=== PATIENT | female | born 2000 | race Caucasian/White ===

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

== ENCOUNTER 2019-01-09 14:45 | Emergency (ER) | payer SELFPAY ==
[~2019-01-09] VITALS: Ht 160 cm; Wt 59.0 kg
[2019-01-09] MEDS ORDERED: LACTATED RINGERS 1,000 ML IV SCH (16:45)
[2019-01-09] MEDS ORDERED: LIDOCAINE 2% VISCOUS 15 ML UDC PO ONE (16:45)
[2019-01-09] MEDS ORDERED: ANTACID SUSP 30 ML UDC (MYLANTA) PO ONE (16:45)
[2019-01-09] MEDS ORDERED: ONDANSETRON 4 MG/2 ML (SDV) Z0FRAN IVP ONE (16:45)
[2019-01-09 16:54] LABS: BASOPHILS % (AUTO) 0 % (0-10); EOSINOPHILS % (AUTO) 0 % (0-10); HEMATOCRIT 44 % (35-52); HEMOGLOBIN 15.4 G/DL (11.5-16.0); LYMPHOCYTES # (AUTO) 1.7 X 10^3 (1.0-4.0); LYMPHOCYTES % (AUTO) 15 % (12-44); MEAN CORPUSCULAR HEMOGLOBIN 30 PG (25-34); MEAN CORPUSCULAR HGB CONC 35 G/DL (32-36); MEAN CORPUSCULAR VOLUME 86 FL (80-99); MEAN PLATELET VOLUME 11.6 FL (7.4-10.4); MONOCYTES # (AUTO) 1.7 X 10^3 (0.0-1.0); MONOCYTES % (AUTO) 15 % (0-12); NEUTROPHILS # (AUTO) 8.1 X 10^3 (1.8-7.8); NEUTROPHILS % (AUTO) 71 % (42-75); PLATELET COUNT 459 10^3/uL (130-400); RED CELL DISTRIBUTION WIDTH 13.7 % (10.0-14.5); WHITE BLOOD COUNT 11.4 10^3/uL (4.3-11.0)
[2019-01-09] MEDS ORDERED: PROC5TAB52 PO (17:05)
--- NOTE | 2019-01-09 17:06 | ED Abdominal Pain ---
General Chief Complaint: Abdominal/GI Problems Stated Complaint: VOMITING Nursing Triage Note: PATIENT STATES THAT SHE HAS HAD VOMITING AND NAUSEA AND WEAKNESS X3 DAYS. SHE BELIEVES SHE HAS HAD FEVERS. Source of Information: Patient Exam Limitations: No Limitations History of Present Illness Date Seen by Provider: Jan 09, 2019 Time Seen by Provider: 17:03 Initial Comments To ER per private vehicle with reports of nausea and vomiting as well as epigastric abdominal pain for the past 3 days. No diarrhea. No alcohol use. No fevers or chills. Timing/Duration: 2-3 Days Severity/Quality: Moderate Location: Epigastric Radiation: No Radiation Activities at Onset: None Associated Symptoms: Nausea/Vomiting Allergies and Home Medications Allergies Coded Allergies: No Known Drug Allergies (Unverified , 05/07/10) Home Medications Norgestimate-Ethinyl Estradiol 1 Each Tablet, 1 TAB PO DAILY, (Reported) Prochlorperazine Maleate 5 Mg Tablet, 5 MG PO TID PRN for NAUSEA/VOMITING Prescribed by: KARIME LINK on 01/09/19 2700 Patient Home Medication List Home Medication List Reviewed: Yes Review of Systems Review of Systems Constitutional: see HPI EENTM: No Symptoms Reported Respiratory: No Symptoms Reported Gastrointestinal: See HPI, Abdominal Pain; Denies Constipated, Denies Diarrhea ; Nausea, Vomiting Genitourinary: No Symptoms Reported Musculoskeletal: no symptoms reported Skin: no symptoms reported Psychiatric/Neurological: No Symptoms Reported Endocrine: No Symptoms Reported Past Dmgmccm-Ivfnna-Cfixox Hx Patient Social History 2nd Hand Smoke Exposure: No Recent Foreign Travel: No Contact w/Someone Who Travel: No Recent Infectious Disease Expo: No Recent Hopitalizations: No Ebola Symptoms: Denies Symptoms Listed Seasonal Allergies Seasonal Allergies: No Past Medical History Surgeries: No Respiratory: No Cardiac: No Neurological: No Reproductive Disorders: No Female Reproductive Disorders: Denies Sexually Transmitted Disease: No HIV/AIDS: No Genitourinary: No Gastrointestinal: No Musculoskeletal: No Endocrine: No HEENT: No Loss of Vision: Denies Hearing Impairment: Denies Cancer: No Psychosocial: No Integumentary: Yes Eczema Blood Disorders: No Family Medical History Alcoholism 19 FATHER 19 MOTHER No Family History of: AIDS Abdominal aortic aneurysm Homar's disease Alzheimer's disease Aphasia Arthritis Asthma Cancer of mouth Cardiovascular disease Cataracts Colon cancer Completed stroke Congenital disease Congenital heart disease Coronary thrombosis Cystic fibrosis Deafness or hearing loss Dementia Diabetes mellitus Drug abuse Dysphasia Fibrocystic disease of breast Gastroenteritis Glaucoma Headache disorder Hypercholesterolemia Hypertension Infertility Kidney disease Myocardial infarction Neoplasm Not obtainable due to adoption Osteoporosis Parkinson's disease Prostate cancer Psychosocial problem Respiratory disorder Seizure disorder Severe allergy Thyroid disease Tuberculosis Visual disorder No Pertinent Family Hx, Psychiatric Problems Physical Exam Vital Signs Vital Signs - First Documented 01/09/19 15:12 Temp 98.4 Pulse 78 Resp 18 B/P (MAP) 122/77 Capillary Refill : Height/Weight/BMI Height: 5'3.00" Weight: 130lbs. 0oz. 58.733670hd; 21.09 BMI Method:Stated General Appearance: WD/WN, no apparent distress HEENT: PERRL/EOMI, normal ENT inspection Respiratory: no respiratory distress, no accessory muscle use Gastrointestinal: normal bowel sounds, soft, tenderness (epigastric) Extremities: normal range of motion, non-tender Neurologic/Psychiatric: alert, normal mood/affect, oriented x 3 Skin: normal color, warm/dry Progress/Results/Core Measures Results/Orders Lab Results Laboratory Tests Test 01/09/19 15:20 Range/Units White Blood Count 11.4 H 4.3-11.0 10^3/uL Red Blood Count 5.08 4.35-5.85 10^6/uL Hemoglobin 15.4 11.5-16.0 G/DL Hematocrit 44 35-52 % Mean Corpuscular Volume 86 80-99 FL Mean Corpuscular Hemoglobin 30 25-34 PG Mean Corpuscular Hemoglobin Concent 35 32-36 G/DL Red Cell Distribution Width 13.7 10.0-14.5 % Platelet Count 459 H 130-400 10^3/uL Mean Platelet Volume 11.6 H 7.4-10.4 FL Neutrophils (%) (Auto) 71 42-75 % Lymphocytes (%) (Auto) 15 12-44 % Monocytes (%) (Auto) 15 H 0-12 % Eosinophils (%) (Auto) 0 0-10 % Basophils (%) (Auto) 0 0-10 % Neutrophils # (Auto) 8.1 H 1.8-7.8 X 10^3 Lymphocytes # (Auto) 1.7 1.0-4.0 X 10^3 Monocytes # (Auto) 1.7 H 0.0-1.0 X 10^3 Eosinophils # (Auto) 0.0 0.0-0.3 10^3/uL Basophils # (Auto) 0.0 0.0-0.1 10^3/uL Sodium Level 137 135-145 MMOL/L Potassium Level 2.8 L 3.6-5.0 MMOL/L Chloride Level 84 L 98-107 MMOL/L Carbon Dioxide Level 33 H 21-32 MMOL/L Anion Gap 20 H 5-14 MMOL/L Blood Urea Nitrogen 49 H 7-18 MG/DL Creatinine 1.46 H 0.60-1.30 MG/DL Estimat Glomerular Filtration Rate 46 BUN/Creatinine Ratio 34 Glucose Level 118 H 70-105 MG/DL Calcium Level 11.0 H 8.5-10.1 MG/DL Corrected Calcium 8.5-10.1 MG/DL Total Bilirubin 1.2 H 0.1-1.0 MG/DL Aspartate Amino Transf (AST/SGOT) 29 5-34 U/L Alanine Aminotransferase (ALT/SGPT) 20 0-55 U/L Alkaline Phosphatase 76 40-136 U/L Total Protein 9.4 H 6.4-8.2 GM/DL Albumin 5.6 H 3.2-4.5 GM/DL Lipase 23 8-78 U/L Serum Test, Qualitative NEGATIVE NEGATIVE Serum Alcohol < 10 <10 MG/DL My Orders Orders - KARIME LINK APRN Antacid Suspension (Mylanta Suspension (01/09/19 16:45) Lidocaine 2% Viscous 15 Ml (Xylocaine Vi (01/09/19 16:45) Ondansetron Injection (Zofran Injectio (01/09/19 16:45) Lactated Ringers (Lr 1000 Ml Iv Solution (01/09/19 16:45) Cbc With Automated Diff (01/09/19 16:45) Comprehensive Metabolic Panel (01/09/19 16:45) Lipase (01/09/19 16:45) Hcg,Qualitative Serum (01/09/19 16:45) Ua Culture If Indicated (01/09/19 16:45) Drug Screen Stat (Urine) (01/09/19 16:45) Alcohol (01/09/19 16:45) Iv Heplock-Insert (Order) (01/09/19 16:45) Ns Iv 1000 Ml (Sodium Chloride 0.9%) (01/09/19 17:45) Potassium Cl 10meq/50ml Ivpb (Kcl 10 Meq (01/09/19 17:45) Normal Saline Bolus 1,000ml (01/09/19 19:15) Medications Given in ED Current Medications Medications Dose Ordered Sig/Jeannette Route Start Time Stop Time Status Last Admin Dose Admin Al Hydrox/Mg Hydrox/Simethicone 30 ml ONCE ONCE PO 01/09/19 16:45 01/09/19 16:46 DC 01/09/19 17:14 30 ML Lidocaine HCl 10 ml ONCE ONCE PO 01/09/19 16:45 01/09/19 16:46 DC 01/09/19 17:14 10 ML Ondansetron HCl 4 mg ONCE ONCE IVP 01/09/19 16:45 01/09/19 16:46 DC 01/09/19 17:14 4 MG Vital Signs/I&O 01/09/19 15:12 Temp 98.4 Pulse 78 Resp 18 B/P (MAP) 122/77 Departure Communication (Admissions) [id number]-she has not had any vomiting here in the emergency room. She states her nausea was minimal at arrival and she was given nausea medication on arrival. She states that at this time she is feeling much better replace her potassium 20 mEq IV here in the emergency room over 2 hours, 40 mEq by mouth, 3 L of IV fluids then discharge to home. Impression Primary Impression: Nausea and vomiting Qualified Codes: R11.2 - Nausea with vomiting, unspecified Additional Impressions: Hypokalemia Acute renal insufficiency Disposition: HOME, SELF-CARE Condition: Stable Departure-Patient Inst. Decision time for Depature: 17:05 Referrals: VICK WALDRON MD (PCP) Primary Care Physician Patient Instructions: Nausea and Vomiting, Adult Add. Discharge Instructions: All discharge instructions reviewed with patient and/or family. Voiced understanding. Scripts Potassium Chloride (Potassium Chloride) 20 Meq Tablet.er 40 MEQ PO DAILY, #8 TAB Prov: KARIME LINK AIR POLLUTION AUDITOR 01/09/19 Pantoprazole Sodium (Protonix) 40 Mg Tablet.dr 40 MG PO DAILY, #30 TAB Prov: KARIME LINK APRN 01/09/19 Prochlorperazine Maleate (Compazine) 5 Mg Tablet 5 MG PO TID PRN for NAUSEA/VOMITING, #10 TAB Prov: KARIME LINK APRN 01/09/19 Work/School Note: Work Release Form Date Seen in the Emergency Department: Jan 09, 2019 Return to Work: Jan 11, 2019 KARIME LINK APRN Jan 09, 2019 17:05
[2019-01-09 17:08] LABS: ALANINE AMINOTRANSFERASE 20 U/L (0-55); ALBUMIN 5.6 GM/DL (3.2-4.5); ALKALINE PHOSPHATASE 76 U/L (40-136); BILIRUBIN,TOTAL 1.2 MG/DL (0.1-1.0); BUN/CREATININE RATIO 34; CARBON DIOXIDE 33 MMOL/L (21-32); CHLORIDE 84 MMOL/L (98-107); CREATININE SERUM 1.46 MG/DL (0.60-1.30); GFR ESTIMATED 46; GLUCOSE 118 MG/DL (70-105); LIPASE 23 U/L (8-78); POTASSIUM 2.8 MMOL/L (3.6-5.0); SODIUM 137 MMOL/L (135-145); TOTAL PROTEIN 9.4 GM/DL (6.4-8.2)
[2019-01-09] MEDS ORDERED: NS IV 1000 ML 1,000 ML IV SCH ×2 (17:45→19:15)
[2019-01-09] MEDS: POTASSIUM CL 10MEQ/50ML IVPB 50 ML IV SCH ×2 (18:00→19:11)
--- NOTE | 2019-01-09 18:02 | NUR ---
PT IS A SCARRED CUTS NOTED BILATERALLY ON ARMS
[2019-01-09] MEDS ORDERED: POTA-51 PO (19:04)
[2019-01-09] MEDS ORDERED: PANT40TA2 PO (19:04)
[2019-01-09 19:15] VITALS: BP 126/79
[2019-01-09] MEDS ORDERED: KCL 10 MEQ TAB (MICRO K) PO ONE (19:15)
[2019-01-09 19:23] LABS: BILIRUBIN,URINE NEGATIVE (NEGATIVE); GLUCOSE, URINE (UA) NEGATIVE (NEGATIVE); KETONES,URINE 1+ (NEGATIVE); LEUKOCYTE ESTERASE ,URINE 1+ (NEGATIVE); NITRITE,URINE NEGATIVE (NEGATIVE); PH,URINE 8 (5-9); PROTEIN,URINE 3+ (NEGATIVE); UROBILINOGEN,URINE NORMAL (NORMAL)
[2019-01-09 19:40] LABS: AMPHETAMINE SCREEN, URINE NEGATIVE (NEGATIVE); BARBITURATE SCREEN URINE NEGATIVE (NEGATIVE); BENZODIAZEPINES SCREEN URINE POSITIVE (NEGATIVE); CANNABINOID SCREEN, URINE POSITIVE (NEGATIVE); COCAINE SCREEN URINE NEGATIVE (NEGATIVE); METHADONE STAT NEGATIVE (NEGATIVE); METHAMPHETAMINE SCREEN URINE S NEGATIVE (NEGATIVE); OPIATE SCREEN URINE NEGATIVE (NEGATIVE); OXYCODONE STAT NEGATIVE (NEGATIVE); PROPOXYPHENE STAT NEGATIVE (NEGATIVE); TRICYCLIC ANTIDEPRESSANTS SCRE NEGATIVE (NEGATIVE)
[2019-01-09 19:43] LABS: CLARITY,URINE SL CLOUDY; COLOR,URINE YELLOW
[2019-01-09 19:46] LABS: BACTERIA,URINE TRACE /HPF
== END 2019-01-09 20:23 | disposition home or self-care (01) ==
LOC: EDUNIT# 14:45 → ER 14:47
DX: N17.9 Acute kidney failure, unspecified (principal); R11.2 Nausea with vomiting, unspecified; E87.6 Hypokalemia
CPT/HCPCS: 36415; 80053; 80306; 80320; 81000; 83690; 84703; 85025

== ENCOUNTER 2019-02-28 12:00 | Emergency (ER) | payer SELFPAY ==
[~2019-02-28] VITALS: Ht 160 cm; Wt 59.0 kg
[~2019-02-28 12:00] MED LIST changes: +PANT40TA2 PO; +POTA-51 PO; +PROC5TAB52 PO
[2019-02-28] MEDS ORDERED: NS IV 1000 ML 1,000 ML IV SCH (12:15)
[2019-02-28] MEDS ORDERED: diphenhydrAMINE 50 MG/ML INJ (BENADRYL) IVP ONE (12:15)
[2019-02-28 12:26] LABS: BILIRUBIN,URINE NEGATIVE (NEGATIVE); CLARITY,URINE CLEAR; COLOR,URINE YELLOW; GLUCOSE, URINE (UA) NEGATIVE (NEGATIVE); KETONES,URINE 3+ (NEGATIVE); LEUKOCYTE ESTERASE ,URINE 1+ (NEGATIVE); NITRITE,URINE NEGATIVE (NEGATIVE); PH,URINE 6 (5-9); PROTEIN,URINE 3+ (NEGATIVE); UROBILINOGEN,URINE 1 MG/DL (NORMAL)
[2019-02-28 12:26] LABS: BASOPHILS % (AUTO) 0 % (0-10); EOSINOPHILS % (AUTO) 0 % (0-10); HEMATOCRIT 45 % (35-52); LYMPHOCYTES # (AUTO) 1.6 X 10^3 (1.0-4.0); LYMPHOCYTES % (AUTO) 16 % (12-44); MEAN CORPUSCULAR HEMOGLOBIN 31 PG (25-34); MEAN CORPUSCULAR HGB CONC 35 G/DL (32-36); MEAN CORPUSCULAR VOLUME 87 FL (80-99); MEAN PLATELET VOLUME 10.9 FL (7.4-10.4); MONOCYTES # (AUTO) 1.4 X 10^3 (0.0-1.0); MONOCYTES % (AUTO) 14 % (0-12); NEUTROPHILS # (AUTO) 7.3 X 10^3 (1.8-7.8); NEUTROPHILS % (AUTO) 71 % (42-75); PLATELET COUNT 396 10^3/uL (130-400); RED CELL DISTRIBUTION WIDTH 13.4 % (10.0-14.5); WHITE BLOOD COUNT 10.3 10^3/uL (4.3-11.0)
[2019-02-28] MEDS ORDERED: HALOPERIDOL 5 MG/ML (HALDOL) AMP IV ONE (12:30)
--- NOTE | 2019-02-28 12:35 | ED Pediatric Illness ---
HPI-Pediatric Illness General Chief Complaint: Abdominal/GI Problems Stated Complaint: NAUSEA, VOMITING Nursing Triage Note: PATIENT AMBULATORY TO ER ROOM 5 WITH COMPLAINT OF NAUSEA, VOMITING AND MID BACK PAIN X 3 DAYS. PATIENT STATES SHE HAS BEEN UNABLE TO KEEP ANY FOODS OR FLUIDS DOWN. SHE IS ALSO COMPLAINING OF FEELING LIGHTHEADED WITH STANDING UP AND WALKING. PATIENT IS AWAKE AND ALERT X 4. Source: patient Exam Limitations: no limitations History of Present Illness Date Seen by Provider: Feb 28, 2019 Time Seen by Provider: 12:33 Initial Comments To ER with a three-day history of epigastric abdominal pain nausea and vomiting. History of recurrent nausea and vomiting and frequent marijuana use. Timing/Duration: other (3 days) Severity: moderate Presenting Symptoms: vomiting Allergies and Home Medications Allergies Coded Allergies: No Known Drug Allergies (Unverified , 05/07/10) Home Medications Norgestimate-Ethinyl Estradiol 1 Each Tablet, 1 TAB PO DAILY, (Reported) Pantoprazole Sodium 40 Mg Tablet.dr, 40 MG PO DAILY Prescribed by: KARIME LINK on 01/09/191903 Potassium Chloride 20 Meq Tablet.er, 40 MEQ PO DAILY Prescribed by: KARIME LINK on 01/09/191903 Prochlorperazine Maleate 5 Mg Tablet, 5 MG PO TID PRN for NAUSEA/VOMITING Prescribed by: KARIME LINK on 01/09/19 170 Patient Home Medication List Home Medication List Reviewed: Yes Review of Systems Review of Systems Constitutional: see HPI EENTM: see HPI Respiratory: no symptoms reported Cardiovascular: no symptoms reported Gastrointestinal: abdominal pain, nausea, vomiting Genitourinary: no symptoms reported : No LMP: Feb 28, 2019 Musculoskeletal: no symptoms reported Skin: no symptoms reported Psychiatric/Neurological: No Symptoms Reported Endocrine: No Symptoms Reported Hematologic/Lymphatic: No Symptoms Reported PMH-Pediatrics Recent Foreign Travel: No Contact w/other who traveled: No Recent Infectious Disease Expo: No Hospitalization with Isolation: Denies Seasonal Allergies: No HX Surgeries: No Hx Respiratory Disorders: No Hx Cardiovascular Disorders: No Hx Neurological Disorders: No Hx Reproductive Disorders: No Sexually Transmitted Disease: No HIV/AIDS: No Female Reproductive Disorders: Denies Hx Genitourinary Disorders: No Hx Gastrointestinal Disorders: No Hx Musculoskeletal Disorders: No Hx Endocrine Disorders: No HX ENT Disorders: No Loss of Vision: Denies Hearing Impairment: Denies Hx Cancer: No Hx Psychiatric Problems: No HX Skin/Integumentary Disorder: Yes Skin/Integumentary Disorders: Eczema Hx Blood Disorders: No Significant Family History: No Pertinent Family Hx, Psychiatric Problems Patient History: Alcoholism 19 FATHER 19 MOTHER No Family History of: AIDS Abdominal aortic aneurysm Mohler's disease Alzheimer's disease Aphasia Arthritis Asthma Cancer of mouth Cardiovascular disease Cataracts Colon cancer Completed stroke Congenital disease Congenital heart disease Coronary thrombosis Cystic fibrosis Deafness or hearing loss Dementia Diabetes mellitus Drug abuse Dysphasia Fibrocystic disease of breast Gastroenteritis Glaucoma Headache disorder Hypercholesterolemia Hypertension Infertility Kidney disease Myocardial infarction Neoplasm Not obtainable due to adoption Osteoporosis Parkinson's disease Prostate cancer Psychosocial problem Respiratory disorder Seizure disorder Severe allergy Thyroid disease Tuberculosis Visual disorder Physical Exam-Pediatric Physical Exam Vital Signs - First Documented 02/28/19 12:02 Temp 98.2 Pulse 80 Resp 18 B/P (MAP) 126/99 Pulse Ox 98 O2 Delivery Room Air Capillary Refill : Height, Weight, BMI Height: 5'3.00" Weight: 130lbs. 0oz. 58.895964yq; 21.09 BMI Method:Actual General Appearance: no acute distress, see HPI, active HENT: head inspection normal, fontanelle closed/normal, PERRL Neck: non-tender, full range of motion Respiratory: normal breath sounds, no respiratory distress, no accessory muscle use Gastrointestinal: normal bowel sounds, soft Neurologic/Psychiatric: alert, normal mood/affect, oriented x 3 Skin: normal color, warm/dry Progress/Results/Core Measures Results/Orders Lab Results Laboratory Tests Test 02/28/19 12:08 02/28/19 12:17 Range/Units Urine Color YELLOW Urine Clarity CLEAR Urine pH 6 5-9 Urine Specific [place] 1.025 H 1.016-1.022 Urine Protein 3+ H NEGATIVE Urine Glucose (UA) NEGATIVE NEGATIVE Urine Ketones 3+ H NEGATIVE Urine Nitrite NEGATIVE NEGATIVE Urine Bilirubin NEGATIVE NEGATIVE Urine Urobilinogen 1 NORMAL MG/DL Urine Leukocyte Esterase 1+ H NEGATIVE Urine RBC (Auto) 5+ H NEGATIVE Urine RBC NONE /HPF Urine WBC NONE /HPF Urine Squamous Epithelial Cells 5-10 /HPF Urine Crystals NONE /LPF Urine Bacteria FEW H /HPF Urine Casts NONE /LPF Urine Mucus NEGATIVE /LPF Urine Culture Indicated NO Urine Opiates Screen NEGATIVE NEGATIVE Urine Oxycodone Screen NEGATIVE NEGATIVE Urine Methadone Screen NEGATIVE NEGATIVE Urine Propoxyphene Screen NEGATIVE NEGATIVE Urine Barbiturates Screen NEGATIVE NEGATIVE Ur Tricyclic Antidepressants Screen NEGATIVE NEGATIVE Urine Phencyclidine Screen NEGATIVE NEGATIVE Urine Amphetamines Screen NEGATIVE NEGATIVE Urine Methamphetamines Screen NEGATIVE NEGATIVE Urine Benzodiazepines Screen NEGATIVE NEGATIVE Urine Cocaine Screen NEGATIVE NEGATIVE Urine Cannabinoids Screen POSITIVE H NEGATIVE White Blood Count 10.3 4.3-11.0 10^3/uL Red Blood Count 5.22 4.35-5.85 10^6/uL Hemoglobin 16.0 11.5-16.0 G/DL Hematocrit 45 35-52 % Mean Corpuscular Volume 87 80-99 FL Mean Corpuscular Hemoglobin 31 25-34 PG Mean Corpuscular Hemoglobin Concent 35 32-36 G/DL Red Cell Distribution Width 13.4 10.0-14.5 % Platelet Count 396 130-400 10^3/uL Mean Platelet Volume 10.9 H 7.4-10.4 FL Neutrophils (%) (Auto) 71 42-75 % Lymphocytes (%) (Auto) 16 12-44 % Monocytes (%) (Auto) 14 H 0-12 % Eosinophils (%) (Auto) 0 0-10 % Basophils (%) (Auto) 0 0-10 % Neutrophils # (Auto) 7.3 1.8-7.8 X 10^3 Lymphocytes # (Auto) 1.6 1.0-4.0 X 10^3 Monocytes # (Auto) 1.4 H 0.0-1.0 X 10^3 Eosinophils # (Auto) 0.0 0.0-0.3 10^3/uL Basophils # (Auto) 0.0 0.0-0.1 10^3/uL Sodium Level 137 135-145 MMOL/L Potassium Level 3.0 L 3.6-5.0 MMOL/L Chloride Level 90 L 98-107 MMOL/L Carbon Dioxide Level 28 21-32 MMOL/L Anion Gap 19 H 5-14 MMOL/L Blood Urea Nitrogen 24 H 7-18 MG/DL Creatinine 1.12 0.60-1.30 MG/DL Estimat Glomerular Filtration Rate > 60 BUN/Creatinine Ratio 21 Glucose Level 112 H 70-105 MG/DL Calcium Level 11.0 H 8.5-10.1 MG/DL Corrected Calcium 8.5-10.1 MG/DL Total Bilirubin 2.2 H 0.1-1.0 MG/DL Aspartate Amino Transf (AST/SGOT) 22 5-34 U/L Alanine Aminotransferase (ALT/SGPT) 22 0-55 U/L Alkaline Phosphatase 77 40-136 U/L Total Protein 9.2 H 6.4-8.2 GM/DL Albumin 5.6 H 3.2-4.5 GM/DL Lipase 37 8-78 U/L My Orders Orders - KARIME LINK [employer]ERGL[employer] FINISHER Cbc With Automated Diff (02/28/19 12:08) Lipase (02/28/19 12:08) Ua Culture If Indicated (02/28/19 12:08) Drug Screen Stat (Urine) (02/28/19 12:08) Comprehensive Metabolic Panel (02/28/19 12:08) Iv Heplock-Insert (Order) (02/28/19 12:08) Hcg,Qualitative Serum (02/28/19 12:08) Ns Iv 1000 Ml (Sodium Chloride 0.9%) (02/28/19 12:15) Diphenhydramine Injection (Benadryl Inje (02/28/19 12:15) Haloperidol Injection (Haldol Injectio (02/28/19 12:30) Potassium Chloride (Tablet) (Klor Con Ta (02/28/19 13:15) Medications Given in ED Current Medications Medications Dose Ordered Sig/Jeannette Route Start Time Stop Time Status Last Admin Dose Admin Diphenhydramine HCl 25 mg ONCE ONCE IVP 02/28/19 12:15 02/28/19 12:16 DC 02/28/19 12:25 25 MG Haloperidol Lactate 3 mg ONCE ONCE IV 02/28/19 12:30 02/28/19 12:31 DC 02/28/19 12:26 3 MG Vital Signs/I&O 02/28/19 12:02 Temp 98.2 Pulse 80 Resp 18 B/P (MAP) 126/99 Pulse Ox 98 O2 Delivery Room Air Departure Communication (Admissions) 1407-feeling better after 3 mg of IV Haldol, Benadryl, normal saline. Impression Primary Impression: Cannabinoid hyperemesis syndrome Disposition: 01 HOME, SELF-CARE Condition: Stable Departure-Patient Inst. Decision time for Depature: 13:08 Referrals: VICK WALDRON MD (PCP) Primary Care Physician NO,LOCAL PHYSICIAN (Family) Primary Care Physician Patient Instructions: Marijuana Use and Addiction (DC) Add. Discharge Instructions: 1. Clear liquids only for the next 12 hours. Try to stay hydrated. Please try to reduce your marijuana intake significantly. In the meantime if this recurs something that other people find helpful is rub come Capsaicin cream (can purchase at [employer]--just looked for the active ingredient on the back of the box) across her abdomen and then wait 30 minutes to an hour. KARIME LINK APRN Feb 28, 2019 12:35
[2019-02-28 12:37] LABS: BACTERIA,URINE FEW /HPF
[2019-02-28 12:39] LABS: AMPHETAMINE SCREEN, URINE NEGATIVE (NEGATIVE); BARBITURATE SCREEN URINE NEGATIVE (NEGATIVE); BENZODIAZEPINES SCREEN URINE NEGATIVE (NEGATIVE); CANNABINOID SCREEN, URINE POSITIVE (NEGATIVE); COCAINE SCREEN URINE NEGATIVE (NEGATIVE); METHADONE STAT NEGATIVE (NEGATIVE); METHAMPHETAMINE SCREEN URINE S NEGATIVE (NEGATIVE); OPIATE SCREEN URINE NEGATIVE (NEGATIVE); OXYCODONE STAT NEGATIVE (NEGATIVE); PROPOXYPHENE STAT NEGATIVE (NEGATIVE); TRICYCLIC ANTIDEPRESSANTS SCRE NEGATIVE (NEGATIVE)
[2019-02-28 12:45] LABS: ALANINE AMINOTRANSFERASE 22 U/L (0-55); ALBUMIN 5.6 GM/DL (3.2-4.5); ALKALINE PHOSPHATASE 77 U/L (40-136); BILIRUBIN,TOTAL 2.2 MG/DL (0.1-1.0); BUN/CREATININE RATIO 21; CARBON DIOXIDE 28 MMOL/L (21-32); CHLORIDE 90 MMOL/L (98-107); CREATININE SERUM 1.12 MG/DL (0.60-1.30); GFR ESTIMATED > 60; GLUCOSE 112 MG/DL (70-105); LIPASE 37 U/L (8-78); SODIUM 137 MMOL/L (135-145); TOTAL PROTEIN 9.2 GM/DL (6.4-8.2)
--- NOTE | 2019-02-28 13:06 | NUR ---
PATIENT IS AWAKE AND ALERT. SHE STATES SHE FEELS MUCH BETTER AFTER FLUIDS AND MEDICATION GIVEN AND NAUSEA IS IMPROVED.
[2019-02-28] MEDS ORDERED: KCL 10 MEQ TAB (MICRO K) PO ONE (13:15)
== END 2019-02-28 13:19 | disposition home or self-care (01) ==
LOC: EDUNIT# 12:00 → ER 12:02
DX: F12.188 Cannabis abuse with other cannabis-induced disorder (principal); R11.2 Nausea with vomiting, unspecified
CPT/HCPCS: 36415; 80053; 80306; 81000; 83690; 84703; 85025; 96361; 96374; 96375

== ENCOUNTER 2019-04-18 10:07 | Emergency (ER) | payer SELFPAY ==
[~2019-04-18] VITALS: Ht 160 cm; Wt 59.0 kg
[2019-04-18 11:49] LABS: BILIRUBIN,URINE NEGATIVE (NEGATIVE); CLARITY,URINE CLEAR; COLOR,URINE YELLOW; GLUCOSE, URINE (UA) NEGATIVE (NEGATIVE); KETONES,URINE NEGATIVE (NEGATIVE); LEUKOCYTE ESTERASE ,URINE 2+ (NEGATIVE); NITRITE,URINE NEGATIVE (NEGATIVE); PH,URINE 7 (5-9); PROTEIN,URINE NEGATIVE (NEGATIVE); UROBILINOGEN,URINE NORMAL (NORMAL)
[2019-04-18 12:04] LABS: BACTERIA,URINE TRACE /HPF; WBC,URINE 25-50 /HPF
[2019-04-18] MEDS ORDERED: LIDOCAINE 1% INJ 20 ML 20 ML VIAL INJ ONE (12:15)
[2019-04-18] MEDS ORDERED: cefTRIAXone 1,000 MG/2.86 ml vial (IM ONLY) IM SCH (12:15)
[2019-04-18] MEDS ORDERED: ONDA4TAB11 PO (12:17)
[2019-04-18] MEDS ORDERED: CEPH500T PO (12:17)
--- NOTE | 2019-04-18 12:17 | ED GU-Female ---
General Chief Complaint: - Urinary Stated Complaint: BACK PAIN Nursing Triage Note: PT STATES LOWER BACK PAIN FOR 4 DAYS. PT HAS BURNING AND PAIN WITH URINATION. PT STATES NAUSEA AND VOMITING. PT HISTORY OF CYLIC VOMITING. PT STATES SHE DOES NOT DRINK ENOUGH WATER. Source: patient Exam Limitations: no limitations History of Present Illness Date Seen by Provider: Apr 18, 2019 Time Seen by Provider: 11:10 Initial Comments 18-year-old female who presents to emergency room with complaints of lower back pain for the past 4 days, burning and pain with urination, nausea and vomiting. She reports marijuana use and cyclic vomiting from time to time but reports that this is different kind of nausea. She denies fevers. Associated Symptoms: dysuria, lower back pain, urinary frequency Allergies and Home Medications Allergies Coded Allergies: No Known Drug Allergies (Unverified , 05/07/10) Home Medications Cephalexin 500 Mg Tablet, 500 MG PO TID Prescribed by: MERRY CARPENTER on 04/18/19 1217 Norgestimate-Ethinyl Estradiol 1 Each Tablet, 1 TAB PO DAILY, (Reported) Ondansetron 4 Mg Tab.rapdis, 4 MG PO Q4H PRN for NAUSEA/VOMITING-1ST LINE Prescribed by: MERRY CARPENTER on 04/18/19 1217 Pantoprazole Sodium 40 Mg Tablet.dr, 40 MG PO DAILY Prescribed by: KARIME LINK on 01/09/19 190 Potassium Chloride 20 Meq Tablet.er, 40 MEQ PO DAILY Prescribed by: KARIME LINK on 01/09/19 190 Prochlorperazine Maleate 5 Mg Tablet, 5 MG PO TID PRN for NAUSEA/VOMITING Prescribed by: KARIME LINK on 01/09/19 1705 Patient Home Medication List Home Medication List Reviewed: Yes Review of Systems Review of Systems Constitutional: see HPI; No chills, No fever Genitourinary: see HPI, burning, frequency, pain Musculoskeletal: see HPI, back pain All Other Systemes Reviewed Negative Unless Noted: Yes Past Lhcmiuw-Wecmen-Hfucty Hx Past Med/Social Hx: Reviewed Nursing Past Med/Soc Hx Patient Social History Alcohol Use: Denies Use Recreational Drug Use: Yes Drug of Choice: WEED 2nd Hand Smoke Exposure: No Recent Foreign Travel: No Contact w/Someone Who Travel: No Recent Hopitalizations: No Physical Abuse: No Sexual Abuse: No Mistreated: No Fear: No Seasonal Allergies Seasonal Allergies: No Past Medical History Surgeries: No Respiratory: No Cardiac: No Neurological: No Reproductive Disorders: No Female Reproductive Disorders: Denies Sexually Transmitted Disease: No HIV/AIDS: No Genitourinary: No Gastrointestinal: No Musculoskeletal: No Endocrine: No HEENT: No Loss of Vision: Denies Hearing Impairment: Denies Cancer: No Psychosocial: No Integumentary: Yes Eczema Blood Disorders: No Family Medical History Reviewed Nursing Family Hx Alcoholism 19 FATHER 19 MOTHER No Family History of: AIDS Abdominal aortic aneurysm Homar's disease Alzheimer's disease Aphasia Arthritis Asthma Cancer of mouth Cardiovascular disease Cataracts Colon cancer Completed stroke Congenital disease Congenital heart disease Coronary thrombosis Cystic fibrosis Deafness or hearing loss Dementia Diabetes mellitus Drug abuse Dysphasia Fibrocystic disease of breast Gastroenteritis Glaucoma Headache disorder Hypercholesterolemia Hypertension Infertility Kidney disease Myocardial infarction Neoplasm Not obtainable due to adoption Osteoporosis Parkinson's disease Prostate cancer Psychosocial problem Respiratory disorder Seizure disorder Severe allergy Thyroid disease Tuberculosis Visual disorder No Pertinent Family Hx, Psychiatric Problems Physical Exam Vital Signs Vital Signs - First Documented 04/18/19 11:07 Temp 96.5 Pulse 83 Resp 18 B/P (MAP) 113/76 Pulse Ox 99 O2 Delivery Room Air Capillary Refill : Height, Weight, BMI Height: 5'3.00" Weight: 130lbs. 0oz. [id number]; 21.09 BMI Method:Stated General Appearance: WD/WN, no apparent distress Respiratory: chest non-tender, lungs clear, normal breath sounds, no respiratory distress, no accessory muscle use, respiratory distress Gastrointestinal: normal bowel sounds, non tender, soft, no organomegaly, no pulsatile mass, abnormal bowel sounds Back: normal inspection, no CVA tenderness, no vertebral tenderness Extremities: normal capillary refill Neurologic/Psychiatric: alert, normal mood/affect, oriented x 3 Skin: normal color, warm/dry Progress/Results/Core Measures Suspected Sepsis SIRS Temperature:96.5 Pulse: Respiratory Rate: Blood Pressure / Mean: Results/Orders Lab Results Laboratory Tests Test 04/18/19 11:11 Range/Units Urine Color YELLOW Urine Clarity CLEAR Urine pH 7 5-9 Urine Specific [place] 1.010 L 1.016-1.022 Urine Protein NEGATIVE NEGATIVE Urine Glucose (UA) NEGATIVE NEGATIVE Urine Ketones NEGATIVE NEGATIVE Urine Nitrite NEGATIVE NEGATIVE Urine Bilirubin NEGATIVE NEGATIVE Urine Urobilinogen NORMAL NORMAL MG/DL Urine Leukocyte Esterase 2+ H NEGATIVE Urine RBC (Auto) 1+ H NEGATIVE Urine RBC 2-5 H /HPF Urine WBC 25-50 H /HPF Urine Squamous Epithelial Cells 2-5 /HPF Urine Crystals NONE /LPF Urine Bacteria TRACE /HPF Urine Casts NONE /LPF Urine Mucus NEGATIVE /LPF Urine Culture Indicated YES Urine Test NEGATIVE NEGATIVE Micro Results Microbiology 04/18/19 Urine Culture - Final, Complete Staphylococcus saphrophyticus My Orders Orders - MERRY CARPENTER Ua Culture If Indicated (04/18/19 11:14) Hcg,Qualitative Urine (04/18/19 11:14) Urine Culture (04/18/19 11:11) Ceftriaxone For Im Use (Rocephin For Im (04/18/19 12:15) Lidocaine 1% Inj 20 Ml (Xylocaine 1% Inj (04/18/19 12:15) Vital Signs/I&O Capillary Refill : Departure Impression Primary Impression: Urinary tract infection Disposition: 01 HOME, SELF-CARE Condition: Stable/Unchanged Departure-Patient Inst. Decision time for Depature: 12:15 Referrals: VICK WALDRON MD (PCP/Family) Primary Care Physician Patient Instructions: Urinary Tract Infection, Adult (DC) Add. Discharge Instructions: Take medication as directed. Drink plenty of fluids like water to help flush out your kidneys and urinary tract. Follow-up with your primary care provider within 1 week for recheck. Return back to the emergency room for worsening symptoms or concerns as needed. All discharge instructions reviewed with patient and/or family. Voiced understanding. Scripts Ondansetron (Ondansetron Odt) 4 Mg Tab.rapdis 4 MG PO Q4H PRN for NAUSEA/VOMITING-1ST LINE, #14 TAB Prov: MERRY CARPENTER 04/18/19 Cephalexin (Cephalexin) 500 Mg Tablet 500 MG PO TID for 7 Days, #21 TAB 0 Refills Prov: MERRY CARPENTER 04/18/19 MERRY CARPENTER Apr 18, 2019 12:17
== END 2019-04-18 12:38 | disposition home or self-care (01) ==
LOC: EDUNIT# 10:07 → ER 10:08
DX: N39.0 Urinary tract infection, site not specified (principal); F12.10 Cannabis abuse, uncomplicated
CPT/HCPCS: 81000; 84703; 87077; 87088; 96372; 99284

== ENCOUNTER 2019-08-08 00:54 | Emergency (ER) | payer SELFPAY ==
[~2019-08-08] VITALS: Ht 160 cm; Wt 54.5 kg
[~2019-08-08 00:54] MED LIST changes: +CEPH500T PO; +ONDA4TAB11 PO
[2019-08-08] MEDS ORDERED: LIDOCAINE 1% INJ 20 ML 20 ML VIAL INJ ONE (01:30)
--- NOTE | 2019-08-08 01:32 | ED Fall/Injury ---
General Chief Complaint: Laceration Stated Complaint: LAC OVER RT EYE Nursing Triage Note: Pt amb to room #9 with c/o lac to superior rt eyebrow. Pt reports @ approx 0030 on this day she "tripped over a broken flower pot" and accuired laceration by a piece of broken glass. Pt reports headache to rt temperal area. Denies loc, neck, or back pain. Reports to be current on tetanus vaccine. Pt noted to be tearful and anxious during triage. Source: patient, family (sister) Exam Limitations: no limitations History of Present Illness Date Seen by Provider: Aug 08, 2019 Time Seen by Provider: 01:18 Initial Comments Patient presents to ER by private conveyance with chief complaint that she was at her house with some friends and somehow lost her balance and fell onto the ground. There was some already broken glass. She says Her right forehead above the right eye. She has no other pain or injuries anywhere else. She denies loss of consciousness nausea headache. She has not taken anything for the pain she said the pain is all discharge around the laceration. She does not have any significant medical problems. She answers yes when asked if she feels safe at home. This occurred approximately 1-1/2 hours prior to arrival. Allergies and Home Medications Allergies Coded Allergies: No Known Drug Allergies (Unverified , 05/07/10) Home Medications Cephalexin 500 Mg Tablet, 500 MG PO TID Prescribed by: MERRY CARPENTER on 04/18/19 1217 Norgestimate-Ethinyl Estradiol 1 Each Tablet, 1 TAB PO DAILY, (Reported) Ondansetron 4 Mg Tab.rapdis, 4 MG PO Q4H PRN for NAUSEA/VOMITING-1ST LINE Prescribed by: MERRY CARPENTER on 04/18/19 121 Pantoprazole Sodium 40 Mg Tablet.dr, 40 MG PO DAILY Prescribed by: KARIME LINK on 01/09/191903 Potassium Chloride 20 Meq Tablet.er, 40 MEQ PO DAILY Prescribed by: KARIME LINK on 01/09/191903 Prochlorperazine Maleate 5 Mg Tablet, 5 MG PO TID PRN for NAUSEA/VOMITING Prescribed by: KARIME LINK on 01/09/19 1705 Patient Home Medication List Home Medication List Reviewed: Yes Review of Systems Review of Systems Constitutional: No chills, No fever Eyes: Denies Blindness, Denies Blurred Vision Ears, Nose, Mouth, Throat: denies ear pain, denies ear discharge Respiratory: No cough, No short of breath Cardiovascular: No chest pain, No edema Past Myjvhwv-Ppgeko-Gptxzq Hx Patient Social History Alcohol Use: Denies Use Recreational Drug Use: Yes Drug of Choice: THC Smoking Status: Never a Smoker 2nd Hand Smoke Exposure: No Recent Foreign Travel: No Contact w/Someone Who Travel: No Recent Infectious Disease Expo: No Recent Hopitalizations: No Seasonal Allergies Seasonal Allergies: No Past Medical History Surgeries: No Respiratory: No Cardiac: No Neurological: No Reproductive Disorders: No Female Reproductive Disorders: Denies Sexually Transmitted Disease: No HIV/AIDS: No Genitourinary: No Gastrointestinal: No Musculoskeletal: No Endocrine: No HEENT: No Loss of Vision: Denies Hearing Impairment: Denies Cancer: No Psychosocial: No Integumentary: Yes Eczema Blood Disorders: No Family Medical History Alcoholism 19 FATHER 19 MOTHER No Family History of: AIDS Abdominal aortic aneurysm Atkinson's disease Alzheimer's disease Aphasia Arthritis Asthma Cancer of mouth Cardiovascular disease Cataracts Colon cancer Completed stroke Congenital disease Congenital heart disease Coronary thrombosis Cystic fibrosis Deafness or hearing loss Dementia Diabetes mellitus Drug abuse Dysphasia Fibrocystic disease of breast Gastroenteritis Glaucoma Headache disorder Hypercholesterolemia Hypertension Infertility Kidney disease Myocardial infarction Neoplasm Not obtainable due to adoption Osteoporosis Parkinson's disease Prostate cancer Psychosocial problem Respiratory disorder Seizure disorder Severe allergy Thyroid disease Tuberculosis Visual disorder No Pertinent Family Hx, Psychiatric Problems Physical Exam Vital Signs Vital Signs - First Documented 08/08/19 01:10 Temp 36.4 Pulse 89 Resp 15 Pulse Ox 98 O2 Delivery Room Air Capillary Refill : Less Than 3 Seconds Height, Weight, BMI Height: 5'3.00" Weight: 130lbs. 0oz. [id number]; 21.00 BMI Method:Stated General Appearance: WD/WN, no apparent distress HEENT: PERRL/EOMI, normal ENT inspection, pharynx normal Neck: non-tender, full range of motion Cardiovascular: normal peripheral pulses, regular rate, rhythm Respiratory: no respiratory distress, no accessory muscle use Neurologic/Psychiatric: pain medicine physician II-XII nml as tested, no motor/sensory deficits, alert, normal mood/affect, oriented x 3 Skin: normal color, warm/dry, other (dried blood over her skin but no abrasions. There is a 2 cm linear subcutaneous laceration above the right eyebrow.) Sidra Coma Score Best Eye Response: (4) Open Spontaneously Best Verbal Response: (5) Oriented Best Motor Response: (6) Obeys Commands [place] Total: 15 Procedures/Interventions Wound Location: Face Other Wound Location Above the right eyebrow Wound Length (cm): 2.2 Wound's Depth, Shape: linear, sub Q Wound Explored: no foreign body removed Irrigated w/ Saline (ccs): 100 Betadine Prep?: Yes (chlorhexidine) Anesthesia: 1% Lidocaine Volume Anesthetic (ccs): 2 Wound Debrided: minimal Suture: Prolene Suture Size: 4-0 Number of Sutures: 4 Sterile Dressing Applied?: Yes Progress/Results/Core Measures Results/Orders My Orders Orders - VIVIAN SMITH Lidocaine 1% Inj 20 Ml (Xylocaine 1% Inj (08/08/19 01:30) Medications Given in ED Current Medications Medications Dose Ordered Sig/Jeannette Route Start Time Stop Time Status Last Admin Dose Admin Lidocaine HCl 20 ml ONCE ONCE INJ 08/08/19 01:30 08/08/19 01:31 DC 08/08/19 01:35 20 ML Vital Signs/I&O 08/08/19 01:10 Temp 36.4 Pulse 89 Resp 15 B/P (MAP) Pulse Ox 98 O2 Delivery Room Air Progress Progress Note : Time: 01:30 Progress Note Patient states she is up-to-date on vaccinations. Plan to clean the wound up and stitched up. Departure Impression Primary Impression: Laceration of face without complication Qualified Codes: S01.81XA - Laceration without foreign body of other part of head, initial encounter Disposition: 01 HOME, SELF-CARE Condition: Improved Departure-Patient Inst. Decision time for Depature: 01:46 Referrals: VICK WALDRON MD (PCP/Family) Primary Care Physician Patient Instructions: Laceration Repair With Stitches (DC) Add. Discharge Instructions: Please return to the ER or your physician in 10-14 days to have the sutures removed. Keep the wound clean with regular soap and water. You can put a thin dollop of Vaseline over the stitches of a Band-Aid does not stick to it. It's okay to leave the wound open to air. Tylenol 1000 mg every 8 hours in addition to ibuprofen 800 mg every 8 hours as needed for pain. All discharge instructions reviewed with patient and/or family. Voiced understanding. VIVIAN SMITH Aug 08, 2019 01:32
[2019-08-08 01:50] VITALS: BP 124/65
== END 2019-08-08 01:50 | disposition home or self-care (01) ==
LOC: EDUNIT# 00:54 → ER 00:55
DX: S01.81XA Laceration without foreign body of other part of head, initial encounter (principal); R40.2142 Coma scale, eyes open, spontaneous, at arrival to emergency department; R40.2252 Coma scale, best verbal response, oriented, at arrival to emergency department; R40.2362 Coma scale, best motor response, obeys commands, at arrival to emergency department; W25.XXXA Contact with sharp glass, initial encounter; W18.39XA Other fall on same level, initial encounter; Y92.019 Unspecified place in single-family (private) house as the place of occurrence of the external cause
CPT/HCPCS: 12011

== ENCOUNTER 2020-04-06 07:33 | Emergency (ER) | payer SELFPAY ==
[~2020-04-06] VITALS: Ht 160 cm; Wt 54.5 kg
[2020-04-06] MEDS ORDERED: LACTATED RINGERS 1,000 ML IV ONE (07:56)
[2020-04-06] MEDS ORDERED: PROMETHAZINE INJ 25 MG/ML (PHENERGAN) AMP IVP ONE (08:00)
[2020-04-06] MEDS ORDERED: HYOSCYAMINE 0.125 MG (LEVSIN) TAB SL ONE (08:00)
[2020-04-06 08:23] LABS: BASOPHILS % (AUTO) 0 % (0-10); EOSINOPHILS % (AUTO) 0 % (0-10); HEMATOCRIT 41 % (35-52); HEMOGLOBIN 14.2 G/DL (11.5-16.0); LYMPHOCYTES # (AUTO) 1.7 X 10^3 (1.0-4.0); LYMPHOCYTES % (AUTO) 12 % (12-44); MEAN CORPUSCULAR HEMOGLOBIN 31 PG (25-34); MEAN CORPUSCULAR HGB CONC 35 G/DL (32-36); MEAN CORPUSCULAR VOLUME 88 FL (80-99); MEAN PLATELET VOLUME 11.4 FL (7.4-10.4); MONOCYTES # (AUTO) 1.3 X 10^3 (0.0-1.0); MONOCYTES % (AUTO) 9 % (0-12); NEUTROPHILS # (AUTO) 11.4 X 10^3 (1.8-7.8); NEUTROPHILS % (AUTO) 79 % (42-75); PLATELET COUNT 351 10^3/uL (130-400); RED CELL DISTRIBUTION WIDTH 14.8 % (10.0-14.5); WHITE BLOOD COUNT 14.4 10^3/uL (4.3-11.0)
[2020-04-06 08:35] LABS: ALBUMIN 5.2 GM/DL (3.2-4.5); CHLORIDE 102 MMOL/L (98-107); POTASSIUM 3.8 MMOL/L (3.6-5.0); SODIUM 140 MMOL/L (135-145)
[2020-04-06 08:36] LABS: CALCIUM 10.4 MG/DL (8.5-10.1)
--- NOTE | 2020-04-06 08:37 | ED GI ---
General Chief Complaint: Abdominal/GI Problems Stated Complaint: VOMITING;FEVER Nursing Triage Note: AMB TO ROOM C/O OF LOW ABD PAIN AND VOMITING FOR 2 DAYS. REPORTS DOES SMOKE POT EVERYDAY. 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 Sepsis Screen: No Definite Risk Source of Information: Patient Exam Limitations: No Limitations History of Present Illness Date Seen by Provider: April 06, 2020 Time Seen by Provider: 07:44 Initial Comments This 19-year-old young lady presents to the emergency room with vomiting, diarrhea, abdominal pain, and cramping that started last night. She admittedly has a marijuana addiction and has suffered from bouts of cannabis hyperemesis syndrome in the past. She denies any fever. She does not believe she is as her LMP was one week ago. She took some Zofran at home which was not sufficient for controlling her vomiting. She has not had any diarrhea this morning but vomiting continues. Pain and cramping is in the lower abdomen. Patient admits that her marijuana use is an addiction and is disruptive to her life. She is open to seeking help with treatment for this. Allergies and Home Medications Allergies Coded Allergies: No Known Drug Allergies (Unverified , 05/07/10) Home Medications Cephalexin 500 Mg Tablet, 500 MG PO TID Prescribed by: MERRY CARPENTER on 04/18/19 1217 Norgestimate-Ethinyl Estradiol 1 Each Tablet, 1 TAB PO DAILY, (Reported) Ondansetron 4 Mg Tab.rapdis, 4 MG PO Q4H PRN for NAUSEA/VOMITING-1ST LINE Prescribed by: MERRY CARPENTER on 04/18/19 1217 Pantoprazole Sodium 40 Mg Tablet.dr, 40 MG PO DAILY Prescribed by: KARIME LINK on 01/09/191903 Potassium Chloride 20 Meq Tablet.er, 40 MEQ PO DAILY Prescribed by: KARIME LINK on 01/09/19 190 Prochlorperazine Maleate 5 Mg Tablet, 5 MG PO TID PRN for NAUSEA/VOMITING Prescribed by: KARIME LINK on 01/09/19 1705 Patient Home Medication List Home Medication List Reviewed: Yes Review of Systems Review of Systems Constitutional: no symptoms reported EENTM: No Symptoms Reported Respiratory: No Symptoms Reported Cardiovascular: No Symptoms Reported Gastrointestinal: See HPI Genitourinary: No Symptoms Reported Musculoskeletal: no symptoms reported Skin: no symptoms reported Psychiatric/Neurological: See HPI Endocrine: No Symptoms Reported Hematologic/Lymphatic: No Symptoms Reported Past Qwlnvsk-Sjdcrf-Urzlkl Hx Past Med/Social Hx: Reviewed Nursing Past Med/Soc Hx Patient Social History Alcohol Use: Denies Use Recreational Drug Use: Yes Drug of Choice: THC 2nd Hand Smoke Exposure: No Recent Foreign Travel: No Contact w/Someone Who Travel: No Recent Infectious Disease Expo: No Recent Hopitalizations: No Seasonal Allergies Seasonal Allergies: No Past Medical History Surgeries: No Respiratory: No Cardiac: No Neurological: No : No Last Menstrual Period: March 30, 2020 Reproductive Disorders: No Female Reproductive Disorders: Denies Sexually Transmitted Disease: No HIV/AIDS: No Genitourinary: No Gastrointestinal: No Musculoskeletal: No Endocrine: No HEENT: No Loss of Vision: Denies Hearing Impairment: Denies Cancer: No Psychosocial: No Integumentary: Yes Eczema Blood Disorders: No Family Medical History Alcoholism 19 FATHER 19 MOTHER No Family History of: AIDS Abdominal aortic aneurysm [place]'s disease Alzheimer's disease Aphasia Arthritis Asthma Cancer of mouth Cardiovascular disease Cataracts Colon cancer Completed stroke Congenital disease Congenital heart disease Coronary thrombosis Cystic fibrosis Deafness or hearing loss Dementia Diabetes mellitus Drug abuse Dysphasia Fibrocystic disease of breast Gastroenteritis Glaucoma Headache disorder Hypercholesterolemia Hypertension Infertility Kidney disease Myocardial infarction Neoplasm Not obtainable due to adoption Osteoporosis Parkinson's disease Prostate cancer Psychosocial problem Respiratory disorder Seizure disorder Severe allergy Thyroid disease Tuberculosis Visual disorder No Pertinent Family Hx, Psychiatric Problems Physical Exam Vital Signs Vital Signs - First Documented 04/06/20 07:38 Temp 37.0 Pulse 69 Resp 18 B/P (MAP) 130/60 (83) Pulse Ox 98 O2 Delivery Room Air Capillary Refill : Less Than 3 Seconds Height/Weight/BMI Height: 5'3.00" Weight: 130lbs. 0oz. 58.914132td; 21.00 BMI Method:Stated General Appearance: WD/WN, no apparent distress HEENT: PERRL/EOMI, normal ENT inspection, pharynx normal Neck: normal inspection Respiratory: lungs clear, normal breath sounds, no respiratory distress, no accessory muscle use Cardiovascular: regular rate, rhythm, no edema, no murmur Gastrointestinal: soft, abnormal bowel sounds (decreased); No distended; tenderness (generalized throughout with no focal tenderness) Extremities: normal inspection, no pedal edema Neurologic/Psychiatric: skiver machine II-XII nml as tested, no motor/sensory deficits, alert, normal mood/affect, oriented x 3 Skin: normal color, warm/dry Procedures/Interventions Suture Size: 4-0 Progress/Results/Core Measures Results/Orders Lab Results Laboratory Tests Test 04/06/20 08:05 04/06/20 08:50 Range/Units White Blood Count 14.4 H 4.3-11.0 10^3/uL Red Blood Count 4.66 4.35-5.85 10^6/uL Hemoglobin 14.2 11.5-16.0 G/DL Hematocrit 41 35-52 % Mean Corpuscular Volume 88 80-99 FL Mean Corpuscular Hemoglobin 31 25-34 PG Mean Corpuscular Hemoglobin Concent 35 32-36 G/DL Red Cell Distribution Width 14.8 H 10.0-14.5 % Platelet Count 351 130-400 10^3/uL Mean Platelet Volume 11.4 H 7.4-10.4 FL Neutrophils (%) (Auto) 79 H 42-75 % Lymphocytes (%) (Auto) 12 12-44 % Monocytes (%) (Auto) 9 0-12 % Eosinophils (%) (Auto) 0 0-10 % Basophils (%) (Auto) 0 0-10 % Neutrophils # (Auto) 11.4 H 1.8-7.8 X 10^3 Lymphocytes # (Auto) 1.7 1.0-4.0 X 10^3 Monocytes # (Auto) 1.3 H 0.0-1.0 X 10^3 Eosinophils # (Auto) 0.0 0.0-0.3 10^3/uL Basophils # (Auto) 0.0 0.0-0.1 10^3/uL Neutrophils % (Manual) 78 % Lymphocytes % (Manual) 16 % Monocytes % (Manual) 4 % Eosinophils % (Manual) 0 % Basophils % (Manual) 0 % Band Neutrophils 2 % Blood Morphology Comment NORMAL Sodium Level 140 135-145 MMOL/L Potassium Level 3.8 3.6-5.0 MMOL/L Chloride Level 102 98-107 MMOL/L Carbon Dioxide Level 22 21-32 MMOL/L Anion Gap 16 H 5-14 MMOL/L Blood Urea Nitrogen 23 H 7-18 MG/DL Creatinine 1.46 H 0.60-1.30 MG/DL Estimat Glomerular Filtration Rate 46 BUN/Creatinine Ratio 16 Glucose Level 134 H 70-105 MG/DL Calcium Level 10.4 H 8.5-10.1 MG/DL Corrected Calcium 8.5-10.1 MG/DL Magnesium Level 1.8 1.6-2.4 MG/DL Total Bilirubin 1.0 0.1-1.0 MG/DL Aspartate Amino Transf (AST/SGOT) 29 5-34 U/L Alanine Aminotransferase (ALT/SGPT) 20 0-55 U/L Alkaline Phosphatase 73 40-136 U/L C-Reactive Protein High Sensitivity 0.10 0.00-0.50 MG/DL Total Protein 8.6 H 6.4-8.2 GM/DL Albumin 5.2 H 3.2-4.5 GM/DL Serum Test, Qualitative NEGATIVE NEGATIVE Urine Color YELLOW Urine Clarity CLEAR Urine pH 6.0 5-9 Urine Specific [place] >=1.030 1.016-1.022 Urine Protein 2+ H NEGATIVE Urine Glucose (UA) NEGATIVE NEGATIVE Urine Ketones TRACE H NEGATIVE Urine Nitrite NEGATIVE NEGATIVE Urine Bilirubin 1+ H NEGATIVE Urine Urobilinogen 1.0 < = 1.0 MG/DL Urine Leukocyte Esterase TRACE H NEGATIVE Urine RBC (Auto) 1+ H NEGATIVE Urine RBC 0-2 /HPF Urine WBC 5-10 H /HPF Urine Squamous Epithelial Cells 5-10 /HPF Urine Crystals NONE /LPF Urine Bacteria MODERATE H /HPF Urine Casts PRESENT /LPF Urine Hyaline Casts 10-25 H /LPF Urine Mucus MODERATE H /LPF Urine Culture Indicated YES My Orders Orders - ASHLEY THAO MD Ed Iv/Invasive Line Start (04/06/20 07:56) Lactated Ringers (Lr 1000 Ml Iv Solution (04/06/20 07:56) Promethazine Injection (Phenergan Injec (04/06/20 08:00) Hyoscyamine Sl Tablet (Levsin Sl Tablet) (04/06/20 08:00) Cbc With Automated Diff (04/06/20 07:56) Comprehensive Metabolic Panel (04/06/20 07:56) Hcg,Qualitative Serum (04/06/20 07:56) Magnesium (04/06/20 07:56) Ua Culture If Indicated (04/06/20 07:56) Manual Differential (04/06/20 08:05) Hs C Reactive Protein (04/06/20 08:29) Urine Culture (04/06/20 08:50) Ceftriaxone For Iv Use (Rocephin For I (04/06/20 09:15) Medications Given in ED Current Medications Medications Dose Ordered Sig/Jeannette Route Start Time Stop Time Status Last Admin Dose Admin Hyoscyamine Sulfate 0.25 mg ONCE ONCE SL 04/06/20 08:00 04/06/20 08:01 DC 04/06/20 08:09 0.25 MG Lactated Ringer's 1,000 ml @ 0 mls/hr Q0M ONCE IV 04/06/20 07:56 04/06/20 07:58 DC 04/06/20 08:11 1,000 MLS/HR Promethazine HCl 25 mg ONCE ONCE IVP 04/06/20 08:00 04/06/20 08:01 DC 04/06/20 08:10 25 MG Vital Signs/I&O 04/06/20 07:38 Temp 37.0 Pulse 69 Resp 18 B/P (MAP) 130/60 (83) Pulse Ox 98 O2 Delivery Room Air Blood Pressure Mean: 83 Progress Progress Note : Progress Note Patient was treated with a liter of LR and Phenergan. She is feeling much better. UTI was identified and Rocephin was given. Patient was encouraged to seek treatment for her marijuana addiction. See discharge instructions. Departure Impression Primary Impression: Cannabis hyperemesis syndrome concurrent with and due to cannabis dependence Additional Impression: Urinary tract infection Qualified Codes: N39.0 - Urinary tract infection, site not specified Disposition: 01 HOME, SELF-CARE Condition: Improved Departure-Patient Inst. Decision time for Depature: 08:35 Referrals: VICK WALDRON MD (PCP/Family) Primary Care Physician Patient Instructions: Marijuana Use and Addiction Add. Discharge Instructions: Follow-up at the [facility] as soon as possible. At your follow-up inquire about addiction treatment services. Also consider connecting with substance abuse support groups in the area which might include [facility] or [facility] at [facility] in [place]. Use Zofran for initial treatment of nausea and vomiting. Add Phenergan as prescribed for nausea not controlled by Zofran. Start with a clear liquid diet. Gradually advance your diet with small quantities of bland food as tolerated. Drink plenty of clear liquids. Complete your antibiotics as prescribed. Return to care if you have worsening symptoms despite following these measures. All discharge instructions reviewed with patient and/or family. Voiced understanding. Scripts Cephalexin (Keflex) 500 Mg Capsule 500 MG PO TID, #20 CAP Prov: ASHLEY THAO MD 04/06/20 Promethazine HCl (Promethazine Tablet) 25 Mg Tablet 25 MG PO Q8H PRN for NAUSEA/VOMITING, #10 TAB 0 Refills Prov: ASHLEY THAO MD 04/06/20 ASHLEY THAO MD April 06, 2020 08:37
[2020-04-06 08:38] LABS: GLUCOSE 134 MG/DL (70-105); TOTAL PROTEIN 8.6 GM/DL (6.4-8.2)
[2020-04-06 08:39] LABS: CARBON DIOXIDE 22 MMOL/L (21-32)
[2020-04-06 08:41] LABS: ALKALINE PHOSPHATASE 73 U/L (40-136); CREATININE SERUM 1.46 MG/DL (0.60-1.30); GFR ESTIMATED 46
[2020-04-06 08:42] LABS: BUN/CREATININE RATIO 16
[2020-04-06 08:44] LABS: ALANINE AMINOTRANSFERASE 20 U/L (0-55); MAGNESIUM 1.8 MG/DL (1.6-2.4)
--- NOTE | 2020-04-06 08:49 | NUR ---
TO ROOM REPORTS FEELING BETTER AMB TO BATHROOM TO [facility]A
[2020-04-06 08:59] LABS: CLARITY,URINE CLEAR; COLOR,URINE YELLOW; GLUCOSE, URINE (UA) NEGATIVE (NEGATIVE); KETONES,URINE TRACE (NEGATIVE); LEUKOCYTE ESTERASE ,URINE TRACE (NEGATIVE); NITRITE,URINE NEGATIVE (NEGATIVE); PROTEIN,URINE 2+ (NEGATIVE)
[2020-04-06 09:01] LABS: BAND NEUTROPHILS 2 %; BASOPHILS % (MANUAL) 0 %; EOSINOPHILS % (MANUAL) 0 %; LYMPHOCYTES % (MANUAL) 16 %; MONOCYTES % (MANUAL) 4 %; NEUTROPHILS % (MANUAL) 78 %; RBC MORPH NORMAL
[2020-04-06 09:07] LABS: BACTERIA,URINE MODERATE /HPF; BILIRUBIN,URINE 1+ (NEGATIVE); RBC,URINE 0-2 /HPF
[2020-04-06] MEDS ORDERED: CEPH-507 PO (09:13)
[2020-04-06] MEDS ORDERED: PROM25TA14 PO (09:13)
[2020-04-06] MEDS ORDERED: cefTRIAXone FOR IV USE 1,000 MG in WATER (STERILE) FOR INJECTION 10 ML IV ONE (09:15)
[2020-04-06 09:28] VITALS: BP 115/92
[2020-04-07] MEDS ORDERED: ONDA4TAB11 SL (08:34)
== END 2020-04-06 09:28 | disposition home or self-care (01) ==
LOC: EDUNIT# 07:33 → ER 07:35
DX: F12.288 Cannabis dependence with other cannabis-induced disorder (principal); N39.0 Urinary tract infection, site not specified
CPT/HCPCS: 36415; 80053; 81000; 83735; 84703; 85007; 85027; 86141; 87088; 96361; 96374; 96375

== ENCOUNTER 2020-04-07 06:59 | Emergency (ER) | payer SELFPAY ==
[~2020-04-07] VITALS: Ht 165.2 cm; Wt 54.5 kg
[~2020-04-07 06:59] MED LIST changes: +CEPH-507 PO; +PROM25TA14 PO
[2020-04-07] MEDS ORDERED: LACTATED RINGERS 1,000 ML IV ONE (07:15)
[2020-04-07] MEDS ORDERED: cefTRIAXone FOR IV USE 1,000 MG in WATER (STERILE) FOR INJECTION 10 ML IV ONE (07:15)
[2020-04-07] MEDS ORDERED: FAMOTIDINE 20MG/2ML IV (PEPCID) IVP ONE (07:15)
[2020-04-07] MEDS ORDERED: HYOSCYAMINE 0.125 MG (LEVSIN) TAB SL ONE (07:15)
[2020-04-07] MEDS ORDERED: LIDOCAINE 2% VISCOUS 15 ML UDC PO ONE (07:15)
[2020-04-07] MEDS ORDERED: ANTACID SUSP 30 ML UDC (MYLANTA) PO ONE (07:15)
--- NOTE | 2020-04-07 07:22 | ED Abdominal Pain ---
General Chief Complaint: Abdominal/GI Problems Stated Complaint: UTI Nursing Triage Note: AMB TO ROOM WAS SEEN IN ED YESTERDAY DX WITH UTI DID NOT GET MEDS FILLED. HAVING LOW ABD PAIN. REPORTS THAT PAIN LIKE SHE HAD YESTERDAY. REPORTS HAS NOT SMOKED POT IN 24 HRS. Sepsis Screen: No Definite Risk Source of Information: Patient Exam Limitations: No Limitations History of Present Illness Date Seen by Provider: April 07, 2020 Time Seen by Provider: 07:05 Initial Comments This 19-year-old young lady returns to the emergency room after being treated yesterday for cannabis hyperemesis syndrome and urinary tract infection. After returning home she felt well, drank a couple bottles of water, and slept. However, when she woke she started vomiting again. She now complains of more focal pain in the epigastric region. She has intermittent cramping pain in the lower abdomen. She has not been able to drink any fluids this morning. She did not fill her medications prescribed yesterday because of finances. She is out of Zofran at home. She denies any use of marijuana in the last 24 hours. She is afebrile at present. Serum test was negative yesterday. Allergies and Home Medications Allergies Coded Allergies: No Known Drug Allergies (Unverified , 05/07/10) Home Medications Cephalexin 500 Mg Tablet, 500 MG PO TID Prescribed by: MERRY CARPENTER on 04/18/191216 Cephalexin 500 Mg Capsule, 500 MG PO TID Prescribed by: ASHLEY GLEASON on 04/06/20 0913 Norgestimate-Ethinyl Estradiol 1 Each Tablet, 1 TAB PO DAILY, (Reported) Ondansetron 4 Mg Tab.rapdis, 4 MG PO Q4H PRN for NAUSEA/VOMITING-1ST LINE Prescribed by: MERRY CARPENTER on 04/18/191216 Ondansetron 4 Mg Tab.rapdis, 4 MG SL Q4H PRN for NAUSEA/VOMITING Prescribed by: ASHLEY GLEASON on 04/07/20 0834 Pantoprazole Sodium 40 Mg Tablet.dr, 40 MG PO DAILY Prescribed by: KARIME LINK on 01/09/191903 Potassium Chloride 20 Meq Tablet.er, 40 MEQ PO DAILY Prescribed by: KARIME LINK on 01/09/191903 Prochlorperazine Maleate 5 Mg Tablet, 5 MG PO TID PRN for NAUSEA/VOMITING Prescribed by: KARIME LINK on 01/09/19 1705 Promethazine HCl 25 Mg Tablet, 25 MG PO Q8H PRN for NAUSEA/VOMITING Prescribed by: ASHLEY GLEASON on 04/06/20 0913 Patient Home Medication List Home Medication List Reviewed: Yes Review of Systems Review of Systems Constitutional: no symptoms reported EENTM: No Symptoms Reported Respiratory: No Symptoms Reported Cardiovascular: No Symptoms Reported Gastrointestinal: See HPI Genitourinary: No Symptoms Reported Musculoskeletal: no symptoms reported Skin: no symptoms reported Psychiatric/Neurological: No Symptoms Reported Endocrine: No Symptoms Reported Hematologic/Lymphatic: No Symptoms Reported Past Xcajunz-Snxrvf-Hhagly Hx Past Med/Social Hx: Reviewed Nursing Past Med/Soc Hx Patient Social History Alcohol Use: Denies Use Recreational Drug Use: Yes (POT) Drug of Choice: THC 2nd Hand Smoke Exposure: No Recent Foreign Travel: No Contact w/Someone Who Travel: No Recent Infectious Disease Expo: No Recent Hopitalizations: No Seasonal Allergies Seasonal Allergies: No Past Medical History Surgeries: No Respiratory: No Cardiac: No Neurological: No : No Reproductive Disorders: No Female Reproductive Disorders: Denies Sexually Transmitted Disease: No HIV/AIDS: No Genitourinary: No Gastrointestinal: Yes (cannabis hyperemesis syndrome) Musculoskeletal: No Endocrine: No HEENT: No Loss of Vision: Denies Hearing Impairment: Denies Cancer: No Psychosocial: No Integumentary: Yes Eczema Blood Disorders: No Family Medical History Reviewed Nursing Family Hx Alcoholism 19 FATHER 19 MOTHER No Family History of: AIDS Abdominal aortic aneurysm [place]'s disease Alzheimer's disease Aphasia Arthritis Asthma Cancer of mouth Cardiovascular disease Cataracts Colon cancer Completed stroke Congenital disease Congenital heart disease Coronary thrombosis Cystic fibrosis Deafness or hearing loss Dementia Diabetes mellitus Drug abuse Dysphasia Fibrocystic disease of breast Gastroenteritis Glaucoma Headache disorder Hypercholesterolemia Hypertension Infertility Kidney disease Myocardial infarction Neoplasm Not obtainable due to adoption Osteoporosis Parkinson's disease Prostate cancer Psychosocial problem Respiratory disorder Seizure disorder Severe allergy Thyroid disease Tuberculosis Visual disorder No Pertinent Family Hx, Psychiatric Problems Physical Exam Vital Signs Vital Signs - First Documented 04/07/20 07:05 Temp 36.9 Pulse 84 Resp 18 B/P (MAP) 110/81 (91) Pulse Ox 99 O2 Delivery Room Air Capillary Refill : Less Than 3 Seconds Height/Weight/BMI Height: 5'3.00" Weight: 130lbs. 0oz. 58.412134kl; 19.00 BMI Method:Stated General Appearance: WD/WN, no apparent distress, thin HEENT: PERRL/EOMI, normal ENT inspection, other (mucous membranes dry) Neck: normal inspection Respiratory: lungs clear, normal breath sounds, no respiratory distress, no accessory muscle use Cardiovascular: regular rate, rhythm, no edema Gastrointestinal: normal bowel sounds, soft, tenderness (epigastrium and across the pelvis, mild) Extremities: normal inspection, no pedal edema Neurologic/Psychiatric: swatch folder II-XII nml as tested, no motor/sensory deficits, alert, normal mood/affect, oriented x 3 Skin: normal color, warm/dry Procedures/Interventions Suture Size: 4-0 Progress/Results/Core Measures Results/Orders Lab Results Laboratory Tests Test 04/07/20 07:20 Range/Units White Blood Count 6.1 4.3-11.0 10^3/uL Red Blood Count 4.62 4.35-5.85 10^6/uL Hemoglobin 14.2 11.5-16.0 G/DL Hematocrit 41 35-52 % Mean Corpuscular Volume 89 80-99 FL Mean Corpuscular Hemoglobin 31 25-34 PG Mean Corpuscular Hemoglobin Concent 35 32-36 G/DL Red Cell Distribution Width 14.8 H 10.0-14.5 % Platelet Count 284 130-400 10^3/uL Mean Platelet Volume 11.0 H 7.4-10.4 FL Neutrophils (%) (Auto) 53 42-75 % Lymphocytes (%) (Auto) 30 12-44 % Monocytes (%) (Auto) 13 H 0-12 % Eosinophils (%) (Auto) 3 0-10 % Basophils (%) (Auto) 1 0-10 % Neutrophils # (Auto) 3.2 1.8-7.8 X 10^3 Lymphocytes # (Auto) 1.8 1.0-4.0 X 10^3 Monocytes # (Auto) 0.8 0.0-1.0 X 10^3 Eosinophils # (Auto) 0.2 0.0-0.3 10^3/uL Basophils # (Auto) 0.1 0.0-0.1 10^3/uL Sodium Level 141 135-145 MMOL/L Potassium Level 3.3 L 3.6-5.0 MMOL/L Chloride Level 104 98-107 MMOL/L Carbon Dioxide Level 24 21-32 MMOL/L Anion Gap 13 5-14 MMOL/L Blood Urea Nitrogen 18 7-18 MG/DL Creatinine 0.91 0.60-1.30 MG/DL Estimat Glomerular Filtration Rate > 60 BUN/Creatinine Ratio 20 Glucose Level 117 H 70-105 MG/DL Calcium Level 9.3 8.5-10.1 MG/DL Corrected Calcium 8.5-10.1 MG/DL Total Bilirubin 0.8 0.1-1.0 MG/DL Aspartate Amino Transf (AST/SGOT) 32 5-34 U/L Alanine Aminotransferase (ALT/SGPT) 26 0-55 U/L Alkaline Phosphatase 68 40-136 U/L C-Reactive Protein High Sensitivity 0.05 0.00-0.50 MG/DL Total Protein 7.8 6.4-8.2 GM/DL Albumin 4.8 H 3.2-4.5 GM/DL Lipase 15 8-78 U/L My Orders Orders - ASHLEY THAO MD Ed Iv/Invasive Line Start (04/07/20 07:15) Lactated Ringers (Lr 1000 Ml Iv Solution (04/07/20 07:15) Famotidine Injection (Pepcid Injection) (04/07/20 07:15) Lidocaine 2% Viscous 15 Ml (Xylocaine Vi (04/07/20 07:15) Antacid Suspension (Mylanta Suspension (04/07/20 07:15) Cbc With Automated Diff (04/07/20 07:15) Comprehensive Metabolic Panel (04/07/20 07:15) Lipase (04/07/20 07:15) Ceftriaxone For Iv Use (Rocephin For I (04/07/20 07:15) Hyoscyamine Sl Tablet (Levsin Sl Tablet) (04/07/20 07:15) Hs C Reactive Protein (04/07/20 07:15) Ondansetron Injection (Zofran Injectio (04/07/20 07:30) Medications Given in ED Current Medications Medications Dose Ordered Sig/Jeannette Route Start Time Stop Time Status Last Admin Dose Admin Al Hydrox/Mg Hydrox/Simethicone 30 ml ONCE ONCE PO 04/07/20 07:15 04/07/20 07:19 DC 04/07/20 07:58 30 ML Ceftriaxone Sodium 1000 mg/ Sterile Water 10 ml @ 200 mls/hr ONCE ONCE IV 04/07/20 07:15 04/07/20 07:19 DC 04/07/20 07:34 200 MLS/HR Famotidine 20 mg ONCE ONCE IVP 04/07/20 07:15 04/07/20 07:19 DC 04/07/20 07:34 20 MG Hyoscyamine Sulfate 0.25 mg ONCE ONCE SL 04/07/20 07:15 04/07/20 07:19 DC 04/07/20 07:33 0.25 MG Lactated Ringer's 1,000 ml @ 0 mls/hr Q0M ONCE IV 04/07/20 07:15 04/07/20 07:19 DC 04/07/20 07:33 1,000 MLS/HR Lidocaine HCl 15 ml ONCE ONCE PO 04/07/20 07:15 04/07/20 07:19 DC 04/07/20 07:58 15 ML Ondansetron HCl 8 mg ONCE ONCE IVP 04/07/20 07:30 04/07/20 07:31 DC 04/07/20 07:33 8 MG Vital Signs/I&O 04/07/20 04/07/20 07:05 08:48 Temp 36.9 Pulse 84 52 Resp 18 18 B/P (MAP) 110/81 (91) 102/69 Pulse Ox 99 99 O2 Delivery Room Air Room Air Blood Pressure Mean: 91 Progress Progress Note #1: Time: 07:27 Progress Note Patient seen and examined. Because she is still having significant symptoms we will recheck her labs and hydrate her again. Epigastric pain will be treated with Pepcid and GI cocktail. Nausea will be treated with Zofran. Rocephin will be given again since she has not filled her antibiotic prescription. Levsin will be given for the cramping. Progress Note #2: Progress Note Patient did well with the above therapies and was feeling much better. Departure Impression Primary Impression: Cannabis hyperemesis syndrome concurrent with and due to cannabis dependence Additional Impressions: Urinary tract infection Qualified Codes: N39.0 - Urinary tract infection, site not specified Epigastric pain Disposition: 01 HOME, SELF-CARE Condition: Stable Departure-Patient Inst. Decision time for Depature: 08:15 Referrals: VICK WALDRON MD (PCP/Family) Primary Care Physician Patient Instructions: Acute Abdomen (Belly Pain), Marijuana Use and Addiction (DC) Add. Discharge Instructions: Start with a noncarbonated clear liquid diet and gradually advance your diet with small quantities of bland food as tolerated. Uses Zofran (ondansetron) for primary nausea control. Add Phenergan (promethazine) as previously prescribed for additional treatment of nausea if needed. Use an nevn-dbh-utbksjj antacid products such as omeprazole 20 mg or Pepcid (famotidine) 20 mg twice daily for the next week or two. You may use the Levsin (hyoscyamine) to help with abdominal cramping. Discontinue marijuana use as it likely contributes to her abdominal pain and nausea. Seek assistance from a qualified treatment center such as [facility]. Return to the emergency room if you have worsening symptoms despite these treatments. All discharge instructions reviewed with patient and/or family. Voiced understanding. Scripts Ondansetron (Ondansetron Odt) 4 Mg Tab.rapdis 4 MG SL Q4H PRN for NAUSEA/VOMITING, #10 TAB Prov: ASHLEY THAO MD 04/07/20 Copy Copies To 1: VICK WALDRON MD, JOSHUA T MD April 07, 2020 07:22
[2020-04-07 07:30] LABS: BASOPHILS # (AUTO) 0.1 10^3/uL (0.0-0.1); BASOPHILS % (AUTO) 1 % (0-10); EOSINOPHILS # (AUTO) 0.2 10^3/uL (0.0-0.3); EOSINOPHILS % (AUTO) 3 % (0-10); HEMATOCRIT 41 % (35-52); HEMOGLOBIN 14.2 G/DL (11.5-16.0); LYMPHOCYTES # (AUTO) 1.8 X 10^3 (1.0-4.0); LYMPHOCYTES % (AUTO) 30 % (12-44); MEAN CORPUSCULAR HEMOGLOBIN 31 PG (25-34); MEAN CORPUSCULAR HGB CONC 35 G/DL (32-36); MEAN CORPUSCULAR VOLUME 89 FL (80-99); MONOCYTES # (AUTO) 0.8 X 10^3 (0.0-1.0); MONOCYTES % (AUTO) 13 % (0-12); NEUTROPHILS # (AUTO) 3.2 X 10^3 (1.8-7.8); NEUTROPHILS % (AUTO) 53 % (42-75); PLATELET COUNT 284 10^3/uL (130-400); RED CELL DISTRIBUTION WIDTH 14.8 % (10.0-14.5); WHITE BLOOD COUNT 6.1 10^3/uL (4.3-11.0)
[2020-04-07] MEDS ORDERED: ONDANSETRON 4 MG/2 ML (SDV) Z0FRAN IVP ONE (07:30)
[2020-04-07 07:44] LABS: ALBUMIN 4.8 GM/DL (3.2-4.5); CHLORIDE 104 MMOL/L (98-107); POTASSIUM 3.3 MMOL/L (3.6-5.0); SODIUM 141 MMOL/L (135-145)
[2020-04-07 07:46] LABS: CALCIUM 9.3 MG/DL (8.5-10.1)
[2020-04-07 07:47] LABS: GLUCOSE 117 MG/DL (70-105); TOTAL PROTEIN 7.8 GM/DL (6.4-8.2)
[2020-04-07 07:48] LABS: BILIRUBIN,TOTAL 0.8 MG/DL (0.1-1.0); CARBON DIOXIDE 24 MMOL/L (21-32)
[2020-04-07 07:50] LABS: ALKALINE PHOSPHATASE 68 U/L (40-136); CREATININE SERUM 0.91 MG/DL (0.60-1.30); GFR ESTIMATED > 60
[2020-04-07 07:51] LABS: BUN/CREATININE RATIO 20
[2020-04-07 07:53] LABS: ALANINE AMINOTRANSFERASE 26 U/L (0-55)
[2020-04-07 07:54] LABS: LIPASE 15 U/L (8-78)
--- NOTE | 2020-04-07 08:00 | NUR ---
TO ROOM FLUIDS INFUSING REPORTS IS FEELING BETTER.
[2020-04-07] MEDS ORDERED: ONDA4TAB11 SL (08:34)
[2020-04-07 08:48] VITALS: BP 102/69
== END 2020-04-07 08:47 | disposition home or self-care (01) ==
LOC: EDUNIT# 06:59 → ER 07:00
DX: F12.288 Cannabis dependence with other cannabis-induced disorder (principal); N39.0 Urinary tract infection, site not specified; R10.13 Epigastric pain
CPT/HCPCS: 36415; 80053; 83690; 85025; 86141

== ENCOUNTER 2020-04-08 05:35 | Emergency (ER) | payer SELFPAY ==
[~2020-04-08] VITALS: Ht 155 cm; Wt 54.4 kg
[~2020-04-08 05:35] MED LIST changes: +ONDA4TAB11 SL
[2020-04-08] MEDS ORDERED: LORazepam INJ 2 MG/ML (ATIVAN) VIAL ONE (06:02)
[2020-04-08] MEDS ORDERED: ONDANSETRON 4 MG/2 ML (SDV) Z0FRAN ONE (06:03)
[2020-04-08] MEDS ORDERED: LACTATED RINGERS 1,000 ML IV ONE (06:09)
[2020-04-08] MEDS ORDERED: LORazepam INJ 2 MG/ML (ATIVAN) VIAL IVP ONE ×2 (06:15→07:00)
[2020-04-08] MEDS ORDERED: ONDANSETRON 4 MG/2 ML (SDV) Z0FRAN IVP ONE (06:15)
--- NOTE | 2020-04-08 06:27 | ED Psychosocial ---
General Chief Complaint: Psych/Social Disorder Stated Complaint: SOB,CP Nursing Triage Note: Pt ambulates to [facility] 7 with c/o "chest tightness and vomiting from anxiety". Pt reports being seen in this ER the past three mornings with same issues. Denies having any primary care established. Source: patient Exam Limitations: no limitations History of Present Illness Date Seen by Provider: April 08, 2020 Time Seen by Provider: 06:05 Initial Comments This 19 year old woman presents to the ER for the third consecutive morning. She has been seen in the past 2 mornings for urinary tract infection and cannabis hyperemesis syndrome. Today she is hyperventilating. She has contractures of her extremities. She reports feeling palpitations and tightness in her chest. She has been this way through much of the night. She denies any use of illicit substances including marijuana over the past 2 days. She has not yet filled her medications despite stressing yesterday the importance of this and having a repeat visit yesterday because of not filling her medications. She reports she went to fill her medications yesterday but got pulled over and received a ticket because she did not have her vehicle tagged. She also reports she has not been taking her Lexapro the past couple of days and she does have a history of anxiety. She is tremoring, experiencing contractures of all 4 extremities, and dry heaving in the exam room. Patient has had unremarkable lab work the past 2 mornings. Allergies and Home Medications Allergies Coded Allergies: No Known Drug Allergies (Unverified , 05/07/10) Home Medications Cephalexin 500 Mg Tablet, 500 MG PO TID Prescribed by: MERRY CARPENTER on 04/18/191216 Cephalexin 500 Mg Capsule, 500 MG PO TID Prescribed by: ASHLEY GLEASON on 04/06/20 0913 Norgestimate-Ethinyl Estradiol 1 Each Tablet, 1 TAB PO DAILY, (Reported) Ondansetron 4 Mg Tab.rapdis, 4 MG PO Q4H PRN for NAUSEA/VOMITING-1ST LINE Prescribed by: MERRY CARPENTER on 04/18/191216 Ondansetron 4 Mg Tab.rapdis, 4 MG SL Q4H PRN for NAUSEA/VOMITING Prescribed by: ASHLEY GLEASON on 04/07/20 0834 Pantoprazole Sodium 40 Mg Tablet.dr, 40 MG PO DAILY Prescribed by: KARIME LINK on 01/09/191903 Potassium Chloride 20 Meq Tablet.er, 40 MEQ PO DAILY Prescribed by: KARIME LINK on 01/09/191903 Prochlorperazine Maleate 5 Mg Tablet, 5 MG PO TID PRN for NAUSEA/VOMITING Prescribed by: KARIME LINK on 01/09/191704 Promethazine HCl 25 Mg Tablet, 25 MG PO Q8H PRN for NAUSEA/VOMITING Prescribed by: ASHLEY GLEASON on 04/06/20 0913 Patient Home Medication List Home Medication List Reviewed: Yes Review of Systems Constitutional: no symptoms reported EENTM: no symptoms reported Respiratory: see HPI Cardiovascular: no symptoms reported Gastrointestinal: see HPI Genitourinary: no symptoms reported : No Musculoskeletal: no symptoms reported Skin: no symptoms reported Psychiatric/Neurological: See HPI Past Lnpgilj-Jpddbq-Vvscyp Hx Past Med/Social Hx: Reviewed Nursing Past Med/Soc Hx Patient Social History Alcohol Use: Denies Use Recreational Drug Use: Yes Drug of Choice: Marijuana Smoking Status: Never a Smoker 2nd Hand Smoke Exposure: No Recent Foreign Travel: No Contact w/Someone Who Travel: No Recent Infectious Disease Expo: No Recent Hopitalizations: No Seasonal Allergies Seasonal Allergies: No Past Medical History Surgeries: No Respiratory: No Cardiac: No Neurological: No : No Reproductive Disorders: No Female Reproductive Disorders: Denies Sexually Transmitted Disease: No HIV/AIDS: No Genitourinary: No Gastrointestinal: Yes (cannabis hyperemesis syndrome) Musculoskeletal: No Endocrine: No HEENT: No Loss of Vision: Denies Hearing Impairment: Denies Cancer: No Psychosocial: Yes Anxiety Integumentary: Yes Eczema Blood Disorders: No Family Medical History Alcoholism 19 FATHER 19 MOTHER No Family History of: AIDS Abdominal aortic aneurysm Homar's disease Alzheimer's disease Aphasia Arthritis Asthma Cancer of mouth Cardiovascular disease Cataracts Colon cancer Completed stroke Congenital disease Congenital heart disease Coronary thrombosis Cystic fibrosis Deafness or hearing loss Dementia Diabetes mellitus Drug abuse Dysphasia Fibrocystic disease of breast Gastroenteritis Glaucoma Headache disorder Hypercholesterolemia Hypertension Infertility Kidney disease Myocardial infarction Neoplasm Not obtainable due to adoption Osteoporosis Parkinson's disease Prostate cancer Psychosocial problem Respiratory disorder Seizure disorder Severe allergy Thyroid disease Tuberculosis Visual disorder No Pertinent Family Hx, Psychiatric Problems Physical Exam Vital Signs - First Documented 04/08/20 06:05 Temp 35.9 Pulse 85 Resp 19 B/P (MAP) 132/92 (105) Pulse Ox 99 O2 Delivery Room Air Capillary Refill : Less Than 3 Seconds Height, Weight, BMI Height: 5'3.00" Weight: 130lbs. 0oz. 58.831185oe; 22.00 BMI Method:Stated General Appearance: WD/WN, moderate distress HEENT: PERRL/EOMI, normal ENT inspection Neck: normal inspection Respiratory: lungs clear, normal breath sounds, no respiratory distress, no accessory muscle use Cardiovascular: regular rate, rhythm, no edema, no murmur Gastrointestinal: normal bowel sounds, soft; No distended Extremities: no pedal edema, other (contractures of all 4 extremities) Neurologic/Psychiatric: supervisor grower II-XII nml as tested, no motor/sensory deficits, alert, oriented x 3, abnormal supervisor grower II-XII, other (anxious and hyperventilating) Skin: warm/dry, pallor Procedures/Interventions Suture Size: 4-0 Progress/Results/Core Measures Results/Orders My Orders Orders - ASHLEY THAO MD Ed Iv/Invasive Line Start (04/08/20 06:09) Lactated Ringers (Lr 1000 Ml Iv Solution (04/08/20 06:09) Lorazepam Injection (Ativan Injection) (04/08/20 06:15) Ondansetron Injection (Zofran Injectio (04/08/20 06:15) Ondansetron Injection (Zofran Injectio (04/08/20 06:03) Lorazepam Injection (Ativan Injection) (04/08/20 07:00) Promethazine Injection (Phenergan Injec (04/08/20 07:00) Ns Iv 1000 Ml (Sodium Chloride 0.9%) (04/08/20 06:54) Promethazine Injection (Phenergan Injec (04/08/20 06:46) Ns Iv 1000 Ml (Sodium Chloride 0.9%) (04/08/20 06:47) Medications Given in ED Current Medications Medications Dose Ordered Sig/Jeannette Route Start Time Stop Time Status Last Admin Dose Admin Lactated Ringer's 1,000 ml @ 0 mls/hr Q0M ONCE IV 04/08/20 06:09 04/08/20 06:11 DC 04/08/20 06:15 0 MLS/HR Lorazepam 1 mg ONCE ONCE IVP 04/08/20 06:15 04/08/20 06:16 DC 04/08/20 06:15 1 MG Lorazepam 1 mg ONCE ONCE IVP 04/08/20 07:00 04/08/20 07:01 DC 04/08/20 06:59 1 MG Ondansetron HCl 8 mg ONCE ONCE IVP 04/08/20 06:15 04/08/20 06:16 DC 04/08/20 06:15 8 MG Promethazine HCl 25 mg ONCE ONCE IVP 04/08/20 07:00 04/08/20 07:01 DC 04/08/20 06:59 25 MG Sodium Chloride 1,000 ml @ 0 mls/hr Q0M ONCE IV 04/08/20 06:54 04/08/20 06:55 DC 04/08/20 07:00 0 MLS/HR Vital Signs/I&O 04/08/20 04/08/20 06:05 08:37 Temp 35.9 36.4 Pulse 85 99 Resp 19 18 B/P (MAP) 132/92 (105) 124/81 (105) Pulse Ox 99 98 O2 Delivery Room Air Room Air Blood Pressure Mean: 105 Progress Progress Note #1: Time: 06:30 Progress Note Patient was seen and examined. IV was established and a milligram of Ativan administered. 1 L of LR is infusing. Zofran was given for nausea. I have checked for urine culture results and they are not resulted yet. Progress Note #2: Progress Note Patient received 2 mg of Ativan before she stopped hyperventilating. She had refractory heaving after Zofran. Phenergan was given. She received 2 L of IV fluid. After treatments she was feeling much better and was dismissed. See janki holt instructions. Departure Impression Primary Impression: Hyperventilation Additional Impressions: Anxiety Cannabis hyperemesis syndrome concurrent with and due to cannabis dependence Urinary tract infection Qualified Codes: N39.0 - Urinary tract infection, site not specified Disposition: 01 HOME, SELF-CARE Condition: Improved Departure-Patient Inst. Decision time for Depature: 08:32 Referrals: VICK WALDRON MD (PCP/Family) Primary Care Physician Patient Instructions: Hyperventilation Add. Discharge Instructions: Fill your prescriptions TODAY. Also get an mtsc-evf-[id number] antacid as previously directed. Read through and follow your discharge instructions from your past 2 visits. Seek professional behavioral health support for your marijuana addiction and anxiety. Resume Lexapro today to reduce severity and recurrence of anxiety attacks. Return to care if you have any worsening symptoms. All discharge instructions reviewed with patient and/or family. Voiced understanding. Copy Copies To 1: VICK WALDRON MD, JOSHUA T MD April 08, 2020 06:26
[2020-04-08] MEDS ORDERED: PROMETHAZINE INJ 25 MG/ML (PHENERGAN) AMP ONE (06:46)
[2020-04-08] MEDS ORDERED: NS IV 1000 ML 1,000 ML ONE (06:47)
[2020-04-08] MEDS ORDERED: NS IV 1000 ML 1,000 ML IV ONE (06:54)
[2020-04-08] MEDS ORDERED: PROMETHAZINE INJ 25 MG/ML (PHENERGAN) AMP IVP ONE (07:00)
--- NOTE | 2020-04-08 07:03 | NUR ---
Report to [facility] Huggins
[2020-04-08 08:37] VITALS: BP 124/81
== END 2020-04-08 08:39 | disposition home or self-care (01) ==
LOC: EDUNIT# 05:35 → ER 05:39
DX: R06.4 Hyperventilation (principal); F41.9 Anxiety disorder, unspecified; F12.288 Cannabis dependence with other cannabis-induced disorder; N39.0 Urinary tract infection, site not specified
CPT/HCPCS: 96361; 96374; 96375; 96376

== ENCOUNTER 2020-05-10 16:28 | Emergency (ER) | payer SELFPAY ==
[~2020-05-10] VITALS: Ht 160 cm; Wt 54.4 kg
[2020-05-10] MEDS ORDERED: LIDOCAINE 2% VISCOUS 15 ML UDC PO ONE (17:00)
[2020-05-10] MEDS ORDERED: NS IV 1000 ML 1,000 ML IV SCH (17:00)
[2020-05-10] MEDS ORDERED: ANTACID SUSP 30 ML UDC (MYLANTA) PO ONE (17:00)
[2020-05-10] MEDS ORDERED: ONDANSETRON 4 MG/2 ML (SDV) Z0FRAN IVP ONE (17:00)
[2020-05-10 17:03] LABS: BASOPHILS % (AUTO) 0 % (0-10); EOSINOPHILS % (AUTO) 0 % (0-10); HEMATOCRIT 39 % (35-52); HEMOGLOBIN 13.2 G/DL (11.5-16.0); LYMPHOCYTES % (AUTO) 15 % (12-44); MEAN CORPUSCULAR HEMOGLOBIN 31 PG (25-34); MEAN CORPUSCULAR HGB CONC 34 G/DL (32-36); MEAN CORPUSCULAR VOLUME 90 FL (80-99); MEAN PLATELET VOLUME 10.9 FL (7.4-10.4); MONOCYTES # (AUTO) 0.4 X 10^3 (0.0-1.0); MONOCYTES % (AUTO) 6 % (0-12); NEUTROPHILS # (AUTO) 5.4 X 10^3 (1.8-7.8); NEUTROPHILS % (AUTO) 79 % (42-75); PLATELET COUNT 299 10^3/uL (130-400); WHITE BLOOD COUNT 6.9 10^3/uL (4.3-11.0)
--- NOTE | 2020-05-10 17:04 | ED GI ---
General Chief Complaint: Abdominal/GI Problems Stated Complaint: ABD PAIN,VOMITING Source of Information: Patient Exam Limitations: No Limitations History of Present Illness Date Seen by Provider: May 10, 2020 Time Seen by Provider: 17:02 Initial Comments To ER with reports of epigastric abdominal pain and vomiting that began today af ter smoking marijuana. She states she has a history of cannabinoid hyperemesis syndrome. Timing/Duration: 1-2 Days Severity/Quality: Moderate Location: Epigastric Radiation: No Radiation Associated Symptoms: Nausea/Vomiting Allergies and Home Medications Allergies Coded Allergies: No Known Drug Allergies (Unverified , 05/07/10) Home Medications Cephalexin 500 Mg Tablet, 500 MG PO TID Prescribed by: MERRY CARPENTER on 04/18/191216 Cephalexin 500 Mg Capsule, 500 MG PO TID Prescribed by: ASHLEY GLEASON on 04/06/20 0913 Norgestimate-Ethinyl Estradiol 1 Each Tablet, 1 TAB PO DAILY, (Reported) Ondansetron 4 Mg Tab.rapdis, 4 MG PO Q4H PRN for NAUSEA/VOMITING-1ST LINE Prescribed by: MERRY CARPENTER on 04/18/191216 Ondansetron 4 Mg Tab.rapdis, 4 MG SL Q4H PRN for NAUSEA/VOMITING Prescribed by: ASHLEY GLEASON on 04/07/20 0834 Pantoprazole Sodium 40 Mg Tablet.dr, 40 MG PO DAILY Prescribed by: KARIME LINK on 01/09/191903 Potassium Chloride 20 Meq Tablet.er, 40 MEQ PO DAILY Prescribed by: KARIME LINK on 01/09/19 190 Prochlorperazine Maleate 5 Mg Tablet, 5 MG PO TID PRN for NAUSEA/VOMITING Prescribed by: KARIME LINK on 01/09/19 1705 Promethazine HCl 25 Mg Tablet, 25 MG PO Q8H PRN for NAUSEA/VOMITING Prescribed by: ASHLEY GLEASON on 04/06/20 0913 Patient Home Medication List Home Medication List Reviewed: Yes Review of Systems Review of Systems Constitutional: see HPI EENTM: No Symptoms Reported Respiratory: No Symptoms Reported Cardiovascular: No Symptoms Reported Gastrointestinal: See HPI, Abdominal Pain, Nausea Genitourinary: No Symptoms Reported Musculoskeletal: no symptoms reported Skin: no symptoms reported Psychiatric/Neurological: No Symptoms Reported Endocrine: No Symptoms Reported Hematologic/Lymphatic: No Symptoms Reported Past Lwzulbj-Irsrbc-Qlqnas Hx Patient Social History Drug of Choice: Marijuana 2nd Hand Smoke Exposure: No Recent Foreign Travel: No Contact w/Someone Who Travel: No Recent Hopitalizations: No Seasonal Allergies Seasonal Allergies: No Past Medical History Surgeries: No Respiratory: No Cardiac: No Neurological: No Reproductive Disorders: No Female Reproductive Disorders: Denies Sexually Transmitted Disease: No HIV/AIDS: No Genitourinary: No Gastrointestinal: Yes (cannabis hyperemesis syndrome) Musculoskeletal: No Endocrine: No HEENT: No Loss of Vision: Denies Hearing Impairment: Denies Cancer: No Psychosocial: Yes Anxiety Integumentary: Yes Eczema Blood Disorders: No Family Medical History Alcoholism 19 FATHER 19 MOTHER No Family History of: AIDS Abdominal aortic aneurysm Keeler's disease Alzheimer's disease Aphasia Arthritis Asthma Cancer of mouth Cardiovascular disease Cataracts Colon cancer Completed stroke Congenital disease Congenital heart disease Coronary thrombosis Cystic fibrosis Deafness or hearing loss Dementia Diabetes mellitus Drug abuse Dysphasia Fibrocystic disease of breast Gastroenteritis Glaucoma Headache disorder Hypercholesterolemia Hypertension Infertility Kidney disease Myocardial infarction Neoplasm Not obtainable due to adoption Osteoporosis Parkinson's disease Prostate cancer Psychosocial problem Respiratory disorder Seizure disorder Severe allergy Thyroid disease Tuberculosis Visual disorder No Pertinent Family Hx, Psychiatric Problems Physical Exam Vital Signs Vital Signs - First Documented 05/10/20 16:46 Temp 37.4 Pulse 109 Resp 20 B/P (MAP) 139/80 (99) Pulse Ox 97 Capillary Refill : Height/Weight/BMI Height: 5'3.00" Weight: 130lbs. 0oz. 58.864561im; 22.00 BMI Method:Stated General Appearance: WD/WN, no apparent distress HEENT: PERRL/EOMI, normal ENT inspection Respiratory: normal breath sounds, no respiratory distress, no accessory muscle use Cardiovascular: regular rate, rhythm, no murmur Gastrointestinal: normal bowel sounds, soft, tenderness Extremities: normal range of motion, non-tender Neurologic/Psychiatric: alert, normal mood/affect, oriented x 3 Skin: normal color, warm/dry Procedures/Interventions Suture Size: 4-0 Progress/Results/Core Measures Results/Orders Lab Results Laboratory Tests Test 05/10/20 15:56 05/10/20 17:20 Range/Units White Blood Count 6.9 4.3-11.0 10^3/uL Red Blood Count 4.31 L 4.35-5.85 10^6/uL Hemoglobin 13.2 11.5-16.0 G/DL Hematocrit 39 35-52 % Mean Corpuscular Volume 90 80-99 FL Mean Corpuscular Hemoglobin 31 25-34 PG Mean Corpuscular Hemoglobin Concent 34 32-36 G/DL Red Cell Distribution Width 14.0 10.0-14.5 % Platelet Count 299 130-400 10^3/uL Mean Platelet Volume 10.9 H 7.4-10.4 FL Neutrophils (%) (Auto) 79 H 42-75 % Lymphocytes (%) (Auto) 15 12-44 % Monocytes (%) (Auto) 6 0-12 % Eosinophils (%) (Auto) 0 0-10 % Basophils (%) (Auto) 0 0-10 % Neutrophils # (Auto) 5.4 1.8-7.8 X 10^3 Lymphocytes # (Auto) 1.0 1.0-4.0 X 10^3 Monocytes # (Auto) 0.4 0.0-1.0 X 10^3 Eosinophils # (Auto) 0.0 0.0-0.3 10^3/uL Basophils # (Auto) 0.0 0.0-0.1 10^3/uL Sodium Level 138 135-145 MMOL/L Potassium Level 3.6 3.6-5.0 MMOL/L Chloride Level 105 98-107 MMOL/L Carbon Dioxide Level 22 21-32 MMOL/L Anion Gap 11 5-14 MMOL/L Blood Urea Nitrogen 8 7-18 MG/DL Creatinine 0.83 0.60-1.30 MG/DL Estimat Glomerular Filtration Rate > 60 BUN/Creatinine Ratio 10 Glucose Level 110 H 70-105 MG/DL Calcium Level 9.7 8.5-10.1 MG/DL Corrected Calcium 8.5-10.1 MG/DL Total Bilirubin 1.0 0.1-1.0 MG/DL Aspartate Amino Transf (AST/SGOT) 17 5-34 U/L Alanine Aminotransferase (ALT/SGPT) 13 0-55 U/L Alkaline Phosphatase 73 40-136 U/L Total Protein 7.6 6.4-8.2 GM/DL Albumin 4.7 H 3.2-4.5 GM/DL Lipase 11 8-78 U/L Serum Test, Qualitative NEGATIVE NEGATIVE Urine Color ORANGE Urine Clarity CLEAR Urine pH 6.0 5-9 Urine Specific [place] >=1.030 1.016-1.022 Urine Protein 2+ H NEGATIVE Urine Glucose (UA) NEGATIVE NEGATIVE Urine Ketones TRACE H NEGATIVE Urine Nitrite NEGATIVE NEGATIVE Urine Bilirubin 2+ H NEGATIVE Urine Urobilinogen 1.0 < = 1.0 MG/DL Urine Leukocyte Esterase TRACE H NEGATIVE Urine RBC (Auto) NEGATIVE NEGATIVE Urine RBC 0-2 /HPF Urine WBC 0-2 /HPF Urine Squamous Epithelial Cells 2-5 /HPF Urine Renal Epithelial Cells RARE /HPF Urine Crystals NONE /LPF Urine Bacteria TRACE /HPF Urine Casts NONE /LPF Urine Mucus SMALL H /LPF Urine Culture Indicated NO Urine Opiates Screen NEGATIVE NEGATIVE Urine Oxycodone Screen NEGATIVE NEGATIVE Urine Methadone Screen NEGATIVE NEGATIVE Urine Propoxyphene Screen NEGATIVE NEGATIVE Urine Barbiturates Screen NEGATIVE NEGATIVE Ur Tricyclic Antidepressants Screen NEGATIVE NEGATIVE Urine Phencyclidine Screen NEGATIVE NEGATIVE Urine Amphetamines Screen NEGATIVE NEGATIVE Urine Methamphetamines Screen NEGATIVE NEGATIVE Urine Benzodiazepines Screen NEGATIVE NEGATIVE Urine Cocaine Screen NEGATIVE NEGATIVE Urine Cannabinoids Screen POSITIVE H NEGATIVE My Orders Orders - KARIME LINK APRN Cbc With Automated Diff (05/10/20 16:31) Hcg,Qualitative Serum (05/10/20 16:31) Comprehensive Metabolic Panel (05/10/20 16:31) Ua Culture If Indicated (05/10/20 16:31) Drug Screen Stat (Urine) (05/10/20 16:31) Lipase (05/10/20 16:31) Ekg Tracing (05/10/20 16:32) Ns Iv 1000 Ml (Sodium Chloride 0.9%) (05/10/20 17:00) Ondansetron Injection (Zofran Injectio (05/10/20 17:00) Lidocaine 2% Viscous 15 Ml (Xylocaine Vi (05/10/20 17:00) Antacid Suspension (Mylanta Suspension (05/10/20 17:00) Medications Given in ED Current Medications Medications Dose Ordered Sig/Jeannette Route Start Time Stop Time Status Last Admin Dose Admin Al Hydrox/Mg Hydrox/Simethicone 30 ml ONCE ONCE PO 05/10/20 17:00 05/10/20 17:01 DC 05/10/20 17:16 30 ML Lidocaine HCl 10 ml ONCE ONCE PO 05/10/20 17:00 05/10/20 17:01 DC 05/10/20 17:16 10 ML Ondansetron HCl 8 mg ONCE ONCE IVP 05/10/20 17:00 05/10/20 17:01 DC 05/10/20 17:16 8 MG Vital Signs/I&O 05/10/20 16:46 Temp 37.4 Pulse 109 Resp 20 B/P (MAP) 139/80 (99) Pulse Ox 97 Departure Impression Primary Impression: Epigastric pain Additional Impression: Marijuana abuse Disposition: HOME, SELF-CARE Condition: Stable Departure-Patient Inst. Decision time for Depature: 17:04 Referrals: [facility] (PCP/Family) Primary Care Physician Patient Instructions: No Instuctions Given, Marijuana Use and Addiction (DC) KARIME LINK PET CARE ASSISTANT May 10, 2020 17:04
[2020-05-10 17:11] LABS: ALBUMIN 4.7 GM/DL (3.2-4.5); CHLORIDE 105 MMOL/L (98-107); POTASSIUM 3.6 MMOL/L (3.6-5.0); SODIUM 138 MMOL/L (135-145)
[2020-05-10 17:13] LABS: CALCIUM 9.7 MG/DL (8.5-10.1)
[2020-05-10 17:14] LABS: GLUCOSE 110 MG/DL (70-105); TOTAL PROTEIN 7.6 GM/DL (6.4-8.2)
[2020-05-10 17:15] LABS: CARBON DIOXIDE 22 MMOL/L (21-32)
[2020-05-10 17:17] LABS: ALKALINE PHOSPHATASE 73 U/L (40-136); CREATININE SERUM 0.83 MG/DL (0.60-1.30); GFR ESTIMATED > 60
[2020-05-10 17:18] LABS: BUN/CREATININE RATIO 10
[2020-05-10 17:20] LABS: ALANINE AMINOTRANSFERASE 13 U/L (0-55)
[2020-05-10 17:21] LABS: LIPASE 11 U/L (8-78)
[2020-05-10 17:30] LABS: CLARITY,URINE CLEAR; COLOR,URINE ORANGE; GLUCOSE, URINE (UA) NEGATIVE (NEGATIVE); KETONES,URINE TRACE (NEGATIVE); LEUKOCYTE ESTERASE ,URINE TRACE (NEGATIVE); NITRITE,URINE NEGATIVE (NEGATIVE); PROTEIN,URINE 2+ (NEGATIVE)
[2020-05-10 17:35] LABS: BILIRUBIN,URINE 2+ (NEGATIVE)
[2020-05-10 17:37] LABS: RBC,URINE 0-2 /HPF; WBC,URINE 0-2 /HPF
[2020-05-10 17:38] LABS: BACTERIA,URINE TRACE /HPF; RENAL EPITHELIAL CELLS,URINE RARE /HPF
[2020-05-10 17:40] LABS: AMPHETAMINE SCREEN, URINE NEGATIVE (NEGATIVE); BARBITURATE SCREEN URINE NEGATIVE (NEGATIVE); BENZODIAZEPINES SCREEN URINE NEGATIVE (NEGATIVE); CANNABINOID SCREEN, URINE POSITIVE (NEGATIVE); COCAINE SCREEN URINE NEGATIVE (NEGATIVE); METHADONE STAT NEGATIVE (NEGATIVE); METHAMPHETAMINE SCREEN URINE S NEGATIVE (NEGATIVE); OPIATE SCREEN URINE NEGATIVE (NEGATIVE); OXYCODONE STAT NEGATIVE (NEGATIVE); PROPOXYPHENE STAT NEGATIVE (NEGATIVE); TRICYCLIC ANTIDEPRESSANTS SCRE NEGATIVE (NEGATIVE)
[2020-05-10 17:55] VITALS: BP 116/67
== END 2020-05-10 17:56 | disposition home or self-care (01) ==
LOC: EDUNIT# 16:28 → ER 16:29
DX: R10.13 Epigastric pain (principal); F12.10 Cannabis abuse, uncomplicated
CPT/HCPCS: 36415; 80053; 80306; 81000; 83690; 84703; 85025; 93005; 96374

== ENCOUNTER 2020-05-23 13:26 | Emergency (ER) | payer SELFPAY ==
[~2020-05-23] VITALS: Ht 160 cm; Wt 56.3 kg
[2020-05-23] MEDS ORDERED: LIDOCAINE 2% VISCOUS 15 ML UDC PO ONE (13:30)
[2020-05-23] MEDS ORDERED: ANTACID SUSP 30 ML UDC (MYLANTA) PO ONE (13:30)
--- NOTE | 2020-05-23 13:32 | ED GI ---
General Chief Complaint: Abdominal/GI Problems Stated Complaint: ACID REFLUX Source of Information: Patient Exam Limitations: No Limitations History of Present Illness Date Seen by Provider: May 23, 2020 Time Seen by Provider: 13:30 Initial Comments To ER with reports of vomiting for 4 days as well as upper abdominal pain. History of hyperemesis cannabinoids syndrome, smokes marijuana daily and has been here a multitude of times for the same thing. Timing/Duration: 3-4 Days Severity/Quality: Moderate Location: Epigastric Radiation: No Radiation Activities at Onset: None Associated Symptoms: Nausea/Vomiting Allergies and Home Medications Allergies Coded Allergies: No Known Drug Allergies (Unverified , 05/07/10) Home Medications Cephalexin 500 Mg Tablet, 500 MG PO TID Prescribed by: MERRY CARPENTER on 04/18/191216 Cephalexin 500 Mg Capsule, 500 MG PO TID Prescribed by: ASHLEY GLEASON on 04/06/20 0913 Norgestimate-Ethinyl Estradiol 1 Each Tablet, 1 TAB PO DAILY, (Reported) Ondansetron 4 Mg Tab.rapdis, 4 MG PO Q4H PRN for NAUSEA/VOMITING-1ST LINE Prescribed by: MERRY CARPENTER on 04/18/191216 Ondansetron 4 Mg Tab.rapdis, 4 MG SL Q4H PRN for NAUSEA/VOMITING Prescribed by: ASHLEY GLEASON on 04/07/20 0834 Pantoprazole Sodium 40 Mg Tablet.dr, 40 MG PO DAILY Prescribed by: KARIME LINK on 01/09/191903 Potassium Chloride 20 Meq Tablet.er, 40 MEQ PO DAILY Prescribed by: KARIME LINK on 01/09/19 190 Prochlorperazine Maleate 5 Mg Tablet, 5 MG PO TID PRN for NAUSEA/VOMITING Prescribed by: KARIME LINK on 01/09/19 1705 Promethazine HCl 25 Mg Tablet, 25 MG PO Q8H PRN for NAUSEA/VOMITING Prescribed by: ASHLEY GLEASON on 04/06/20 0913 Patient Home Medication List Home Medication List Reviewed: Yes Review of Systems Review of Systems Constitutional: see HPI EENTM: No Symptoms Reported Respiratory: No Symptoms Reported Cardiovascular: No Symptoms Reported Gastrointestinal: See HPI, Abdominal Pain, Nausea, Vomiting Genitourinary: No Symptoms Reported Musculoskeletal: no symptoms reported Skin: no symptoms reported Psychiatric/Neurological: No Symptoms Reported Endocrine: No Symptoms Reported Hematologic/Lymphatic: No Symptoms Reported Past Voltcmc-Allqau-Fefaqb Hx Patient Social History Drug of Choice: Marijuana 2nd Hand Smoke Exposure: No Recent Foreign Travel: No Contact w/Someone Who Travel: No Recent Hopitalizations: No Immunizations Up To Date Tetanus Booster (TDap): Less than 5yrs PED Vaccines UTD: Yes Seasonal Allergies Seasonal Allergies: No Past Medical History Surgeries: No Respiratory: No Cardiac: No Neurological: No Reproductive Disorders: No Female Reproductive Disorders: Denies Sexually Transmitted Disease: No HIV/AIDS: No Genitourinary: No Gastrointestinal: Yes (cannabis hyperemesis syndrome) Gastroesophageal Reflux Musculoskeletal: No Endocrine: No HEENT: No Loss of Vision: Denies Hearing Impairment: Denies Cancer: No Psychosocial: Yes Anxiety Integumentary: Yes Eczema Blood Disorders: No Family Medical History Alcoholism 19 FATHER 19 MOTHER No Family History of: AIDS Abdominal aortic aneurysm Holt's disease Alzheimer's disease Aphasia Arthritis Asthma Cancer of mouth Cardiovascular disease Cataracts Colon cancer Completed stroke Congenital disease Congenital heart disease Coronary thrombosis Cystic fibrosis Deafness or hearing loss Dementia Diabetes mellitus Drug abuse Dysphasia Fibrocystic disease of breast Gastroenteritis Glaucoma Headache disorder Hypercholesterolemia Hypertension Infertility Kidney disease Myocardial infarction Neoplasm Not obtainable due to adoption Osteoporosis Parkinson's disease Prostate cancer Psychosocial problem Respiratory disorder Seizure disorder Severe allergy Thyroid disease Tuberculosis Visual disorder No Pertinent Family Hx, Psychiatric Problems Physical Exam Vital Signs Vital Signs - First Documented 05/23/20 13:33 Temp 36.3 Pulse 95 Resp 18 B/P (MAP) 122/95 (104) Pulse Ox 97 Capillary Refill : Height/Weight/BMI Height: 5'3.00" Weight: 130lbs. 0oz. 58.959527ym; 21.00 BMI Method:Stated General Appearance: WD/WN, no apparent distress, other (carpal spasms noted, vomiting yellow emesis) HEENT: PERRL/EOMI, normal ENT inspection Neck: non-tender, full range of motion Respiratory: no respiratory distress, no accessory muscle use Cardiovascular: regular rate, rhythm, no murmur Gastrointestinal: normal bowel sounds, soft Extremities: normal range of motion, non-tender Neurologic/Psychiatric: alert, normal mood/affect, oriented x 3 Skin: normal color, warm/dry Procedures/Interventions Suture Size: 4-0 Progress/Results/Core Measures Results/Orders Lab Results Laboratory Tests Test 05/23/20 13:58 05/23/20 14:02 Range/Units White Blood Count 15.3 H 4.3-11.0 10^3/uL Red Blood Count 4.88 4.35-5.85 10^6/uL Hemoglobin 15.0 11.5-16.0 G/DL Hematocrit 43 35-52 % Mean Corpuscular Volume 88 80-99 FL Mean Corpuscular Hemoglobin 31 25-34 PG Mean Corpuscular Hemoglobin Concent 35 32-36 G/DL Red Cell Distribution Width 14.1 10.0-14.5 % Platelet Count 409 H 130-400 10^3/uL Mean Platelet Volume 11.0 H 7.4-10.4 FL Neutrophils (%) (Auto) 87 H 42-75 % Lymphocytes (%) (Auto) 8 L 12-44 % Monocytes (%) (Auto) 5 0-12 % Eosinophils (%) (Auto) 0 0-10 % Basophils (%) (Auto) 0 0-10 % Neutrophils # (Auto) 13.3 H 1.8-7.8 X 10^3 Lymphocytes # (Auto) 1.2 1.0-4.0 X 10^3 Monocytes # (Auto) 0.8 0.0-1.0 X 10^3 Eosinophils # (Auto) 0.0 0.0-0.3 10^3/uL Basophils # (Auto) 0.0 0.0-0.1 10^3/uL Sodium Level 138 135-145 MMOL/L Potassium Level 4.4 3.6-5.0 MMOL/L Chloride Level 97 L 98-107 MMOL/L Carbon Dioxide Level 21 21-32 MMOL/L Anion Gap 20 H 5-14 MMOL/L Blood Urea Nitrogen 14 7-18 MG/DL Creatinine 1.02 0.60-1.30 MG/DL Estimat Glomerular Filtration Rate > 60 BUN/Creatinine Ratio 14 Glucose Level 127 H 70-105 MG/DL Calcium Level 10.9 H 8.5-10.1 MG/DL Corrected Calcium 8.5-10.1 MG/DL Total Bilirubin 2.2 H 0.1-1.0 MG/DL Aspartate Amino Transf (AST/SGOT) 19 5-34 U/L Alanine Aminotransferase (ALT/SGPT) 15 0-55 U/L Alkaline Phosphatase 84 40-136 U/L Total Protein 8.8 H 6.4-8.2 GM/DL Albumin 5.3 H 3.2-4.5 GM/DL Urine Test NEGATIVE NEGATIVE Urine Opiates Screen NEGATIVE NEGATIVE Urine Oxycodone Screen NEGATIVE NEGATIVE Urine Methadone Screen NEGATIVE NEGATIVE Urine Propoxyphene Screen NEGATIVE NEGATIVE Urine Barbiturates Screen POSITIVE H NEGATIVE Ur Tricyclic Antidepressants Screen NEGATIVE NEGATIVE Urine Phencyclidine Screen NEGATIVE NEGATIVE Urine Amphetamines Screen NEGATIVE NEGATIVE Urine Methamphetamines Screen NEGATIVE NEGATIVE Urine Benzodiazepines Screen POSITIVE H NEGATIVE Urine Cocaine Screen NEGATIVE NEGATIVE Urine Cannabinoids Screen POSITIVE H NEGATIVE My Orders Orders - KARIME LINK APRN Antacid Suspension (Mylanta Suspension (05/23/20 13:30) Lidocaine 2% Viscous 15 Ml (Xylocaine Vi (05/23/20 13:30) Cbc With Automated Diff (05/23/20 13:42) Comprehensive Metabolic Panel (05/23/20 13:42) Hcg,Qualitative Urine (05/23/20 13:42) Ed Iv/Invasive Line Start (05/23/20 13:42) Ed Iv/Invasive Line Start (05/23/20 13:42) Diphenhydramine Injection (Benadryl Inje (05/23/20 13:45) Prochlorperazine Injection (Compazine In (05/23/20 13:45) Manual Differential (05/23/20 13:58) Drug Screen Stat (Urine) (05/23/20 14:12) Medications Given in ED Current Medications Medications Dose Ordered Sig/Jeannetet Route Start Time Stop Time Status Last Admin Dose Admin Al Hydrox/Mg Hydrox/Simethicone 30 ml ONCE ONCE PO 05/23/20 13:30 05/23/20 13:31 DC 05/23/20 13:53 30 ML Diphenhydramine HCl 25 mg ONCE ONCE IVP 05/23/20 13:45 05/23/20 13:46 DC 05/23/20 13:54 25 MG Lidocaine HCl 10 ml ONCE ONCE PO 05/23/20 13:30 05/23/20 13:31 DC 05/23/20 13:53 10 ML Prochlorperazine Edisylate 10 mg ONCE ONCE IV 05/23/20 13:45 05/23/20 13:46 DC 05/23/20 13:54 10 MG Vital Signs/I&O 05/23/20 13:33 Temp 36.3 Pulse 95 Resp 18 B/P (MAP) 122/95 (104) Pulse Ox 97 Departure Impression Primary Impression: Substance abuse Additional Impression: Cannabinoid hyperemesis syndrome Disposition: 01 HOME, SELF-CARE Condition: Stable Departure-Patient Inst. Decision time for Depature: 13:51 Referrals: [facility] (PCP/Family) Primary Care Physician Patient Instructions: OUTPT SUBSTANCE ABUSE RESOURCE Add. Discharge Instructions: If you would just stop smoking marijuana you could stop having these episodes of recurrent nausea and vomiting. Christine given you information on substance addiction. KARIME LINK TRANSITION COACH May 23, 2020 13:32
[2020-05-23] MEDS ORDERED: PROCHLORPERAZINE 10 MG/2ML INJ (COMPAZINE) IV ONE (13:45)
[2020-05-23] MEDS ORDERED: diphenhydrAMINE 50 MG/ML INJ (BENADRYL) IVP ONE (13:45)
[2020-05-23 14:06] LABS: BASOPHILS % (AUTO) 0 % (0-10); EOSINOPHILS % (AUTO) 0 % (0-10); HEMATOCRIT 43 % (35-52); LYMPHOCYTES # (AUTO) 1.2 X 10^3 (1.0-4.0); LYMPHOCYTES % (AUTO) 8 % (12-44); MEAN CORPUSCULAR HEMOGLOBIN 31 PG (25-34); MEAN CORPUSCULAR HGB CONC 35 G/DL (32-36); MEAN CORPUSCULAR VOLUME 88 FL (80-99); MONOCYTES # (AUTO) 0.8 X 10^3 (0.0-1.0); MONOCYTES % (AUTO) 5 % (0-12); NEUTROPHILS # (AUTO) 13.3 X 10^3 (1.8-7.8); NEUTROPHILS % (AUTO) 87 % (42-75); PLATELET COUNT 409 10^3/uL (130-400); RED CELL DISTRIBUTION WIDTH 14.1 % (10.0-14.5); WHITE BLOOD COUNT 15.3 10^3/uL (4.3-11.0)
[2020-05-23 14:25] LABS: ALBUMIN 5.3 GM/DL (3.2-4.5); CHLORIDE 97 MMOL/L (98-107); POTASSIUM 4.4 MMOL/L (3.6-5.0); SODIUM 138 MMOL/L (135-145)
[2020-05-23 14:26] LABS: CALCIUM 10.9 MG/DL (8.5-10.1)
[2020-05-23 14:27] LABS: GLUCOSE 127 MG/DL (70-105)
[2020-05-23 14:28] LABS: TOTAL PROTEIN 8.8 GM/DL (6.4-8.2)
[2020-05-23 14:29] LABS: BILIRUBIN,TOTAL 2.2 MG/DL (0.1-1.0); CARBON DIOXIDE 21 MMOL/L (21-32)
[2020-05-23 14:31] LABS: ALKALINE PHOSPHATASE 84 U/L (40-136); CREATININE SERUM 1.02 MG/DL (0.60-1.30); GFR ESTIMATED > 60
[2020-05-23 14:32] LABS: BUN/CREATININE RATIO 14
[2020-05-23 14:34] LABS: ALANINE AMINOTRANSFERASE 15 U/L (0-55)
[2020-05-23 14:37] LABS: AMPHETAMINE SCREEN, URINE NEGATIVE (NEGATIVE); BARBITURATE SCREEN URINE POSITIVE (NEGATIVE); BENZODIAZEPINES SCREEN URINE POSITIVE (NEGATIVE); CANNABINOID SCREEN, URINE POSITIVE (NEGATIVE); COCAINE SCREEN URINE NEGATIVE (NEGATIVE); METHADONE STAT NEGATIVE (NEGATIVE); METHAMPHETAMINE SCREEN URINE S NEGATIVE (NEGATIVE); OPIATE SCREEN URINE NEGATIVE (NEGATIVE); OXYCODONE STAT NEGATIVE (NEGATIVE); PROPOXYPHENE STAT NEGATIVE (NEGATIVE); TRICYCLIC ANTIDEPRESSANTS SCRE NEGATIVE (NEGATIVE)
[2020-05-23 14:38] LABS: BAND NEUTROPHILS 1 %; BASOPHILS % (MANUAL) 0 %; EOSINOPHILS % (MANUAL) 0 %; LYMPHOCYTES % (MANUAL) 9 %; MONOCYTES % (MANUAL) 2 %; NEUTROPHILS % (MANUAL) 88 %
[2020-05-23 14:39] LABS: RBC MORPH NORMAL
[2020-05-23 14:41] VITALS: BP 123/92
== END 2020-05-23 14:45 | disposition home or self-care (01) ==
LOC: EDUNIT# 13:26 → ER 13:27
DX: F12.129 Cannabis abuse with intoxication, unspecified (principal); K21.9 Gastro-esophageal reflux disease without esophagitis
CPT/HCPCS: 36415; 80053; 80306; 84703; 85007; 85027

== ENCOUNTER 2020-07-26 06:57 | Emergency (ER) | payer SELFPAY ==
[~2020-07-26] VITALS: Ht 157.4 cm; Wt 54.5 kg
[2020-07-26] MEDS ORDERED: LACTATED RINGERS 1,000 ML IV ONE ×2 (07:19→09:06)
--- NOTE | 2020-07-26 07:29 | ED GI ---
General Chief Complaint: Abdominal/GI Problems Stated Complaint: VOMITING FOR 4 DAYS Source of Information: Patient Exam Limitations: No Limitations History of Present Illness Date Seen by Provider: Jul 26, 2020 Time Seen by Provider: 06:58 Initial Comments The patient presents to ER by private conveyance from home with chief complaint of nausea and vomiting for going on four days now. She's not able to keep anything down and feels dehydrated. She says she's been vomiting bile. She has a history of cannabis hyperemesis syndrome. She did smoke some weed today. She says she feels like whenever she goes away from cannabis she gets more nausea. In the past ondansetron and fluids have helped her. She's not having any dysuria fever cough shortness of breath. Allergies and Home Medications Allergies Coded Allergies: No Known Drug Allergies (Unverified , 05/07/10) Home Medications Cephalexin 500 Mg Tablet, 500 MG PO TID Prescribed by: MERRY CARPENTER on 04/18/191216 Cephalexin 500 Mg Capsule, 500 MG PO TID Prescribed by: ASHLEY GLEASON on 04/06/20 0913 Norgestimate-Ethinyl Estradiol 1 Each Tablet, 1 TAB PO DAILY, (Reported) Ondansetron 4 Mg Tab.rapdis, 4 MG PO Q4H PRN for NAUSEA/VOMITING-1ST LINE Prescribed by: MERRY CARPENTER on 04/18/191216 Ondansetron 4 Mg Tab.rapdis, 4 MG SL Q4H PRN for NAUSEA/VOMITING Prescribed by: ASHLEY GLEASON on 04/07/20 0834 Pantoprazole Sodium 40 Mg Tablet.dr, 40 MG PO DAILY Prescribed by: KARIME LINK on 01/09/19 190 Potassium Chloride 20 Meq Tablet.er, 40 MEQ PO DAILY Prescribed by: KARIME LINK on 01/09/19 190 Prochlorperazine Maleate 5 Mg Tablet, 5 MG PO TID PRN for NAUSEA/VOMITING Prescribed by: KARIME LINK on 01/09/19 170 Promethazine HCl 25 Mg Tablet, 25 MG PO Q8H PRN for NAUSEA/VOMITING Prescribed by: ASHLEY GLEASON on 04/06/20 0913 Patient Home Medication List Home Medication List Reviewed: Yes Review of Systems Review of Systems Constitutional: No chills, No fever, No malaise EENTM: No Blurred Vision, No Double Vision Respiratory: Denies Cough, Denies Shortness of Air Cardiovascular: Denies Chest Pain, Denies Edema Gastrointestinal: See HPI; Denies Abdominal Pain, Denies Constipated, Denies Diarrhea; Nausea, Vomiting Genitourinary: Denies Burning, Denies Discharge Musculoskeletal: No back pain, No joint pain All Other Systems Reviewed Negative Unless Noted: Yes Past Jkjfxsy-Qigmhn-Xhutfd Hx Patient Social History Alcohol Use: Denies Use Recreational Drug Use: Yes Drug of Choice: cannabis Smoking Status: Never a Smoker 2nd Hand Smoke Exposure: No Recent Foreign Travel: No Contact w/Someone Who Travel: No Recent Hopitalizations: No Immunizations Up To Date Tetanus Booster (TDap): Less than 5yrs PED Vaccines UTD: Yes Seasonal Allergies Seasonal Allergies: No Past Medical History Surgeries: No Respiratory: No Cardiac: No Neurological: No Reproductive Disorders: No Female Reproductive Disorders: Denies Sexually Transmitted Disease: No HIV/AIDS: No Genitourinary: No Gastrointestinal: Yes (cannabis hyperemesis syndrome) Gastroesophageal Reflux Musculoskeletal: No Endocrine: No HEENT: No Loss of Vision: Denies Hearing Impairment: Denies Cancer: No Psychosocial: Yes Anxiety Integumentary: Yes Eczema Blood Disorders: No Family Medical History Alcoholism 19 FATHER 19 MOTHER No Family History of: AIDS Abdominal aortic aneurysm Homar's disease Alzheimer's disease Aphasia Arthritis Asthma Cancer of mouth Cardiovascular disease Cataracts Colon cancer Completed stroke Congenital disease Congenital heart disease Coronary thrombosis Cystic fibrosis Deafness or hearing loss Dementia Diabetes mellitus Drug abuse Dysphasia Fibrocystic disease of breast Gastroenteritis Glaucoma Headache disorder Hypercholesterolemia Hypertension Infertility Kidney disease Myocardial infarction Neoplasm Not obtainable due to adoption Osteoporosis Parkinson's disease Prostate cancer Psychosocial problem Respiratory disorder Seizure disorder Severe allergy Thyroid disease Tuberculosis Visual disorder No Pertinent Family Hx, Psychiatric Problems Physical Exam Vital Signs Vital Signs - First Documented 07/26/20 07:04 Temp 35.9 Pulse 87 Resp 18 B/P (MAP) 138/108 (118) Pulse Ox 96 O2 Delivery Room Air Capillary Refill : Height/Weight/BMI Height: 5'3.00" Weight: 130lbs. 0oz. [id number]; 21.00 BMI Method:Stated General Appearance: WD/WN, moderate distress HEENT: PERRL/EOMI, pharynx normal Neck: full range of motion, supple, normal inspection Respiratory: lungs clear, normal breath sounds, no respiratory distress, no accessory muscle use Cardiovascular: normal peripheral pulses, regular rate, rhythm Peripheral Pulses: 2+ Radial Pulses (R), 2+ Radial Pulses (L) Gastrointestinal: normal bowel sounds, non tender, soft Extremities: non-tender, normal inspection Neurologic/Psychiatric: alert, normal mood/affect, oriented x 3 Procedures/Interventions Suture Size: 4-0 Progress/Results/Core Measures Results/Orders Lab Results Laboratory Tests Test 07/26/20 07:19 07/26/20 08:35 Range/Units White Blood Count 12.0 H 4.3-11.0 10^3/uL Red Blood Count 4.04 L 4.35-5.85 10^6/uL Hemoglobin 12.7 11.5-16.0 G/DL Hematocrit 37 35-52 % Mean Corpuscular Volume 91 80-99 FL Mean Corpuscular Hemoglobin 31 25-34 PG Mean Corpuscular Hemoglobin Concent 35 32-36 G/DL Red Cell Distribution Width 13.4 10.0-14.5 % Platelet Count 319 130-400 10^3/uL Mean Platelet Volume 11.1 H 7.4-10.4 FL Neutrophils (%) (Auto) 80 H 42-75 % Lymphocytes (%) (Auto) 14 12-44 % Monocytes (%) (Auto) 5 0-12 % Eosinophils (%) (Auto) 1 0-10 % Basophils (%) (Auto) 0 0-10 % Neutrophils # (Auto) 9.7 H 1.8-7.8 X 10^3 Lymphocytes # (Auto) 1.6 1.0-4.0 X 10^3 Monocytes # (Auto) 0.6 0.0-1.0 X 10^3 Eosinophils # (Auto) 0.1 0.0-0.3 10^3/uL Basophils # (Auto) 0.0 0.0-0.1 10^3/uL Sodium Level 136 135-145 MMOL/L Potassium Level 4.0 3.6-5.0 MMOL/L Chloride Level 105 98-107 MMOL/L Carbon Dioxide Level 20 L 21-32 MMOL/L Anion Gap 11 5-14 MMOL/L Blood Urea Nitrogen 9 7-18 MG/DL Creatinine 0.76 0.60-1.30 MG/DL Estimat Glomerular Filtration Rate > 60 BUN/Creatinine Ratio 12 Glucose Level 172 H 70-105 MG/DL Calcium Level 9.1 8.5-10.1 MG/DL Corrected Calcium 8.7 8.5-10.1 MG/DL Magnesium Level 1.7 1.6-2.4 MG/DL Total Bilirubin 1.3 H 0.1-1.0 MG/DL Aspartate Amino Transf (AST/SGOT) 18 5-34 U/L Alanine Aminotransferase (ALT/SGPT) 13 0-55 U/L Alkaline Phosphatase 63 40-136 U/L Total Protein 7.1 6.4-8.2 GM/DL Albumin 4.5 3.2-4.5 GM/DL Lipase 10 8-78 U/L Urine Color YELLOW Urine Clarity CLEAR Urine pH 8.5 5-9 Urine Specific [place] 1.020 1.016-1.022 Urine Protein NEGATIVE NEGATIVE Urine Glucose (UA) 1+ H NEGATIVE Urine Ketones TRACE H NEGATIVE Urine Nitrite NEGATIVE NEGATIVE Urine Bilirubin NEGATIVE NEGATIVE Urine Urobilinogen 0.2 < = 1.0 MG/DL Urine Leukocyte Esterase NEGATIVE NEGATIVE Urine RBC (Auto) NEGATIVE NEGATIVE Urine RBC NONE /HPF Urine WBC 5-10 H /HPF Urine Squamous Epithelial Cells 25-50 H /HPF Urine Crystals NONE /LPF Urine Bacteria FEW H /HPF Urine Casts NONE /LPF Urine Mucus SMALL H /LPF Urine Culture Indicated YES My Orders Orders - VIVIAN SMITH Ua Culture If Indicated (07/26/20 07:06) Urine Bedside (07/26/20 07:06) Cbc With Automated Diff (07/26/20 07:19) Comprehensive Metabolic Panel (07/26/20 07:19) Lipase (07/26/20 07:19) Magnesium (07/26/20 07:19) Ondansetron Injection (Zofran Injectio (07/26/20 07:30) Pantoprazole Injection (Protonix Injecti (07/26/20 07:30) Ed Iv/Invasive Line Start (07/26/20 07:19) Lactated Ringers (Lr 1000 Ml Iv Solution (07/26/20 07:19) Lorazepam Injection (Ativan Injection) (07/26/20 08:00) Urine Culture (07/26/20 08:35) Lorazepam Injection (Ativan Injection) (07/26/20 09:15) Ed Iv/Invasive Line Start (07/26/20 09:06) Lactated Ringers (Lr 1000 Ml Iv Solution (07/26/20 09:06) Promethazine Injection (Phenergan Injec (07/26/20 09:15) Diphenhydramine Injection (Benadryl Inje (07/26/20 09:15) Medications Given in ED Current Medications Medications Dose Ordered Sig/Jeannette Route Start Time Stop Time Status Last Admin Dose Admin Diphenhydramine HCl 25 mg ONCE ONCE IVP 07/26/20 09:15 07/26/20 09:16 DC 07/26/20 09:25 25 MG Lactated Ringer's 1,000 ml @ 0 mls/hr Q0M ONCE IV 07/26/20 07:19 07/26/20 07:23 DC 07/26/20 07:30 1,000 MLS/HR Lactated Ringer's 1,000 ml @ 0 mls/hr Q0M ONCE IV 07/26/20 09:06 07/26/20 09:07 DC 07/26/20 09:24 1,000 MLS/HR Lorazepam 1 mg ONCE ONCE IVP 07/26/20 08:00 07/26/20 08:01 DC 07/26/20 07:57 1 MG Lorazepam 2 mg ONCE ONCE IVP 07/26/20 09:15 07/26/20 09:16 DC 07/26/20 09:04 2 MG Ondansetron HCl 8 mg ONCE ONCE IVP 07/26/20 07:30 07/26/20 07:31 DC 07/26/20 07:29 8 MG Pantoprazole 40 mg ONCE ONCE IV 07/26/20 07:30 07/26/20 07:31 DC 07/26/20 07:30 40 MG Promethazine HCl 25 mg ONCE ONCE IVP 07/26/20 09:15 07/26/20 09:16 DC 07/26/20 09:24 25 MG Vital Signs/I&O 07/26/20 07/26/20 07/26/20 07:04 08:03 09:57 Temp 35.9 Pulse 87 58 100 Resp 18 18 18 B/P (MAP) 138/108 (118) 122/83 (96) 138/87 (104) Pulse Ox 96 96 99 O2 Delivery Room Air Room Air Room Air Progress Progress Note #1: Time: 07:26 Progress Note Patient presents with aseptic vital signs vomiting yellow green bilious thin, clear secretions. Plan to give her 8 of Zofran, a liter of lactated Ringer's. Check a magnesium, urinalysis, bedside and labs. Did do some basic counseling on smoking cessation for about 5 minutes. Patient hyperventilating mildly with carpopedal spasms probably having anxiety attack. Could be compounded by loss of gastric acids. Give her a milligram of Ativan. Progress Note #2: Time: 09:16 Progress Note The patient still feels that her anxiety is not any better and her nausea does not completely improved sober any give her 25 mg of Phenergan and another liter of fluids and 2 mg of Ativan. Counseling-Symptomatic: 3-10 Minutes Discussed Options Including: Group/Indiv Counseling Follow-up with PCP to: Discuss Further Options Departure Impression Primary Impression: Cannabis hyperemesis syndrome concurrent with and due to cannabis dependence Disposition: 01 HOME, SELF-CARE Condition: Improved Departure-Patient Inst. Decision time for Depature: 10:36 [address]: [facility] [place] Primary Care Physician Patient Instructions: Marijuana Use and Addiction (DC) Add. Discharge Instructions: Unfortunately some people experience a syndrome known as Cannabis hyperemesis and should probably stay away from cannabis entirely. Over the next couple days if you're having nausea you can take one tablet of Phenergan in addition to one tablet of Benadryl every 6 hours as necessary. All discharge instructions reviewed with patient and/or family. Voiced understanding. Scripts Promethazine HCl (Promethazine Tablet) 25 Mg Tablet 25 MG PO Q6H PRN for NAUSEA/VOMITING, #20 TAB 0 Refills Prov: VIVIAN SMITH 07/26/20 Work/School Note: Work Release Form Date Seen in the Emergency Department: Jul 26, 2020 Return to Work: Jul 27, 2020 Restrictions: No Restrictions VIVIAN SMITH Jul 26, 2020 07:29
[2020-07-26] MEDS ORDERED: PANTOPRAZOLE 40 MG (PROTONIX) VIAL IV ONE (07:30)
[2020-07-26] MEDS ORDERED: ONDANSETRON 4 MG/2 ML (SDV) Z0FRAN IVP ONE (07:30)
[2020-07-26 07:32] LABS: BASOPHILS % (AUTO) 0 % (0-10); EOSINOPHILS # (AUTO) 0.1 10^3/uL (0.0-0.3); EOSINOPHILS % (AUTO) 1 % (0-10); HEMATOCRIT 37 % (35-52); HEMOGLOBIN 12.7 G/DL (11.5-16.0); LYMPHOCYTES # (AUTO) 1.6 X 10^3 (1.0-4.0); LYMPHOCYTES % (AUTO) 14 % (12-44); MEAN CORPUSCULAR HEMOGLOBIN 31 PG (25-34); MEAN CORPUSCULAR HGB CONC 35 G/DL (32-36); MEAN CORPUSCULAR VOLUME 91 FL (80-99); MEAN PLATELET VOLUME 11.1 FL (7.4-10.4); MONOCYTES # (AUTO) 0.6 X 10^3 (0.0-1.0); MONOCYTES % (AUTO) 5 % (0-12); NEUTROPHILS # (AUTO) 9.7 X 10^3 (1.8-7.8); NEUTROPHILS % (AUTO) 80 % (42-75); PLATELET COUNT 319 10^3/uL (130-400)
[2020-07-26 07:39] LABS: ALBUMIN 4.5 GM/DL (3.2-4.5); CHLORIDE 105 MMOL/L (98-107); SODIUM 136 MMOL/L (135-145)
[2020-07-26 07:40] LABS: CALCIUM 9.1 MG/DL (8.5-10.1)
[2020-07-26 07:41] LABS: GLUCOSE 172 MG/DL (70-105); TOTAL PROTEIN 7.1 GM/DL (6.4-8.2)
[2020-07-26 07:43] LABS: BILIRUBIN,TOTAL 1.3 MG/DL (0.1-1.0); CARBON DIOXIDE 20 MMOL/L (21-32)
[2020-07-26 07:45] LABS: ALKALINE PHOSPHATASE 63 U/L (40-136); CREATININE SERUM 0.76 MG/DL (0.60-1.30); GFR ESTIMATED > 60
[2020-07-26 07:46] LABS: BUN/CREATININE RATIO 12
[2020-07-26 07:48] LABS: ALANINE AMINOTRANSFERASE 13 U/L (0-55); MAGNESIUM 1.7 MG/DL (1.6-2.4)
[2020-07-26 07:49] LABS: LIPASE 10 U/L (8-78)
--- NOTE | 2020-07-26 07:52 | NUR ---
CALLED TO ROOM SHAKEY APPEARS TO BE HYPERVENTLATING HAVING CARPOPEDAL SPASM IN HANDS. DR MONACO.
[2020-07-26] MEDS ORDERED: LORazepam INJ 2 MG/ML (ATIVAN) VIAL IVP ONE ×2 (08:00→09:15)
[2020-07-26 08:03] VITALS: BP 122/83
--- NOTE | 2020-07-26 08:35 | NUR ---
AMB TO BATHROOM WITHOUT PROBLEM
[2020-07-26 08:47] LABS: BILIRUBIN,URINE NEGATIVE (NEGATIVE); CLARITY,URINE CLEAR; COLOR,URINE YELLOW; GLUCOSE, URINE (UA) 1+ (NEGATIVE); KETONES,URINE TRACE (NEGATIVE); LEUKOCYTE ESTERASE ,URINE NEGATIVE (NEGATIVE); NITRITE,URINE NEGATIVE (NEGATIVE); PH,URINE 8.5 (5-9); PROTEIN,URINE NEGATIVE (NEGATIVE)
[2020-07-26 08:56] LABS: BACTERIA,URINE FEW /HPF; SQUAMOUS EPITHELIAL CELL,UR 25-50 /HPF
--- NOTE | 2020-07-26 09:00 | NUR ---
PATIENT REPORTS THAT WAS FEELING BETTER NOW SHE IS SHAKEY AGAIN.
--- NOTE | 2020-07-26 09:01 | NUR ---
PT STATES SHE IS HYPERVENTALATING AND WOULD LIKE SOMETHING FOR IT. DR NOTIFIED.
[2020-07-26] MEDS ORDERED: PROMETHAZINE INJ 25 MG/ML (PHENERGAN) AMP IVP ONE (09:15)
[2020-07-26] MEDS ORDERED: diphenhydrAMINE 50 MG/ML INJ (BENADRYL) IVP ONE (09:15)
[2020-07-26 09:57] VITALS: BP 138/87
--- NOTE | 2020-07-26 10:12 | NUR ---
TO ROOM PATIENT RESTING HR 66 98% ON ROOM AIR. 129/86
[2020-07-26 10:38] VITALS: BP 129/88
[2020-07-26] MEDS ORDERED: PROM25TA14 PO (10:38)
== END 2020-07-26 10:44 | disposition home or self-care (01) ==
LOC: EDUNIT# 06:57 → ER 07:00
DX: R11.2 Nausea with vomiting, unspecified (principal); F12.288 Cannabis dependence with other cannabis-induced disorder; K21.9 Gastro-esophageal reflux disease without esophagitis; F41.9 Anxiety disorder, unspecified
CPT/HCPCS: 36415; 80053; 81000; 83690; 83735; 84703; 85025; 87088

== ENCOUNTER 2020-09-24 09:41 | Emergency (ER) | payer SELFPAY ==
[~2020-09-24] VITALS: Ht 157.5 cm; Wt 52.2 kg
[2020-09-24] MEDS ORDERED: LACTATED RINGERS 1,000 ML IV ONE ×2 (10:04→11:05)
[2020-09-24 10:13] LABS: BILIRUBIN,URINE 1+ (NEGATIVE); CLARITY,URINE CLEAR; COLOR,URINE YELLOW; GLUCOSE, URINE (UA) NEGATIVE (NEGATIVE); KETONES,URINE TRACE (NEGATIVE); LEUKOCYTE ESTERASE ,URINE NEGATIVE (NEGATIVE); NITRITE,URINE NEGATIVE (NEGATIVE); PH,URINE 6.5 (5-9); PROTEIN,URINE 1+ (NEGATIVE)
[2020-09-24] MEDS ORDERED: ONDANSETRON 4 MG/2 ML (SDV) Z0FRAN IVP ONE (10:15)
[2020-09-24] MEDS ORDERED: FAMOTIDINE 20MG/2ML IV (PEPCID) IVP ONE (10:15)
[2020-09-24 10:16] LABS: ALBUMIN 5.1 GM/DL (3.2-4.5); CHLORIDE 90 MMOL/L (98-107); POTASSIUM 3.2 MMOL/L (3.6-5.0); SODIUM 137 MMOL/L (135-145)
[2020-09-24 10:17] LABS: CALCIUM 10.4 MG/DL (8.5-10.1)
[2020-09-24 10:18] LABS: GLUCOSE 114 MG/DL (70-105); TOTAL PROTEIN 8.7 GM/DL (6.4-8.2)
[2020-09-24 10:20] LABS: BILIRUBIN,TOTAL 0.9 MG/DL (0.1-1.0); CARBON DIOXIDE 24 MMOL/L (21-32)
[2020-09-24 10:21] LABS: BASOPHILS % (AUTO) 0 % (0-10); EOSINOPHILS % (AUTO) 0 % (0-10); HEMATOCRIT 40 % (35-52); HEMOGLOBIN 13.7 g/dL (11.5-16.0); LYMPHOCYTES # (AUTO) 1.3 10^3/uL (1.0-4.0); LYMPHOCYTES % (AUTO) 10 % (12-44); MEAN CORPUSCULAR HEMOGLOBIN 31 pg (25-34); MEAN CORPUSCULAR HGB CONC 34 g/dL (32-36); MEAN CORPUSCULAR VOLUME 89 fL (80-99); MEAN PLATELET VOLUME 10.8 fL (9.0-12.2); MONOCYTES # (AUTO) 1.1 10^3/uL (0.0-1.0); MONOCYTES % (AUTO) 9 % (0-12); NEUTROPHILS # (AUTO) 10.4 10^3/uL (1.8-7.8); NEUTROPHILS % (AUTO) 81 % (42-75); PLATELET COUNT 459 10^3/uL (130-400); WHITE BLOOD COUNT 12.9 10^3/uL (4.3-11.0)
[2020-09-24 10:22] LABS: ALKALINE PHOSPHATASE 92 U/L (40-136); CREATININE SERUM 0.98 MG/DL (0.60-1.30); GFR ESTIMATED > 60
[2020-09-24 10:23] LABS: BUN/CREATININE RATIO 20
[2020-09-24 10:25] LABS: ALANINE AMINOTRANSFERASE 23 U/L (0-55)
[2020-09-24 10:26] LABS: LIPASE 6 U/L (8-78)
[2020-09-24 10:32] LABS: AMPHETAMINE SCREEN, URINE NEGATIVE (NEGATIVE); BARBITURATE SCREEN URINE NEGATIVE (NEGATIVE); BENZODIAZEPINES SCREEN URINE POSITIVE (NEGATIVE); CANNABINOID SCREEN, URINE POSITIVE (NEGATIVE); COCAINE SCREEN URINE NEGATIVE (NEGATIVE); METHADONE STAT NEGATIVE (NEGATIVE); METHAMPHETAMINE SCREEN URINE S NEGATIVE (NEGATIVE); OPIATE SCREEN URINE NEGATIVE (NEGATIVE); OXYCODONE STAT NEGATIVE (NEGATIVE); PROPOXYPHENE STAT NEGATIVE (NEGATIVE); TRICYCLIC ANTIDEPRESSANTS SCRE NEGATIVE (NEGATIVE)
[2020-09-24 10:46] LABS: BACTERIA,URINE TRACE /HPF; WBC,URINE RARE /HPF
--- NOTE | 2020-09-24 11:09 | ED Abdominal Pain ---
General Chief Complaint: Abdominal/GI Problems Stated Complaint: VOMITING Nursing Triage Note: PT AMB TO RM 7 WITH COMPLAINT OF N/V THAT STARTED 3 DAYS AGO. PT STATES SHE HAS HISTORY OF CYCLIC VOMITING INDUCED BY MARIJUANA. Sepsis Screen: No Definite Risk Source of Information: Patient Exam Limitations: No Limitations History of Present Illness Date Seen by Provider: Sep 24, 2020 Time Seen by Provider: 11:00 Initial Comments This is a 20-year-old female with a history of cannaboid hyperemesis syndrome who presents to the ER with complaints of intractable nausea and vomiting. Reports that she smokes a gram of marijuana daily and has this intractable nausea & vomiting for 4-7 days once a month. She does not have any nausea medication at home and has not taken anything prior to arrival. Has not been able to hold down fluids over the past couple days. Denies fevers, chills, cough, shortness of breath, ill contacts, or COVID exposure. Timing/Duration: 2-3 Days Allergies and Home Medications Allergies Coded Allergies: No Known Drug Allergies (Unverified , 05/07/10) Home Medications Cephalexin 500 Mg Tablet, 500 MG PO TID Prescribed by: MERRY CARPENTER on 04/18/19 1217 Cephalexin 500 Mg Capsule, 500 MG PO TID Prescribed by: ASHLEY GLEASON on 04/06/20 0913 Norgestimate-Ethinyl Estradiol 1 Each Tablet, 1 TAB PO DAILY, (Reported) Ondansetron 4 Mg Tab.rapdis, 4 MG PO Q4H PRN for NAUSEA/VOMITING-1ST LINE Prescribed by: MERRY CARPENTER on 04/18/19 1217 Ondansetron 4 Mg Tab.rapdis, 4 MG SL Q4H PRN for NAUSEA/VOMITING Prescribed by: ASHLEY GLEASON on 04/07/20 0834 Ondansetron 4 Mg Tab.rapdis, 4 MG PO Q4H PRN for NAUSEA/VOMITING Prescribed by: REINA METZGER on 09/24/20 1210 Pantoprazole Sodium 40 Mg Tablet.dr, 40 MG PO DAILY Prescribed by: KARIME LINK on 01/09/191903 Potassium Chloride 20 Meq Tablet.er, 40 MEQ PO DAILY Prescribed by: KARIME LINK on 01/09/191903 Prochlorperazine Maleate 5 Mg Tablet, 5 MG PO TID PRN for NAUSEA/VOMITING Prescribed by: KARIME LINK on 01/09/19 1705 Promethazine HCl 25 Mg Tablet, 25 MG PO Q8H PRN for NAUSEA/VOMITING Prescribed by: ASHLEY GLEASON on 04/06/20 0913 Promethazine HCl 25 Mg Tablet, 25 MG PO Q6H PRN for NAUSEA/VOMITING Prescribed by: VIVIAN SMITH on 07/26/20 1038 Promethazine HCl 25 Mg Supp.rect, 25 MG RC Q6H PRN for NAUSEA/VOMITING Prescribed by: REINA METZGER on 09/24/20 1210 Patient Home Medication List Home Medication List Reviewed: Yes Review of Systems Review of Systems Constitutional: no symptoms reported EENTM: No Symptoms Reported Respiratory: No Symptoms Reported Cardiovascular: No Symptoms Reported Gastrointestinal: Nausea, Vomiting Genitourinary: No Symptoms Reported Musculoskeletal: no symptoms reported, other Skin: no symptoms reported Psychiatric/Neurological: No Symptoms Reported Endocrine: No Symptoms Reported Hematologic/Lymphatic: No Symptoms Reported Past Jbmnugs-Qtjvuq-Cucizt Hx Patient Social History Alcohol Use: Denies Use Recreational Drug Use: Yes Drug of Choice: cannabis Smoking Status: Never a Smoker 2nd Hand Smoke Exposure: No Recent Foreign Travel: No Contact w/Someone Who Travel: No Recent Infectious Disease Expo: No Recent Hopitalizations: No Immunizations Up To Date Tetanus Booster (TDap): Less than 5yrs PED Vaccines UTD: Yes Seasonal Allergies Seasonal Allergies: No Past Medical History Surgeries: No Respiratory: No Cardiac: No Neurological: No Reproductive Disorders: No Female Reproductive Disorders: Denies Sexually Transmitted Disease: No HIV/AIDS: No Genitourinary: No Gastrointestinal: Yes (cannabis hyperemesis syndrome) Gastroesophageal Reflux Musculoskeletal: No Endocrine: No HEENT: No Loss of Vision: Denies Hearing Impairment: Denies Cancer: No Psychosocial: Yes Anxiety Integumentary: Yes Eczema Blood Disorders: No Family Medical History Alcoholism 19 FATHER 19 MOTHER No Family History of: AIDS Abdominal aortic aneurysm Sargent's disease Alzheimer's disease Aphasia Arthritis Asthma Cancer of mouth Cardiovascular disease Cataracts Colon cancer Completed stroke Congenital disease Congenital heart disease Coronary thrombosis Cystic fibrosis Deafness or hearing loss Dementia Diabetes mellitus Drug abuse Dysphasia Fibrocystic disease of breast Gastroenteritis Glaucoma Headache disorder Hypercholesterolemia Hypertension Infertility Kidney disease Myocardial infarction Neoplasm Not obtainable due to adoption Osteoporosis Parkinson's disease Prostate cancer Psychosocial problem Respiratory disorder Seizure disorder Severe allergy Thyroid disease Tuberculosis Visual disorder No Pertinent Family Hx, Psychiatric Problems Physical Exam Vital Signs Vital Signs - First Documented 09/24/20 09:50 Temp 36.5 Pulse 103 Resp 16 B/P (MAP) 121/102 (108) Pulse Ox 97 O2 Delivery Room Air Capillary Refill : Less Than 3 Seconds Height/Weight/BMI Height: 5'3.00" Weight: 130lbs. 0oz. [id number]; 21.00 BMI Method:Stated General Appearance: WD/WN, no apparent distress HEENT: PERRL/EOMI, TMs normal, pharynx normal Neck: non-tender, full range of motion, supple, normal inspection Respiratory: chest non-tender, lungs clear, normal breath sounds, no respiratory distress, no accessory muscle use Cardiovascular: regular rate, rhythm, no edema, tachycardia Peripheral Pulses: 2+ Radial Pulses (R), 2+ Radial Pulses (L) Gastrointestinal: normal bowel sounds, non tender, soft Extremities: other (bilateral carpopedal posturing ) Back: normal inspection Neurologic/Psychiatric: alert, normal mood/affect, oriented x 3 Skin: normal color, warm/dry Procedures/Interventions Suture Size: 4-0 Progress/Results/Core Measures Results/Orders Lab Results Laboratory Tests Test 09/24/20 09:56 Range/Units White Blood Count 12.9 H 4.3-11.0 10^3/uL Red Blood Count 4.48 3.80-5.11 10^6/uL Hemoglobin 13.7 11.5-16.0 g/dL Hematocrit 40 35-52 % Mean Corpuscular Volume 89 80-99 fL Mean Corpuscular Hemoglobin 31 25-34 pg Mean Corpuscular Hemoglobin Concent 34 32-36 g/dL Red Cell Distribution Width 12.5 10.0-14.5 % Platelet Count 459 H 130-400 10^3/uL Mean Platelet Volume 10.8 9.0-12.2 fL Immature Granulocyte % (Auto) 1 % Neutrophils (%) (Auto) 81 H 42-75 % Lymphocytes (%) (Auto) 10 L 12-44 % Monocytes (%) (Auto) 9 0-12 % Eosinophils (%) (Auto) 0 0-10 % Basophils (%) (Auto) 0 0-10 % Neutrophils # (Auto) 10.4 H 1.8-7.8 10^3/uL Lymphocytes # (Auto) 1.3 1.0-4.0 10^3/uL Monocytes # (Auto) 1.1 H 0.0-1.0 10^3/uL Eosinophils # (Auto) 0.0 0.0-0.3 10^3/uL Basophils # (Auto) 0.0 0.0-0.1 10^3/uL Immature Granulocyte # (Auto) 0.1 0.0-0.1 10^3/uL Urine Color YELLOW Urine Clarity CLEAR Urine pH 6.5 5-9 Urine Specific [place] 1.020 1.016-1.022 Urine Protein 1+ H NEGATIVE Urine Glucose (UA) NEGATIVE NEGATIVE Urine Ketones TRACE H NEGATIVE Urine Nitrite NEGATIVE NEGATIVE Urine Bilirubin 1+ H NEGATIVE Urine Urobilinogen 0.2 < = 1.0 MG/DL Urine Leukocyte Esterase NEGATIVE NEGATIVE Urine RBC (Auto) NEGATIVE NEGATIVE Urine RBC NONE /HPF Urine WBC RARE /HPF Urine Squamous Epithelial Cells 2-5 /HPF Urine Crystals NONE /LPF Urine Bacteria TRACE /HPF Urine Casts NONE /LPF Urine Mucus NEGATIVE /LPF Urine Culture Indicated NO Sodium Level 137 135-145 MMOL/L Potassium Level 3.2 L 3.6-5.0 MMOL/L Chloride Level 90 L 98-107 MMOL/L Carbon Dioxide Level 24 21-32 MMOL/L Anion Gap 23 H 5-14 MMOL/L Blood Urea Nitrogen 20 H 7-18 MG/DL Creatinine 0.98 0.60-1.30 MG/DL Estimat Glomerular Filtration Rate > 60 BUN/Creatinine Ratio 20 Glucose Level 114 H 70-105 MG/DL Calcium Level 10.4 H 8.5-10.1 MG/DL Corrected Calcium 8.5-10.1 MG/DL Magnesium Level 2.0 1.6-2.4 MG/DL Total Bilirubin 0.9 0.1-1.0 MG/DL Aspartate Amino Transf (AST/SGOT) 18 5-34 U/L Alanine Aminotransferase (ALT/SGPT) 23 0-55 U/L Alkaline Phosphatase 92 40-136 U/L Total Protein 8.7 H 6.4-8.2 GM/DL Albumin 5.1 H 3.2-4.5 GM/DL Lipase 6 L 8-78 U/L Serum Test, Qualitative NEGATIVE NEGATIVE Urine Opiates Screen NEGATIVE NEGATIVE Urine Oxycodone Screen NEGATIVE NEGATIVE Urine Methadone Screen NEGATIVE NEGATIVE Urine Propoxyphene Screen NEGATIVE NEGATIVE Urine Barbiturates Screen NEGATIVE NEGATIVE Ur Tricyclic Antidepressants Screen NEGATIVE NEGATIVE Urine Phencyclidine Screen NEGATIVE NEGATIVE Urine Amphetamines Screen NEGATIVE NEGATIVE Urine Methamphetamines Screen NEGATIVE NEGATIVE Urine Benzodiazepines Screen POSITIVE H NEGATIVE Urine Cocaine Screen NEGATIVE NEGATIVE Urine Cannabinoids Screen POSITIVE H NEGATIVE My Orders Orders - REINA METZGER APRN Lactated Ringers (Lr 1000 Ml Iv Solution (09/24/20 11:05) Lorazepam Injection (Ativan Injection) (09/24/20 11:15) Medications Given in ED Current Medications Medications Dose Ordered Sig/Jeannette Route Start Time Stop Time Status Last Admin Dose Admin Famotidine 20 mg ONCE ONCE IVP 09/24/20 10:15 09/24/20 10:16 DC 09/24/20 10:17 20 MG Lactated Ringer's 1,000 ml @ 0 mls/hr Q0M ONCE IV 09/24/20 10:04 09/24/20 10:07 DC 09/24/20 10:16 0 MLS/HR Lactated Ringer's 1,000 ml @ 0 mls/hr Q0M ONCE IV 09/24/20 11:05 09/24/20 11:07 DC 09/24/20 11:24 0 MLS/HR Lorazepam 0.5 mg ONCE ONCE IVP 09/24/20 11:15 09/24/20 11:16 DC 09/24/20 11:24 0.5 MG Ondansetron HCl 8 mg ONCE ONCE IVP 09/24/20 10:15 09/24/20 10:16 DC 09/24/20 10:16 8 MG Vital Signs/I&O 09/24/20 09/24/20 09:50 12:19 Temp 36.5 Pulse 103 96 Resp 16 17 B/P (MAP) 121/102 (108) 113/78 Pulse Ox 97 96 O2 Delivery Room Air Room Air Blood Pressure Mean: 108 Progress Progress Note : Progress Note Received a total of 2 L LR, Pepcid, and Zofran , which eliminated her vomiting throughout the remainder of her ED stay. She received Ativan 0.5 mg for her carpopedal posturing, and after 20 minutes posturing . Reviewed the discharge plan of care with her and she is agreeable with plan. Departure Impression Primary Impression: Cannabinoid hyperemesis syndrome Disposition: 01 HOME, SELF-CARE Condition: Improved Departure-Patient Inst. Decision time for Depature: 12:06 Referrals: [facility] (PCP/Family) Primary Care Physician Patient Instructions: Nausea and Vomiting, Adult Add. Discharge Instructions: Plan: 1. Discharge home. 2. Drink clear liquids today and advance diet slowly. Drink Gatorade or Powerade drinks that contain electrolytes. 3. Use Phenergan suppositories and Zofran ODT tablets as directed for nausea/vomiting. 4. Return if you are persistently vomiting and unable to keep fluids down with Zofran and Phenergan. 5. STOP smoking marijuana. 6. Return for any new or concerning symptoms. All discharge instructions reviewed with patient and/or family. Voiced understanding. Scripts Ondansetron (Ondansetron Odt) 4 Mg Tab.rapdis 4 MG PO Q4H PRN for NAUSEA/VOMITING for 7 Days, #30 TAB 0 Refills Prov: REINA METZGER BIRD TRAPPER 09/24/20 Promethazine HCl (Promethazine Suppository) 25 Mg Supp.rect 25 MG RC Q6H PRN for NAUSEA/VOMITING for 7 Days, SUPP.RECT 0 Refills Prov: REINA METZGER BIRD TRAPPER 09/24/20 REINA METZGER BIRD TRAPPER Sep 24, 2020 11:09
[2020-09-24] MEDS ORDERED: LORazepam INJ 2 MG/ML (ATIVAN) VIAL IVP ONE (11:15)
[2020-09-24] MEDS ORDERED: ONDA4TAB11 PO (12:10)
[2020-09-24] MEDS ORDERED: PROM25SU44 RC (12:10)
[2020-09-24 12:19] VITALS: BP 113/78
== END 2020-09-24 12:19 | disposition home or self-care (01) ==
LOC: EDUNIT# 09:41 → ER 09:43
DX: R11.2 Nausea with vomiting, unspecified (principal); K21.9 Gastro-esophageal reflux disease without esophagitis; F41.9 Anxiety disorder, unspecified
CPT/HCPCS: 36415; 80053; 80306; 81000; 83690; 83735; 84703; 85025

== ENCOUNTER 2020-09-25 07:15 | Emergency (ER) | payer SELFPAY ==
[~2020-09-25] VITALS: Ht 157.5 cm; Wt 54.4 kg
[~2020-09-25 07:15] MED LIST changes: +PROM25SU44 RC
[2020-09-25] MEDS ORDERED: ONDANSETRON 4 MG/2 ML (SDV) Z0FRAN IVP ONE (07:30)
[2020-09-25] MEDS ORDERED: LORazepam INJ 2 MG/ML (ATIVAN) VIAL IVP ONE ×2 (07:30→08:30)
[2020-09-25] MEDS ORDERED: LACTATED RINGERS 1,000 ML IV SCH (07:30)
--- NOTE | 2020-09-25 07:34 | ED GI ---
General Chief Complaint: Abdominal/GI Problems Stated Complaint: VOMITING / ABD PAIN Source of Information: Patient Exam Limitations: No Limitations History of Present Illness Date Seen by Provider: Sep 25, 2020 Time Seen by Provider: 07:13 Initial Comments Patient reports to the ER by private conveyance from home with chief complaint of intractable nausea and vomiting throughout the night. She feels very dehydrated. She has a history of cannabis hyperemesis syndrome and was seen here yesterday for the same problem. At that time she was treated with fluids and nausea medicines. She was sent home with prescription for ondansetron and Phenergan but she says she will not get paid until tomorrow so she cannot afford the medications. She does not have a third-constitution party pair and does not have access yet to a prescription serrato reduction program. She's not having any fevers chills cough shortness of air or sick contacts. She says she is feeling some cramping general abdominal discomfort especially in her epigastric region after vomiting. She says she is unable to keep down any fluids. She denies any dysuria. She is a daily cannabis user. Allergies and Home Medications Allergies Coded Allergies: No Known Drug Allergies (Unverified , 05/07/10) Home Medications Cephalexin 500 Mg Tablet, 500 MG PO TID Prescribed by: MERRY CARPENTER on 04/18/19 1217 Cephalexin 500 Mg Capsule, 500 MG PO TID Prescribed by: ASHLEY GLEASON on 04/06/20 0913 Norgestimate-Ethinyl Estradiol 1 Each Tablet, 1 TAB PO DAILY, (Reported) Ondansetron 4 Mg Tab.rapdis, 4 MG PO Q4H PRN for NAUSEA/VOMITING-1ST LINE Prescribed by: MERRY CARPENTER on 04/18/19 1217 Ondansetron 4 Mg Tab.rapdis, 4 MG SL Q4H PRN for NAUSEA/VOMITING Prescribed by: ASHLEY GLEASON on 04/07/20 0834 Ondansetron 4 Mg Tab.rapdis, 4 MG PO Q4H PRN for NAUSEA/VOMITING Prescribed by: REINA METZGER on 09/24/20 1210 Pantoprazole Sodium 40 Mg Tablet.dr, 40 MG PO DAILY Prescribed by: KARIME LINK on 01/09/19 1904 Potassium Chloride 20 Meq Tablet.er, 40 MEQ PO DAILY Prescribed by: KARIME LINK on 01/09/19 1904 Prochlorperazine Maleate 5 Mg Tablet, 5 MG PO TID PRN for NAUSEA/VOMITING Prescribed by: KARIME LINK on 01/09/19 1705 Promethazine HCl 25 Mg Tablet, 25 MG PO Q8H PRN for NAUSEA/VOMITING Prescribed by: ASHLEY GLEASON on 04/06/20 0913 Promethazine HCl 25 Mg Tablet, 25 MG PO Q6H PRN for NAUSEA/VOMITING Prescribed by: VIVIAN SMITH on 07/26/20 1038 Promethazine HCl 25 Mg Supp.rect, 25 MG RC Q6H PRN for NAUSEA/VOMITING Prescribed by: REINA METZGER on 09/24/20 1210 Patient Home Medication List Home Medication List Reviewed: Yes Review of Systems Review of Systems Constitutional: No chills, No diaphoresis EENTM: No Blurred Vision, No Double Vision Respiratory: Denies Shortness of Air Cardiovascular: Denies Chest Pain, Denies Edema Gastrointestinal: See HPI, Abdominal Pain; Denies Constipated, Denies Diarrhea; Nausea, Poor Fluid Intake, Vomiting Genitourinary: Denies Burning Musculoskeletal: No back pain, No joint pain All Other Systems Reviewed Negative Unless Noted: Yes Past Blhsxwr-Fshocv-Uwhusi Hx Patient Social History Alcohol Use: Denies Use Recreational Drug Use: Yes Drug of Choice: cannabis Smoking Status: Never a Smoker 2nd Hand Smoke Exposure: No Recent Foreign Travel: No Contact w/Someone Who Travel: No Recent Hopitalizations: No Immunizations Up To Date Tetanus Booster (TDap): Less than 5yrs PED Vaccines UTD: Yes Seasonal Allergies Seasonal Allergies: No Past Medical History Surgeries: No Respiratory: No Cardiac: No Neurological: No Reproductive Disorders: No Female Reproductive Disorders: Denies Sexually Transmitted Disease: No HIV/AIDS: No Genitourinary: No Gastrointestinal: Yes (cannabis hyperemesis syndrome) Gastroesophageal Reflux Musculoskeletal: No Endocrine: No HEENT: No Loss of Vision: Denies Hearing Impairment: Denies Cancer: No Psychosocial: Yes Anxiety Integumentary: Yes Eczema Blood Disorders: No Family Medical History Alcoholism 19 FATHER 19 MOTHER No Family History of: AIDS Abdominal aortic aneurysm Homar's disease Alzheimer's disease Aphasia Arthritis Asthma Cancer of mouth Cardiovascular disease Cataracts Colon cancer Completed stroke Congenital disease Congenital heart disease Coronary thrombosis Cystic fibrosis Deafness or hearing loss Dementia Diabetes mellitus Drug abuse Dysphasia Fibrocystic disease of breast Gastroenteritis Glaucoma Headache disorder Hypercholesterolemia Hypertension Infertility Kidney disease Myocardial infarction Neoplasm Not obtainable due to adoption Osteoporosis Parkinson's disease Prostate cancer Psychosocial problem Respiratory disorder Seizure disorder Severe allergy Thyroid disease Tuberculosis Visual disorder No Pertinent Family Hx, Psychiatric Problems Physical Exam Vital Signs Vital Signs - First Documented 09/25/20 07:20 Temp 36.4 Pulse 136 Resp 22 B/P (MAP) 129/79 (96) Pulse Ox 97 O2 Delivery Room Air Capillary Refill : Height/Weight/BMI Height: 5'3.00" Weight: 130lbs. 0oz. 58.661364ys; 21.00 BMI Method:Stated General Appearance: WD/WN, no apparent distress HEENT: PERRL/EOMI, pharynx normal Neck: non-tender, full range of motion, normal inspection Respiratory: lungs clear, normal breath sounds, no respiratory distress Cardiovascular: normal peripheral pulses, regular rate, rhythm, tachycardia (130) Gastrointestinal: normal bowel sounds, guarding, tenderness Extremities: other (blanched hands with carpopedal spasms bilaterally.) Neurologic/Psychiatric: alert, oriented x 3, other (anxious affect with carpopedal spasms) Skin: warm/dry Procedures/Interventions Suture Size: 4-0 Progress/Results/Core Measures Results/Orders Lab Results Laboratory Tests Test 09/25/20 07:22 09/25/20 07:35 Range/Units Urine Color YELLOW Urine Clarity CLEAR Urine pH 8.0 5-9 Urine Specific [place] <=1.005 1.016-1.022 Urine Protein 1+ H NEGATIVE Urine Glucose (UA) NEGATIVE NEGATIVE Urine Ketones TRACE H NEGATIVE Urine Nitrite NEGATIVE NEGATIVE Urine Bilirubin 1+ H NEGATIVE Urine Urobilinogen 1.0 < = 1.0 MG/DL Urine Leukocyte Esterase TRACE H NEGATIVE Urine RBC (Auto) NEGATIVE NEGATIVE Urine RBC 2-5 H /HPF Urine WBC 0-2 /HPF Urine Crystals NONE /LPF Urine Bacteria FEW H /HPF Urine Casts NONE /LPF Urine Mucus NEGATIVE /LPF Urine Culture Indicated NO White Blood Count 15.2 H 4.3-11.0 10^3/uL Red Blood Count 4.32 3.80-5.11 10^6/uL Hemoglobin 13.2 11.5-16.0 g/dL Hematocrit 39 35-52 % Mean Corpuscular Volume 91 80-99 fL Mean Corpuscular Hemoglobin 31 25-34 pg Mean Corpuscular Hemoglobin Concent 34 32-36 g/dL Red Cell Distribution Width 12.6 10.0-14.5 % Platelet Count 433 H 130-400 10^3/uL Mean Platelet Volume 10.4 9.0-12.2 fL Immature Granulocyte % (Auto) 0 % Neutrophils (%) (Auto) 80 H 42-75 % Lymphocytes (%) (Auto) 11 L 12-44 % Monocytes (%) (Auto) 8 0-12 % Eosinophils (%) (Auto) 0 0-10 % Basophils (%) (Auto) 0 0-10 % Neutrophils # (Auto) 12.2 H 1.8-7.8 10^3/uL Lymphocytes # (Auto) 1.7 1.0-4.0 10^3/uL Monocytes # (Auto) 1.2 H 0.0-1.0 10^3/uL Eosinophils # (Auto) 0.1 0.0-0.3 10^3/uL Basophils # (Auto) 0.1 0.0-0.1 10^3/uL Immature Granulocyte # (Auto) 0.1 0.0-0.1 10^3/uL Neutrophils % (Manual) 82 % Lymphocytes % (Manual) 9 % Monocytes % (Manual) 7 % Eosinophils % (Manual) 1 % Band Neutrophils 1 % Hypersegmented Neutrophils SLIGHT Blood Morphology Comment NORMAL Sodium Level 137 135-145 MMOL/L Potassium Level 3.2 L 3.6-5.0 MMOL/L Chloride Level 97 L 98-107 MMOL/L Carbon Dioxide Level 22 21-32 MMOL/L Anion Gap 18 H 5-14 MMOL/L Blood Urea Nitrogen 9 7-18 MG/DL Creatinine 0.88 0.60-1.30 MG/DL Estimat Glomerular Filtration Rate > 60 BUN/Creatinine Ratio 10 Glucose Level 119 H 70-105 MG/DL Calcium Level 9.8 8.5-10.1 MG/DL My Orders Orders - VIVIAN SMITH Ua Culture If Indicated (09/25/20 07:17) Urine Bedside (09/25/20 07:17) Lorazepam Injection (Ativan Injection) (09/25/20 07:30) Lactated Ringers (Lr 1000 Ml Iv Solution (09/25/20 07:30) Ondansetron Injection (Zofran Injectio (09/25/20 07:30) Cbc With Automated Diff (09/25/20 07:34) Basic Metabolic Panel (09/25/20 07:34) Manual Differential (09/25/20 07:35) Lorazepam Injection (Ativan Injection) (09/25/20 08:30) Medications Given in ED Current Medications Medications Dose Ordered Sig/Jeannette Route Start Time Stop Time Status Last Admin Dose Admin Lorazepam 0.5 mg ONCE ONCE IVP 09/25/20 07:30 09/25/20 07:31 DC 09/25/20 07:42 0.5 MG Lorazepam 0.5 mg ONCE ONCE IVP 09/25/20 08:30 09/25/20 08:31 DC 09/25/20 08:33 0.5 MG Ondansetron HCl 8 mg ONCE ONCE IVP 09/25/20 07:30 09/25/20 07:31 DC 09/25/20 07:42 8 MG Vital Signs/I&O 09/25/20 07:20 Temp 36.4 Pulse 136 Resp 22 B/P (MAP) 129/79 (96) Pulse Ox 97 O2 Delivery Room Air Progress Progress Note #1: Time: 07:33 Progress Note Plan to check some basic labs including a urine and give her a liter of lactated Ringer's, 8 of Zofran and half a milligram of Ativan. A good Rx card has been provided for her. Progress Note #2: Time: 08:39 Progress Note the second dose of Ativan 0.5 mg was called for but the patient is doing significantly better. She has received her IV fluids and her nausea is gone. She is ready to go home soon. Departure Impression Primary Impression: Cannabis hyperemesis syndrome concurrent with and due to cannabis dependence Additional Impressions: Dehydration, mild Anxiety Disposition: 01 HOME, SELF-CARE Condition: Stable Departure-Patient Inst. Decision time for Depature: 08:40 Referrals: [facility] (PCP/Family) Primary Care Physician Patient Instructions: Marijuana Use and Addiction (DC), Nausea and Vomiting, Adult (DC) Add. 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 Drink plenty of fluids. If you want help stopping your dependence on cannabis you can talk to the outpatient addiction treatment doctors at [facility] by calling for an appointment. All discharge instructions reviewed with patient and/or family. Voiced underst anding. VIVIAN SMITH Sep 25, 2020 07:34
[2020-09-25 07:35] LABS: BILIRUBIN,URINE 1+ (NEGATIVE); CLARITY,URINE CLEAR; COLOR,URINE YELLOW; GLUCOSE, URINE (UA) NEGATIVE (NEGATIVE); KETONES,URINE TRACE (NEGATIVE); LEUKOCYTE ESTERASE ,URINE TRACE (NEGATIVE); NITRITE,URINE NEGATIVE (NEGATIVE); PROTEIN,URINE 1+ (NEGATIVE)
[2020-09-25 07:42] LABS: BASOPHILS # (AUTO) 0.1 10^3/uL (0.0-0.1); BASOPHILS % (AUTO) 0 % (0-10); EOSINOPHILS # (AUTO) 0.1 10^3/uL (0.0-0.3); EOSINOPHILS % (AUTO) 0 % (0-10); HEMATOCRIT 39 % (35-52); HEMOGLOBIN 13.2 g/dL (11.5-16.0); LYMPHOCYTES # (AUTO) 1.7 10^3/uL (1.0-4.0); LYMPHOCYTES % (AUTO) 11 % (12-44); MEAN CORPUSCULAR HEMOGLOBIN 31 pg (25-34); MEAN CORPUSCULAR HGB CONC 34 g/dL (32-36); MEAN CORPUSCULAR VOLUME 91 fL (80-99); MEAN PLATELET VOLUME 10.4 fL (9.0-12.2); MONOCYTES # (AUTO) 1.2 10^3/uL (0.0-1.0); MONOCYTES % (AUTO) 8 % (0-12); NEUTROPHILS # (AUTO) 12.2 10^3/uL (1.8-7.8); NEUTROPHILS % (AUTO) 80 % (42-75); PLATELET COUNT 433 10^3/uL (130-400); WHITE BLOOD COUNT 15.2 10^3/uL (4.3-11.0)
[2020-09-25 07:50] LABS: BACTERIA,URINE FEW /HPF; WBC,URINE 0-2 /HPF
[2020-09-25 07:56] LABS: CHLORIDE 97 MMOL/L (98-107); POTASSIUM 3.2 MMOL/L (3.6-5.0); SODIUM 137 MMOL/L (135-145)
[2020-09-25 07:57] LABS: CALCIUM 9.8 MG/DL (8.5-10.1)
[2020-09-25 07:58] LABS: GLUCOSE 119 MG/DL (70-105)
[2020-09-25 07:59] LABS: CARBON DIOXIDE 22 MMOL/L (21-32)
[2020-09-25 08:02] LABS: CREATININE SERUM 0.88 MG/DL (0.60-1.30); GFR ESTIMATED > 60
[2020-09-25 08:03] LABS: BAND NEUTROPHILS 1 %; BUN/CREATININE RATIO 10; EOSINOPHILS % (MANUAL) 1 %; HYPERSEGMENTED NEUT SLIGHT; LYMPHOCYTES % (MANUAL) 9 %; MONOCYTES % (MANUAL) 7 %; NEUTROPHILS % (MANUAL) 82 %
[2020-09-25 08:04] LABS: RBC MORPH NORMAL
[2020-09-25 08:50] VITALS: BP 118/76
== END 2020-09-25 08:50 | disposition home or self-care (01) ==
LOC: EDUNIT# 07:15 → ER 07:16
DX: R11.2 Nausea with vomiting, unspecified (principal); F41.9 Anxiety disorder, unspecified; E86.0 Dehydration; K21.9 Gastro-esophageal reflux disease without esophagitis
CPT/HCPCS: 36415; 80048; 81000; 84703; 85007; 85027

== ENCOUNTER 2020-10-28 16:46 | Emergency (ER) | payer SELFPAY ==
[~2020-10-28] VITALS: Ht 160 cm; Wt 54.0 kg
--- NOTE | 2020-10-28 16:56 | ED GI ---
General Stated Complaint: VOMITING Source of Information: Patient Exam Limitations: No Limitations History of Present Illness Date Seen by Provider: Oct 28, 2020 Time Seen by Provider: 16:54 Initial Comments to ER by private vehicle with nausea vomiting and abdominal pain for 3 days. She has a history of hyperemesis cannabinoids syndrome and continues to smoke marijuana routinely. No urinary symptoms such as fevers flank pain, urinary frequency or burnign. Timing/Duration: 2-3 Days Severity/Quality: Moderate Location: Generalized Abdomen Radiation: No Radiation Activities at Onset: None Associated Symptoms: Nausea/Vomiting Allergies and Home Medications Allergies Coded Allergies: No Known Drug Allergies (Unverified , 05/07/10) Home Medications Cephalexin 500 Mg Tablet, 500 MG PO TID Prescribed by: MERRY CARPENTER on 04/18/19 121 Cephalexin 500 Mg Capsule, 500 MG PO TID Prescribed by: ASHLEY GLEASON on 04/06/20 0913 Norgestimate-Ethinyl Estradiol 1 Each Tablet, 1 TAB PO DAILY, (Reported) Ondansetron 4 Mg Tab.rapdis, 4 MG PO Q4H PRN for NAUSEA/VOMITING-1ST LINE Prescribed by: MERRY CARPENTER on 04/18/19 1217 Ondansetron 4 Mg Tab.rapdis, 4 MG SL Q4H PRN for NAUSEA/VOMITING Prescribed by: ASHLEY GLEASON on 04/07/20 0834 Ondansetron 4 Mg Tab.rapdis, 4 MG PO Q4H PRN for NAUSEA/VOMITING Prescribed by: REINA METZGER on 09/24/20 1210 Pantoprazole Sodium 40 Mg Tablet.dr, 40 MG PO DAILY Prescribed by: KARIME LINK on 01/09/19 190 Potassium Chloride 20 Meq Tablet.er, 40 MEQ PO DAILY Prescribed by: KARIME LINK on 01/09/19 190 Prochlorperazine Maleate 5 Mg Tablet, 5 MG PO TID PRN for NAUSEA/VOMITING Prescribed by: KARIME LINK on 01/09/19 1705 Promethazine HCl 25 Mg Tablet, 25 MG PO Q8H PRN for NAUSEA/VOMITING Prescribed by: ASHLEY GLEASON on 04/06/20 0913 Promethazine HCl 25 Mg Tablet, 25 MG PO Q6H PRN for NAUSEA/VOMITING Prescribed by: VIVIAN SMITH on 07/26/20 1038 Promethazine HCl 25 Mg Supp.rect, 25 MG RC Q6H PRN for NAUSEA/VOMITING Prescribed by: REINA METZGER on 09/24/20 1210 Patient Home Medication List Home Medication List Reviewed: Yes Review of Systems Review of Systems Constitutional: see HPI EENTM: No Symptoms Reported Respiratory: No Symptoms Reported Cardiovascular: See HPI Gastrointestinal: See HPI, Abdominal Pain, Nausea, Vomiting Genitourinary: No Symptoms Reported Musculoskeletal: no symptoms reported Skin: no symptoms reported Psychiatric/Neurological: No Symptoms Reported Endocrine: No Symptoms Reported Past Iuwnwgi-Ytyviu-Sxofme Hx Patient Social History Drug of Choice: cannabis 2nd Hand Smoke Exposure: No Recent Foreign Travel: No Contact w/Someone Who Travel: No Recent Hopitalizations: No Immunizations Up To Date Tetanus Booster (TDap): Less than 5yrs PED Vaccines UTD: Yes Seasonal Allergies Seasonal Allergies: No Past Medical History Surgeries: No Respiratory: No Cardiac: No Neurological: No Reproductive Disorders: No Female Reproductive Disorders: Denies Sexually Transmitted Disease: No HIV/AIDS: No Genitourinary: No Gastrointestinal: Yes (cannabis hyperemesis syndrome) Gastroesophageal Reflux Musculoskeletal: No Endocrine: No HEENT: No Loss of Vision: Denies Hearing Impairment: Denies Cancer: No Psychosocial: Yes Anxiety Integumentary: Yes Eczema Blood Disorders: No Family Medical History Alcoholism 19 FATHER 19 MOTHER No Family History of: AIDS Abdominal aortic aneurysm Homar's disease Alzheimer's disease Aphasia Arthritis Asthma Cancer of mouth Cardiovascular disease Cataracts Colon cancer Completed stroke Congenital disease Congenital heart disease Coronary thrombosis Cystic fibrosis Deafness or hearing loss Dementia Diabetes mellitus Drug abuse Dysphasia Fibrocystic disease of breast Gastroenteritis Glaucoma Headache disorder Hypercholesterolemia Hypertension Infertility Kidney disease Myocardial infarction Neoplasm Not obtainable due to adoption Osteoporosis Parkinson's disease Prostate cancer Psychosocial problem Respiratory disorder Seizure disorder Severe allergy Thyroid disease Tuberculosis Visual disorder No Pertinent Family Hx, Psychiatric Problems Physical Exam Vital Signs Capillary Refill : Height/Weight/BMI Height: 5'3.00" Weight: 130lbs. 0oz. 58.586109ho; 21.00 BMI Method:Stated General Appearance: WD/WN, no apparent distress, thin, other (anxious carpal spasms noted) Neck: non-tender, full range of motion Respiratory: no respiratory distress, no accessory muscle use Cardiovascular: no murmur, tachycardia Gastrointestinal: normal bowel sounds, non tender, soft Extremities: normal range of motion, non-tender Neurologic/Psychiatric: alert, normal mood/affect, oriented x 3 Skin: normal color, warm/dry Procedures/Interventions Suture Size: 4-0 Progress/Results/Core Measures Results/Orders Lab Results Laboratory Tests Test 10/28/20 17:00 Range/Units White Blood Count 10.8 4.3-11.0 10^3/uL Red Blood Count 4.56 3.80-5.11 10^6/uL Hemoglobin 13.8 11.5-16.0 g/dL Hematocrit 41 35-52 % Mean Corpuscular Volume 90 80-99 fL Mean Corpuscular Hemoglobin 30 25-34 pg Mean Corpuscular Hemoglobin Concent 34 32-36 g/dL Red Cell Distribution Width 13.0 10.0-14.5 % Platelet Count 430 H 130-400 10^3/uL Mean Platelet Volume 10.6 9.0-12.2 fL Immature Granulocyte % (Auto) 0 % Neutrophils (%) (Auto) 91 H 42-75 % Lymphocytes (%) (Auto) 7 L 12-44 % Monocytes (%) (Auto) 2 0-12 % Eosinophils (%) (Auto) 0 0-10 % Basophils (%) (Auto) 0 0-10 % Neutrophils # (Auto) 9.8 H 1.8-7.8 10^3/uL Lymphocytes # (Auto) 0.8 L 1.0-4.0 10^3/uL Monocytes # (Auto) 0.2 0.0-1.0 10^3/uL Eosinophils # (Auto) 0.0 0.0-0.3 10^3/uL Basophils # (Auto) 0.0 0.0-0.1 10^3/uL Immature Granulocyte # (Auto) 0.0 0.0-0.1 10^3/uL Neutrophils % (Manual) 94 % Lymphocytes % (Manual) 2 % Monocytes % (Manual) 4 % Eosinophils % (Manual) 0 % Basophils % (Manual) 0 % Band Neutrophils 0 % Hypersegmented Neutrophils SLIGHT Toxic Granulation 1+ Sodium Level 137 135-145 MMOL/L Potassium Level 3.9 3.6-5.0 MMOL/L Chloride Level 100 98-107 MMOL/L Carbon Dioxide Level 21 21-32 MMOL/L Anion Gap 16 H 5-14 MMOL/L Blood Urea Nitrogen 13 7-18 MG/DL Creatinine 0.85 0.60-1.30 MG/DL Estimat Glomerular Filtration Rate > 60 BUN/Creatinine Ratio 15 Glucose Level 135 H 70-105 MG/DL Calcium Level 10.1 8.5-10.1 MG/DL Corrected Calcium 8.5-10.1 MG/DL Total Bilirubin 1.5 H 0.1-1.0 MG/DL Aspartate Amino Transf (AST/SGOT) 17 5-34 U/L Alanine Aminotransferase (ALT/SGPT) 17 0-55 U/L Alkaline Phosphatase 88 40-136 U/L Total Protein 8.6 H 6.4-8.2 GM/DL Albumin 5.1 H 3.2-4.5 GM/DL Lipase 21 8-78 U/L Serum Test, Qualitative NEGATIVE NEGATIVE Smear Scan YES My Orders Orders - KARIME LINK APRN Cbc With Automated Diff (10/28/20 16:49) Comprehensive Metabolic Panel (10/28/20 16:49) Hcg,Qualitative Serum (10/28/20 16:49) Ua Culture If Indicated (10/28/20 16:49) Ed Iv/Invasive Line Start (10/28/20 16:49) Lipase (10/28/20 16:49) Ns Iv 1000 Ml (Sodium Chloride 0.9%) (10/28/20 17:00) Diphenhydramine Injection (Benadryl Inje (10/28/20 17:00) Haloperidol Injection (Haldol Injectio (10/28/20 17:00) Manual Differential (10/28/20 17:00) Ns Iv 1000 Ml (Sodium Chloride 0.9%) (10/28/20 17:45) Medications Given in ED Current Medications Medications Dose Ordered Sig/Jeannette Route Start Time Stop Time Status Last Admin Dose Admin Diphenhydramine HCl 25 mg ONCE ONCE IVP 10/28/20 17:00 10/28/20 17:01 DC 10/28/20 17:10 25 MG Haloperidol Lactate 3 mg ONCE ONCE IV 10/28/20 17:00 10/28/20 17:01 DC 10/28/20 17:10 3 MG Departure Communication (Admissions) 1812-after 1 L IV fluids, 3 mg IV Haldol and 25 mg IV Benadryl she reports that she is"a lot better" Impression Primary Impression: Cannabis hyperemesis syndrome concurrent with and due to cannabis dependence Disposition: 01 HOME, SELF-CARE Condition: Stable Departure-Patient Inst. Decision time for Depature: 18:13 Referrals: [facility] (PCP/Family) Primary Care Physician Patient Instructions: Marijuana Use and Addiction Add. Discharge Instructions: 1. Follow-up with your doctor next week for recheck. Return to KARIME TELLEZ APRN Oct 28, 2020 16:56
[2020-10-28] MEDS ORDERED: HALOPERIDOL 5 MG/ML (HALDOL) VIAL IV ONE (17:00)
[2020-10-28] MEDS ORDERED: NS IV 1000 ML 1,000 ML IV SCH ×2 (17:00→17:45)
[2020-10-28] MEDS ORDERED: diphenhydrAMINE 50 MG/ML INJ (BENADRYL) IVP ONE (17:00)
[2020-10-28 17:08] LABS: BASOPHILS % (AUTO) 0 % (0-10); EOSINOPHILS % (AUTO) 0 % (0-10); HEMATOCRIT 41 % (35-52); HEMOGLOBIN 13.8 g/dL (11.5-16.0); LYMPHOCYTES # (AUTO) 0.8 10^3/uL (1.0-4.0); LYMPHOCYTES % (AUTO) 7 % (12-44); MEAN CORPUSCULAR HEMOGLOBIN 30 pg (25-34); MEAN CORPUSCULAR HGB CONC 34 g/dL (32-36); MEAN CORPUSCULAR VOLUME 90 fL (80-99); MEAN PLATELET VOLUME 10.6 fL (9.0-12.2); MONOCYTES # (AUTO) 0.2 10^3/uL (0.0-1.0); MONOCYTES % (AUTO) 2 % (0-12); NEUTROPHILS # (AUTO) 9.8 10^3/uL (1.8-7.8); NEUTROPHILS % (AUTO) 91 % (42-75); PLATELET COUNT 430 10^3/uL (130-400); WHITE BLOOD COUNT 10.8 10^3/uL (4.3-11.0)
[2020-10-28 17:24] LABS: ALBUMIN 5.1 GM/DL (3.2-4.5); CHLORIDE 100 MMOL/L (98-107)
[2020-10-28 17:25] LABS: POTASSIUM 3.9 MMOL/L (3.6-5.0); SODIUM 137 MMOL/L (135-145)
[2020-10-28 17:26] LABS: CALCIUM 10.1 MG/DL (8.5-10.1)
[2020-10-28 17:27] LABS: GLUCOSE 135 MG/DL (70-105); TOTAL PROTEIN 8.6 GM/DL (6.4-8.2)
[2020-10-28 17:28] LABS: CARBON DIOXIDE 21 MMOL/L (21-32)
[2020-10-28 17:29] LABS: BILIRUBIN,TOTAL 1.5 MG/DL (0.1-1.0)
[2020-10-28 17:30] LABS: ALKALINE PHOSPHATASE 88 U/L (40-136)
[2020-10-28 17:31] LABS: CREATININE SERUM 0.85 MG/DL (0.60-1.30); GFR ESTIMATED > 60
[2020-10-28 17:32] LABS: BUN/CREATININE RATIO 15
[2020-10-28 17:33] LABS: ALANINE AMINOTRANSFERASE 17 U/L (0-55)
[2020-10-28 17:34] LABS: LIPASE 21 U/L (8-78)
[2020-10-28 17:40] LABS: BAND NEUTROPHILS 0 %; BASOPHILS % (MANUAL) 0 %; EOSINOPHILS % (MANUAL) 0 %; HYPERSEGMENTED NEUT SLIGHT; LYMPHOCYTES % (MANUAL) 2 %; MONOCYTES % (MANUAL) 4 %; NEUTROPHILS % (MANUAL) 94 %
[2020-10-28 17:41] LABS: TOXIC GRANULATION/VACUOLAZATIO 1+
[2020-10-28 17:42] LABS: SMEAR SCAN COMMENT YES
[2020-10-28 18:20] VITALS: BP 137/88
== END 2020-10-28 18:22 | disposition home or self-care (01) ==
LOC: EDUNIT# 16:46 → ER 16:48
DX: R11.2 Nausea with vomiting, unspecified (principal); F41.9 Anxiety disorder, unspecified; K21.9 Gastro-esophageal reflux disease without esophagitis
CPT/HCPCS: 36415; 80053; 83690; 84703; 85007; 85027; 96361; 96374

== ENCOUNTER 2020-10-30 09:20 | Emergency (ER) | payer SELFPAY ==
[~2020-10-30] VITALS: Ht 160 cm; Wt 54.5 kg
[2020-10-30 09:32] VITALS: BP 138/101
[2020-10-30 09:43] LABS: BILIRUBIN,URINE NEGATIVE (NEGATIVE); CLARITY,URINE CLEAR; COLOR,URINE YELLOW; GLUCOSE, URINE (UA) NEGATIVE (NEGATIVE); KETONES,URINE NEGATIVE (NEGATIVE); LEUKOCYTE ESTERASE ,URINE NEGATIVE (NEGATIVE); NITRITE,URINE NEGATIVE (NEGATIVE); PROTEIN,URINE TRACE (NEGATIVE)
--- NOTE | 2020-10-30 09:44 | ED GI ---
General Stated Complaint: N/V Source of Information: Patient Exam Limitations: No Limitations History of Present Illness Date Seen by Provider: Oct 30, 2020 Time Seen by Provider: 09:31 Initial Comments Patient presents ER by private conveyance with chief complaint of 4 days nausea vomiting and inability to have a bowel movement. She says her Zofran has not helped. She is used Pepto. She says this is the same as her previous episodes of cannabis hyperemesis syndrome. She still uses cannabis but does not smoke or drink. She denies any other recreational drugs. She was here 2 days ago and received IV fluids and nausea medicines. Allergies and Home Medications Allergies Coded Allergies: No Known Drug Allergies (Unverified , 05/07/10) Home Medications Cephalexin 500 Mg Tablet, 500 MG PO TID Prescribed by: MERRY CARPENTER on 04/18/191216 Cephalexin 500 Mg Capsule, 500 MG PO TID Prescribed by: ASHLEY GLEASON on 04/06/20 0913 Norgestimate-Ethinyl Estradiol 1 Each Tablet, 1 TAB PO DAILY, (Reported) Ondansetron 4 Mg Tab.rapdis, 4 MG PO Q4H PRN for NAUSEA/VOMITING-1ST LINE Prescribed by: MERRY CARPENTER on 04/18/19 121 Ondansetron 4 Mg Tab.rapdis, 4 MG SL Q4H PRN for NAUSEA/VOMITING Prescribed by: ASHLEY GLEASON on 04/07/20 0834 Ondansetron 4 Mg Tab.rapdis, 4 MG PO Q4H PRN for NAUSEA/VOMITING Prescribed by: REINA METZGER on 09/24/20 1210 Pantoprazole Sodium 40 Mg Tablet.dr, 40 MG PO DAILY Prescribed by: KARIME LINK on 01/09/191903 Potassium Chloride 20 Meq Tablet.er, 40 MEQ PO DAILY Prescribed by: KARIME LINK on 01/09/19 190 Prochlorperazine Maleate 5 Mg Tablet, 5 MG PO TID PRN for NAUSEA/VOMITING Prescribed by: KARIME LINK on 01/09/19 170 Promethazine HCl 25 Mg Tablet, 25 MG PO Q8H PRN for NAUSEA/VOMITING Prescribed by: ASHLEY GLEASON on 04/06/20 0913 Promethazine HCl 25 Mg Tablet, 25 MG PO Q6H PRN for NAUSEA/VOMITING Prescribed by: VIVIAN SMITH on 07/26/20 1038 Promethazine HCl 25 Mg Supp.rect, 25 MG RC Q6H PRN for NAUSEA/VOMITING Prescribed by: REINA METZGER on 09/24/20 1210 Patient Home Medication List Home Medication List Reviewed: Yes Review of Systems Review of Systems Constitutional: No chills, No diaphoresis EENTM: No Blurred Vision, No Double Vision Respiratory: Denies Cough, Denies Orthopnea Cardiovascular: Denies Chest Pain, Denies Edema Gastrointestinal: Denies Abdominal Pain, Denies Constipated, Denies Diarrhea; Nausea, Vomiting Genitourinary: Denies Burning, Denies Discharge Musculoskeletal: No back pain, No joint pain Skin: No pruritus, No rash Psychiatric/Neurological: Denies Headache, Denies Numbness Past Nbauuuv-Xgyhpy-Ruobof Hx Patient Social History Alcohol Use: Denies Use Recreational Drug Use: Yes Drug of Choice: cannabis Smoking Status: Never a Smoker 2nd Hand Smoke Exposure: No Recent Hopitalizations: No Immunizations Up To Date Tetanus Booster (TDap): Less than 5yrs PED Vaccines UTD: Yes Seasonal Allergies Seasonal Allergies: No Past Medical History Surgeries: No Respiratory: No Cardiac: No Neurological: No Reproductive Disorders: No Female Reproductive Disorders: Denies Sexually Transmitted Disease: No HIV/AIDS: No Genitourinary: No Gastrointestinal: Yes (cannabis hyperemesis syndrome) Gastroesophageal Reflux Musculoskeletal: No Endocrine: No HEENT: No Loss of Vision: Denies Hearing Impairment: Denies Cancer: No Psychosocial: Yes Anxiety Integumentary: Yes Eczema Blood Disorders: No Family Medical History Alcoholism 19 FATHER 19 MOTHER No Family History of: AIDS Abdominal aortic aneurysm [place]'s disease Alzheimer's disease Aphasia Arthritis Asthma Cancer of mouth Cardiovascular disease Cataracts Colon cancer Completed stroke Congenital disease Congenital heart disease Coronary thrombosis Cystic fibrosis Deafness or hearing loss Dementia Diabetes mellitus Drug abuse Dysphasia Fibrocystic disease of breast Gastroenteritis Glaucoma Headache disorder Hypercholesterolemia Hypertension Infertility Kidney disease Myocardial infarction Neoplasm Not obtainable due to adoption Osteoporosis Parkinson's disease Prostate cancer Psychosocial problem Respiratory disorder Seizure disorder Severe allergy Thyroid disease Tuberculosis Visual disorder No Pertinent Family Hx, Psychiatric Problems Physical Exam Vital Signs Vital Signs - First Documented 10/30/20 09:32 Temp 36.9 Pulse 89 Resp 20 B/P (MAP) 138/101 (113) Pulse Ox 99 O2 Delivery Room Air Capillary Refill : Height/Weight/BMI Height: 5'3.00" Weight: 130lbs. 0oz. 58.341991yg; 21.00 BMI Method:Stated General Appearance: WD/WN, no apparent distress HEENT: PERRL/EOMI, pharynx normal Neck: full range of motion, normal inspection Respiratory: chest non-tender, lungs clear, normal breath sounds, no respiratory distress, no accessory muscle use Cardiovascular: normal peripheral pulses, regular rate, rhythm Gastrointestinal: normal bowel sounds, non tender, soft Extremities: normal range of motion, non-tender, normal capillary refill Neurologic/Psychiatric: alert, oriented x 3, other (anxious) Skin: normal color, warm/dry Procedures/Interventions Suture Size: 4-0 Progress/Results/Core Measures Results/Orders Lab Results Laboratory Tests Test 10/30/20 09:35 10/30/20 09:37 10/30/20 09:44 Range/Units Urine Color YELLOW Urine Clarity CLEAR Urine pH 7.0 5-9 Urine Specific [place] 1.020 1.016-1.022 Urine Protein TRACE H NEGATIVE Urine Glucose (UA) NEGATIVE NEGATIVE Urine Ketones NEGATIVE NEGATIVE Urine Nitrite NEGATIVE NEGATIVE Urine Bilirubin NEGATIVE NEGATIVE Urine Urobilinogen 0.2 < = 1.0 MG/DL Urine Leukocyte Esterase NEGATIVE NEGATIVE Urine RBC (Auto) NEGATIVE NEGATIVE Urine RBC NONE /HPF Urine WBC RARE /HPF Urine Squamous Epithelial Cells 5-10 /HPF Urine Crystals NONE /LPF Urine Bacteria NEGATIVE /HPF Urine Casts NONE /LPF Urine Mucus NEGATIVE /LPF Urine Culture Indicated NO Coronavirus 2019 (JASON) Negative Negative White Blood Count 9.5 4.3-11.0 10^3/uL Red Blood Count 4.03 3.80-5.11 10^6/uL Hemoglobin 12.3 11.5-16.0 g/dL Hematocrit 36 35-52 % Mean Corpuscular Volume 90 80-99 fL Mean Corpuscular Hemoglobin 31 25-34 pg Mean Corpuscular Hemoglobin Concent 34 32-36 g/dL Red Cell Distribution Width 12.7 10.0-14.5 % Platelet Count 413 H 130-400 10^3/uL Mean Platelet Volume 10.5 9.0-12.2 fL Immature Granulocyte % (Auto) 0 % Neutrophils (%) (Auto) 84 H 42-75 % Lymphocytes (%) (Auto) 11 L 12-44 % Monocytes (%) (Auto) 4 0-12 % Eosinophils (%) (Auto) 0 0-10 % Basophils (%) (Auto) 1 0-10 % Neutrophils # (Auto) 8.0 H 1.8-7.8 10^3/uL Lymphocytes # (Auto) 1.1 1.0-4.0 10^3/uL Monocytes # (Auto) 0.4 0.0-1.0 10^3/uL Eosinophils # (Auto) 0.0 0.0-0.3 10^3/uL Basophils # (Auto) 0.1 0.0-0.1 10^3/uL Immature Granulocyte # (Auto) 0.0 0.0-0.1 10^3/uL Sodium Level 135 135-145 MMOL/L Potassium Level 3.4 L 3.6-5.0 MMOL/L Chloride Level 99 98-107 MMOL/L Carbon Dioxide Level 22 21-32 MMOL/L Anion Gap 14 5-14 MMOL/L Blood Urea Nitrogen 9 7-18 MG/DL Creatinine 0.74 0.60-1.30 MG/DL Estimat Glomerular Filtration Rate > 60 BUN/Creatinine Ratio 12 Glucose Level 122 H 70-105 MG/DL Calcium Level 9.1 8.5-10.1 MG/DL Corrected Calcium 8.5-10.1 MG/DL Total Bilirubin 1.2 H 0.1-1.0 MG/DL Aspartate Amino Transf (AST/SGOT) 16 5-34 U/L Alanine Aminotransferase (ALT/SGPT) 14 0-55 U/L Alkaline Phosphatase 72 40-136 U/L Total Protein 7.4 6.4-8.2 GM/DL Albumin 4.6 H 3.2-4.5 GM/DL My Orders Orders - VIVIAN SMITH 19 Inhouse Test (10/30/20 09:29) Ua Culture If Indicated (10/30/20 09:29) Urine Bedside (10/30/20 09:29) Ed Iv/Invasive Line Start (10/30/20 09:42) Ns Iv 500 Ml (Sodium Chloride 0.9%) (10/30/20 09:45) Lactated Ringers (Lr 1000 Ml Iv Solution (10/30/20 09:45) Promethazine Injection (Phenergan Injec (10/30/20 09:45) Ondansetron Injection (Zofran Injectio (10/30/20 09:45) Diphenhydramine Injection (Benadryl Inje (10/30/20 09:45) Cbc With Automated Diff (10/30/20 09:42) Comprehensive Metabolic Panel (10/30/20 09:42) Medications Given in ED Current Medications Medications Dose Ordered Sig/Jeannette Route Start Time Stop Time Status Last Admin Dose Admin Diphenhydramine HCl 25 mg ONCE ONCE IVP 10/30/20 09:45 10/30/20 09:46 DC 10/30/20 09:52 25 MG Lactated Ringer's 1,000 ml @ 0 mls/hr Q0M ONCE IV 10/30/20 09:45 10/30/20 09:46 DC 10/30/20 09:51 1,000 MLS/HR Ondansetron HCl 4 mg ONCE ONCE IVP 10/30/20 09:45 10/30/20 09:46 DC 10/30/20 09:51 4 MG Promethazine HCl 25 mg ONCE ONCE IVP 10/30/20 09:45 10/30/20 09:46 DC 10/30/20 09:51 25 MG Sodium Chloride 500 ml @ 0 mls/hr Q0M ONCE IV 10/30/20 09:45 10/30/20 09:46 DC 10/30/20 09:52 500 MLS/HR Vital Signs/I&O 10/30/20 09:32 Temp 36.9 Pulse 89 Resp 20 B/P (MAP) 138/101 (113) Pulse Ox 99 O2 Delivery Room Air Progress Progress Note : Time: 11:37 Progress Note After 1500 cc of fluid and Phenergan and Benadryl the patient is feeling much better. We discussed her use of cannabis. Her labs and urine are unremarkable. Follow-up with primary care. Departure Impression Primary Impression: Cannabis hyperemesis syndrome concurrent with and due to cannabis dependence Disposition: 01 HOME, SELF-CARE Condition: Stable Departure-Patient Inst. Decision time for Depature: 11:35 Referrals: [facility] (PCP/Family) Primary Care Physician Patient Instructions: Marijuana Use and Addiction (DC) Add. Discharge Instructions: I suggest you visit with a primary care provider to help manage your symptoms. Further work-up may be indicated at follow-up visits. Continue to use your ondansetron under the tongue and allow to dissolve and absorb through your mouth. If this does not help he can use 1 tablet of Phenergan every 6 hours as necessary. Drink plenty of fluids and get some rest today. I highly recommend you abstain from the use of any kind of cannabis related substance. If you need help quitting cannabis [facility] has doctors and counselors who have special training managing addiction symptoms. Scripts Ondansetron (Ondansetron Odt) 4 Mg Tab.rapdis 4 MG PO Q6H PRN for NAUSEA/VOMITING, #15 TAB 0 Refills Prov: VIVIAN SMITH 10/30/20 Promethazine HCl (Promethazine Tablet) 25 Mg Tablet 25 MG PO Q6H PRN for NAUSEA/VOMITING, #15 TAB 0 Refills Prov: VIVIAN SMITH 10/30/20 VIVIAN SMITH Oct 30, 2020 09:44
[2020-10-30] MEDS ORDERED: LACTATED RINGERS 1,000 ML IV ONE (09:45)
[2020-10-30] MEDS ORDERED: NS IV 500 ML 500 ML IV ONE (09:45)
[2020-10-30] MEDS ORDERED: diphenhydrAMINE 50 MG/ML INJ (BENADRYL) IVP ONE (09:45)
[2020-10-30] MEDS ORDERED: PROMETHAZINE INJ 25 MG/ML (PHENERGAN) AMP IVP ONE (09:45)
[2020-10-30] MEDS ORDERED: ONDANSETRON 4 MG/2 ML (SDV) Z0FRAN IVP ONE (09:45)
[2020-10-30 09:50] LABS: BASOPHILS # (AUTO) 0.1 10^3/uL (0.0-0.1); BASOPHILS % (AUTO) 1 % (0-10); EOSINOPHILS % (AUTO) 0 % (0-10); HEMATOCRIT 36 % (35-52); HEMOGLOBIN 12.3 g/dL (11.5-16.0); LYMPHOCYTES # (AUTO) 1.1 10^3/uL (1.0-4.0); LYMPHOCYTES % (AUTO) 11 % (12-44); MEAN CORPUSCULAR HEMOGLOBIN 31 pg (25-34); MEAN CORPUSCULAR HGB CONC 34 g/dL (32-36); MEAN CORPUSCULAR VOLUME 90 fL (80-99); MEAN PLATELET VOLUME 10.5 fL (9.0-12.2); MONOCYTES # (AUTO) 0.4 10^3/uL (0.0-1.0); MONOCYTES % (AUTO) 4 % (0-12); NEUTROPHILS % (AUTO) 84 % (42-75); PLATELET COUNT 413 10^3/uL (130-400); WHITE BLOOD COUNT 9.5 10^3/uL (4.3-11.0)
[2020-10-30 09:54] LABS: BACTERIA,URINE NEGATIVE /HPF; WBC,URINE RARE /HPF
[2020-10-30 10:02] LABS: ALBUMIN 4.6 GM/DL (3.2-4.5); CHLORIDE 99 MMOL/L (98-107); POTASSIUM 3.4 MMOL/L (3.6-5.0); SODIUM 135 MMOL/L (135-145)
[2020-10-30 10:04] LABS: CALCIUM 9.1 MG/DL (8.5-10.1)
[2020-10-30 10:05] LABS: GLUCOSE 122 MG/DL (70-105); TOTAL PROTEIN 7.4 GM/DL (6.4-8.2)
[2020-10-30 10:06] LABS: CARBON DIOXIDE 22 MMOL/L (21-32)
[2020-10-30 10:07] LABS: BILIRUBIN,TOTAL 1.2 MG/DL (0.1-1.0)
[2020-10-30 10:08] LABS: ALKALINE PHOSPHATASE 72 U/L (40-136)
[2020-10-30 10:09] LABS: CREATININE SERUM 0.74 MG/DL (0.60-1.30); GFR ESTIMATED > 60
[2020-10-30 10:10] LABS: BUN/CREATININE RATIO 12
[2020-10-30 10:11] LABS: ALANINE AMINOTRANSFERASE 14 U/L (0-55)
--- NOTE | 2020-10-30 11:35 | NUR ---
PT IS FEELING BETTER AND IS READY TO GO. DOCTOR WAS NOTIFED.
[2020-10-30] MEDS ORDERED: ONDA4TAB11 PO (11:42)
[2020-10-30] MEDS ORDERED: PROM25TA14 PO (11:42)
== END 2020-10-30 12:00 | disposition home or self-care (01) ==
LOC: EDUNIT# 09:20 → ER 09:22
DX: R11.2 Nausea with vomiting, unspecified (principal); F41.9 Anxiety disorder, unspecified; K21.9 Gastro-esophageal reflux disease without esophagitis; Z20.828 Contact with and (suspected) exposure to other viral communicable diseases
CPT/HCPCS: 80053; 81000; 84703; 85025; 99284; U0002; 36415; 87635

== ENCOUNTER 2020-11-17 08:42 | Emergency (ER) | payer SELFPAY ==
[~2020-11-17] VITALS: Ht 160 cm; Wt 54.4 kg
[2020-11-17] MEDS ORDERED: LACTATED RINGERS 1,000 ML IV ONE (08:57)
[2020-11-17] MEDS ORDERED: ONDANSETRON 4 MG/2 ML (SDV) Z0FRAN ONE (08:57)
[2020-11-17] MEDS ORDERED: LORazepam INJ 2 MG/ML (ATIVAN) VIAL ONE (08:59)
[2020-11-17] MEDS ORDERED: ONDANSETRON 4 MG/2 ML (SDV) Z0FRAN IVP ONE (09:15)
[2020-11-17] MEDS ORDERED: LORazepam INJ 2 MG/ML (ATIVAN) VIAL IVP ONE ×2 (09:15→09:30)
[2020-11-17 09:17] LABS: BASOPHILS # (AUTO) 0.1 10^3/uL (0.0-0.1); BASOPHILS % (AUTO) 1 % (0-10); EOSINOPHILS % (AUTO) 1 % (0-10); HEMATOCRIT 37 % (35-52); HEMOGLOBIN 12.8 g/dL (11.5-16.0); LYMPHOCYTES # (AUTO) 1.4 10^3/uL (1.0-4.0); LYMPHOCYTES % (AUTO) 17 % (12-44); MEAN CORPUSCULAR HEMOGLOBIN 31 pg (25-34); MEAN CORPUSCULAR HGB CONC 35 g/dL (32-36); MEAN CORPUSCULAR VOLUME 90 fL (80-99); MEAN PLATELET VOLUME 10.9 fL (9.0-12.2); MONOCYTES # (AUTO) 0.3 10^3/uL (0.0-1.0); MONOCYTES % (AUTO) 3 % (0-12); NEUTROPHILS # (AUTO) 6.2 10^3/uL (1.8-7.8); NEUTROPHILS % (AUTO) 78 % (42-75); PLATELET COUNT 338 10^3/uL (130-400); WHITE BLOOD COUNT 7.9 10^3/uL (4.3-11.0)
--- NOTE | 2020-11-17 09:21 | ED GI ---
General Chief Complaint: Abdominal/GI Problems Stated Complaint: VOMITING PANIC ATTACK Nursing Triage Note: PT AMB TO [facility] WITH COMPLAINT OF N/V/ ABD PAIN THAT STARTED TWO DAYS AGO. PT HAS CYCLIC VOMITING FROM MARIJUANA USE. STATES TRIED HOT SHOWERS AND CALMING METHODS THAT DID NOT IMPROVE SYMPTOMS. Sepsis Screen: No Definite Risk Source of Information: Patient (LEONIDJESUS MED STUDENT) History of Present Illness Date Seen by Provider: Nov 17, 2020 Time Seen by Provider: 09:10 Initial Comments 20 y/o F presents to the emergency department for a chief complaint of abdominal pain that started 2d ago. Pt states she vomits 1x/mo from marijuana use and can't keep food down. She has severe anxiety and smokes weed to cope. Presently, she can't stop shaking or control her breathing. Pt has been seen in the Emergency Department 11 times before for marijuana induced hyperemesis. (JESUS JAQUEZ MED STUDENT) Initial Comments This 20-year-old young lady presents to the emergency room with anxiety attack and cannabis hyperemesis syndrome. Patient states she uses marijuana to control her anxiety. However, it often causes hyperemesis syndrome. Patient has not been actively seeking alternative treatments for her anxiety. (SAHLEY THAO MD) Allergies and Home Medications Allergies Coded Allergies: No Known Drug Allergies (Unverified , 05/07/10) Home Medications Cephalexin 500 Mg Tablet, 500 MG PO TID Prescribed by: MERRY CARPENTER on 04/18/19 1217 Cephalexin 500 Mg Capsule, 500 MG PO TID Prescribed by: ASHLEY GLEASON on 04/06/20 0913 Norgestimate-Ethinyl Estradiol 1 Each Tablet, 1 TAB PO DAILY, (Reported) Ondansetron 4 Mg Tab.rapdis, 4 MG PO Q4H PRN for NAUSEA/VOMITING-1ST LINE Prescribed by: MERRY CARPENTER on 04/18/19 1217 Ondansetron 4 Mg Tab.rapdis, 4 MG SL Q4H PRN for NAUSEA/VOMITING Prescribed by: ASHLEY GLEASON on 04/07/20 0834 Ondansetron 4 Mg Tab.rapdis, 4 MG PO Q4H PRN for NAUSEA/VOMITING Prescribed by: REINA METZGER on 09/24/20 1210 Ondansetron 4 Mg Tab.rapdis, 4 MG PO Q6H PRN for NAUSEA/VOMITING Prescribed by: VIVIAN SMITH on 10/30/20 1142 Ondansetron 4 Mg Tab.rapdis, 4 MG SL Q4H PRN for NAUSEA/VOMITING Prescribed by: ASHLEY GLEASON on 11/17/20 1003 Pantoprazole Sodium 40 Mg Tablet.dr, 40 MG PO DAILY Prescribed by: KARIME LINK on 01/09/191903 Potassium Chloride 20 Meq Tablet.er, 40 MEQ PO DAILY Prescribed by: KARIME LINK on 01/09/19 190 Prochlorperazine Maleate 5 Mg Tablet, 5 MG PO TID PRN for NAUSEA/VOMITING Prescribed by: KARIME LINK on 01/09/19 1705 Promethazine HCl 25 Mg Tablet, 25 MG PO Q8H PRN for NAUSEA/VOMITING Prescribed by: ASHLEY GLEASON on 04/06/20 0913 Promethazine HCl 25 Mg Tablet, 25 MG PO Q6H PRN for NAUSEA/VOMITING Prescribed by: VIVIAN SMITH on 07/26/20 1038 Promethazine HCl 25 Mg Supp.rect, 25 MG RC Q6H PRN for NAUSEA/VOMITING Prescribed by: REINA METZGER on 09/24/20 1210 Promethazine HCl 25 Mg Tablet, 25 MG PO Q6H PRN for NAUSEA/VOMITING Prescribed by: VIVIAN SMITH on 10/30/20 1142 Promethazine HCl 25 Mg Tablet, 25 MG PO Q8H PRN for NAUSEA/VOMITING-2ND LINE Prescribed by: ASHLEY GLEASON on 11/17/20 1003 Patient Home Medication List Home Medication List Reviewed: Yes (ASHLEY THAO MD) Review of Systems Review of Systems Constitutional: other (shaking) Respiratory: Shortness of Air Gastrointestinal: Abdominal Pain, Nausea, Vomiting (JESUS JAQUEZ MED STUDENT) Constitutional: other (shaking) Genitourinary: No Symptoms Reported Musculoskeletal: no symptoms reported Skin: no symptoms reported Psychiatric/Neurological: See HPI Endocrine: No Symptoms Reported Hematologic/Lymphatic: No Symptoms Reported (ASHLEY THAO MD) Past Xbeyuky-Ubjxkn-Xxjoim Hx Past Med/Social Hx: Reviewed Nursing Past Med/Soc Hx (ASHLEY THAO MD) Patient Social History Alcohol Use: Denies Use Recreational Drug Use: Yes Drug of Choice: cannabis Smoking Status: Never a Smoker 2nd Hand Smoke Exposure: No Recent Foreign Travel: No Contact w/Someone Who Travel: No Recent Infectious Disease Expo: No Recent Hopitalizations: No (JESUS JAQUEZ) Immunizations Up To Date Tetanus Booster (TDap): Less than 5yrs PED Vaccines UTD: Yes (JESUS JAQUEZ) Seasonal Allergies Seasonal Allergies: No (JESUS JAQUEZ) Past Medical History Surgeries: No Respiratory: No Cardiac: No Neurological: No Reproductive Disorders: No Female Reproductive Disorders: Denies Sexually Transmitted Disease: No HIV/AIDS: No Genitourinary: No Gastrointestinal: Yes (cannabis hyperemesis syndrome) Gastroesophageal Reflux Musculoskeletal: No Endocrine: No HEENT: No Loss of Vision: Denies Hearing Impairment: Denies Cancer: No Psychosocial: Yes Anxiety Integumentary: Yes Eczema Blood Disorders: No (JESUS JAQUEZ) Family Medical History Alcoholism 19 FATHER 19 MOTHER No Family History of: AIDS Abdominal aortic aneurysm [place]'s disease Alzheimer's disease Aphasia Arthritis Asthma Cancer of mouth Cardiovascular disease Cataracts Colon cancer Completed stroke Congenital disease Congenital heart disease Coronary thrombosis Cystic fibrosis Deafness or hearing loss Dementia Diabetes mellitus Drug abuse Dysphasia Fibrocystic disease of breast Gastroenteritis Glaucoma Headache disorder Hypercholesterolemia Hypertension Infertility Kidney disease Myocardial infarction Neoplasm Not obtainable due to adoption Osteoporosis Parkinson's disease Prostate cancer Psychosocial problem Respiratory disorder Seizure disorder Severe allergy Thyroid disease Tuberculosis Visual disorder No Pertinent Family Hx, Psychiatric Problems (JESUS JAQUEZ) Physical Exam Vital Signs Vital Signs - First Documented 11/17/20 09:00 Temp 36.5 Pulse 107 Resp 18 B/P (MAP) 142/84 (103) Pulse Ox 99 O2 Delivery Room Air (ASHLEY THAO MD) Vital Signs Capillary Refill : Less Than 3 Seconds (JESUS JAQUEZ) Height/Weight/BMI Height: 5'3.00" Weight: 130lbs. 0oz. 58.069611vj; 21.00 BMI Method:Stated General Appearance: moderate distress Neurologic/Psychiatric: alert (JESUS JAQUEZ) General Appearance: WD/WN HEENT: PERRL/EOMI, normal ENT inspection (ASHLEY THAO MD) Procedures/Interventions Suture Size: 4-0 (JESUS JAQUEZ STUDENT) Progress/Results/Core Measures Results/Orders Lab Results Laboratory Tests Test 11/17/20 09:00 11/17/20 09:21 Range/Units White Blood Count 7.9 4.3-11.0 10^3/uL Red Blood Count 4.11 3.80-5.11 10^6/uL Hemoglobin 12.8 11.5-16.0 g/dL Hematocrit 37 35-52 % Mean Corpuscular Volume 90 80-99 fL Mean Corpuscular Hemoglobin 31 25-34 pg Mean Corpuscular Hemoglobin Concent 35 32-36 g/dL Red Cell Distribution Width 13.5 10.0-14.5 % Platelet Count 338 130-400 10^3/uL Mean Platelet Volume 10.9 9.0-12.2 fL Immature Granulocyte % (Auto) 0 % Neutrophils (%) (Auto) 78 H 42-75 % Lymphocytes (%) (Auto) 17 12-44 % Monocytes (%) (Auto) 3 0-12 % Eosinophils (%) (Auto) 1 0-10 % Basophils (%) (Auto) 1 0-10 % Neutrophils # (Auto) 6.2 1.8-7.8 10^3/uL Lymphocytes # (Auto) 1.4 1.0-4.0 10^3/uL Monocytes # (Auto) 0.3 0.0-1.0 10^3/uL Eosinophils # (Auto) 0.0 0.0-0.3 10^3/uL Basophils # (Auto) 0.1 0.0-0.1 10^3/uL Immature Granulocyte # (Auto) 0.0 0.0-0.1 10^3/uL Sodium Level 138 135-145 MMOL/L Potassium Level 3.6 3.6-5.0 MMOL/L Chloride Level 104 98-107 MMOL/L Carbon Dioxide Level 17 L 21-32 MMOL/L Anion Gap 17 H 5-14 MMOL/L Blood Urea Nitrogen 7 7-18 MG/DL Creatinine 0.76 0.60-1.30 MG/DL Estimat Glomerular Filtration Rate > 60 BUN/Creatinine Ratio 9 Glucose Level 150 H 70-105 MG/DL Calcium Level 9.7 8.5-10.1 MG/DL Corrected Calcium 9.3 8.5-10.1 MG/DL Magnesium Level 1.8 1.6-2.4 MG/DL Total Bilirubin 0.9 0.1-1.0 MG/DL Aspartate Amino Transf (AST/SGOT) 17 5-34 U/L Alanine Aminotransferase (ALT/SGPT) 14 0-55 U/L Alkaline Phosphatase 64 40-136 U/L Total Protein 7.5 6.4-8.2 GM/DL Albumin 4.5 3.2-4.5 GM/DL Lipase 16 8-78 U/L Serum Test, Qualitative NEGATIVE NEGATIVE Urine Color YELLOW Urine Clarity CLEAR Urine pH 8.5 5-9 Urine Specific [place] 1.010 L 1.016-1.022 Urine Protein 2+ H NEGATIVE Urine Glucose (UA) NEGATIVE NEGATIVE Urine Ketones NEGATIVE NEGATIVE Urine Nitrite NEGATIVE NEGATIVE Urine Bilirubin NEGATIVE NEGATIVE Urine Urobilinogen 1.0 < = 1.0 MG/DL Urine Leukocyte Esterase TRACE H NEGATIVE Urine RBC (Auto) TRACE-I NEGATIVE Urine RBC 2-5 H /HPF Urine WBC 2-5 /HPF Urine Squamous Epithelial Cells 10-25 H /HPF Urine Crystals NONE /LPF Urine Bacteria MODERATE H /HPF Urine Casts NONE /LPF Urine Mucus SMALL H /LPF Urine Culture Indicated YES Urine Opiates Screen NEGATIVE NEGATIVE Urine Oxycodone Screen NEGATIVE NEGATIVE Urine Methadone Screen NEGATIVE NEGATIVE Urine Propoxyphene Screen NEGATIVE NEGATIVE Urine Barbiturates Screen NEGATIVE NEGATIVE Ur Tricyclic Antidepressants Screen NEGATIVE NEGATIVE Urine Phencyclidine Screen NEGATIVE NEGATIVE Urine Amphetamines Screen NEGATIVE NEGATIVE Urine Methamphetamines Screen NEGATIVE NEGATIVE Urine Benzodiazepines Screen NEGATIVE NEGATIVE Urine Cocaine Screen NEGATIVE NEGATIVE Urine Cannabinoids Screen POSITIVE H NEGATIVE (ASHLEY THAO MD) My Orders Orders - ASHLEY THAO MD Lactated Ringers (Lr 1000 Ml Iv Solution (11/17/20 08:57) Ondansetron Injection (Zofran Injectio (11/17/20 08:57) Lorazepam Injection (Ativan Injection) (11/17/20 09:15) Ondansetron Injection (Zofran Injectio (11/17/20 09:15) Cbc With Automated Diff (11/17/20 09:03) Comprehensive Metabolic Panel (11/17/20 09:03) Lipase (11/17/20 09:03) Ua Culture If Indicated (11/17/20 09:03) Hcg,Qualitative Serum (11/17/20 09:03) Drug Screen Stat (Urine) (11/17/20 09:03) Lorazepam Injection (Ativan Injection) (11/17/20 08:59) Promethazine Injection (Phenergan Injec (11/17/20 09:30) Famotidine Injection (Pepcid Injection) (11/17/20 09:30) Lorazepam Injection (Ativan Injection) (11/17/20 09:30) Magnesium (11/17/20 09:17) Urine Culture (11/17/20 09:21) Ketorolac Injection (Toradol Injection) (11/17/20 10:00) (ASHLEY THAO MD) Medications Given in ED Current Medications Medications Dose Ordered Sig/Jeannette Route Start Time Stop Time Status Last Admin Dose Admin Famotidine 20 mg ONCE ONCE IVP 11/17/20 09:30 11/17/20 09:31 DC 11/17/20 09:41 20 MG Ketorolac Tromethamine 30 mg ONCE ONCE IVP 11/17/20 10:00 11/17/20 10:01 DC 11/17/20 10:20 30 MG Lactated Ringer's 1,000 ml @ ud STK-MED ONCE IV 11/17/20 08:57 11/17/20 09:01 DC 11/17/20 09:05 1,000 MLS/HR Lorazepam 1 mg ONCE ONCE IVP 11/17/20 09:15 11/17/20 09:16 DC 11/17/20 09:05 1 MG Lorazepam 1 mg ONCE ONCE IVP 11/17/20 09:30 11/17/20 09:31 DC 11/17/20 09:41 1 MG Ondansetron HCl 8 mg ONCE ONCE IVP 11/17/20 09:15 11/17/20 09:16 DC 11/17/20 09:05 8 MG Promethazine HCl 25 mg ONCE ONCE IVP 11/17/20 09:30 11/17/20 09:31 DC 11/17/20 09:41 25 MG (ASHLEY THAO MD) Vital Signs/I&O 1/7/21 1/7/21 09:00 10:40 Temp 36.5 Pulse 107 68 Resp 18 20 B/P (MAP) 142/84 (103) 135/82 Pulse Ox 99 99 O2 Delivery Room Air Room Air (ASHLEY THAO MD) Blood Pressure Mean: 103 Progress Progress Note : Time: 09:15 Progress Note Marijuana induced hyperemesis - lipase lab was ordered, results pending. Discussed substance abuse resources and quitting. - Pt's nausea has calmed down since she last vomited 10 minutes ago. Pt requested adivan. severe anxiety - discussed mental health resources and establishing care (JESUS JAQUEZ MED STUDENT) Progress Note : Progress Note Patient received 2 doses of Ativan for anxiety. Nausea and vomiting was treated with Zofran, Phenergan, and Pepcid. A liter of IVF was infused. Toradal was given for muscle aches caused by vomiting. I had a fairly lengthy conversation with her about the need to find alternative means of treating her nausea as marijuana use seems to be worsening the problems. She expressed understanding. See discharge instructions. (ASHLEY THAO MD) Departure Impression Primary Impression: Cannabis hyperemesis syndrome concurrent with and due to cannabis dependence Additional Impressions: Anxiety Myalgia Disposition: 01 HOME, SELF-CARE Condition: Improved Departure-Patient Inst. Decision time for Depature: 10:01 (ASHLEY THAO MD) Referrals: [facility] (PCP/Family) Primary Care Physician Patient Instructions: Drug Abuse Treatment Add. Discharge Instructions: It is critical that you discontinue marijuana use to stop the cycles of cannabis hyperemesis. Encourage you to follow-up with a treatment center such as the [facility] of [facility]. They have both behavioral health services that can help with your anxiety and addiction treatment services to help with the marijuana addiction. They can be reached at [phone]. Drink plenty of clear liquids. You may use Zofran dissolved under the tongue and/or Phenergan tablets as prescribed for nausea and vomiting. Use Tylenol (acetaminophen) up to 1000 mg every 6 hours as needed for pain. Call or return to care with any questions or concerns. Return to the emergency room with worsening symptoms or development of new symptoms such as fever. All discharge instructions reviewed with patient and/or family. Voiced understanding. Scripts Promethazine HCl (Promethazine Tablet) 25 Mg Tablet 25 MG PO Q8H PRN for NAUSEA/VOMITING-2ND LINE, #10 TAB 0 Refills Prov: ASHLEY THAO MD 11/17/20 Ondansetron (Ondansetron Odt) 4 Mg Tab.rapdis 4 MG SL Q4H PRN for NAUSEA/VOMITING, #10 TAB Prov: ASHLEY THAO MD 11/17/20 JESUS JAQUEZ MED STUDENT Nov 17, 2020 09:21 ASHLEY THAO MD Nov 17, 2020 10:04
[2020-11-17 09:27] LABS: BILIRUBIN,URINE NEGATIVE (NEGATIVE); CLARITY,URINE CLEAR; COLOR,URINE YELLOW; GLUCOSE, URINE (UA) NEGATIVE (NEGATIVE); KETONES,URINE NEGATIVE (NEGATIVE); LEUKOCYTE ESTERASE ,URINE TRACE (NEGATIVE); NITRITE,URINE NEGATIVE (NEGATIVE); PH,URINE 8.5 (5-9); PROTEIN,URINE 2+ (NEGATIVE)
[2020-11-17 09:30] LABS: ALBUMIN 4.5 GM/DL (3.2-4.5); CHLORIDE 104 MMOL/L (98-107); POTASSIUM 3.6 MMOL/L (3.6-5.0); SODIUM 138 MMOL/L (135-145)
[2020-11-17] MEDS ORDERED: PROMETHAZINE INJ 25 MG/ML (PHENERGAN) AMP IVP ONE (09:30)
[2020-11-17] MEDS ORDERED: FAMOTIDINE 20MG/2ML IV (PEPCID) IVP ONE (09:30)
[2020-11-17 09:31] LABS: CALCIUM 9.7 MG/DL (8.5-10.1)
[2020-11-17 09:32] LABS: GLUCOSE 150 MG/DL (70-105); TOTAL PROTEIN 7.5 GM/DL (6.4-8.2)
[2020-11-17 09:33] LABS: CARBON DIOXIDE 17 MMOL/L (21-32)
[2020-11-17 09:34] LABS: BILIRUBIN,TOTAL 0.9 MG/DL (0.1-1.0)
[2020-11-17 09:36] LABS: ALKALINE PHOSPHATASE 64 U/L (40-136); CREATININE SERUM 0.76 MG/DL (0.60-1.30); GFR ESTIMATED > 60
[2020-11-17 09:37] LABS: BUN/CREATININE RATIO 9
[2020-11-17 09:37] LABS: BACTERIA,URINE MODERATE /HPF
[2020-11-17 09:39] LABS: ALANINE AMINOTRANSFERASE 14 U/L (0-55); LIPASE 16 U/L (8-78)
[2020-11-17 09:44] LABS: AMPHETAMINE SCREEN, URINE NEGATIVE (NEGATIVE); BARBITURATE SCREEN URINE NEGATIVE (NEGATIVE); BENZODIAZEPINES SCREEN URINE NEGATIVE (NEGATIVE); CANNABINOID SCREEN, URINE POSITIVE (NEGATIVE); COCAINE SCREEN URINE NEGATIVE (NEGATIVE); METHADONE STAT NEGATIVE (NEGATIVE); METHAMPHETAMINE SCREEN URINE S NEGATIVE (NEGATIVE); OPIATE SCREEN URINE NEGATIVE (NEGATIVE); OXYCODONE STAT NEGATIVE (NEGATIVE); PROPOXYPHENE STAT NEGATIVE (NEGATIVE); TRICYCLIC ANTIDEPRESSANTS SCRE NEGATIVE (NEGATIVE)
[2020-11-17] MEDS ORDERED: KETOROLAC 30 MG/ML VIAL IVP ONE (10:00)
[2020-11-17] MEDS ORDERED: PROM25TA14 PO (10:03)
[2020-11-17] MEDS ORDERED: ONDA4TAB11 SL (10:03)
[2020-11-17 10:40] VITALS: BP 135/82
== END 2020-11-17 10:40 | disposition home or self-care (01) ==
LOC: EDUNIT# 08:42 → ER 08:45
DX: R11.2 Nausea with vomiting, unspecified (principal); F12.20 Cannabis dependence, uncomplicated; F41.9 Anxiety disorder, unspecified; M79.10 Myalgia, unspecified site; K21.9 Gastro-esophageal reflux disease without esophagitis
CPT/HCPCS: 36415; 80053; 80306; 81000; 83690; 83735; 84703; 85025; 87088

== ENCOUNTER 2020-12-20 07:23 | Emergency (ER) | payer SELFPAY ==
[~2020-12-20] VITALS: Ht 160 cm; Wt 54.5 kg
[2020-12-20] MEDS ORDERED: METOCLOPRAMIDE 10MG/10ML ORAL SOL(REGLAN) UDC PO STA (07:33)
[2020-12-20] MEDS ORDERED: LACTATED RINGERS 1,000 ML IV STA ×2 (07:33→08:35)
[2020-12-20] MEDS ORDERED: diphenhydrAMINE 50 MG/ML INJ (BENADRYL) IV STA (07:33)
--- NOTE | 2020-12-20 07:33 | ED General ---
General Stated Complaint: ANXIETY,N/V History of Present Illness Date Seen by Provider: Dec 20, 2020 Time Seen by Provider: 07:29 Initial Comments 20-year-old female presents with nausea vomiting and anxiousness. Patient admits to chronic daily marijuana use. She admits to having occasional vomiting associated with marijuana use. Patient reports that her symptoms started 3 days ago. She has some mild carpal spasms. She denies fevers chills. She reports she is currently on her menstrual cycle. She has no chest pain cough or other systemic complaints. Allergies and Home Medications Allergies Coded Allergies: No Known Drug Allergies (Unverified , 05/07/10) Home Medications Cephalexin 500 Mg Tablet, 500 MG PO TID Prescribed by: MERRY CARPENTER on 04/18/19 121 Cephalexin 500 Mg Capsule, 500 MG PO TID Prescribed by: ASHLEY GLEASON on 04/06/20 0913 Norgestimate-Ethinyl Estradiol 1 Each Tablet, 1 TAB PO DAILY, (Reported) Ondansetron 4 Mg Tab.rapdis, 4 MG PO Q4H PRN for NAUSEA/VOMITING-1ST LINE Prescribed by: MERRY CARPENTER on 04/18/19 1217 Ondansetron 4 Mg Tab.rapdis, 4 MG SL Q4H PRN for NAUSEA/VOMITING Prescribed by: ASHLEY GLEASON on 04/07/20 0834 Ondansetron 4 Mg Tab.rapdis, 4 MG PO Q4H PRN for NAUSEA/VOMITING Prescribed by: REINA METZGER on 09/24/20 1210 Ondansetron 4 Mg Tab.rapdis, 4 MG PO Q6H PRN for NAUSEA/VOMITING Prescribed by: VIVIAN SMITH on 10/30/20 1142 Ondansetron 4 Mg Tab.rapdis, 4 MG SL Q4H PRN for NAUSEA/VOMITING Prescribed by: ASHLEY GLEASON on 11/17/20 1003 Pantoprazole Sodium 40 Mg Tablet.dr, 40 MG PO DAILY Prescribed by: KARIME LINK on 01/09/191903 Potassium Chloride 20 Meq Tablet.er, 40 MEQ PO DAILY Prescribed by: KARIME LINK on 01/09/191903 Prochlorperazine Maleate 5 Mg Tablet, 5 MG PO TID PRN for NAUSEA/VOMITING Prescribed by: KARIME LINK on 01/09/19 1705 Promethazine HCl 25 Mg Tablet, 25 MG PO Q8H PRN for NAUSEA/VOMITING Prescribed by: ASHLEY GLEASON on 04/06/20 0913 Promethazine HCl 25 Mg Tablet, 25 MG PO Q6H PRN for NAUSEA/VOMITING Prescribed by: VIVIAN SMITH on 07/26/20 1038 Promethazine HCl 25 Mg Supp.rect, 25 MG RC Q6H PRN for NAUSEA/VOMITING Prescribed by: REINA METZGER on 09/24/20 1210 Promethazine HCl 25 Mg Tablet, 25 MG PO Q6H PRN for NAUSEA/VOMITING Prescribed by: VIVIAN SMITH on 10/30/20 1142 Promethazine HCl 25 Mg Tablet, 25 MG PO Q8H PRN for NAUSEA/VOMITING-2ND LINE Prescribed by: ASHLEY GLEASON on 11/17/20 1003 Patient Home Medication List Home Medication List Reviewed: Yes Review of Systems Review of Systems Constitutional: No see HPI, No chills, No fever Respiratory: No cough, No short of breath Cardiovascular: No chest pain, No palpitations Gastrointestinal: No abdominal pain; nausea, vomiting Musculoskeletal: see HPI Skin: no symptoms reported Psychiatric/Neurological: Anxiety Hematologic/Lymphatic: No Symptoms Reported Past Pfmofdc-Jaujcm-Vkgcbi Hx Past Med/Social Hx: Reviewed Nursing Past Med/Soc Hx Patient Social History Drug of Choice: cannabis 2nd Hand Smoke Exposure: No Recent Hopitalizations: No Immunizations Up To Date Tetanus Booster (TDap): Less than 5yrs PED Vaccines UTD: Yes Seasonal Allergies Seasonal Allergies: No Past Medical History Surgeries: No Respiratory: No Cardiac: No Neurological: No Reproductive Disorders: No Female Reproductive Disorders: Denies Sexually Transmitted Disease: No HIV/AIDS: No Genitourinary: No Gastrointestinal: Yes (cannabis hyperemesis syndrome) Gastroesophageal Reflux Musculoskeletal: No Endocrine: No HEENT: No Loss of Vision: Denies Hearing Impairment: Denies Cancer: No Psychosocial: Yes Anxiety Integumentary: Yes Eczema Blood Disorders: No Family Medical History Alcoholism 19 FATHER 19 MOTHER No Family History of: AIDS Abdominal aortic aneurysm Hayes's disease Alzheimer's disease Aphasia Arthritis Asthma Cancer of mouth Cardiovascular disease Cataracts Colon cancer Completed stroke Congenital disease Congenital heart disease Coronary thrombosis Cystic fibrosis Deafness or hearing loss Dementia Diabetes mellitus Drug abuse Dysphasia Fibrocystic disease of breast Gastroenteritis Glaucoma Headache disorder Hypercholesterolemia Hypertension Infertility Kidney disease Myocardial infarction Neoplasm Not obtainable due to adoption Osteoporosis Parkinson's disease Prostate cancer Psychosocial problem Respiratory disorder Seizure disorder Severe allergy Thyroid disease Tuberculosis Visual disorder No Pertinent Family Hx, Psychiatric Problems Physical Exam Vital Signs Vital Signs - First Documented 12/20/20 07:26 Temp 35.4 Pulse 126 Resp 22 B/P (MAP) 136/106 (116) Pulse Ox 96 O2 Delivery Room Air Capillary Refill : Height, Weight, BMI Height: 5'3.00" Weight: 130lbs. 0oz. 58.558508pm; 21.00 BMI Method:Stated General Appearance: No Apparent Distress, WD/WN, Other (vomiting ) Neck: Non Tender, Supple Respiratory: Lungs Clear, Normal Breath Sounds Cardiovascular: Regular Rate, Rhythm, No Edema Gastrointestinal: Non Tender, Soft Procedures/Interventions Suture Size: 4-0 Progress/Results/Core Measures Suspected Sepsis SIRS Temperature: Pulse: Respiratory Rate: Laboratory Tests 12/20/20 07:33: White Blood Count 10.1 Blood Pressure / Mean: Laboratory Tests 12/20/20 07:33: Creatinine 0.79, Platelet Count 369, Total Bilirubin 0.8 Results/Orders Lab Results Laboratory Tests Test 12/20/20 07:30 12/20/20 07:33 12/20/20 09:30 Range/Units D-Dimer < 0.27 0.00-0.49 UG/ML White Blood Count 10.1 4.3-11.0 10^3/uL Red Blood Count 4.18 3.80-5.11 10^6/uL Hemoglobin 12.8 11.5-16.0 g/dL Hematocrit 38 35-52 % Mean Corpuscular Volume 91 80-99 fL Mean Corpuscular Hemoglobin 31 25-34 pg Mean Corpuscular Hemoglobin Concent 34 32-36 g/dL Red Cell Distribution Width 13.7 10.0-14.5 % Platelet Count 369 130-400 10^3/uL Mean Platelet Volume 10.8 9.0-12.2 fL Immature Granulocyte % (Auto) 0 % Neutrophils (%) (Auto) 59 42-75 % Lymphocytes (%) (Auto) 27 12-44 % Monocytes (%) (Auto) 7 0-12 % Eosinophils (%) (Auto) 7 0-10 % Basophils (%) (Auto) 1 0-10 % Neutrophils # (Auto) 6.0 1.8-7.8 10^3/uL Lymphocytes # (Auto) 2.7 1.0-4.0 10^3/uL Monocytes # (Auto) 0.7 0.0-1.0 10^3/uL Eosinophils # (Auto) 0.7 H 0.0-0.3 10^3/uL Basophils # (Auto) 0.1 0.0-0.1 10^3/uL Immature Granulocyte # (Auto) 0.0 0.0-0.1 10^3/uL Sodium Level 139 135-145 MMOL/L Potassium Level 4.0 3.6-5.0 MMOL/L Chloride Level 103 98-107 MMOL/L Carbon Dioxide Level 23 21-32 MMOL/L Anion Gap 13 5-14 MMOL/L Blood Urea Nitrogen 8 7-18 MG/DL Creatinine 0.79 0.60-1.30 MG/DL Estimat Glomerular Filtration Rate > 60 BUN/Creatinine Ratio 10 Glucose Level 131 H 70-105 MG/DL Calcium Level 9.3 8.5-10.1 MG/DL Corrected Calcium 8.9 8.5-10.1 MG/DL Magnesium Level 1.8 1.6-2.4 MG/DL Total Bilirubin 0.8 0.1-1.0 MG/DL Aspartate Amino Transf (AST/SGOT) 15 5-34 U/L Alanine Aminotransferase (ALT/SGPT) 10 0-55 U/L Alkaline Phosphatase 76 40-136 U/L Total Protein 7.1 6.4-8.2 GM/DL Albumin 4.5 3.2-4.5 GM/DL Troponin I < 0.028 <0.028 NG/ML My Orders Orders - MIRZA,MARY L DO Metoclopramide Oral Liquid (Reglan Oral (12/20/20 07:33) Lactated Ringers (Lr 1000 Ml Iv Solution (12/20/20 07:33) Diphenhydramine Injection (Benadryl Inje (12/20/20 07:33) Cbc With Automated Diff (12/20/20 07:33) Comprehensive Metabolic Panel (12/20/20 07:33) Magnesium (12/20/20 07:33) Metoclopramide Injection (Reglan Injecti (12/20/20 08:00) Lactated Ringers (Lr 1000 Ml Iv Solution (12/20/20 08:35) Lorazepam Injection (Ativan Injection) (12/20/20 08:45) Haloperidol Injection (Haldol Injectio (12/20/20 09:00) Ekg Tracing (12/20/20 09:31) Chest 1 View, Ap/Pa Only (12/20/20 09:31) Fibrin Degradation Products (12/20/20 09:31) Troponin I (12/20/20 09:31) Lorazepam Injection (Ativan Injection) (12/20/20 09:45) Medications Given in ED Current Medications Medications Dose Ordered Sig/Jeannette Route Start Time Stop Time Status Last Admin Dose Admin Haloperidol Lactate 2.5 mg ONCE ONCE IV 12/20/20 09:00 12/20/20 09:03 DC 12/20/20 09:14 2.5 MG Lorazepam 0.5 mg ONCE ONCE IVP 12/20/20 08:45 12/20/20 08:46 DC 12/20/20 08:44 0.5 MG Lorazepam 2 mg ONCE ONCE IVP 12/20/20 09:45 12/20/20 09:46 DC 12/20/20 09:41 2 MG Metoclopramide HCl 10 mg ONCE ONCE IVP 12/20/20 08:00 12/20/20 08:01 DC 12/20/20 07:53 10 MG Vital Signs/I&O 12/20/20 07:26 Temp 35.4 Pulse 126 Resp 22 B/P (MAP) 136/106 (116) Pulse Ox 96 O2 Delivery Room Air Capillary Refill : ECG Initial ECG Impression Date: Dec 20, 2020 Initial ECG Impression Time: 09:38 Initial ECG Rate: 80 Initial ECG Rhythm: Normal Sinus Initial ECG Intervals: Normal Initial ECG Impression: Normal Comment nsr Diagnostic Imaging Diagonstic Imaging: Xray Plain Films/CT/US/NM/MRI: chest Comments [facility], [place] NAME: CARINA AGUSTIN [facility] REC#: [id number] PT STATUS: REG ER : 2000 PHYSICIAN: MARY MIRZA DO ADMIT DATE: 12/20/20/ER Draft Date of Exam:12/20/20 CHEST 1 VIEW, AP/PA ONLY INDICATION: Chest pain. COMPARISON: None available. TECHNIQUE: Single frontal radiograph of the chest dated December 20, 2020. FINDINGS: The cardiac silhouette is within normal limits in size. No significant pulmonary vascular congestion. The lungs are clear. No pleural effusion. No pneumothorax. No acute osseous abnormality. IMPRESSION: No acute cardiopulmonary abnormality. Dictated on workstation # [id number] Dict: 12/20/20 0954 Trans: 12/20/20 0956 [id number] [id number] Interpreted by: SIMA CRUM MD Electronically signed by: Departure Impression Primary Impression: Cannabinoid hyperemesis syndrome Additional Impression: Anxiety Disposition: 01 HOME, SELF-CARE Condition: Stable Departure-Patient Inst. Referrals: [facility] (PCP/Family) Primary Care Physician Patient Instructions: Anxiety, Adult (DC), Marijuana Use and Addiction Add. Discharge Instructions: I would recommend you stop marijuana use, this will help with your marijuana induced vomiting MARY MIRZA DO Dec 20, 2020 07:33
[2020-12-20 07:42] LABS: BASOPHILS # (AUTO) 0.1 10^3/uL (0.0-0.1); BASOPHILS % (AUTO) 1 % (0-10); EOSINOPHILS # (AUTO) 0.7 10^3/uL (0.0-0.3); EOSINOPHILS % (AUTO) 7 % (0-10); HEMATOCRIT 38 % (35-52); HEMOGLOBIN 12.8 g/dL (11.5-16.0); LYMPHOCYTES # (AUTO) 2.7 10^3/uL (1.0-4.0); LYMPHOCYTES % (AUTO) 27 % (12-44); MEAN CORPUSCULAR HEMOGLOBIN 31 pg (25-34); MEAN CORPUSCULAR HGB CONC 34 g/dL (32-36); MEAN CORPUSCULAR VOLUME 91 fL (80-99); MEAN PLATELET VOLUME 10.8 fL (9.0-12.2); MONOCYTES # (AUTO) 0.7 10^3/uL (0.0-1.0); MONOCYTES % (AUTO) 7 % (0-12); NEUTROPHILS % (AUTO) 59 % (42-75); PLATELET COUNT 369 10^3/uL (130-400); WHITE BLOOD COUNT 10.1 10^3/uL (4.3-11.0)
[2020-12-20 07:52] LABS: ALBUMIN 4.5 GM/DL (3.2-4.5)
[2020-12-20 07:53] LABS: CHLORIDE 103 MMOL/L (98-107); SODIUM 139 MMOL/L (135-145)
[2020-12-20 07:54] LABS: CALCIUM 9.3 MG/DL (8.5-10.1)
[2020-12-20 07:55] LABS: GLUCOSE 131 MG/DL (70-105); TOTAL PROTEIN 7.1 GM/DL (6.4-8.2)
[2020-12-20 07:56] LABS: CARBON DIOXIDE 23 MMOL/L (21-32)
[2020-12-20 07:57] LABS: BILIRUBIN,TOTAL 0.8 MG/DL (0.1-1.0)
[2020-12-20 07:58] LABS: ALKALINE PHOSPHATASE 76 U/L (40-136)
[2020-12-20 07:59] LABS: CREATININE SERUM 0.79 MG/DL (0.60-1.30); GFR ESTIMATED > 60
[2020-12-20 08:00] LABS: BUN/CREATININE RATIO 10
[2020-12-20] MEDS ORDERED: METOCLOPRAMIDE INJ 10 MG/2 ML (REGLAN) IVP ONE (08:00)
[2020-12-20 08:02] LABS: ALANINE AMINOTRANSFERASE 10 U/L (0-55); MAGNESIUM 1.8 MG/DL (1.6-2.4)
[2020-12-20] MEDS ORDERED: LORazepam INJ 2 MG/ML (ATIVAN) VIAL IVP ONE ×2 (08:45→09:45)
[2020-12-20] MEDS ORDERED: HALOPERIDOL 5 MG/ML (HALDOL) VIAL IV ONE (09:00)
--- NOTE | 2020-12-20 09:17 | NUR ---
CON'T TO VOMIT MEDS GIVEN Addendum: 12/20/20 at 0919 by PMCCLURE TALKING WITH PATIENT THE IMPORTANCE OF STOP SMOKING MARIJUANA
--- NOTE | 2020-12-20 09:31 | NUR ---
PATIENT CON'T TO C/O HEAVYNESS IN CHEST
--- NOTE | 2020-12-20 09:35 | NUR ---
TECH TO ROOM TO DO EKG
--- NOTE | 2020-12-20 09:57 | Diagnostic Imaging Report ---
INDICATION: Chest pain. COMPARISON: None available. TECHNIQUE: Single frontal radiograph of the chest dated December 20, 2020. FINDINGS: The cardiac silhouette is within normal limits in size. No significant pulmonary vascular congestion. The lungs are clear. No pleural effusion. No pneumothorax. No acute osseous abnormality. IMPRESSION: No acute cardiopulmonary abnormality. Dictated by: Dictated on workstation # [id number]
--- NOTE | 2020-12-20 10:08 | NUR ---
TO ROOM FEELING BETTER EYES CLOSED.
--- NOTE | 2020-12-20 10:25 | NUR ---
CALLED LAB ABOUT WHY TROPONIN NOT BEING PROCESSED.
--- NOTE | 2020-12-20 10:52 | NUR ---
AMB TO BATHROOM
[2020-12-20 10:58] VITALS: BP 117/87
== END 2020-12-20 10:57 | disposition home or self-care (01) ==
LOC: EDUNIT# 07:23 → ER 07:25
DX: R11.2 Nausea with vomiting, unspecified (principal); F12.90 Cannabis use, unspecified, uncomplicated; F41.9 Anxiety disorder, unspecified; K21.9 Gastro-esophageal reflux disease without esophagitis
CPT/HCPCS: 36415; 71045; 80053; 83735; 84484; 85025; 85379; 93005

== ENCOUNTER 2021-01-09 05:34 | Observation (INO) | payer SELFPAY ==
[~2021-01-09] VITALS: Ht 160 cm; Wt 54.5 kg
[2021-01-09] MEDS ORDERED: LACTATED RINGERS 1,000 ML IV ONE ×2 (06:00→06:30)
[2021-01-09] MEDS ORDERED: ONDANSETRON 4 MG/2 ML (SDV) Z0FRAN IVP ONE (06:00)
[2021-01-09 06:01] LABS: BASOPHILS % (AUTO) 1 % (0-10); EOSINOPHILS # (AUTO) 0.1 10^3/uL (0.0-0.3); EOSINOPHILS % (AUTO) 1 % (0-10); HEMATOCRIT 40 % (35-52); HEMOGLOBIN 13.6 g/dL (11.5-16.0); LYMPHOCYTES # (AUTO) 2.1 10^3/uL (1.0-4.0); LYMPHOCYTES % (AUTO) 27 % (12-44); MEAN CORPUSCULAR HEMOGLOBIN 31 pg (25-34); MEAN CORPUSCULAR HGB CONC 34 g/dL (32-36); MEAN CORPUSCULAR VOLUME 91 fL (80-99); MONOCYTES # (AUTO) 0.5 10^3/uL (0.0-1.0); MONOCYTES % (AUTO) 7 % (0-12); NEUTROPHILS # (AUTO) 5.1 10^3/uL (1.8-7.8); NEUTROPHILS % (AUTO) 65 % (42-75); PLATELET COUNT 347 10^3/uL (130-400); WHITE BLOOD COUNT 7.9 10^3/uL (4.3-11.0)
[2021-01-09 06:27] LABS: ALBUMIN 4.8 GM/DL (3.2-4.5); CHLORIDE 101 MMOL/L (98-107); POTASSIUM 3.6 MMOL/L (3.6-5.0); SODIUM 138 MMOL/L (135-145)
[2021-01-09 06:28] LABS: CALCIUM 9.8 MG/DL (8.5-10.1)
[2021-01-09 06:29] LABS: AMYLASE 38 U/L (25-125); GLUCOSE 124 MG/DL (70-105)
[2021-01-09 06:30] LABS: CARBON DIOXIDE 22 MMOL/L (21-32); TOTAL PROTEIN 7.9 GM/DL (6.4-8.2)
[2021-01-09] MEDS ORDERED: LORazepam INJ 2 MG/ML (ATIVAN) VIAL IVP ONE (06:30)
[2021-01-09] MEDS ORDERED: PROMETHAZINE INJ 25 MG/ML (PHENERGAN) AMP IVP ONE (06:30)
[2021-01-09] MEDS ORDERED: FAMOTIDINE 20MG/2ML IV (PEPCID) IVP ONE (06:30)
[2021-01-09] MEDS ORDERED: KETOROLAC 30 MG/ML VIAL IVP ONE (06:30)
[2021-01-09 06:31] LABS: BILIRUBIN,TOTAL 1.6 MG/DL (0.1-1.0)
[2021-01-09 06:33] LABS: ALKALINE PHOSPHATASE 75 U/L (40-136); CREATININE SERUM 0.81 MG/DL (0.60-1.30); GFR ESTIMATED > 60
[2021-01-09 06:34] LABS: BUN/CREATININE RATIO 12
--- NOTE | 2021-01-09 06:35 | ED GI ---
General Chief Complaint: Abdominal/GI Problems Stated Complaint: VOMITING;ABD CRAMPING Nursing Triage Note: PT AMBULATES TO ROOM #5 WITH C/O PERSISTANT NAUSEA ET VOMITING BEGINNING ON 01/06/21. PT STATES, "I CAN'T EVEN KEEP A DRINK OF WATER DOWN." REPORTS CHEST WALL DISCOMFORT SHE BELIEVES TO BE ASSOCIATED WITH RETHCING. REPORTS SHE HAS NOT SMOKED WEED IN X10 DAYS ET HAS HX OF CANNABINOID HYPEREMESIS. PT EXPERIENCING RETCHING DURING TRIAGE. A&OX4. Sepsis Screen: No Definite Risk Source of Information: Patient Exam Limitations: No Limitations History of Present Illness Date Seen by Provider: Jan 09, 2021 Time Seen by Provider: 05:48 Initial Comments This 20-year-old young lady presents to the emergency room with several days of nausea, vomiting, and abdominal discomfort. She is a habitual marijuana user and has had frequent visits for cannabis hyperemesis syndrome. She has tried abstaining from marijuana for about 10 days which is the longest she has been able to abstain in a long time. She has not yet sought assistance with addiction rehabilitation. She has recurrent problems with anxiety which also triggers her marijuana use. She is retching in the exam room despite receiving Zofran. Allergies and Home Medications Allergies Coded Allergies: No Known Drug Allergies (Unverified , 05/07/10) Home Medications No Active Prescriptions or Reported Meds Patient Home Medication List Home Medication List Reviewed: Yes Review of Systems Review of Systems Constitutional: no symptoms reported EENTM: No Symptoms Reported Respiratory: No Symptoms Reported Cardiovascular: No Symptoms Reported Gastrointestinal: See HPI Genitourinary: No Symptoms Reported Musculoskeletal: no symptoms reported Skin: no symptoms reported Psychiatric/Neurological: See HPI Endocrine: No Symptoms Reported Hematologic/Lymphatic: No Symptoms Reported Past Taaekie-Jknwpd-Axtumu Hx Past Med/Social Hx: Reviewed Nursing Past Med/Soc Hx Patient Social History Drug of Choice: cannabis 2nd Hand Smoke Exposure: No Recent Infectious Disease Expo: No Recent Hopitalizations: No Immunizations Up To Date Tetanus Booster (TDap): Less than 5yrs PED Vaccines UTD: Yes Seasonal Allergies Seasonal Allergies: No Past Medical History Surgeries: No Respiratory: No Cardiac: No Neurological: No : No Reproductive Disorders: No Female Reproductive Disorders: Denies Sexually Transmitted Disease: No HIV/AIDS: No Genitourinary: No Gastrointestinal: Yes (cannabis hyperemesis syndrome) Gastroesophageal Reflux Musculoskeletal: No Endocrine: No HEENT: No Loss of Vision: Denies Hearing Impairment: Denies Cancer: No Psychosocial: Yes Anxiety Integumentary: Yes Eczema Blood Disorders: No Family Medical History Alcoholism 19 FATHER 19 MOTHER No Family History of: AIDS Abdominal aortic aneurysm Linden's disease Alzheimer's disease Aphasia Arthritis Asthma Cancer of mouth Cardiovascular disease Cataracts Colon cancer Completed stroke Congenital disease Congenital heart disease Coronary thrombosis Cystic fibrosis Deafness or hearing loss Dementia Diabetes mellitus Drug abuse Dysphasia Fibrocystic disease of breast Gastroenteritis Glaucoma Headache disorder Hypercholesterolemia Hypertension Infertility Kidney disease Myocardial infarction Neoplasm Not obtainable due to adoption Osteoporosis Parkinson's disease Prostate cancer Psychosocial problem Respiratory disorder Seizure disorder Severe allergy Thyroid disease Tuberculosis Visual disorder No Pertinent Family Hx, Psychiatric Problems Physical Exam Vital Signs Vital Signs - First Documented 01/09/21 05:46 Temp 36.5 Pulse 69 Resp 26 B/P (MAP) 145/53 (83) Pulse Ox 99 O2 Delivery Room Air Capillary Refill : Less Than 3 Seconds Height/Weight/BMI Height: 5'3.00" Weight: 130lbs. 0oz. 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 tested, no motor/sensory deficits, alert, oriented x 3, other (Anxious) Skin: normal color, warm/dry Procedures/Interventions Suture Size: 4-0 Progress/Results/Core Measures Results/Orders Lab Results Laboratory Tests Test 01/09/21 05:50 01/09/21 08:26 Range/Units White Blood Count 7.9 4.3-11.0 10^3/uL Red Blood Count 4.42 3.80-5.11 10^6/uL Hemoglobin 13.6 11.5-16.0 g/dL Hematocrit 40 35-52 % Mean Corpuscular Volume 91 80-99 fL Mean Corpuscular Hemoglobin 31 25-34 pg Mean Corpuscular Hemoglobin Concent 34 32-36 g/dL Red Cell Distribution Width 13.6 10.0-14.5 % Platelet Count 347 130-400 10^3/uL Mean Platelet Volume 11.0 9.0-12.2 fL Immature Granulocyte % (Auto) 0 % Neutrophils (%) (Auto) 65 42-75 % Lymphocytes (%) (Auto) 27 12-44 % Monocytes (%) (Auto) 7 0-12 % Eosinophils (%) (Auto) 1 0-10 % Basophils (%) (Auto) 1 0-10 % Neutrophils # (Auto) 5.1 1.8-7.8 10^3/uL Lymphocytes # (Auto) 2.1 1.0-4.0 10^3/uL Monocytes # (Auto) 0.5 0.0-1.0 10^3/uL Eosinophils # (Auto) 0.1 0.0-0.3 10^3/uL Basophils # (Auto) 0.0 0.0-0.1 10^3/uL Immature Granulocyte # (Auto) 0.0 0.0-0.1 10^3/uL Sodium Level 138 135-145 MMOL/L Potassium Level 3.6 3.6-5.0 MMOL/L Chloride Level 101 98-107 MMOL/L Carbon Dioxide Level 22 21-32 MMOL/L Anion Gap 15 H 5-14 MMOL/L Blood Urea Nitrogen 10 7-18 MG/DL Creatinine 0.81 0.60-1.30 MG/DL Estimat Glomerular Filtration Rate > 60 BUN/Creatinine Ratio 12 Glucose Level 124 H 70-105 MG/DL Calcium Level 9.8 8.5-10.1 MG/DL Corrected Calcium 8.5-10.1 MG/DL Magnesium Level 1.7 1.6-2.4 MG/DL Total Bilirubin 1.6 H 0.1-1.0 MG/DL Direct Bilirubin 0.6 H 0.0-0.3 MG/DL Indirect Bilirubin 1.0 MG/DL Aspartate Amino Transf (AST/SGOT) 16 5-34 U/L Alanine Aminotransferase (ALT/SGPT) 13 0-55 U/L Alkaline Phosphatase 75 40-136 U/L Total Protein 7.9 6.4-8.2 GM/DL Albumin 4.8 H 3.2-4.5 GM/DL Amylase Level 38 25-125 U/L Lipase 11 8-78 U/L Serum Test, Qualitative NEGATIVE NEGATIVE Serum Alcohol < 10 <10 MG/DL Urine Color YELLOW Urine Clarity CLEAR Urine pH 8.5 5-9 Urine Specific [place] 1.015 L 1.016-1.022 Urine Protein 1+ H NEGATIVE Urine Glucose (UA) NEGATIVE NEGATIVE Urine Ketones 2+ H NEGATIVE Urine Nitrite NEGATIVE NEGATIVE Urine Bilirubin NEGATIVE NEGATIVE Urine Urobilinogen 0.2 < = 1.0 MG/DL Urine Leukocyte Esterase TRACE H NEGATIVE Urine RBC (Auto) NEGATIVE NEGATIVE Urine RBC 0-2 /HPF Urine WBC 2-5 /HPF Urine Squamous Epithelial Cells 25-50 H /HPF Urine Crystals PRESENT H /LPF Urine Amorphous Sediment FEW ALEX PHOSPHATE H /LPF Urine Bacteria FEW H /HPF Urine Casts NONE /LPF Urine Mucus NEGATIVE /LPF Urine Culture Indicated NO Urine Opiates Screen NEGATIVE NEGATIVE Urine Oxycodone Screen NEGATIVE NEGATIVE Urine Methadone Screen NEGATIVE NEGATIVE Urine Propoxyphene Screen NEGATIVE NEGATIVE Urine Barbiturates Screen NEGATIVE NEGATIVE Ur Tricyclic Antidepressants Screen NEGATIVE NEGATIVE Urine Phencyclidine Screen NEGATIVE NEGATIVE Urine Amphetamines Screen NEGATIVE NEGATIVE Urine Methamphetamines Screen NEGATIVE NEGATIVE Urine Benzodiazepines Screen NEGATIVE NEGATIVE Urine Cocaine Screen POSITIVE H NEGATIVE Urine Cannabinoids Screen POSITIVE H NEGATIVE My Orders Orders - ASHLEY THAO MD Famotidine Injection (Pepcid Injection) (01/09/21 06:30) Ketorolac Injection (Toradol Injection) (01/09/21 06:30) Promethazine Injection (Phenergan Injec (01/09/21 06:30) Lactated Ringers (Lr 1000 Ml Iv Solution (01/09/21 06:30) Lorazepam Injection (Ativan Injection) (01/09/21 06:30) Haloperidol Injection (Haldol Injectio (01/09/21 07:30) Haloperidol Injection (Haldol Injectio (01/09/21 08:30) Medications Given in ED Current Medications Medications Dose Ordered Sig/Jeannette Route Start Time Stop Time Status Last Admin Dose Admin Haloperidol Lactate 2.5 mg ONCE ONCE IV 01/09/21 08:30 01/09/21 08:31 DC 01/09/21 08:50 2.5 MG Vital Signs/I&O 01/09/21 05:46 Temp 36.5 Pulse 69 Resp 26 B/P (MAP) 145/53 (83) Pulse Ox 99 O2 Delivery Room Air Blood Pressure Mean: 83 Progress Progress Note #1: Time: 06:30 Progress Note Patient has received Zofran and a liter of IV fluids. She is still itching. We will add Phenergan, Pepcid, Ativan, and Toradol. Labs are still pending. Progress Note #2: Time: 07:30 Progress Note Patient still retching despite Phenergan. Haldol 2.5 mg IM has been ordered. Progress Note #3: Time: 08:36 Progress Note Patient is still retching after the IM Haldol dose. We will administer an additional dose of Haldol 2.5 mg IV. If this does not resolve her retching, we will consider admission. Progress Note #4: Time: 09:44 Progress Note Patient is still quite nauseous after second dose of Haldol. She is scared to go home since her symptoms are not well controlled. I have spoke with Dr. Trivedi who agrees to an observation admission. Departure Communication (Admissions) Time/Spoke to Admitting Phy: 09:45 Dr. rTivedi Impression Primary Impression: Cannabis hyperemesis syndrome concurrent with and due to cannabis dependence Additional Impressions: Anxiety Hypokalemia Disposition: ADMITTED INPATIENT Condition: Improved Admissions Decision to Admit Reason: Admit from ER (General) Decision to Admit/Date: Jan 09, 2021 Time/Decision to Admit Time: 09:40 Departure-Patient Inst. Referrals: [facility] (PCP/Family) Primary Care Physician Scripts No Active Prescriptions or Reported Meds ASHLEY THAO MD Jan 09, 2021 06:35
[2021-01-09 06:36] LABS: ALANINE AMINOTRANSFERASE 13 U/L (0-55); MAGNESIUM 1.7 MG/DL (1.6-2.4)
[2021-01-09 06:37] LABS: LIPASE 11 U/L (8-78)
[2021-01-09] MEDS ORDERED: HALOPERIDOL 5 MG/ML (HALDOL) VIAL IM ONE (07:30)
[2021-01-09] MEDS ORDERED: HALOPERIDOL 5 MG/ML (HALDOL) VIAL IV ONE (08:30)
[2021-01-09 08:32] LABS: BILIRUBIN,URINE NEGATIVE (NEGATIVE); CLARITY,URINE CLEAR; COLOR,URINE YELLOW; GLUCOSE, URINE (UA) NEGATIVE (NEGATIVE); KETONES,URINE 2+ (NEGATIVE); LEUKOCYTE ESTERASE ,URINE TRACE (NEGATIVE); NITRITE,URINE NEGATIVE (NEGATIVE); PH,URINE 8.5 (5-9); PROTEIN,URINE 1+ (NEGATIVE)
[2021-01-09 08:40] LABS: BACTERIA,URINE FEW /HPF; RBC,URINE 0-2 /HPF; SQUAMOUS EPITHELIAL CELL,UR 25-50 /HPF
[2021-01-09 08:41] LABS: AMORPHOUS SEDIMENT,UR FEW AMOR PHOSPHATE /LPF
[2021-01-09 08:46] LABS: AMPHETAMINE SCREEN, URINE NEGATIVE (NEGATIVE); BARBITURATE SCREEN URINE NEGATIVE (NEGATIVE); BENZODIAZEPINES SCREEN URINE NEGATIVE (NEGATIVE); CANNABINOID SCREEN, URINE POSITIVE (NEGATIVE); COCAINE SCREEN URINE POSITIVE (NEGATIVE); METHADONE STAT NEGATIVE (NEGATIVE); METHAMPHETAMINE SCREEN URINE S NEGATIVE (NEGATIVE); OPIATE SCREEN URINE NEGATIVE (NEGATIVE); OXYCODONE STAT NEGATIVE (NEGATIVE); PROPOXYPHENE STAT NEGATIVE (NEGATIVE); TRICYCLIC ANTIDEPRESSANTS SCRE NEGATIVE (NEGATIVE)
[2021-01-09] MEDS: LACTATED RINGERS 1,000 ML IV SCH ×2 (11:37→17:41)
[2021-01-09] MEDS: LORazepam INJ 2 MG/ML (ATIVAN) VIAL IVP PRN ×2 (11:38→17:41)
[2021-01-09] MEDS: ONDANSETRON 4 MG/2 ML (SDV) Z0FRAN IVP PRN (11:38)
[2021-01-09 12:00] VITALS: BP 140/85
[2021-01-09] MEDS ORDERED: KETOROLAC 15 MG/ML VIAL IVP PRN (12:30)
--- NOTE | 2021-01-09 14:15 | History & Physical ---
HPI History of Present Illness: Came to ER due to nausea/vomiting and abdominal pain x 4 days, getting worse, can't even keep down a sip of water. Denies bloody vomit. Denies fever. Had loose stools but hasn't had a bowel movement in last 4 days. Has had issues with this recurrently in past, thought to be due to cannabis hyperemesis. Source: patient Date seen by provider: Jan 09, 2021 Time Seen by Provider: 14:13 Attending Physician Vick Trivedi MD [facility] Consult Date of Admission Jan 09, 2021 at 09:49 Home Medications Home Medications Reviewed patient Home Medication Reconciliation performed by pharmacy medication reconciliations electrical controls technician and/or nursing. Patients Allergies have been reviewed. Allergies Coded Allergies: No Known Drug Allergies (Unverified , 05/07/10) VEW-Qlthbz-Ktgsgh Hx Patient Social History Drug of Choice: cannabis Smoking Status: Never a Smoker 2nd Hand Smoke Exposure: No Recent Hopitalizations: No Alcohol Use?: No Substance type: Marijuana (last use a week ago) Immunizations Up To Date Tetanus Booster (TDap): Less than 5yrs Date of Influenza Vaccine: Aug 11, 2020 Past Medical History PMHx: Denies SurgHx: Denies Family Medical History Significant Family History: No Pertinent Family Hx, Psychiatric Problems Review of Systems ([facility]) Constitutional: No fever EENTM: No nose congestion, No throat pain Respiratory: No cough, No short of breath Cardiovascular: chest pain (all over front of chest, feels tight last 4 days) Gastrointestinal: see HPI Genitourinary: decreased output; No dysuria Musculoskeletal: No joint pain, No muscle cramps Skin: No rash Psychiatric/Neurological: Anxiety Reviewed Test Results Reviewed Test Results Lab Laboratory Tests Test 01/09/21 05:50 01/09/21 08:26 Range/Units White Blood Count 7.9 4.3-11.0 10^3/uL Red Blood Count 4.42 3.80-5.11 10^6/uL Hemoglobin 13.6 11.5-16.0 g/dL Hematocrit 40 35-52 % Mean Corpuscular Volume 91 80-99 fL Mean Corpuscular Hemoglobin 31 25-34 pg Mean Corpuscular Hemoglobin Concent 34 32-36 g/dL Red Cell Distribution Width 13.6 10.0-14.5 % Platelet Count 347 130-400 10^3/uL Mean Platelet Volume 11.0 9.0-12.2 fL Immature Granulocyte % (Auto) 0 % Neutrophils (%) (Auto) 65 42-75 % Lymphocytes (%) (Auto) 27 12-44 % Monocytes (%) (Auto) 7 0-12 % Eosinophils (%) (Auto) 1 0-10 % Basophils (%) (Auto) 1 0-10 % Neutrophils # (Auto) 5.1 1.8-7.8 10^3/uL Lymphocytes # (Auto) 2.1 1.0-4.0 10^3/uL Monocytes # (Auto) 0.5 0.0-1.0 10^3/uL Eosinophils # (Auto) 0.1 0.0-0.3 10^3/uL Basophils # (Auto) 0.0 0.0-0.1 10^3/uL Immature Granulocyte # (Auto) 0.0 0.0-0.1 10^3/uL Sodium Level 138 135-145 MMOL/L Potassium Level 3.6 3.6-5.0 MMOL/L Chloride Level 101 98-107 MMOL/L Carbon Dioxide Level 22 21-32 MMOL/L Anion Gap 15 H 5-14 MMOL/L Blood Urea Nitrogen 10 7-18 MG/DL Creatinine 0.81 0.60-1.30 MG/DL Estimat Glomerular Filtration Rate > 60 BUN/Creatinine Ratio 12 Glucose Level 124 H 70-105 MG/DL Calcium Level 9.8 8.5-10.1 MG/DL Corrected Calcium 8.5-10.1 MG/DL Magnesium Level 1.7 1.6-2.4 MG/DL Total Bilirubin 1.6 H 0.1-1.0 MG/DL Aspartate Amino Transf (AST/SGOT) 16 5-34 U/L Alanine Aminotransferase (ALT/SGPT) 13 0-55 U/L Alkaline Phosphatase 75 40-136 U/L Total Protein 7.9 6.4-8.2 GM/DL Albumin 4.8 H 3.2-4.5 GM/DL Amylase Level 38 25-125 U/L Lipase 11 8-78 U/L Serum Test, Qualitative NEGATIVE NEGATIVE Serum Alcohol < 10 <10 MG/DL Urine Color YELLOW Urine Clarity CLEAR Urine pH 8.5 5-9 Urine Specific [place] 1.015 L 1.016-1.022 Urine Protein 1+ H NEGATIVE Urine Glucose (UA) NEGATIVE NEGATIVE Urine Ketones 2+ H NEGATIVE Urine Nitrite NEGATIVE NEGATIVE Urine Bilirubin NEGATIVE NEGATIVE Urine Urobilinogen 0.2 < = 1.0 MG/DL Urine Leukocyte Esterase TRACE H NEGATIVE Urine RBC (Auto) NEGATIVE NEGATIVE Urine RBC 0-2 /HPF Urine WBC 2-5 /HPF Urine Squamous Epithelial Cells 25-50 H /HPF Urine Crystals PRESENT H /LPF Urine Amorphous Sediment FEW ALEX PHOSPHATE H /LPF Urine Bacteria FEW H /HPF Urine Casts NONE /LPF Urine Mucus NEGATIVE /LPF Urine Culture Indicated NO Urine Opiates Screen NEGATIVE NEGATIVE Urine Oxycodone Screen NEGATIVE NEGATIVE Urine Methadone Screen NEGATIVE NEGATIVE Urine Propoxyphene Screen NEGATIVE NEGATIVE Urine Barbiturates Screen NEGATIVE NEGATIVE Ur Tricyclic Antidepressants Screen NEGATIVE NEGATIVE Urine Phencyclidine Screen NEGATIVE NEGATIVE Urine Amphetamines Screen NEGATIVE NEGATIVE Urine Methamphetamines Screen NEGATIVE NEGATIVE Urine Benzodiazepines Screen NEGATIVE NEGATIVE Urine Cocaine Screen POSITIVE H NEGATIVE Urine Cannabinoids Screen POSITIVE H NEGATIVE Physical Exam-([facility]) Physical Exam Vital Signs VS - Last 72 Hours, by Label 01/09/21 01/09/21 01/09/21 01/09/21 05:46 10:12 11:00 12:00 Temp 36.5 36.7 Pulse 69 70 73 Resp 26 18 18 B/P (MAP) 145/53 (83) 106/74 140/85 (103) Pulse Ox 99 97 100 O2 Delivery Room Air Room Air Room Air Room Air Capillary Refill : Less Than 3 Seconds General Appearance: mild distress Respiratory: lungs clear, normal breath sounds Cardiovascular: no murmur, tachycardia Gastrointestinal: normal bowel sounds, guarding, tenderness Extremities: no pedal edema Neurologic/Psychiatric: other (drowsy, but able to answer questions appropriately) Skin: pallor Assessment/Plan Assessment/Plan Admission Status: Observation (1) Cannabis hyperemesis syndrome concurrent with and due to cannabis dependence Status: Acute Assessment & Plan: Will treat symptoms of nausea, discussed following up with addiction treatment after d/c. (2) Cannabinoid hyperemesis syndrome Status: Acute (3) Dehydration, mild Status: Acute Assessment & Plan: LR @ 150 mls/hr (4) Anxiety Status: Chronic Assessment & Plan: Encouraged to follow up for therapy/treatment outpatient, she reports long-standing issue. (5) Hyperbilirubinemia Status: Chronic Assessment & Plan: Suspect Gilbert syndrome, check direct and indirect bili and reticulocyte count. Peripheral smear outpatient in the past showed only reactive monocytosis. (6) DVT prophylaxis Status: Acute Assessment & Plan: SCDs Clinical Quality Measures Smoking Cessation Counseling: Counseling-Symptomatic: 3-10 Minutes Discussed Options Including: Group/Indiv Counseling VICK TRIVEDI MD Jan 09, 2021 14:15
[2021-01-09] MEDS ORDERED: diphenhydrAMINE 50 MG/ML INJ (BENADRYL) IVP PRN (14:30)
[2021-01-09] MEDS ORDERED: PROMETHAZINE INJ 25 MG/ML (PHENERGAN) AMP IVP PRN (14:30)
[2021-01-09 14:42] LABS: BILIRUBIN,TOTAL 1.6 MG/DL (0.1-1.0)
[2021-01-09 14:46] LABS: BILIRUBIN,DIRECT 0.6 MG/DL (0.0-0.3)
[2021-01-09 15:50] VITALS: BP 98/54
[2021-01-09] MEDS: FAMOTIDINE 20MG/2ML IV (PEPCID) IVP SCH (18:38)
[2021-01-09 19:13] VITALS: BP 132/62
[2021-01-10 00:07] VITALS: BP 118/60
[2021-01-10] MEDS: LACTATED RINGERS 1,000 ML IV SCH ×3 (01:26→08:01)
[2021-01-10 03:42] VITALS: BP 109/61
[2021-01-10] MEDS: FAMOTIDINE 20MG/2ML IV (PEPCID) IVP SCH (05:40)
[2021-01-10 05:54] LABS: RETICULOCYTE % 1.49 % (0.50-2.40)
[2021-01-10 06:05] LABS: ALBUMIN 3.4 GM/DL (3.2-4.5); CHLORIDE 108 MMOL/L (98-107); POTASSIUM 3.4 MMOL/L (3.6-5.0); SODIUM 139 MMOL/L (135-145)
[2021-01-10 06:07] LABS: CALCIUM 8.3 MG/DL (8.5-10.1)
[2021-01-10 06:08] LABS: GLUCOSE 78 MG/DL (70-105); TOTAL PROTEIN 5.3 GM/DL (6.4-8.2)
[2021-01-10 06:09] LABS: CARBON DIOXIDE 23 MMOL/L (21-32)
[2021-01-10 06:10] LABS: BILIRUBIN,TOTAL 1.2 MG/DL (0.1-1.0)
[2021-01-10 06:11] LABS: ALKALINE PHOSPHATASE 52 U/L (40-136); CREATININE SERUM 0.67 MG/DL (0.60-1.30); GFR ESTIMATED > 60
[2021-01-10 06:13] LABS: BUN/CREATININE RATIO 15
[2021-01-10 06:14] LABS: ALANINE AMINOTRANSFERASE 12 U/L (0-55)
[2021-01-10] MEDS: LORazepam INJ 2 MG/ML (ATIVAN) VIAL IVP PRN (06:15)
[2021-01-10 08:00] VITALS: BP 128/87
[2021-01-10] MEDS: POTASSIUM CL 10MEQ/50ML IVPB 50 ML IV SCH ×2 (08:01→09:01)
[2021-01-10] MEDS: ONDANSETRON 4 MG/2 ML (SDV) Z0FRAN IVP PRN (08:08)
[2021-01-10] MEDS ORDERED: ESCI10TA PO (09:55)
--- NOTE | 2021-01-10 10:02 | Discharge Summary ---
Discharge Summary Hospital Course Problems Reviewed?: Yes Problems/Diagnosis: (1) Cannabis hyperemesis syndrome concurrent with and due to cannabis dependence Status: Acute Assessment & Plan: Will treat symptoms of nausea, discussed following up with addiction treatment after d/c. 01/10 much improved, tolerating food, will follow up with addiction treatment same day as d/c. (2) Cannabinoid hyperemesis syndrome Status: Acute (3) Dehydration, mild Status: Resolved Resolution Date/Time: 01/10/21 @ 09:56 Assessment & Plan: LR @ 150 mls/hr (4) Anxiety Status: Chronic Assessment & Plan: Encouraged to follow up for therapy/treatment outpatient, she reports long-standing issue. 01/10- she reports she did have some improvement on Lexapro in the past and is interested in restarting, script written on d/c. (5) Hyperbilirubinemia Status: Chronic Assessment & Plan: Suspect Gilbert syndrome, check direct and indirect bili and reticulocyte count. Peripheral smear outpatient in the past showed only reactive monocytosis. 01/10 reticulocyte count normal, direct bili slightly elevated, consider liver US outpatient to rule out other pathology. Hospital Course Date of Admission: Jan 09, 2021 at 09:49 Admission Diagnosis : See problem list Family Physician/Provider: [place] Date of Discharge: 01/10/21 Discharge Diagnosis: See problem list Hospital Course: See problem list Labs and Pending Lab Test: Laboratory Tests 01/10/21 05:25: Red Blood Count 3.62L, Absolute Reticulocyte Count 54, Percent Reticulocyte Count 1.49, Sodium Level 139, Potassium Level 3.4L, Chloride Level 108H, Carbon Dioxide Level 23, Anion Gap 8, Blood Urea Nitrogen 10, Creatinine 0.67, Estimat Glomerular Filtration Rate > 60, BUN/Creatinine Ratio 15, Glucose Level 78, Calcium Level 8.3L, Corrected Calcium 8.8, Total Bilirubin 1.2H, Aspartate Amino Transf (AST/SGOT) 16, Alanine Aminotransferase (ALT/SGPT) 12, Alkaline Phosphatase 52, Total Protein 5.3L, Albumin 3.4 Home Meds Active Lexapro (Escitalopram Oxalate) 10 Mg Tablet 10 Mg PO DAILY Assessment/Pt DC Instructions Follow up with Shelby Osborn APRN at [facility] on 01/18 at 1:20 pm for hospital follow up. Follow up with Jared with Addiction Treatment Services at [facility] today at 3:30 pm. Discharge Diet: No Restrictions Activity as Tolerated: Yes Discharge Physical Examination Allergies: Coded Allergies: No Known Drug Allergies (Unverified , 05/07/10) General Appearance: No Apparent Distress, WD/WN Respiratory: Lungs Clear, Normal Breath Sounds Cardiovascular: No Murmur, Tachycardia Skin: Normal Color, Warm/Dry Neurologic/Psychiatric: Alert, Normal Mood/Affect Copy Copies To 1: Shelby Osborn APRN Clinical Quality Measures Smoking Cessation Counseling: Counseling-Symptomatic: 3-10 Minutes Discussed Options Including: Group/Indiv Counseling VICK WALDRON MD Jan 10, 2021 10:01
[2021-01-10 11:35] VITALS: BP 128/87
== END 2021-01-10 11:35 | disposition home or self-care (01) ==
LOC: EDUNIT# 05:34 → ER 05:35 → 4TH 09:49 → UNDOADMOB 09:49 → 4TH 10:30 → UNDODISOB 01-10 11:42
PROVIDERS: ADMIT Family Medicine; ATTEND Family Medicine
DX: F12.20 Cannabis dependence, uncomplicated (principal); R11.2 Nausea with vomiting, unspecified; K21.9 Gastro-esophageal reflux disease without esophagitis; E87.6 Hypokalemia; E86.0 Dehydration; E80.6 Other disorders of bilirubin metabolism; F41.9 Anxiety disorder, unspecified
CPT/HCPCS: 36415; 80053; 80306; 80320; 81000; 82150; 82247; 82248; 83690; 83735; 84703; 85025; 85045; 96361; 96372; 96374; 96375; G0378

== ENCOUNTER 2021-02-02 14:33 | Emergency (ER) | payer SELFPAY ==
[~2021-02-02] VITALS: Ht 160 cm; Wt 54.0 kg
[~2021-02-02 14:33] MED LIST changes: +ESCI10TA PO
[2021-02-02] MEDS ORDERED: LACTATED RINGERS 1,000 ML IV ONE ×2 (14:45→15:45)
[2021-02-02] MEDS ORDERED: LORazepam INJ 2 MG/ML (ATIVAN) VIAL IVP ONE (14:45)
[2021-02-02] MEDS ORDERED: FAMOTIDINE 20MG/2ML IV (PEPCID) IVP ONE (14:45)
[2021-02-02] MEDS ORDERED: ONDANSETRON 4 MG/2 ML (SDV) Z0FRAN IVP ONE (14:45)
[2021-02-02 14:55] LABS: BASOPHILS % (AUTO) 0 % (0-10); EOSINOPHILS % (AUTO) 0 % (0-10); HEMATOCRIT 43 % (35-52); HEMOGLOBIN 14.9 g/dL (11.5-16.0); LYMPHOCYTES # (AUTO) 0.9 10^3/uL (1.0-4.0); LYMPHOCYTES % (AUTO) 6 % (12-44); MEAN CORPUSCULAR HEMOGLOBIN 31 pg (25-34); MEAN CORPUSCULAR HGB CONC 35 g/dL (32-36); MEAN CORPUSCULAR VOLUME 89 fL (80-99); MEAN PLATELET VOLUME 10.9 fL (9.0-12.2); MONOCYTES # (AUTO) 0.4 10^3/uL (0.0-1.0); MONOCYTES % (AUTO) 3 % (0-12); NEUTROPHILS # (AUTO) 12.1 10^3/uL (1.8-7.8); NEUTROPHILS % (AUTO) 90 % (42-75); PLATELET COUNT 425 10^3/uL (130-400); WHITE BLOOD COUNT 13.4 10^3/uL (4.3-11.0)
[2021-02-02 15:13] LABS: ALANINE AMINOTRANSFERASE 15 U/L (0-55); ALBUMIN 5.4 GM/DL (3.2-4.5); ALKALINE PHOSPHATASE 86 U/L (40-136); BILIRUBIN,TOTAL 1.6 MG/DL (0.1-1.0); BUN/CREATININE RATIO 10; CALCIUM 10.8 MG/DL (8.5-10.1); CARBON DIOXIDE 26 MMOL/L (21-32); CHLORIDE 98 MMOL/L (98-107); CREATININE SERUM 0.96 MG/DL (0.60-1.30); GFR ESTIMATED > 60; GLUCOSE 119 MG/DL (70-105); LIPASE 11 U/L (8-78); MAGNESIUM 2.9 MG/DL (1.6-2.4); POTASSIUM 3.6 MMOL/L (3.6-5.0); SODIUM 138 MMOL/L (135-145); TOTAL PROTEIN 8.9 GM/DL (6.4-8.2)
[2021-02-02] MEDS ORDERED: PROMETHAZINE INJ 25 MG/ML (PHENERGAN) AMP IVP ONE (15:15)
[2021-02-02 15:16] LABS: BAND NEUTROPHILS 0 %; BASOPHILS % (MANUAL) 0 %; EOSINOPHILS % (MANUAL) 0 %; LYMPHOCYTES % (MANUAL) 6 %; MONOCYTES % (MANUAL) 1 %; NEUTROPHILS % (MANUAL) 93 %; RBC MORPH NORMAL
--- NOTE | 2021-02-02 15:35 | ED GI ---
General Chief Complaint: Abdominal/GI Problems Stated Complaint: ANXIOUS VOMITING/ABD PAIN Nursing Triage Note: N/V X3 DAYS. LAST TIME SHE SMOKED POT WAS X2 DAYS AGO. Sepsis Screen: No Definite Risk Source of Information: Patient Exam Limitations: No Limitations History of Present Illness Date Seen by Provider: Feb 02, 2021 Time Seen by Provider: 14:40 Initial Comments This 20-year-old young lady presents to the emergency room with abdominal pain, nausea, vomiting, anxiety, and insomnia. Symptoms have been present for 3 days. She has a significant history of cannabis hyperemesis. She last used marijuana 2 days ago. She appears very anxious, hyperventilating, and has contractures of the right fingers. She is actively vomiting on arrival. Allergies and Home Medications Allergies Coded Allergies: No Known Drug Allergies (Unverified , 05/07/10) Home Medications Escitalopram Oxalate 10 Mg Tablet, 10 MG PO DAILY Prescribed by: VICK WALDRON on 01/10/21 0955 Patient Home Medication List Home Medication List Reviewed: Yes Review of Systems Review of Systems Constitutional: no symptoms reported EENTM: No Symptoms Reported Respiratory: No Symptoms Reported Cardiovascular: No Symptoms Reported Gastrointestinal: See HPI Genitourinary: No Symptoms Reported Musculoskeletal: no symptoms reported Skin: no symptoms reported Psychiatric/Neurological: See HPI Endocrine: No Symptoms Reported Hematologic/Lymphatic: No Symptoms Reported Past [id number] Hx Past Med/Social Hx: Reviewed Nursing Past Med/Soc Hx Patient Social History Alcohol Use: Denies Use Drug of Choice: cannabis Smoking Status: Never a Smoker 2nd Hand Smoke Exposure: No Recent Infectious Disease Expo: No Recent Hopitalizations: No Immunizations Up To Date Tetanus Booster (TDap): Less than 5yrs PED Vaccines UTD: Yes Date of Influenza Vaccine: Aug 11, 2020 Seasonal Allergies Seasonal Allergies: No Past Medical History Surgeries: No Respiratory: No Cardiac: No Neurological: No : No Reproductive Disorders: No Female Reproductive Disorders: Denies Sexually Transmitted Disease: No HIV/AIDS: No Genitourinary: No Gastrointestinal: Yes (cannabis hyperemesis syndrome) Gastroesophageal Reflux Musculoskeletal: No Endocrine: No HEENT: No Loss of Vision: Denies Hearing Impairment: Denies Cancer: No Psychosocial: Yes Anxiety Integumentary: Yes Eczema Blood Disorders: No Family Medical History Alcoholism 19 FATHER 19 MOTHER No Family History of: AIDS Abdominal aortic aneurysm Perris's disease Alzheimer's disease Aphasia Arthritis Asthma Cancer of mouth Cardiovascular disease Cataracts Colon cancer Completed stroke Congenital disease Congenital heart disease Coronary thrombosis Cystic fibrosis Deafness or hearing loss Dementia Diabetes mellitus Drug abuse Dysphasia Fibrocystic disease of breast Gastroenteritis Glaucoma Headache disorder Hypercholesterolemia Hypertension Infertility Kidney disease Myocardial infarction Neoplasm Not obtainable due to adoption Osteoporosis Parkinson's disease Prostate cancer Psychosocial problem Respiratory disorder Seizure disorder Severe allergy Thyroid disease Tuberculosis Visual disorder No Pertinent Family Hx, Psychiatric Problems Physical Exam Vital Signs Vital Signs - First Documented 02/02/21 14:33 Temp 37.0 Pulse 84 Resp 16 B/P (MAP) 85/61 (69) Pulse Ox 100 O2 Delivery Room Air Capillary Refill : Less Than 3 Seconds Height/Weight/BMI Height: 5'3.00" Weight: 130lbs. 0oz. [id number]; 21.00 BMI Method:Stated General Appearance: WD/WN, moderate distress HEENT: PERRL/EOMI, normal ENT inspection, pharynx normal Neck: normal inspection Respiratory: lungs clear, normal breath sounds, no respiratory distress Cardiovascular: regular rate, rhythm, no edema, no murmur Gastrointestinal: normal bowel sounds, soft, tenderness (Generalized) Extremities: normal inspection, no pedal edema Neurologic/Psychiatric: coloring room man II-XII nml as tested, no motor/sensory deficits, alert, oriented x 3, other (Anxious) Skin: normal color, warm/dry Procedures/Interventions Suture Size: 4-0 Progress/Results/Core Measures Results/Orders Lab Results Laboratory Tests Test 02/02/21 14:44 Range/Units White Blood Count 13.4 H 4.3-11.0 10^3/uL Red Blood Count 4.82 3.80-5.11 10^6/uL Hemoglobin 14.9 11.5-16.0 g/dL Hematocrit 43 35-52 % Mean Corpuscular Volume 89 80-99 fL Mean Corpuscular Hemoglobin 31 25-34 pg Mean Corpuscular Hemoglobin Concent 35 32-36 g/dL Red Cell Distribution Width 13.2 10.0-14.5 % Platelet Count 425 H 130-400 10^3/uL Mean Platelet Volume 10.9 9.0-12.2 fL Immature Granulocyte % (Auto) 0 % Neutrophils (%) (Auto) 90 H 42-75 % Lymphocytes (%) (Auto) 6 L 12-44 % Monocytes (%) (Auto) 3 0-12 % Eosinophils (%) (Auto) 0 0-10 % Basophils (%) (Auto) 0 0-10 % Neutrophils # (Auto) 12.1 H 1.8-7.8 10^3/uL Lymphocytes # (Auto) 0.9 L 1.0-4.0 10^3/uL Monocytes # (Auto) 0.4 0.0-1.0 10^3/uL Eosinophils # (Auto) 0.0 0.0-0.3 10^3/uL Basophils # (Auto) 0.0 0.0-0.1 10^3/uL Immature Granulocyte # (Auto) 0.1 0.0-0.1 10^3/uL Neutrophils % (Manual) 93 % Lymphocytes % (Manual) 6 % Monocytes % (Manual) 1 % Eosinophils % (Manual) 0 % Basophils % (Manual) 0 % Band Neutrophils 0 % Blood Morphology Comment NORMAL Sodium Level 138 135-145 MMOL/L Potassium Level 3.6 3.6-5.0 MMOL/L Chloride Level 98 98-107 MMOL/L Carbon Dioxide Level 26 21-32 MMOL/L Anion Gap 14 5-14 MMOL/L Blood Urea Nitrogen 10 7-18 MG/DL Creatinine 0.96 0.60-1.30 MG/DL Estimat Glomerular Filtration Rate > 60 BUN/Creatinine Ratio 10 Glucose Level 119 H 70-105 MG/DL Calcium Level 10.8 H 8.5-10.1 MG/DL Corrected Calcium 8.5-10.1 MG/DL Magnesium Level 2.9 H 1.6-2.4 MG/DL Total Bilirubin 1.6 H 0.1-1.0 MG/DL Aspartate Amino Transf (AST/SGOT) 19 5-34 U/L Alanine Aminotransferase (ALT/SGPT) 15 0-55 U/L Alkaline Phosphatase 86 40-136 U/L C-Reactive Protein High Sensitivity 0.01 0.00-0.50 MG/DL Total Protein 8.9 H 6.4-8.2 GM/DL Albumin 5.4 H 3.2-4.5 GM/DL Lipase 11 8-78 U/L Serum Test, Qualitative NEGATIVE NEGATIVE My Orders Orders - ASHLEY THAO MD Cbc With Automated Diff (02/02/21 14:41) Comprehensive Metabolic Panel (02/02/21 14:41) Hcg,Qualitative Serum (02/02/21 14:41) Lipase (02/02/21 14:41) Magnesium (02/02/21 14:41) Ua Culture If Indicated (02/02/21 14:41) Ed Iv/Invasive Line Start (02/02/21 14:41) Lactated Ringers (Lr 1000 Ml Iv Solution (02/02/21 14:45) Lorazepam Injection (Ativan Injection) (02/02/21 14:45) Ondansetron Injection (Zofran Injectio (02/02/21 14:45) Famotidine Injection (Pepcid Injection) (02/02/21 14:45) Manual Differential (02/02/21 14:44) Promethazine Injection (Phenergan Injec (02/02/21 15:15) Hs C Reactive Protein (02/02/21 15:28) Lactated Ringers (Lr 1000 Ml Iv Solution (02/02/21 15:45) Medications Given in ED Current Medications Medications Dose Ordered Sig/Jeannette Route Start Time Stop Time Status Last Admin Dose Admin Famotidine 20 mg ONCE ONCE IVP 02/02/21 14:45 02/02/21 14:46 DC 02/02/21 14:59 20 MG Lactated Ringer's 1,000 ml @ 0 mls/hr Q0M ONCE IV 02/02/21 14:45 02/02/21 14:46 DC 02/02/21 14:52 1,000 MLS/HR Lorazepam 1 mg ONCE ONCE IVP 02/02/21 14:45 02/02/21 14:46 DC 02/02/21 14:50 1 MG Ondansetron HCl 8 mg ONCE ONCE IVP 02/02/21 14:45 02/02/21 14:46 DC 02/02/21 14:49 8 MG Promethazine HCl 25 mg ONCE ONCE IVP 02/02/21 15:15 02/02/21 15:16 DC 02/02/21 15:15 25 MG Vital Signs/I&O 02/02/21 14:33 Temp 37.0 Pulse 84 Resp 16 B/P (MAP) 85/61 (69) Pulse Ox 100 O2 Delivery Room Air Blood Pressure Mean: 69 Progress Progress Note : Time: 15:34 Progress Note Patient was treated with Zofran and Pepcid but was still quite nauseous. Phenergan was added to her IV fluids. Labs are fairly unremarkable except for mild leukocytosis. Ativan was given for anxiety. Departure Impression Primary Impression: Cannabis hyperemesis syndrome concurrent with and due to cannabis dependence Additional Impressions: Abdominal pain Qualified Codes: R10.84 - Generalized abdominal pain Insomnia Qualified Codes: G47.01 - Insomnia due to medical condition Disposition: HOME, SELF-CARE Condition: Improved Departure-Patient Inst. Decision time for Depature: 15:46 Referrals: [facility] (PCP/Family) Primary Care Physician Patient Instructions: Marijuana Use and Addiction Add. Discharge Instructions: Use Zofran as prescribed for nausea and vomiting. Use Phenergan suppositories for uncontrolled nausea and vomiting. You may take Tylenol (acetaminophen) up to 1000 mg every 6 hours as needed for p ain. Please seek addiction treatment help as soon as possible. Local resources include the [facility] at [facility] and they can be reached at [phone]. You may also contact the [facility] office at [phone]. Discontinue marijuana use and any other mind altering substances. Call with questions or concerns. Return to the emergency room with worsening symptoms. All discharge instructions reviewed with patient and/or family. Voiced understanding. Scripts Promethazine HCl (Promethazine Suppository) 25 Mg Supp.rect 25 MG RC Q8H PRN for NAUSEA/VOMITING-2ND LINE, #10 SUPP.RECT Prov: ASHLEY THAO MD 02/02/21 Ondansetron (Ondansetron Odt) 4 Mg Tab.rapdis 4 MG SL Q4H PRN for NAUSEA/VOMITING, #10 TAB Prov: ASHLEY THAO MD 02/02/21 ASHLEY TAHO MD Feb 02, 2021 15:35
[2021-02-02] MEDS ORDERED: ONDA4TAB11 SL (15:54)
[2021-02-02] MEDS ORDERED: PROM25SU44 RC (15:54)
[2021-02-02] MEDS ORDERED: KETOROLAC 30 MG/ML VIAL IVP ONE (16:00)
[2021-02-02 16:37] VITALS: BP 106/46
== END 2021-02-02 16:37 | disposition home or self-care (01) ==
LOC: EDUNIT# 14:33 → ER 14:35
DX: R11.2 Nausea with vomiting, unspecified (principal); R10.84 Generalized abdominal pain; G47.00 Insomnia, unspecified; F41.9 Anxiety disorder, unspecified
CPT/HCPCS: 36415; 80053; 83690; 83735; 84703; 85007; 85027; 86141

== ENCOUNTER 2021-02-04 15:14 | Emergency (ER) | payer SELFPAY ==
[~2021-02-04] VITALS: Ht 160 cm; Wt 54.4 kg
--- NOTE | 2021-02-04 16:40 | ED Abdominal Pain ---
General Chief Complaint: Abdominal/GI Problems Stated Complaint: VOMITING Nursing Triage Note: Patient ambulatory to ER FT3 with c/o vomiting x 5 days. Patient also c/o cramping pain to the left abdomen. Patient states she was seen in this ER 2 days ago for similar symptoms. Sepsis Screen: No Definite Risk Source of Information: Patient Exam Limitations: No Limitations History of Present Illness Date Seen by Provider: Feb 04, 2021 Time Seen by Provider: 15:20 Initial Comments To ER with recurrent nausea and vomiting as well as epigastric pain. She was seen here 2 days ago for same symptoms. She states she was unable to get her medications filled that she was prescribed. She has frequent visits for hyperemesis cannabinoid syndrome. She smokes marijuana just a few days ago she states. Timing/Duration: 4-5 Days Severity/Quality: Moderate Location: Epigastric Radiation: No Radiation Activities at Onset: None Associated Symptoms: Nausea/Vomiting Allergies and Home Medications Allergies Coded Allergies: No Known Drug Allergies (Unverified , 05/07/10) Home Medications Escitalopram Oxalate 10 Mg Tablet, 10 MG PO DAILY Prescribed by: VICK WALDRON on 01/10/21 0955 Ondansetron 4 Mg Tab.rapdis, 4 MG SL Q4H PRN for NAUSEA/VOMITING Prescribed by: ASHLEY GLEASON on 02/02/21 1554 Promethazine HCl 25 Mg Supp.rect, 25 MG RC Q8H PRN for NAUSEA/VOMITING-2ND LINE Prescribed by: ASHLEY GLEASON on 02/02/21 1554 Patient Home Medication List Home Medication List Reviewed: Yes Review of Systems Review of Systems Constitutional: see HPI EENTM: No Symptoms Reported Respiratory: No Symptoms Reported Gastrointestinal: No Symptoms Reported Past Fulbqwj-Mxueoz-Wsqrzm Hx Patient Social History Alcohol Use: Denies Use Drug of Choice: cannabis Smoking Status: Never a Smoker 2nd Hand Smoke Exposure: No Recent Infectious Disease Expo: No Recent Hopitalizations: No Immunizations Up To Date Tetanus Booster (TDap): Less than 5yrs PED Vaccines UTD: Yes Date of Influenza Vaccine: Aug 11, 2020 Seasonal Allergies Seasonal Allergies: No Past Medical History Surgeries: No Respiratory: No Cardiac: No Neurological: No : No Last Menstrual Period: Jan 21, 2021 Reproductive Disorders: No Female Reproductive Disorders: Denies Sexually Transmitted Disease: No HIV/AIDS: No Genitourinary: No Gastrointestinal: Yes (cannabis hyperemesis syndrome) Gastroesophageal Reflux Musculoskeletal: No Endocrine: No HEENT: No Loss of Vision: Denies Hearing Impairment: Denies Cancer: No Psychosocial: Yes Anxiety Integumentary: Yes Eczema Blood Disorders: No Family Medical History Alcoholism 19 FATHER 19 MOTHER No Family History of: AIDS Abdominal aortic aneurysm [place]'s disease Alzheimer's disease Aphasia Arthritis Asthma Cancer of mouth Cardiovascular disease Cataracts Colon cancer Completed stroke Congenital disease Congenital heart disease Coronary thrombosis Cystic fibrosis Deafness or hearing loss Dementia Diabetes mellitus Drug abuse Dysphasia Fibrocystic disease of breast Gastroenteritis Glaucoma Headache disorder Hypercholesterolemia Hypertension Infertility Kidney disease Myocardial infarction Neoplasm Not obtainable due to adoption Osteoporosis Parkinson's disease Prostate cancer Psychosocial problem Respiratory disorder Seizure disorder Severe allergy Thyroid disease Tuberculosis Visual disorder No Pertinent Family Hx, Psychiatric Problems Physical Exam Vital Signs Vital Signs - First Documented 02/04/21 16:24 Temp 37.1 Pulse 88 Resp 16 B/P (MAP) 115/70 (85) Pulse Ox 100 O2 Delivery Room Air Capillary Refill : Less Than 3 Seconds Height/Weight/BMI Height: 5'3.00" Weight: 130lbs. 0oz. 58.336026sh; 21.00 BMI Method:Stated General Appearance: WD/WN, no apparent distress HEENT: PERRL/EOMI, normal ENT inspection Respiratory: no respiratory distress, no accessory muscle use Cardiovascular: regular rate, rhythm, no murmur Gastrointestinal: normal bowel sounds, non tender, soft Extremities: normal range of motion, non-tender Neurologic/Psychiatric: alert, normal mood/affect, oriented x 3 Skin: normal color, warm/dry Procedures/Interventions Suture Size: 4-0 Progress/Results/Core Measures Results/Orders Lab Results Laboratory Tests Test 02/04/21 16:44 02/04/21 16:59 Range/Units White Blood Count 11.4 H 4.3-11.0 10^3/uL Red Blood Count 4.07 3.80-5.11 10^6/uL Hemoglobin 12.6 11.5-16.0 g/dL Hematocrit 38 35-52 % Mean Corpuscular Volume 92 80-99 fL Mean Corpuscular Hemoglobin 31 25-34 pg Mean Corpuscular Hemoglobin Concent 34 32-36 g/dL Red Cell Distribution Width 13.2 10.0-14.5 % Platelet Count 296 130-400 10^3/uL Mean Platelet Volume 10.6 9.0-12.2 fL Immature Granulocyte % (Auto) 0 % Neutrophils (%) (Auto) 74 42-75 % Lymphocytes (%) (Auto) 16 12-44 % Monocytes (%) (Auto) 8 0-12 % Eosinophils (%) (Auto) 1 0-10 % Basophils (%) (Auto) 1 0-10 % Neutrophils # (Auto) 8.4 H 1.8-7.8 10^3/uL Lymphocytes # (Auto) 1.8 1.0-4.0 10^3/uL Monocytes # (Auto) 0.9 0.0-1.0 10^3/uL Eosinophils # (Auto) 0.1 0.0-0.3 10^3/uL Basophils # (Auto) 0.1 0.0-0.1 10^3/uL Immature Granulocyte # (Auto) 0.1 0.0-0.1 10^3/uL Sodium Level 138 135-145 MMOL/L Potassium Level 3.6 3.6-5.0 MMOL/L Chloride Level 103 98-107 MMOL/L Carbon Dioxide Level 24 21-32 MMOL/L Anion Gap 11 5-14 MMOL/L Blood Urea Nitrogen 7 7-18 MG/DL Creatinine 0.74 0.60-1.30 MG/DL Estimat Glomerular Filtration Rate > 60 BUN/Creatinine Ratio 9 Glucose Level 99 70-105 MG/DL Calcium Level 9.2 8.5-10.1 MG/DL Corrected Calcium 9.0 8.5-10.1 MG/DL Total Bilirubin 1.5 H 0.1-1.0 MG/DL Aspartate Amino Transf (AST/SGOT) 16 5-34 U/L Alanine Aminotransferase (ALT/SGPT) 11 0-55 U/L Alkaline Phosphatase 67 40-136 U/L Total Protein 6.9 6.4-8.2 GM/DL Albumin 4.3 3.2-4.5 GM/DL Serum Test, Qualitative NEGATIVE NEGATIVE Urine Color YELLOW Urine Clarity CLOUDY Urine pH 8.5 5-9 Urine Specific [place] 1.010 L 1.016-1.022 Urine Protein 1+ H NEGATIVE Urine Glucose (UA) NEGATIVE NEGATIVE Urine Ketones NEGATIVE NEGATIVE Urine Nitrite NEGATIVE NEGATIVE Urine Bilirubin NEGATIVE NEGATIVE Urine Urobilinogen 1.0 < = 1.0 MG/DL Urine Leukocyte Esterase TRACE H NEGATIVE Urine RBC (Auto) NEGATIVE NEGATIVE Urine RBC NONE /HPF Urine WBC 2-5 /HPF Urine Squamous Epithelial Cells 10-25 H /HPF Urine Crystals NONE /LPF Urine Bacteria TRACE /HPF Urine Casts NONE /LPF Urine Mucus NEGATIVE /LPF Urine Culture Indicated NO Urine Opiates Screen NEGATIVE NEGATIVE Urine Oxycodone Screen NEGATIVE NEGATIVE Urine Methadone Screen NEGATIVE NEGATIVE Urine Propoxyphene Screen NEGATIVE NEGATIVE Urine Barbiturates Screen NEGATIVE NEGATIVE Ur Tricyclic Antidepressants Screen NEGATIVE NEGATIVE Urine Phencyclidine Screen NEGATIVE NEGATIVE Urine Amphetamines Screen NEGATIVE NEGATIVE Urine Methamphetamines Screen NEGATIVE NEGATIVE Urine Benzodiazepines Screen POSITIVE H NEGATIVE Urine Cocaine Screen NEGATIVE NEGATIVE Urine Cannabinoids Screen POSITIVE H NEGATIVE My Orders Orders - KARIME LINK APRN Cbc With Automated Diff (02/04/21 16:35) Comprehensive Metabolic Panel (02/04/21 16:35) Antacid Suspension (Mylanta Suspension (02/04/21 16:45) Lidocaine 2% Viscous 15 Ml (Xylocaine Vi (02/04/21 16:45) Ns Iv 1000 Ml (Sodium Chloride 0.9%) (02/04/21 16:45) Haloperidol Injection (Haldol Injectio (02/04/21 16:45) Diphenhydramine Injection (Benadryl Inje (02/04/21 16:45) Hcg,Qualitative Serum (02/04/21 16:35) Ua Culture If Indicated (02/04/21 16:35) Drug Screen Stat (Urine) (02/04/21 16:35) Medications Given in ED Vital Signs/I&O 02/04/21 02/04/21 16:24 18:00 Temp 37.1 Pulse 88 67 Resp 16 14 B/P (MAP) 115/70 (85) 112/56 Pulse Ox 100 96 O2 Delivery Room Air Room Air 02/05/21 00:00 Intake Total 1000 ml Balance 1000 ml Blood Pressure Mean: 85 Departure Communication (Admissions) Much better after Haldol 3 mg was put into her bag of IV fluids along with Be nadryl., states she feels totally normal now back to normal now Impression Primary Impression: Cannabinoid hyperemesis syndrome Disposition: 01 HOME, SELF-CARE Condition: Stable Departure-Patient Inst. Decision time for Depature: 17:18 Referrals: [facility] (PCP/Family) Primary Care Physician Patient Instructions: Drug Abuse Treatment Add. Discharge Instructions: quit smoking so much pot All discharge instructions reviewed with patient and/or family. Voiced understanding. Work/School Note: Work Release Form Date Seen in the Emergency Department: Feb 04, 2021 Return to Work: Feb 06, 2021 KARIME LINK APRN Feb 04, 2021 16:40
[2021-02-04] MEDS ORDERED: ANTACID SUSP 30 ML UDC (MYLANTA) PO ONE (16:45)
[2021-02-04] MEDS ORDERED: diphenhydrAMINE 50 MG/ML INJ (BENADRYL) IVP ONE (16:45)
[2021-02-04] MEDS ORDERED: LIDOCAINE 2% VISCOUS 15 ML UDC PO ONE (16:45)
[2021-02-04] MEDS ORDERED: HALOPERIDOL 5 MG/ML (HALDOL) VIAL IV ONE (16:45)
[2021-02-04] MEDS ORDERED: NS IV 1000 ML 1,000 ML IV SCH (16:45)
[2021-02-04 16:52] LABS: BASOPHILS # (AUTO) 0.1 10^3/uL (0.0-0.1); BASOPHILS % (AUTO) 1 % (0-10); EOSINOPHILS # (AUTO) 0.1 10^3/uL (0.0-0.3); EOSINOPHILS % (AUTO) 1 % (0-10); HEMATOCRIT 38 % (35-52); HEMOGLOBIN 12.6 g/dL (11.5-16.0); LYMPHOCYTES # (AUTO) 1.8 10^3/uL (1.0-4.0); LYMPHOCYTES % (AUTO) 16 % (12-44); MEAN CORPUSCULAR HEMOGLOBIN 31 pg (25-34); MEAN CORPUSCULAR HGB CONC 34 g/dL (32-36); MEAN CORPUSCULAR VOLUME 92 fL (80-99); MEAN PLATELET VOLUME 10.6 fL (9.0-12.2); MONOCYTES # (AUTO) 0.9 10^3/uL (0.0-1.0); MONOCYTES % (AUTO) 8 % (0-12); NEUTROPHILS # (AUTO) 8.4 10^3/uL (1.8-7.8); NEUTROPHILS % (AUTO) 74 % (42-75); PLATELET COUNT 296 10^3/uL (130-400); WHITE BLOOD COUNT 11.4 10^3/uL (4.3-11.0)
[2021-02-04 17:03] LABS: ALBUMIN 4.3 GM/DL (3.2-4.5); CHLORIDE 103 MMOL/L (98-107); POTASSIUM 3.6 MMOL/L (3.6-5.0); SODIUM 138 MMOL/L (135-145)
[2021-02-04 17:04] LABS: BILIRUBIN,URINE NEGATIVE (NEGATIVE); CLARITY,URINE CLOUDY; COLOR,URINE YELLOW; GLUCOSE, URINE (UA) NEGATIVE (NEGATIVE); KETONES,URINE NEGATIVE (NEGATIVE); LEUKOCYTE ESTERASE ,URINE TRACE (NEGATIVE); NITRITE,URINE NEGATIVE (NEGATIVE); PH,URINE 8.5 (5-9); PROTEIN,URINE 1+ (NEGATIVE)
[2021-02-04 17:05] LABS: CALCIUM 9.2 MG/DL (8.5-10.1)
[2021-02-04 17:06] LABS: GLUCOSE 99 MG/DL (70-105); TOTAL PROTEIN 6.9 GM/DL (6.4-8.2)
[2021-02-04 17:07] LABS: CARBON DIOXIDE 24 MMOL/L (21-32)
[2021-02-04 17:08] LABS: BILIRUBIN,TOTAL 1.5 MG/DL (0.1-1.0)
[2021-02-04 17:09] LABS: ALKALINE PHOSPHATASE 67 U/L (40-136); CREATININE SERUM 0.74 MG/DL (0.60-1.30); GFR ESTIMATED > 60
[2021-02-04 17:10] LABS: BUN/CREATININE RATIO 9
[2021-02-04 17:12] LABS: ALANINE AMINOTRANSFERASE 11 U/L (0-55)
[2021-02-04 17:14] LABS: BACTERIA,URINE TRACE /HPF
[2021-02-04 17:15] LABS: AMPHETAMINE SCREEN, URINE NEGATIVE (NEGATIVE); BARBITURATE SCREEN URINE NEGATIVE (NEGATIVE); BENZODIAZEPINES SCREEN URINE POSITIVE (NEGATIVE); CANNABINOID SCREEN, URINE POSITIVE (NEGATIVE); COCAINE SCREEN URINE NEGATIVE (NEGATIVE); METHADONE STAT NEGATIVE (NEGATIVE); METHAMPHETAMINE SCREEN URINE S NEGATIVE (NEGATIVE); OPIATE SCREEN URINE NEGATIVE (NEGATIVE); OXYCODONE STAT NEGATIVE (NEGATIVE); PROPOXYPHENE STAT NEGATIVE (NEGATIVE); TRICYCLIC ANTIDEPRESSANTS SCRE NEGATIVE (NEGATIVE)
[2021-02-04 18:00] VITALS: BP 112/56
== END 2021-02-04 18:00 | disposition home or self-care (01) ==
LOC: EDUNIT# 15:14 → ER 15:17
DX: R11.2 Nausea with vomiting, unspecified (principal); F41.9 Anxiety disorder, unspecified; F12.90 Cannabis use, unspecified, uncomplicated
CPT/HCPCS: 36415; 80053; 80306; 81000; 84703; 85025; 96361; 96374; 96375

== ENCOUNTER 2021-02-17 09:22 | Emergency (ER) | payer SELFPAY ==
[~2021-02-17] VITALS: Ht 160 cm; Wt 54.4 kg
[2021-02-17] MEDS ORDERED: LACTATED RINGERS 1,000 ML IV ONE (09:30)
[2021-02-17] MEDS ORDERED: ONDANSETRON 4 MG/2 ML (SDV) Z0FRAN IVP ONE ×2 (09:30→10:15)
[2021-02-17] MEDS ORDERED: PANTOPRAZOLE 40 MG (PROTONIX) VIAL IV ONE (09:30)
[2021-02-17 09:37] LABS: CLARITY,URINE CLOUDY; COLOR,URINE YELLOW; GLUCOSE, URINE (UA) NEGATIVE (NEGATIVE); KETONES,URINE 2+ (NEGATIVE); LEUKOCYTE ESTERASE ,URINE TRACE (NEGATIVE); NITRITE,URINE NEGATIVE (NEGATIVE); PROTEIN,URINE 1+ (NEGATIVE)
[2021-02-17 09:40] LABS: BASOPHILS # (AUTO) 0.1 10^3/uL (0.0-0.1); BASOPHILS % (AUTO) 1 % (0-10); EOSINOPHILS # (AUTO) 0.1 10^3/uL (0.0-0.3); EOSINOPHILS % (AUTO) 1 % (0-10); HEMATOCRIT 42 % (35-52); HEMOGLOBIN 14.3 g/dL (11.5-16.0); LYMPHOCYTES % (AUTO) 13 % (12-44); MEAN CORPUSCULAR HEMOGLOBIN 31 pg (25-34); MEAN CORPUSCULAR HGB CONC 35 g/dL (32-36); MEAN CORPUSCULAR VOLUME 91 fL (80-99); MEAN PLATELET VOLUME 10.9 fL (9.0-12.2); MONOCYTES % (AUTO) 7 % (0-12); NEUTROPHILS # (AUTO) 11.8 10^3/uL (1.8-7.8); NEUTROPHILS % (AUTO) 78 % (42-75); PLATELET COUNT 339 10^3/uL (130-400); WHITE BLOOD COUNT 15.1 10^3/uL (4.3-11.0)
--- NOTE | 2021-02-17 09:46 | ED GI ---
General Stated Complaint: N/V Source of Information: Patient, Old Records History of Present Illness Date Seen by Provider: Feb 17, 2021 Time Seen by Provider: 09:26 Initial Comments PT ARRIVES VIA POV FROM HOME C/O NAUSEA AND VOMITING FOR 2-3 DAYS PT HAS LONGSTANDING HISTORY OF SAME, WITH A MULTITUDE OF VISITS HERE, AND HAS BEEN DIAGNOSED WITH CANNABIS HYPEREMESIS SYNDROME LAST USED MARIJUANA 5 DAYS AGO VOMITED X 5 THIS AM TOOK 1 ZOFRAN YESTERDAY, NOTHING ELSE FOR SYMPTOMS--STATES IT WAS NOT ODT ZOFRAN STATES SHE DOES NOT HAVE ANYTHING ELSE TO TAKE FOR THIS PROBLEM NO DIARRHEA--LAST BM 2 DAYS AGO NO FEVER HAS SOME MILD UPPER ABDOMINAL SORENESS FROM VOMITING/RETCHING HAS HAD SOME DIFFICULTY URINATING AND VOIDING SMALL AMOUNTS DENIES ANY OTHER COVID-19 SYMPTOMS OR KNOWN EXPOSURE TO COVID-19 HAS NOT HAD COVID-19 VACCINATION HAS HAD MULTIPLE VISITS HERE FOR THIS PROBLEM AND HAS REPEATEDLY BEEN ADVISED TO FOLLOW UP WITH [facility] FOR FURTHER CARE, BUT PT HAS NOT MADE ANY ATTEMPT TO DO SO. STATES IT HAS "BEEN A LONG TIME" SINCE SHE HAS BEEN THERE OR SEEN ANYONE OUTSIDE OF ER VISITS. LAST VISIT HERE WAS 02/04/21, NO RX'S GIVEN AT THAT TIME. 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 NORMAL . NO CONTROL PCP: [facility] Allergies and Home Medications Allergies Coded Allergies: No Known Drug Allergies (Unverified , 05/07/10) Home Medications Capsaicin 60 Gm Cream..g., 60 GM TP TID Prescribed by: SHANEL ALY on 02/17/21 0954 Escitalopram Oxalate 10 Mg Tablet, 10 MG PO DAILY Prescribed by: VICK WALDRON on 01/10/21 0955 Nitrofurantoin Monohyd/M-Cryst 100 Mg Capsule, 1 TAB PO BID Prescribed by: SHANEL ALY on 02/17/21 1005 Ondansetron 4 Mg Tab.rapdis, 4 MG SL Q4H PRN for NAUSEA/VOMITING Prescribed by: ASHLEY GLEASON on 02/02/211553 Ondansetron 8 Mg Tab.rapdis, 8 MG PO Q4H PRN for NAUSEA/VOMITING Prescribed by: SHANEL ALY on 02/17/21951 Pantoprazole Sodium 40 Mg Tablet.dr, 40 MG PO DAILY Prescribed by: SHANEL ALY on 02/17/21951 Promethazine HCl 25 Mg Supp.rect, 25 MG RC Q8H PRN for NAUSEA/VOMITING-2ND LINE Prescribed by: ASHLEY GLEASON on 02/02/211553 Promethazine HCl 25 Mg Supp.rect, 25 MG RC Q6 Prescribed by: SHANEL ALY on 02/17/21951 Patient Home Medication List Home Medication List Reviewed: Yes Review of Systems Review of Systems Constitutional: no symptoms reported EENTM: No Symptoms Reported Respiratory: No Symptoms Reported Cardiovascular: No Symptoms Reported Gastrointestinal: See HPI, Abdominal Pain, Nausea, Poor Appetite, Vomiting Genitourinary: No Symptoms Reported Musculoskeletal: no symptoms reported Skin: no symptoms reported Psychiatric/Neurological: No Symptoms Reported Endocrine: No Symptoms Reported Hematologic/Lymphatic: No Symptoms Reported Past Hhggcaf-Wdzvik-Iuhdhb Hx Past Med/Social Hx: Reviewed and Corrections made Patient Social History Alcohol Use: Denies Use Drug of Choice: MARIJUANA Smoking Status: Never a Smoker 2nd Hand Smoke Exposure: No Recent Hopitalizations: No Substance type: Marijuana Immunizations Up To Date Tetanus Booster (TDap): Less than 5yrs PED Vaccines UTD: Yes Date of Influenza Vaccine: Aug 11, 2020 Seasonal Allergies Seasonal Allergies: No Past Medical History Surgeries: No Respiratory: No Cardiac: No Neurological: No Reproductive Disorders: No Female Reproductive Disorders: Denies Sexually Transmitted Disease: No HIV/AIDS: No Genitourinary: No Gastrointestinal: Yes (cannabis hyperemesis syndrome) Gastroesophageal Reflux Musculoskeletal: No Endocrine: No HEENT: No Loss of Vision: Denies Hearing Impairment: Denies Cancer: No Psychosocial: Yes Anxiety Integumentary: Yes Eczema Blood Disorders: No Family Medical History Alcoholism 19 FATHER 19 MOTHER No Family History of: AIDS Abdominal aortic aneurysm [place]'s disease Alzheimer's disease Aphasia Arthritis Asthma Cancer of mouth Cardiovascular disease Cataracts Colon cancer Completed stroke Congenital disease Congenital heart disease Coronary thrombosis Cystic fibrosis Deafness or hearing loss Dementia Diabetes mellitus Drug abuse Dysphasia Fibrocystic disease of breast Gastroenteritis Glaucoma Headache disorder Hypercholesterolemia Hypertension Infertility Kidney disease Myocardial infarction Neoplasm Not obtainable due to adoption Osteoporosis Parkinson's disease Prostate cancer Psychosocial problem Respiratory disorder Seizure disorder Severe allergy Thyroid disease Tuberculosis Visual disorder No Pertinent Family Hx, Psychiatric Problems Physical Exam Vital Signs Vital Signs - First Documented 02/17/21 09:24 Temp 36.5 Pulse 60 Resp 18 B/P (MAP) 109/65 (80) Pulse Ox 98 Capillary Refill : Height/Weight/BMI Height: 5'3.00" Weight: 130lbs. 0oz. 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, no motor/sensory deficits, alert, normal mood/affect, oriented x 3 Skin: normal color, warm/dry; No rash Procedures/Interventions Suture Size: 4-0 Progress/Results/Core Measures Results/Orders Lab Results Laboratory Tests Test 02/17/21 09:27 02/17/21 09:32 Range/Units Urine Color YELLOW Urine Clarity CLOUDY Urine pH 6.0 5-9 Urine Specific [place] >=1.030 1.016-1.022 Urine Protein 1+ H NEGATIVE Urine Glucose (UA) NEGATIVE NEGATIVE Urine Ketones 2+ H NEGATIVE Urine Nitrite NEGATIVE NEGATIVE Urine Bilirubin 2+ H NEGATIVE Urine Urobilinogen 1.0 < = 1.0 MG/DL Urine Leukocyte Esterase TRACE H NEGATIVE Urine RBC (Auto) NEGATIVE NEGATIVE Urine RBC NONE /HPF Urine WBC 5-10 H /HPF Urine Squamous Epithelial Cells 25-50 H /HPF Urine Crystals PRESENT H /LPF Urine Amorphous Sediment FEW ALEX URATES H /LPF Urine Bacteria TRACE /HPF Urine Casts NONE /LPF Urine Mucus LARGE H /LPF Urine Culture Indicated YES Urine Opiates Screen NEGATIVE NEGATIVE Urine Oxycodone Screen NEGATIVE NEGATIVE Urine Methadone Screen NEGATIVE NEGATIVE Urine Propoxyphene Screen NEGATIVE NEGATIVE Urine Barbiturates Screen NEGATIVE NEGATIVE Ur Tricyclic Antidepressants Screen NEGATIVE NEGATIVE Urine Phencyclidine Screen NEGATIVE NEGATIVE Urine Amphetamines Screen NEGATIVE NEGATIVE Urine Methamphetamines Screen NEGATIVE NEGATIVE Urine Benzodiazepines Screen POSITIVE H NEGATIVE Urine Cocaine Screen NEGATIVE NEGATIVE Urine Cannabinoids Screen POSITIVE H NEGATIVE White Blood Count 15.1 H 4.3-11.0 10^3/uL Red Blood Count 4.56 3.80-5.11 10^6/uL Hemoglobin 14.3 11.5-16.0 g/dL Hematocrit 42 35-52 % Mean Corpuscular Volume 91 80-99 fL Mean Corpuscular Hemoglobin 31 25-34 pg Mean Corpuscular Hemoglobin Concent 35 32-36 g/dL Red Cell Distribution Width 13.5 10.0-14.5 % Platelet Count 339 130-400 10^3/uL Mean Platelet Volume 10.9 9.0-12.2 fL Immature Granulocyte % (Auto) 0 % Neutrophils (%) (Auto) 78 H 42-75 % Lymphocytes (%) (Auto) 13 12-44 % Monocytes (%) (Auto) 7 0-12 % Eosinophils (%) (Auto) 1 0-10 % Basophils (%) (Auto) 1 0-10 % Neutrophils # (Auto) 11.8 H 1.8-7.8 10^3/uL Lymphocytes # (Auto) 2.0 1.0-4.0 10^3/uL Monocytes # (Auto) 1.0 0.0-1.0 10^3/uL Eosinophils # (Auto) 0.1 0.0-0.3 10^3/uL Basophils # (Auto) 0.1 0.0-0.1 10^3/uL Immature Granulocyte # (Auto) 0.1 0.0-0.1 10^3/uL Neutrophils % (Manual) 84 % Lymphocytes % (Manual) 10 % Monocytes % (Manual) 5 % Eosinophils % (Manual) 1 % Basophils % (Manual) 0 % Blood Morphology Comment NORMAL Sodium Level 136 135-145 MMOL/L Potassium Level 3.9 3.6-5.0 MMOL/L Chloride Level 100 98-107 MMOL/L Carbon Dioxide Level 23 21-32 MMOL/L Anion Gap 13 5-14 MMOL/L Blood Urea Nitrogen 13 7-18 MG/DL Creatinine 0.82 0.60-1.30 MG/DL Estimat Glomerular Filtration Rate > 60 BUN/Creatinine Ratio 16 Glucose Level 130 H 70-105 MG/DL Calcium Level 9.7 8.5-10.1 MG/DL Corrected Calcium 8.5-10.1 MG/DL Magnesium Level 1.8 1.6-2.4 MG/DL Total Bilirubin 1.9 H 0.1-1.0 MG/DL Aspartate Amino Transf (AST/SGOT) 21 5-34 U/L Alanine Aminotransferase (ALT/SGPT) 13 0-55 U/L Alkaline Phosphatase 82 40-136 U/L Total Protein 8.0 6.4-8.2 GM/DL Albumin 4.8 H 3.2-4.5 GM/DL Amylase Level 50 25-125 U/L Lipase 10 8-78 U/L Serum Alcohol < 10 <10 MG/DL My Orders Orders - SHANEL ALY DO Ed Iv/Invasive Line Start (02/17/21 09:27) Urine Bedside (02/17/21 09:27) Alcohol (02/17/21 09:27) Amylase (02/17/21:27) Cbc With Automated Diff (02/17/21:27) Comprehensive Metabolic Panel (02/17/21:27) Drug Screen Stat (Urine) (02/17/21 09:27) Lipase (02/17/21:27) Magnesium (02/17/21:27) Ua Culture If Indicated (02/17/21:27) Ondansetron Injection (Zofran Injectio (02/17/21 09:30) Ed Iv/Invasive Line Start (02/17/21 09:27) Lactated Ringers (Lr 1000 Ml Iv Solution (02/17/21 09:30) Pantoprazole Injection (Protonix Injecti (02/17/21 09:30) Manual Differential (02/17/21 09:32) Urine Culture (02/17/21 09:27) Ondansetron Injection (Zofran Injectio (02/17/21 10:15) Medications Given in ED Current Medications Medications Dose Ordered Sig/Jeannette Route Start Time Stop Time Status Last Admin Dose Admin Lactated Ringer's 1,000 ml @ 0 mls/hr Q0M ONCE IV 02/17/21 09:30 02/17/21 09:31 DC 02/17/21 09:39 0 MLS/HR Ondansetron HCl 4 mg ONCE ONCE IVP 02/17/21 09:30 02/17/21 09:31 DC 02/17/21 09:38 4 MG Ondansetron HCl 4 mg ONCE ONCE IVP 02/17/21 10:15 02/17/21 10:16 DC 02/17/21 10:19 4 MG Pantoprazole 40 mg ONCE ONCE IV 02/17/21 09:30 02/17/21 09:31 DC 02/17/21 09:38 40 MG Vital Signs/I&O 02/17/21 02/17/21 09:24 10:50 Temp 36.5 Pulse 60 87 Resp 18 16 B/P (MAP) 109/65 (80) 112/67 Pulse Ox 98 98 Progress Progress Note : Progress Note GIVEN IV FLUIDS, ZOFRAN, PROTONIX NAUSEA IMPROVED, NO VOMITING DURING ER STAY Departure Impression Primary Impression: Cannabinoid hyperemesis syndrome Additional Impression: Urinary tract infection Disposition: HOME, SELF-CARE Condition: Improved Departure-Patient Inst. Referrals: [facility] (PCP/Family) Primary Care Physician Patient Instructions: Marijuana Use and Addiction (DC), Nausea and Vomiting, Adult ED, Urinary Tract Infection, Adult (DC) Add. Discharge Instructions: NO MARIJUANA!!! MOIST HEAT TO ABDOMEN AT 20 MINUTE INTERVALS CLEAR LIQUIDS--WATER, BROTH, JELLO, GATORADE, POPSICLES TOMORROW IF YOU ARE BETTER, ADD BRATS DIET TO CLEAR LIQUIDS--BANANAS, RICE, APPLESAUCE, TOAST, SALTINES FOLLOW UP WITH [facility] IN THE NEXT WEEK FOR FURTHER CARE FOR THIS PROBLEM, WELL THEIR SUBSTANCE ABUSE CLINIC. Scripts Nitrofurantoin Monohyd/M-Cryst (Macrobid 100 mg Capsule) 100 Mg Capsule 1 TAB PO BID, #20 CAP Prov: SHANEL ALY DO 02/17/21 Capsaicin (Capsaicin) 60 Gm Cream..g. 60 GM TP TID for Nausea/Vomiting, #1 TUBE Prov: SHANEL ALY DO 02/17/21 Pantoprazole Sodium (Protonix) 40 Mg Tablet.dr 40 MG PO DAILY, #15 TAB Prov: SHANEL ALY DO 02/17/21 Promethazine HCl (Promethazine Suppository) 25 Mg Supp.rect 25 MG RC Q6 for Nausea/Vomiting, #10 SUPP.RECT Prov: SHANEL ALY DO 02/17/21 Ondansetron (Ondansetron Odt) 8 Mg Tab.rapdis 8 MG PO Q4H PRN for NAUSEA/VOMITING, #10 TAB Prov: SHANEL ALY DO 02/17/21 Work/School Note: Work Release Form Date Seen in the Emergency Department: Feb 17, 2021 SHANEL ALY DO Feb 17, 2021 09:46
[2021-02-17 09:51] LABS: BACTERIA,URINE TRACE /HPF; BILIRUBIN,URINE 2+ (NEGATIVE); SQUAMOUS EPITHELIAL CELL,UR 25-50 /HPF
[2021-02-17 09:52] LABS: ALBUMIN 4.8 GM/DL (3.2-4.5); CHLORIDE 100 MMOL/L (98-107); POTASSIUM 3.9 MMOL/L (3.6-5.0); SODIUM 136 MMOL/L (135-145)
[2021-02-17 09:52] LABS: AMORPHOUS SEDIMENT,UR FEW AMOR URATES /LPF
[2021-02-17] MEDS ORDERED: ONDA8TAB13 PO (09:52)
[2021-02-17] MEDS ORDERED: PANT40TA2 PO (09:52)
[2021-02-17] MEDS ORDERED: PROM25SU44 RC (09:52)
[2021-02-17 09:53] LABS: AMYLASE 50 U/L (25-125); CALCIUM 9.7 MG/DL (8.5-10.1)
[2021-02-17 09:54] LABS: GLUCOSE 130 MG/DL (70-105)
[2021-02-17] MEDS ORDERED: CAPS60CR4 TP (09:54)
[2021-02-17 09:55] LABS: CARBON DIOXIDE 23 MMOL/L (21-32)
[2021-02-17 09:56] LABS: BILIRUBIN,TOTAL 1.9 MG/DL (0.1-1.0)
[2021-02-17 09:56] LABS: AMPHETAMINE SCREEN, URINE NEGATIVE (NEGATIVE); BARBITURATE SCREEN URINE NEGATIVE (NEGATIVE); BENZODIAZEPINES SCREEN URINE POSITIVE (NEGATIVE); CANNABINOID SCREEN, URINE POSITIVE (NEGATIVE); COCAINE SCREEN URINE NEGATIVE (NEGATIVE); METHADONE STAT NEGATIVE (NEGATIVE); METHAMPHETAMINE SCREEN URINE S NEGATIVE (NEGATIVE); OPIATE SCREEN URINE NEGATIVE (NEGATIVE); OXYCODONE STAT NEGATIVE (NEGATIVE); PROPOXYPHENE STAT NEGATIVE (NEGATIVE); TRICYCLIC ANTIDEPRESSANTS SCRE NEGATIVE (NEGATIVE)
[2021-02-17 09:57] LABS: ALKALINE PHOSPHATASE 82 U/L (40-136)
[2021-02-17 09:58] LABS: CREATININE SERUM 0.82 MG/DL (0.60-1.30); GFR ESTIMATED > 60
[2021-02-17 09:59] LABS: BUN/CREATININE RATIO 16
[2021-02-17 10:01] LABS: ALANINE AMINOTRANSFERASE 13 U/L (0-55); MAGNESIUM 1.8 MG/DL (1.6-2.4)
[2021-02-17 10:02] LABS: LIPASE 10 U/L (8-78)
[2021-02-17] MEDS ORDERED: NITR-65 PO (10:05)
[2021-02-17 10:13] LABS: BASOPHILS % (MANUAL) 0 %; EOSINOPHILS % (MANUAL) 1 %; LYMPHOCYTES % (MANUAL) 10 %; MONOCYTES % (MANUAL) 5 %; NEUTROPHILS % (MANUAL) 84 %
[2021-02-17 10:14] LABS: RBC MORPH NORMAL
[2021-02-17 10:50] VITALS: BP 112/67
== END 2021-02-17 10:50 | disposition home or self-care (01) ==
LOC: EDUNIT# 09:22 → ER 09:23
DX: R11.2 Nausea with vomiting, unspecified (principal); N39.0 Urinary tract infection, site not specified; K21.9 Gastro-esophageal reflux disease without esophagitis; F41.9 Anxiety disorder, unspecified
CPT/HCPCS: 80053; 80306; 81000; 82150; 83690; 83735; 84703; 85007; 85027; 87088; 99284; G0480; 36415; 80320

== ENCOUNTER 2021-02-18 10:06 | Emergency (ER) | payer SELFPAY ==
[~2021-02-18] VITALS: Ht 63 cm; Wt 54.0 kg
[~2021-02-18 10:06] MED LIST changes: +CAPS60CR4 TP; +NITR-65 PO; +ONDA8TAB13 PO
--- NOTE | 2021-02-18 11:13 | ED Abdominal Pain ---
General Chief Complaint: Abdominal/GI Problems Stated Complaint: THROWING UP,UTI Nursing Triage Note: was seen in ed yesterday can not afford meds at this time symptoms are worse. pt currently vomiting during ass. Sepsis Screen: No Definite Risk Source of Information: Patient Exam Limitations: No Limitations History of Present Illness Date Seen by Provider: Feb 18, 2021 Time Seen by Provider: 11:00 Initial Comments To ER with reports of nausea and vomiting. She was seen here yesterday for the same. She has a history of hyperemesis cannabinoid syndrome and is seen in the emergency room frequently for this. She continues to smoke marijuana. Most recently about 6 days ago she states. Timing/Duration: 1-2 Days Severity/Quality: Moderate Location: Epigastric Radiation: No Radiation Activities at Onset: None Associated Symptoms: Denies Symptoms Allergies and Home Medications Allergies Coded Allergies: No Known Drug Allergies (Unverified , 05/07/10) Home Medications Capsaicin 60 Gm Cream..g., 60 GM TP TID Prescribed by: SHANEL ALY on 02/17/21 0954 Escitalopram Oxalate 10 Mg Tablet, 10 MG PO DAILY Prescribed by: VICK WALDRON on 01/10/21 0955 Nitrofurantoin Monohyd/M-Cryst 100 Mg Capsule, 1 TAB PO BID Prescribed by: SHANEL ALY on 02/17/21 1005 Ondansetron 4 Mg Tab.rapdis, 4 MG SL Q4H PRN for NAUSEA/VOMITING Prescribed by: ASHLEY GLEASON on 02/02/21 155 Ondansetron 8 Mg Tab.rapdis, 8 MG PO Q4H PRN for NAUSEA/VOMITING Prescribed by: SHANEL ALY on 02/17/21951 Pantoprazole Sodium 40 Mg Tablet.dr, 40 MG PO DAILY Prescribed by: SHANEL ALY on 02/17/21951 Promethazine HCl 25 Mg Supp.rect, 25 MG RC Q8H PRN for NAUSEA/VOMITING-2ND LINE Prescribed by: ASHLEY GLEASON on 02/02/21 155 Promethazine HCl 25 Mg Supp.rect, 25 MG RC Q6 Prescribed by: SHANEL ALY on 02/17/21 09 Patient Home Medication List Home Medication List Reviewed: Yes Review of Systems Review of Systems Constitutional: see HPI EENTM: No Symptoms Reported Respiratory: No Symptoms Reported Cardiovascular: See HPI Gastrointestinal: See HPI, Abdominal Pain, Nausea, Vomiting Genitourinary: No Symptoms Reported Musculoskeletal: no symptoms reported Skin: no symptoms reported Psychiatric/Neurological: No Symptoms Reported Endocrine: No Symptoms Reported Hematologic/Lymphatic: No Symptoms Reported Past Jzyjxai-Ehcrvt-Heighm Hx Patient Social History Drug of Choice: MARIJUANA 2nd Hand Smoke Exposure: No Recent Infectious Disease Expo: No Recent Hopitalizations: No Immunizations Up To Date Tetanus Booster (TDap): Less than 5yrs PED Vaccines UTD: Yes Date of Influenza Vaccine: Aug 11, 2020 Seasonal Allergies Seasonal Allergies: No Past Medical History Surgeries: No Respiratory: No Cardiac: No Neurological: No Reproductive Disorders: No Female Reproductive Disorders: Denies Sexually Transmitted Disease: No HIV/AIDS: No Genitourinary: No Gastrointestinal: Yes (cannabis hyperemesis syndrome) Gastroesophageal Reflux Musculoskeletal: No Endocrine: No HEENT: No Loss of Vision: Denies Hearing Impairment: Denies Cancer: No Psychosocial: Yes Anxiety Integumentary: Yes Eczema Blood Disorders: No Family Medical History Alcoholism 19 FATHER 19 MOTHER No Family History of: AIDS Abdominal aortic aneurysm [place]'s disease Alzheimer's disease Aphasia Arthritis Asthma Cancer of mouth Cardiovascular disease Cataracts Colon cancer Completed stroke Congenital disease Congenital heart disease Coronary thrombosis Cystic fibrosis Deafness or hearing loss Dementia Diabetes mellitus Drug abuse Dysphasia Fibrocystic disease of breast Gastroenteritis Glaucoma Headache disorder Hypercholesterolemia Hypertension Infertility Kidney disease Myocardial infarction Neoplasm Not obtainable due to adoption Osteoporosis Parkinson's disease Prostate cancer Psychosocial problem Respiratory disorder Seizure disorder Severe allergy Thyroid disease Tuberculosis Visual disorder No Pertinent Family Hx, Psychiatric Problems Physical Exam Vital Signs Vital Signs - First Documented 02/18/21 02/18/21 10:36 11:05 Temp 36.2 Pulse 90 Resp 20 B/P (MAP) 132/80 (97) Pulse Ox 97 O2 Delivery Room Air Capillary Refill : Less Than 3 Seconds Height/Weight/BMI Height: 5'3.00" Weight: 130lbs. 0oz. 58.330008ge; 136.00 BMI Method:Stated General Appearance: WD/WN, no apparent distress Respiratory: no respiratory distress, no accessory muscle use Cardiovascular: regular rate, rhythm, no murmur Gastrointestinal: normal bowel sounds, non tender, soft Extremities: normal range of motion, non-tender Neurologic/Psychiatric: alert, normal mood/affect, oriented x 3 Skin: normal color, warm/dry Procedures/Interventions Suture Size: 4-0 Progress/Results/Core Measures Results/Orders Lab Results Laboratory Tests Test 02/18/21 11:01 02/18/21 11:17 Range/Units Urine Color YELLOW Urine Clarity CLOUDY Urine pH 8.5 5-9 Urine Specific [place] 1.015 L 1.016-1.022 Urine Protein NEGATIVE NEGATIVE Urine Glucose (UA) 2+ H NEGATIVE Urine Ketones TRACE H NEGATIVE Urine Nitrite NEGATIVE NEGATIVE Urine Bilirubin NEGATIVE NEGATIVE Urine Urobilinogen 0.2 < = 1.0 MG/DL Urine Leukocyte Esterase NEGATIVE NEGATIVE Urine RBC (Auto) NEGATIVE NEGATIVE Urine RBC NONE /HPF Urine WBC NONE /HPF Urine Squamous Epithelial Cells 2-5 /HPF Urine Renal Epithelial Cells NONE /HPF Urine Crystals NONE /LPF Urine Bacteria NEGATIVE /HPF Urine Casts NONE /LPF Urine Mucus MODERATE H /LPF Urine Culture Indicated NO Urine Opiates Screen NEGATIVE NEGATIVE Urine Oxycodone Screen NEGATIVE NEGATIVE Urine Methadone Screen NEGATIVE NEGATIVE Urine Propoxyphene Screen NEGATIVE NEGATIVE Urine Barbiturates Screen NEGATIVE NEGATIVE Ur Tricyclic Antidepressants Screen NEGATIVE NEGATIVE Urine Phencyclidine Screen NEGATIVE NEGATIVE Urine Amphetamines Screen NEGATIVE NEGATIVE Urine Methamphetamines Screen NEGATIVE NEGATIVE Urine Benzodiazepines Screen NEGATIVE NEGATIVE Urine Cocaine Screen NEGATIVE NEGATIVE Urine Cannabinoids Screen POSITIVE H NEGATIVE White Blood Count 9.2 4.3-11.0 10^3/uL Red Blood Count 4.20 3.80-5.11 10^6/uL Hemoglobin 13.0 11.5-16.0 g/dL Hematocrit 38 35-52 % Mean Corpuscular Volume 89 80-99 fL Mean Corpuscular Hemoglobin 31 25-34 pg Mean Corpuscular Hemoglobin Concent 35 32-36 g/dL Red Cell Distribution Width 13.1 10.0-14.5 % Platelet Count 337 130-400 10^3/uL Mean Platelet Volume 11.0 9.0-12.2 fL Immature Granulocyte % (Auto) 0 % Neutrophils (%) (Auto) 86 H 42-75 % Lymphocytes (%) (Auto) 10 L 12-44 % Monocytes (%) (Auto) 3 0-12 % Eosinophils (%) (Auto) 0 0-10 % Basophils (%) (Auto) 1 0-10 % Neutrophils # (Auto) 7.9 H 1.8-7.8 10^3/uL Lymphocytes # (Auto) 0.9 L 1.0-4.0 10^3/uL Monocytes # (Auto) 0.3 0.0-1.0 10^3/uL Eosinophils # (Auto) 0.0 0.0-0.3 10^3/uL Basophils # (Auto) 0.1 0.0-0.1 10^3/uL Immature Granulocyte # (Auto) 0.0 0.0-0.1 10^3/uL Sodium Level 137 135-145 MMOL/L Potassium Level 3.5 L 3.6-5.0 MMOL/L Chloride Level 104 98-107 MMOL/L Carbon Dioxide Level 19 L 21-32 MMOL/L Anion Gap 14 5-14 MMOL/L Blood Urea Nitrogen 9 7-18 MG/DL Creatinine 0.77 0.60-1.30 MG/DL Estimat Glomerular Filtration Rate > 60 BUN/Creatinine Ratio 12 Glucose Level 150 H 70-105 MG/DL Calcium Level 9.4 8.5-10.1 MG/DL Corrected Calcium 8.5-10.1 MG/DL Total Bilirubin 1.2 H 0.1-1.0 MG/DL Aspartate Amino Transf (AST/SGOT) 17 5-34 U/L Alanine Aminotransferase (ALT/SGPT) 14 0-55 U/L Alkaline Phosphatase 73 40-136 U/L Total Protein 7.4 6.4-8.2 GM/DL Albumin 4.6 H 3.2-4.5 GM/DL Lipase 34 8-78 U/L Serum Test, Qualitative NEGATIVE NEGATIVE My Orders Orders - KARIME LINK [employer] Cbc With Automated Diff (02/18/21 11:13) Comprehensive Metabolic Panel (02/18/21 11:13) Lipase (02/18/21 11:13) Ua Culture If Indicated (02/18/21 11:13) Hcg,Qualitative Serum (02/18/21 11:13) Drug Screen Stat (Urine) (02/18/21 11:13) Ed Iv/Invasive Line Start (02/18/21 11:13) Diphenhydramine Injection (Benadryl Inje (02/18/21 11:15) Haloperidol Injection (Haldol Injectio (02/18/21 11:15) Ns Iv 500 Ml (Sodium Chloride 0.9%) (02/18/21 11:15) Ceftriaxone For Iv Use (Rocephin For I (02/18/21 11:30) Lorazepam Injection (Ativan Injection) (02/18/21 12:00) Vital Signs/I&O 02/18/21 02/18/21 02/18/21 10:36 11:05 12:02 Temp 36.2 36.2 Pulse 90 82 77 Resp 20 16 14 B/P (MAP) 132/80 (97) 128/81 Pulse Ox 97 100 O2 Delivery Room Air Room Air Blood Pressure Mean: 97 Departure Impression Primary Impression: Cannabis hyperemesis syndrome concurrent with and due to cannabis dependence Disposition: 01 HOME, SELF-CARE Condition: Improved Departure-Patient Inst. Decision time for Depature: 11:20 [facility]: [facility] (PCP/Family) Primary Care Physician Patient Instructions: Marijuana Use and Addiction (DC) KARIME LINK [employer] Feb 18, 2021 11:13
[2021-02-18] MEDS ORDERED: NS IV 500 ML 500 ML IV SCH (11:15)
[2021-02-18] MEDS ORDERED: HALOPERIDOL 5 MG/ML (HALDOL) VIAL IV ONE (11:15)
[2021-02-18] MEDS ORDERED: diphenhydrAMINE 50 MG/ML INJ (BENADRYL) IVP ONE (11:15)
[2021-02-18 11:27] LABS: BILIRUBIN,URINE NEGATIVE (NEGATIVE); CLARITY,URINE CLOUDY; COLOR,URINE YELLOW; GLUCOSE, URINE (UA) 2+ (NEGATIVE); KETONES,URINE TRACE (NEGATIVE); LEUKOCYTE ESTERASE ,URINE NEGATIVE (NEGATIVE); NITRITE,URINE NEGATIVE (NEGATIVE); PH,URINE 8.5 (5-9); PROTEIN,URINE NEGATIVE (NEGATIVE)
[2021-02-18 11:30] LABS: BASOPHILS # (AUTO) 0.1 10^3/uL (0.0-0.1); BASOPHILS % (AUTO) 1 % (0-10); EOSINOPHILS % (AUTO) 0 % (0-10); HEMATOCRIT 38 % (35-52); LYMPHOCYTES # (AUTO) 0.9 10^3/uL (1.0-4.0); LYMPHOCYTES % (AUTO) 10 % (12-44); MEAN CORPUSCULAR HEMOGLOBIN 31 pg (25-34); MEAN CORPUSCULAR HGB CONC 35 g/dL (32-36); MEAN CORPUSCULAR VOLUME 89 fL (80-99); MONOCYTES # (AUTO) 0.3 10^3/uL (0.0-1.0); MONOCYTES % (AUTO) 3 % (0-12); NEUTROPHILS # (AUTO) 7.9 10^3/uL (1.8-7.8); NEUTROPHILS % (AUTO) 86 % (42-75); PLATELET COUNT 337 10^3/uL (130-400); WHITE BLOOD COUNT 9.2 10^3/uL (4.3-11.0)
[2021-02-18] MEDS ORDERED: cefTRIAXone FOR IV USE 1,000 MG in WATER (STERILE) FOR INJECTION 10 ML IV ONE (11:30)
[2021-02-18 11:34] LABS: ALBUMIN 4.6 GM/DL (3.2-4.5); CHLORIDE 104 MMOL/L (98-107); POTASSIUM 3.5 MMOL/L (3.6-5.0); SODIUM 137 MMOL/L (135-145)
[2021-02-18 11:35] LABS: CALCIUM 9.4 MG/DL (8.5-10.1)
[2021-02-18 11:36] LABS: GLUCOSE 150 MG/DL (70-105)
[2021-02-18 11:37] LABS: TOTAL PROTEIN 7.4 GM/DL (6.4-8.2)
[2021-02-18 11:38] LABS: BILIRUBIN,TOTAL 1.2 MG/DL (0.1-1.0); CARBON DIOXIDE 19 MMOL/L (21-32)
[2021-02-18 11:40] LABS: ALKALINE PHOSPHATASE 73 U/L (40-136); CREATININE SERUM 0.77 MG/DL (0.60-1.30); GFR ESTIMATED > 60
[2021-02-18 11:41] LABS: BUN/CREATININE RATIO 12
[2021-02-18 11:43] LABS: ALANINE AMINOTRANSFERASE 14 U/L (0-55); LIPASE 34 U/L (8-78)
[2021-02-18 11:44] LABS: BACTERIA,URINE NEGATIVE /HPF
[2021-02-18 11:46] LABS: AMPHETAMINE SCREEN, URINE NEGATIVE (NEGATIVE); BARBITURATE SCREEN URINE NEGATIVE (NEGATIVE); BENZODIAZEPINES SCREEN URINE NEGATIVE (NEGATIVE); CANNABINOID SCREEN, URINE POSITIVE (NEGATIVE); COCAINE SCREEN URINE NEGATIVE (NEGATIVE); METHADONE STAT NEGATIVE (NEGATIVE); METHAMPHETAMINE SCREEN URINE S NEGATIVE (NEGATIVE); OPIATE SCREEN URINE NEGATIVE (NEGATIVE); OXYCODONE STAT NEGATIVE (NEGATIVE); PROPOXYPHENE STAT NEGATIVE (NEGATIVE); TRICYCLIC ANTIDEPRESSANTS SCRE NEGATIVE (NEGATIVE)
[2021-02-18] MEDS ORDERED: LORazepam INJ 2 MG/ML (ATIVAN) VIAL IVP ONE (12:00)
[2021-02-18 12:02] VITALS: BP 128/81
== END 2021-02-18 12:03 | disposition home or self-care (01) ==
LOC: EDUNIT# 10:06 → ER 10:08
DX: R11.2 Nausea with vomiting, unspecified (principal); F41.9 Anxiety disorder, unspecified; K21.9 Gastro-esophageal reflux disease without esophagitis
CPT/HCPCS: 36415; 80053; 80306; 81000; 83690; 84703; 85025

== ENCOUNTER 2021-03-16 18:06 | Emergency (ER) | payer SELFPAY ==
[~2021-03-16] VITALS: Ht 160 cm; Wt 54.5 kg
[2021-03-16] MEDS ORDERED: HALOPERIDOL 5 MG/ML (HALDOL) VIAL IV ONE (18:15)
[2021-03-16] MEDS ORDERED: diphenhydrAMINE 50 MG/ML INJ (BENADRYL) IVP ONE (18:15)
[2021-03-16] MEDS ORDERED: NS IV 1000 ML 1,000 ML IV SCH (18:15)
[2021-03-16 18:26] LABS: BASOPHILS % (AUTO) 0 % (0-10); EOSINOPHILS % (AUTO) 0 % (0-10); HEMATOCRIT 43 % (35-52); HEMOGLOBIN 15.1 g/dL (11.5-16.0); LYMPHOCYTES # (AUTO) 1.9 10^3/uL (1.0-4.0); LYMPHOCYTES % (AUTO) 17 % (12-44); MEAN CORPUSCULAR HEMOGLOBIN 31 pg (25-34); MEAN CORPUSCULAR HGB CONC 35 g/dL (32-36); MEAN CORPUSCULAR VOLUME 88 fL (80-99); MEAN PLATELET VOLUME 10.8 fL (9.0-12.2); MONOCYTES # (AUTO) 1.3 10^3/uL (0.0-1.0); MONOCYTES % (AUTO) 11 % (0-12); NEUTROPHILS # (AUTO) 8.1 10^3/uL (1.8-7.8); NEUTROPHILS % (AUTO) 72 % (42-75); PLATELET COUNT 376 10^3/uL (130-400); WHITE BLOOD COUNT 11.3 10^3/uL (4.3-11.0)
[2021-03-16 18:38] LABS: POTASSIUM 2.9 MMOL/L (3.6-5.0)
[2021-03-16 18:39] LABS: CALCIUM 10.6 MG/DL (8.5-10.1)
[2021-03-16 18:44] LABS: CREATININE SERUM 1.17 MG/DL (0.60-1.30)
[2021-03-16] MEDS ORDERED: KCL 20 MEQ TAB (K-DUR) PO ONE (18:45)
--- NOTE | 2021-03-16 18:45 | ED GI ---
General Chief Complaint: Abdominal/GI Problems Stated Complaint: VOMITING Nursing Triage Note: PT TO ED W/ C/O N/V, ABD PAIN ONSET X3 DAYS. REPORTS DOES SMOKE MARIJUANA AND "GETS SICK LIKE THIS". REPORTS SHE SMOKED THIS AM. NO OTHER C/O VOICED. Sepsis Screen: No Definite Risk Source of Information: Patient Exam Limitations: No Limitations History of Present Illness Date Seen by Provider: March 16, 2021 Time Seen by Provider: 18:43 Initial Comments To ER with diffuse abdominal pain nausea vomiting. History of hyperemesis cannabinoid syndrome and continues to smoke marijuana. Timing/Duration: 1-2 Days Severity/Quality: Moderate Location: Generalized Abdomen Radiation: No Radiation Activities at Onset: None Allergies and Home Medications Allergies Coded Allergies: No Known Drug Allergies (Unverified , 05/07/10) Home Medications Capsaicin 60 Gm Cream..g., 60 GM TP TID Prescribed by: SHANEL ALY on 02/17/21 09 Escitalopram Oxalate 10 Mg Tablet, 10 MG PO DAILY Prescribed by: VICK WALDRON on 01/10/21 0955 Nitrofurantoin Monohyd/M-Cryst 100 Mg Capsule, 1 TAB PO BID Prescribed by: SHANEL ALY on 02/17/21 1005 Ondansetron 4 Mg Tab.rapdis, 4 MG SL Q4H PRN for NAUSEA/VOMITING Prescribed by: ASHLEY GLEASON on 02/02/21 155 Ondansetron 8 Mg Tab.rapdis, 8 MG PO Q4H PRN for NAUSEA/VOMITING Prescribed by: SHANEL ALY on 02/17/21951 Pantoprazole Sodium 40 Mg Tablet.dr, 40 MG PO DAILY Prescribed by: SHANEL ALY on 02/17/21951 Promethazine HCl 25 Mg Supp.rect, 25 MG RC Q8H PRN for NAUSEA/VOMITING-2ND LINE Prescribed by: ASHLEY GLEASON on 02/02/21 1554 Promethazine HCl 25 Mg Supp.rect, 25 MG RC Q6 Prescribed by: SHANEL ALY on 02/17/21951 Patient Home Medication List Home Medication List Reviewed: Yes Review of Systems Review of Systems Constitutional: see HPI EENTM: No Symptoms Reported Respiratory: No Symptoms Reported Cardiovascular: No Symptoms Reported Gastrointestinal: See HPI, Abdominal Pain, Nausea Genitourinary: No Symptoms Reported Musculoskeletal: no symptoms reported Skin: no symptoms reported Psychiatric/Neurological: No Symptoms Reported Endocrine: No Symptoms Reported Hematologic/Lymphatic: No Symptoms Reported Past [place]ahuo-Gwxqsc-Ijiqlb Hx Patient Social History Alcohol Use: Denies Use Drug of Choice: MARIJUANA Smoking Status: Never a Smoker 2nd Hand Smoke Exposure: No Recent Infectious Disease Expo: No Recent Hopitalizations: No Immunizations Up To Date Tetanus Booster (TDap): Less than 5yrs PED Vaccines UTD: Yes Date of Influenza Vaccine: Aug 11, 2020 Seasonal Allergies Seasonal Allergies: No Past Medical History Surgeries: No Respiratory: No Cardiac: No Neurological: No Reproductive Disorders: No Female Reproductive Disorders: Denies Sexually Transmitted Disease: No HIV/AIDS: No Genitourinary: No Gastrointestinal: Yes (cannabis hyperemesis syndrome) Gastroesophageal Reflux Musculoskeletal: No Endocrine: No HEENT: No Loss of Vision: Denies Hearing Impairment: Denies Cancer: No Psychosocial: Yes Anxiety Integumentary: Yes Eczema Blood Disorders: No Family Medical History Alcoholism 19 FATHER 19 MOTHER No Family History of: AIDS Abdominal aortic aneurysm [place]'s disease Alzheimer's disease Aphasia Arthritis Asthma Cancer of mouth Cardiovascular disease Cataracts Colon cancer Completed stroke Congenital disease Congenital heart disease Coronary thrombosis Cystic fibrosis Deafness or hearing loss Dementia Diabetes mellitus Drug abuse Dysphasia Fibrocystic disease of breast Gastroenteritis Glaucoma Headache disorder Hypercholesterolemia Hypertension Infertility Kidney disease Myocardial infarction Neoplasm Not obtainable due to adoption Osteoporosis Parkinson's disease Prostate cancer Psychosocial problem Respiratory disorder Seizure disorder Severe allergy Thyroid disease Tuberculosis Visual disorder No Pertinent Family Hx, Psychiatric Problems Physical Exam Vital Signs Vital Signs - First Documented 03/16/21 18:12 Temp 36.3 Pulse 79 Resp 20 B/P (MAP) 119/82 (94) Pulse Ox 97 O2 Delivery Room Air Capillary Refill : Less Than 3 Seconds Height/Weight/BMI Height: 5'3.00" Weight: 130lbs. 0oz. 58.259598to; 21.00 BMI Method:Stated General Appearance: WD/WN, no apparent distress Neck: non-tender, full range of motion Respiratory: no respiratory distress, no accessory muscle use Gastrointestinal: normal bowel sounds, soft, tenderness Extremities: normal range of motion, non-tender Neurologic/Psychiatric: alert, normal mood/affect, oriented x 3 Skin: normal color, warm/dry Procedures/Interventions Suture Size: 4-0 Progress/Results/Core Measures Results/Orders Lab Results Laboratory Tests Test 03/16/21 18:20 03/16/21 19:25 Range/Units White Blood Count 11.3 H 4.3-11.0 10^3/uL Red Blood Count 4.84 3.80-5.11 10^6/uL Hemoglobin 15.1 11.5-16.0 g/dL Hematocrit 43 35-52 % Mean Corpuscular Volume 88 80-99 fL Mean Corpuscular Hemoglobin 31 25-34 pg Mean Corpuscular Hemoglobin Concent 35 32-36 g/dL Red Cell Distribution Width 13.4 10.0-14.5 % Platelet Count 376 130-400 10^3/uL Mean Platelet Volume 10.8 9.0-12.2 fL Immature Granulocyte % (Auto) 0 % Neutrophils (%) (Auto) 72 42-75 % Lymphocytes (%) (Auto) 17 12-44 % Monocytes (%) (Auto) 11 0-12 % Eosinophils (%) (Auto) 0 0-10 % Basophils (%) (Auto) 0 0-10 % Neutrophils # (Auto) 8.1 H 1.8-7.8 10^3/uL Lymphocytes # (Auto) 1.9 1.0-4.0 10^3/uL Monocytes # (Auto) 1.3 H 0.0-1.0 10^3/uL Eosinophils # (Auto) 0.0 0.0-0.3 10^3/uL Basophils # (Auto) 0.0 0.0-0.1 10^3/uL Immature Granulocyte # (Auto) 0.0 0.0-0.1 10^3/uL Sodium Level 137 135-145 MMOL/L Potassium Level 2.9 L 3.6-5.0 MMOL/L Chloride Level 88 L 98-107 MMOL/L Carbon Dioxide Level 32 21-32 MMOL/L Anion Gap 17 H 5-14 MMOL/L Blood Urea Nitrogen 27 H 7-18 MG/DL Creatinine 1.17 0.60-1.30 MG/DL Estimat Glomerular Filtration Rate 58 BUN/Creatinine Ratio 23 Glucose Level 108 H 70-105 MG/DL Calcium Level 10.6 H 8.5-10.1 MG/DL Serum Test, Qualitative NEGATIVE NEGATIVE Urine Color DARK YELLOW Urine Clarity CLOUDY H Urine pH 5.0 5-9 Urine Specific [place] >=1.030 1.016-1.022 Urine Protein 2+ H NEGATIVE Urine Glucose (UA) NEGATIVE NEGATIVE Urine Ketones 1+ H NEGATIVE Urine Nitrite NEGATIVE NEGATIVE Urine Bilirubin 2+ H NEGATIVE Urine Urobilinogen 1.0 < = 1.0 MG/DL Urine Leukocyte Esterase NEGATIVE NEGATIVE Urine RBC (Auto) TRACE-I NEGATIVE Urine RBC RARE /HPF Urine WBC 5-10 H /HPF Urine Squamous Epithelial Cells 10-25 H /HPF Urine Crystals NONE /LPF Urine Bacteria LARGE H /HPF Urine Casts PRESENT /LPF Urine Hyaline Casts 5-10 H /LPF Urine Mucus MODERATE H /LPF Urine Culture Indicated YES My Orders Orders - KARIME LINK APRN Cbc With Automated Diff (03/16/21 18:15) Basic Metabolic Panel (03/16/21 18:15) Ua Culture If Indicated (03/16/21 18:15) Ed Iv/Invasive Line Start (03/16/21 18:15) Hcg,Qualitative Serum (03/16/21 18:15) Ns Iv 1000 Ml (Sodium Chloride 0.9%) (03/16/21 18:15) Haloperidol Injection (Haldol Injectio (03/16/21 18:15) Diphenhydramine Injection (Benadryl Inje (03/16/21 18:15) Potassium Chloride (Tablet) (K Dur Table (03/16/21 18:45) Urine Culture (03/16/21 19:25) Ceftriaxone For Iv Use (Rocephin For I (03/16/21 19:45) Medications Given in ED Current Medications Medications Dose Ordered Sig/Jeannette Route Start Time Stop Time Status Last Admin Dose Admin Ceftriaxone Sodium 1000 mg/ Sterile Water 10 ml @ 200 mls/hr ONCE ONCE IV 03/16/21 19:45 03/16/21 19:47 DC 03/16/21 20:04 200 MLS/HR Diphenhydramine HCl 25 mg ONCE ONCE IVP 03/16/21 18:15 03/16/21 18:17 DC 03/16/21 18:31 25 MG Haloperidol Lactate 3 mg ONCE ONCE IV 03/16/21 18:15 03/16/21 18:17 DC 03/16/21 18:30 3 MG Potassium Chloride 40 meq ONCE ONCE PO 03/16/21 18:45 03/16/21 18:46 DC 03/16/21 19:01 40 MEQ Vital Signs/I&O 03/16/21 18:12 Temp 36.3 Pulse 79 Resp 20 B/P (MAP) 119/82 (94) Pulse Ox 97 O2 Delivery Room Air Blood Pressure Mean: 94 Departure Impression Primary Impression: Cannabinoid hyperemesis syndrome Disposition: 01 HOME, SELF-CARE Condition: Stable Departure-Patient Inst. Decision time for Depature: 18:44 Referrals: [facility] (PCP/Family) Primary Care Physician Patient Instructions: No Instuctions Given Work/School Note: Work Release Form Date Seen in the Emergency Department: March 16, 2021 Return to Work: March 17, 2021 KARIME LINK APRN March 16, 2021 18:45
[2021-03-16 19:28] LABS: BILIRUBIN,URINE 2+ (NEGATIVE); GLUCOSE, URINE (UA) NEGATIVE (NEGATIVE); KETONES,URINE 1+ (NEGATIVE); LEUKOCYTE ESTERASE ,URINE NEGATIVE (NEGATIVE); NITRITE,URINE NEGATIVE (NEGATIVE); PROTEIN,URINE 2+ (NEGATIVE)
[2021-03-16 19:36] LABS: CLARITY,URINE CLOUDY; COLOR,URINE DARK YELLOW
[2021-03-16 19:37] LABS: BACTERIA,URINE LARGE /HPF; RBC,URINE RARE /HPF
[2021-03-16] MEDS ORDERED: cefTRIAXone FOR IV USE 1,000 MG in WATER (STERILE) FOR INJECTION 10 ML IV ONE (19:45)
[2021-03-16 20:07] VITALS: BP 101/73
== END 2021-03-16 20:08 | disposition home or self-care (01) ==
LOC: EDUNIT# 18:06 → ER 18:07
DX: R11.2 Nausea with vomiting, unspecified (principal); K21.9 Gastro-esophageal reflux disease without esophagitis; F41.9 Anxiety disorder, unspecified; Z79.899 Other long term (current) drug therapy
CPT/HCPCS: 36415; 80048; 81000; 84703; 85025; 87088

== ENCOUNTER 2021-04-04 08:45 | Emergency (ER) | payer SELFPAY ==
[~2021-04-04] VITALS: Ht 154.1 cm; Wt 54.5 kg
--- NOTE | 2021-04-04 09:20 | ED GI ---
General Chief Complaint: Abdominal/GI Problems Stated Complaint: N/V,ANXIETY Nursing Triage Note: AMB TO ROOM REPORTS WAS ON HER WASY TO A MENTAL HEALTH APPOINTMENT AND HER ANXIETY STARTED. ALSO C/O NAUSEA AND VOMITING FOR SEVERAL DAYS. DID SMOKE POT TODAY. HAS BEEN SEEN IN IT FOR CANOBINOID HYPEREMESIS. NUMEROUS TIMES. Sepsis Screen: No Definite Risk Source of Information: Patient Exam Limitations: No Limitations History of Present Illness Date Seen by Provider: April 04, 2021 Time Seen by Provider: 08:10 Initial Comments Patient is a 20-year-old female who presents to the emergency department today with a chief complaint of anxiety, nausea and vomiting. Patient states her nausea and vomiting started about 3 days ago. She states that she has this fairly frequently, she has been diagnosed in the past with cyclic vomiting syndrome as well as cyclic vomiting due to cannabis. Patient states that she did smoke some pot this morning. She states she is cut back from smoking "3 blunts a day" to 2 small bowls a day. She denies any fevers or chills. She did feel quite hot this morning. She denies discrete abdominal pain but just has some muscle aches secondary to her dry heaving. Patient denies any problems with urination. She denies any abnormal vaginal discharge. She is currently on her menstrual cycle. Patient denies any diarrhea or black or bloody stools. She denies any blood in her vomitus. No recent illnesses. She does state that her anxiety is "through the roof". All other review of systems reviewed and negative except as stated above. Timing/Duration: 2-3 Days Severity/Quality: Severe Location: Generalized Abdomen Activities at Onset: None Associated Symptoms: Nausea/Vomiting Allergies and Home Medications Allergies Coded Allergies: No Known Drug Allergies (Unverified , 05/07/10) Home Medications Capsaicin 60 Gm Cream..g., 60 GM TP TID Prescribed by: SHANEL ALY on 02/17/21 0954 Escitalopram Oxalate 10 Mg Tablet, 10 MG PO DAILY Prescribed by: IVCK WALDRON on 01/10/21 0955 Nitrofurantoin Monohyd/M-Cryst 100 Mg Capsule, 1 TAB PO BID Prescribed by: SHANEL ALY on 02/17/21 1005 Ondansetron 4 Mg Tab.rapdis, 4 MG SL Q4H PRN for NAUSEA/VOMITING Prescribed by: ASHLEY GLEASON on 02/02/211553 Ondansetron 8 Mg Tab.rapdis, 8 MG PO Q4H PRN for NAUSEA/VOMITING Prescribed by: SHANEL ALY on 02/17/21951 Pantoprazole Sodium 40 Mg Tablet.dr, 40 MG PO DAILY Prescribed by: SHANEL ALY on 02/17/21951 Promethazine HCl 25 Mg Supp.rect, 25 MG RC Q8H PRN for NAUSEA/VOMITING-2ND LINE Prescribed by: ASHLEY GLEASON on 02/02/211553 Promethazine HCl 25 Mg Supp.rect, 25 MG RC Q6 Prescribed by: SHANEL ALY on 02/17/21951 Patient Home Medication List Home Medication List Reviewed: Yes Review of Systems Review of Systems Constitutional: see HPI EENTM: No Symptoms Reported Respiratory: No Symptoms Reported Cardiovascular: No Symptoms Reported Gastrointestinal: Nausea, Vomiting Genitourinary: No Symptoms Reported Musculoskeletal: no symptoms reported Skin: no symptoms reported Psychiatric/Neurological: Anxiety All Other Systems Reviewed Negative Unless Noted: Yes Past Iilouix-Nvihbu-Cxazzd Hx Patient Social History Drug of Choice: MARIJUANA 2nd Hand Smoke Exposure: No Recent Infectious Disease Expo: No Recent Hopitalizations: No Immunizations Up To Date Tetanus Booster (TDap): Less than 5yrs PED Vaccines UTD: Yes Date of Influenza Vaccine: Aug 11, 2020 Seasonal Allergies Seasonal Allergies: No Past Medical History Surgeries: No Respiratory: No Cardiac: No Neurological: No Reproductive Disorders: No Female Reproductive Disorders: Denies Sexually Transmitted Disease: No HIV/AIDS: No Genitourinary: No Gastrointestinal: Yes (cannabis hyperemesis syndrome) Gastroesophageal Reflux Musculoskeletal: No Endocrine: No HEENT: No Loss of Vision: Denies Hearing Impairment: Denies Cancer: No Psychosocial: Yes Anxiety Integumentary: Yes Eczema Blood Disorders: No Family Medical History Alcoholism 19 FATHER 19 MOTHER No Family History of: AIDS Abdominal aortic aneurysm Agency's disease Alzheimer's disease Aphasia Arthritis Asthma Cancer of mouth Cardiovascular disease Cataracts Colon cancer Completed stroke Congenital disease Congenital heart disease Coronary thrombosis Cystic fibrosis Deafness or hearing loss Dementia Diabetes mellitus Drug abuse Dysphasia Fibrocystic disease of breast Gastroenteritis Glaucoma Headache disorder Hypercholesterolemia Hypertension Infertility Kidney disease Myocardial infarction Neoplasm Not obtainable due to adoption Osteoporosis Parkinson's disease Prostate cancer Psychosocial problem Respiratory disorder Seizure disorder Severe allergy Thyroid disease Tuberculosis Visual disorder No Pertinent Family Hx, Psychiatric Problems Physical Exam Vital Signs Vital Signs - First Documented 04/04/21 09:07 Temp 36.0 Pulse 100 Resp 18 B/P (MAP) 133/99 (110) Pulse Ox 97 O2 Delivery Room Air Capillary Refill : Less Than 3 Seconds Height/Weight/BMI Height: 5'3.00" Weight: 130lbs. 0oz. 58.038814cf; 22.00 BMI Method:Stated General Appearance: WD/WN, moderate distress Neck: supple, normal inspection Respiratory: lungs clear, normal breath sounds, no respiratory distress, no accessory muscle use Cardiovascular: regular rate, rhythm Gastrointestinal: normal bowel sounds, non tender, soft Extremities: normal range of motion, non-tender, normal inspection, no pedal edema Back: normal inspection Neurologic/Psychiatric: alert, normal mood/affect, oriented x 3 Skin: normal color, warm/dry Procedures/Interventions Suture Size: 4-0 Progress/Results/Core Measures Results/Orders Lab Results Laboratory Tests Test 04/04/21 09:28 Range/Units Sodium Level 138 135-145 MMOL/L Potassium Level 3.9 3.6-5.0 MMOL/L Chloride Level 106 98-107 MMOL/L Carbon Dioxide Level 22 21-32 MMOL/L Anion Gap 10 5-14 MMOL/L Blood Urea Nitrogen 8 7-18 MG/DL Creatinine 0.70 0.60-1.30 MG/DL Estimat Glomerular Filtration Rate > 60 BUN/Creatinine Ratio 11 Glucose Level 144 H 70-105 MG/DL Calcium Level 9.4 8.5-10.1 MG/DL My Orders Orders - GAYLA FROST MD Ed Iv/Invasive Line Start (04/04/21 09:20) Basic Metabolic Panel (04/04/21 09:20) Lorazepam Injection (Ativan Injection) (04/04/21 09:30) Promethazine Injection (Phenergan Injec (04/04/21 09:30) Ns Iv 1000 Ml (Sodium Chloride 0.9%) (04/04/21 10:30) Medications Given in ED Current Medications Medications Dose Ordered Sig/Jeannette Route Start Time Stop Time Status Last Admin Dose Admin Lorazepam 1 mg ONCE ONCE IVP 04/04/21 09:30 04/04/21 09:31 DC 04/04/21 09:35 1 MG Promethazine HCl 25 mg ONCE ONCE IVP 04/04/21 09:30 04/04/21 09:31 DC 04/04/21 09:32 25 MG Vital Signs/I&O 04/04/21 09:07 Temp 36.0 Pulse 100 Resp 18 B/P (MAP) 133/99 (110) Pulse Ox 97 O2 Delivery Room Air Blood Pressure Mean: 110 Progress Progress Note : Time: 11:04 Progress Note Patient is much improved after Ativan, Zofran and normal saline. She still has a little bit of nausea but this should resolve with further treatment with Zofran at home. The patient is able to tolerate sips of liquids. She has no further vomiting or dry heaving. She is resting comfortably. Patient will be discharged home with a Zofran prescription to her pharmacy. She is given good return precautions she verbalizes understanding. All questions are sought and answered. Departure Impression Primary Impression: Cyclic vomiting syndrome Disposition: HOME, SELF-CARE Condition: Stable Departure-Patient Inst. Decision time for Depature: 11:02 Referrals: [facility] [place] (PCP/Family) Primary Care Physician Patient Instructions: Nausea and Vomiting, Adult ED Add. Discharge Instructions: Continue to sip fluids throughout the rest of the day. Use Zofran every 8 hours as needed for nausea and vomiting. Discontinue use of marijuana. Follow-up with your primary care physician. Come back to the emergency department for any new, concerning, worsening or other emergent complaints. Scripts Ondansetron (Ondansetron Odt) 4 Mg Tab.rapdis 4 MG PO Q8H for nausea, #15 TAB Prov: GAYLA FROST MD 04/04/21 GAYLA FROST MD April 04, 2021 09:20
[2021-04-04] MEDS ORDERED: LORazepam INJ 2 MG/ML (ATIVAN) VIAL IVP ONE (09:30)
[2021-04-04] MEDS ORDERED: PROMETHAZINE INJ 25 MG/ML (PHENERGAN) AMP IVP ONE (09:30)
[2021-04-04 09:49] LABS: CHLORIDE 106 MMOL/L (98-107); POTASSIUM 3.9 MMOL/L (3.6-5.0); SODIUM 138 MMOL/L (135-145)
[2021-04-04 09:50] LABS: CALCIUM 9.4 MG/DL (8.5-10.1); GLUCOSE 144 MG/DL (70-105)
[2021-04-04 09:52] LABS: CARBON DIOXIDE 22 MMOL/L (21-32)
[2021-04-04 09:54] LABS: GFR ESTIMATED > 60
[2021-04-04 09:55] LABS: BUN/CREATININE RATIO 11
[2021-04-04] MEDS ORDERED: NS IV 1000 ML 1,000 ML IV SCH (10:30)
[2021-04-04] MEDS ORDERED: ONDA4TAB11 PO (11:04)
[2021-04-04 11:18] VITALS: BP 145/100
[2021-04-05] MEDS ORDERED: PROM25SU44 RC (14:00)
== END 2021-04-04 11:17 | disposition home or self-care (01) ==
LOC: EDUNIT# 08:45 → ER 08:47
DX: R11.15 Cyclical vomiting syndrome unrelated to migraine (principal); K21.9 Gastro-esophageal reflux disease without esophagitis; F41.9 Anxiety disorder, unspecified; Z79.899 Other long term (current) drug therapy
CPT/HCPCS: 36415; 80048

== ENCOUNTER 2021-04-05 10:55 | Emergency (ER) | payer SELFPAY ==
[~2021-04-05] VITALS: Ht 157 cm; Wt 54.0 kg
[2021-04-05] MEDS ORDERED: LORazepam INJ 2 MG/ML (ATIVAN) VIAL IVP ONE (12:00)
[2021-04-05] MEDS ORDERED: ONDANSETRON 4 MG/2 ML (SDV) Z0FRAN IVP ONE (12:00)
[2021-04-05] MEDS ORDERED: LACTATED RINGERS 1,000 ML IV ONE (12:00)
[2021-04-05 12:19] LABS: BASOPHILS % (AUTO) 0 % (0-10); EOSINOPHILS % (AUTO) 0 % (0-10); HEMATOCRIT 40 % (35-52); HEMOGLOBIN 13.6 g/dL (11.5-16.0); LYMPHOCYTES # (AUTO) 1.3 10^3/uL (1.0-4.0); LYMPHOCYTES % (AUTO) 13 % (12-44); MEAN CORPUSCULAR HEMOGLOBIN 31 pg (25-34); MEAN CORPUSCULAR HGB CONC 34 g/dL (32-36); MEAN CORPUSCULAR VOLUME 91 fL (80-99); MEAN PLATELET VOLUME 10.7 fL (9.0-12.2); MONOCYTES # (AUTO) 0.6 10^3/uL (0.0-1.0); MONOCYTES % (AUTO) 6 % (0-12); NEUTROPHILS # (AUTO) 8.2 10^3/uL (1.8-7.8); NEUTROPHILS % (AUTO) 81 % (42-75); PLATELET COUNT 338 10^3/uL (130-400); WHITE BLOOD COUNT 10.2 10^3/uL (4.3-11.0)
[2021-04-05 12:27] LABS: ALBUMIN 4.7 GM/DL (3.2-4.5); CHLORIDE 98 MMOL/L (98-107); POTASSIUM 3.1 MMOL/L (3.6-5.0); SODIUM 137 MMOL/L (135-145)
[2021-04-05 12:28] LABS: CALCIUM 9.9 MG/DL (8.5-10.1)
[2021-04-05 12:29] LABS: GLUCOSE 141 MG/DL (70-105); TOTAL PROTEIN 7.5 GM/DL (6.4-8.2)
[2021-04-05 12:30] LABS: CARBON DIOXIDE 28 MMOL/L (21-32)
[2021-04-05 12:31] LABS: BILIRUBIN,TOTAL 1.5 MG/DL (0.1-1.0)
[2021-04-05 12:33] LABS: ALKALINE PHOSPHATASE 66 U/L (40-136); CREATININE SERUM 0.77 MG/DL (0.60-1.30); GFR ESTIMATED > 60
[2021-04-05 12:34] LABS: BUN/CREATININE RATIO 14
[2021-04-05 12:36] LABS: BILIRUBIN,URINE NEGATIVE (NEGATIVE); CLARITY,URINE CLEAR; COLOR,URINE YELLOW; GLUCOSE, URINE (UA) NEGATIVE (NEGATIVE); KETONES,URINE 1+ (NEGATIVE); LEUKOCYTE ESTERASE ,URINE NEGATIVE (NEGATIVE); NITRITE,URINE NEGATIVE (NEGATIVE); PH,URINE >=9.0 (5-9); PROTEIN,URINE 1+ (NEGATIVE)
[2021-04-05 12:36] LABS: ALANINE AMINOTRANSFERASE 12 U/L (0-55); MAGNESIUM 1.9 MG/DL (1.6-2.4)
[2021-04-05] MEDS ORDERED: FAMOTIDINE 20MG/2ML IV (PEPCID) IVP ONE (13:00)
[2021-04-05] MEDS ORDERED: PROMETHAZINE INJ 25 MG/ML (PHENERGAN) AMP IVP ONE (13:00)
[2021-04-05] MEDS ORDERED: KCL 10 MEQ TAB (MICRO K) PO ONE (13:00)
[2021-04-05 13:29] LABS: AMORPHOUS SEDIMENT,UR RARE AMOR PHOSPHATE /LPF; BACTERIA,URINE NEGATIVE /HPF
[2021-04-05] MEDS ORDERED: PROM25SU44 RC (14:00)
--- NOTE | 2021-04-05 14:00 | ED Abdominal Pain ---
General Chief Complaint: Abdominal/GI Problems Stated Complaint: N/V ANXIETY Nursing Triage Note: ARRIVED VIA AMB TO ROOM 06. WAS HERE YESTERDAY ET STATES SHE IS NOT BETTER. N/V/ABDPAIN. PT STATES HER LOWER BACK IS HURTING AND THINK SHE HAS A UTI. PT SMOKES POT DAILY. Sepsis Screen: No Definite Risk Source of Information: Patient Exam Limitations: No Limitations Allergies and Home Medications Allergies Coded Allergies: No Known Drug Allergies (Unverified , 05/07/10) Home Medications Capsaicin 60 Gm Cream..g., 60 GM TP TID Prescribed by: SHANEL ALY on 02/17/21 0954 Escitalopram Oxalate 10 Mg Tablet, 10 MG PO DAILY Prescribed by: VICK WALDRON on 01/10/21 0955 Nitrofurantoin Monohyd/M-Cryst 100 Mg Capsule, 1 TAB PO BID Prescribed by: SHANEL ALY on 02/17/21 1005 Ondansetron 4 Mg Tab.rapdis, 4 MG SL Q4H PRN for NAUSEA/VOMITING Prescribed by: ASHLEY GLEASON on 02/02/21 1554 Ondansetron 8 Mg Tab.rapdis, 8 MG PO Q4H PRN for NAUSEA/VOMITING Prescribed by: SHANEL ALY on 02/17/21 0952 Ondansetron 4 Mg Tab.rapdis, 4 MG PO Q8H Prescribed by: GAYLA FROST on 04/04/21 1104 Pantoprazole Sodium 40 Mg Tablet.dr, 40 MG PO DAILY Prescribed by: SHANEL ALY on 02/17/21 0952 Promethazine HCl 25 Mg Supp.rect, 25 MG RC Q8H PRN for NAUSEA/VOMITING-2ND LINE Prescribed by: ASHLEY GLEASON on 02/02/21 1554 Promethazine HCl 25 Mg Supp.rect, 25 MG RC Q6 Prescribed by: SHANEL ALY on 02/17/21 0952 Promethazine HCl 25 Mg Supp.rect, 25 MG RC Q8H PRN for NAUSEA/VOMITING-2ND LINE Prescribed by: ASHLEY GLEASON on 04/05/21 1400 Past Tsxgyng-Iytmig-Irsmwk Hx Patient Social History Alcohol Use: Denies Use Drug of Choice: MARIJUANA Smoking Status: Never a Smoker 2nd Hand Smoke Exposure: No Recent Infectious Disease Expo: No Recent Hopitalizations: No Immunizations Up To Date Tetanus Booster (TDap): Less than 5yrs PED Vaccines UTD: Yes Date of Influenza Vaccine: Aug 11, 2020 Seasonal Allergies Seasonal Allergies: No Past Medical History Surgeries: No Respiratory: No Cardiac: No Neurological: No Reproductive Disorders: No Female Reproductive Disorders: Denies Sexually Transmitted Disease: No HIV/AIDS: No Genitourinary: No Gastrointestinal: Yes (cannabis hyperemesis syndrome) Gastroesophageal Reflux Musculoskeletal: No Endocrine: No HEENT: No Loss of Vision: Denies Hearing Impairment: Denies Cancer: No Psychosocial: Yes Anxiety Integumentary: Yes Eczema Blood Disorders: No Family Medical History Alcoholism 19 FATHER 19 MOTHER No Family History of: AIDS Abdominal aortic aneurysm Homar's disease Alzheimer's disease Aphasia Arthritis Asthma Cancer of mouth Cardiovascular disease Cataracts Colon cancer Completed stroke Congenital disease Congenital heart disease Coronary thrombosis Cystic fibrosis Deafness or hearing loss Dementia Diabetes mellitus Drug abuse Dysphasia Fibrocystic disease of breast Gastroenteritis Glaucoma Headache disorder Hypercholesterolemia Hypertension Infertility Kidney disease Myocardial infarction Neoplasm Not obtainable due to adoption Osteoporosis Parkinson's disease Prostate cancer Psychosocial problem Respiratory disorder Seizure disorder Severe allergy Thyroid disease Tuberculosis Visual disorder No Pertinent Family Hx, Psychiatric Problems Physical Exam Vital Signs Vital Signs - First Documented 04/05/21 10:58 Temp 36.0 Pulse 100 Resp 16 B/P (MAP) 124/79 (94) Pulse Ox 98 O2 Delivery Room Air Capillary Refill : Less Than 3 Seconds Height/Weight/BMI Height: 5'3.00" Weight: 130lbs. 0oz. 58.136914lj; 21.00 BMI Method:Stated Procedures/Interventions Suture Size: 4-0 Progress/Results/Core Measures Results/Orders Lab Results Laboratory Tests Test 04/05/21 12:05 04/05/21 12:30 Range/Units White Blood Count 10.2 4.3-11.0 10^3/uL Red Blood Count 4.36 3.80-5.11 10^6/uL Hemoglobin 13.6 11.5-16.0 g/dL Hematocrit 40 35-52 % Mean Corpuscular Volume 91 80-99 fL Mean Corpuscular Hemoglobin 31 25-34 pg Mean Corpuscular Hemoglobin Concent 34 32-36 g/dL Red Cell Distribution Width 13.3 10.0-14.5 % Platelet Count 338 130-400 10^3/uL Mean Platelet Volume 10.7 9.0-12.2 fL Immature Granulocyte % (Auto) 0 % Neutrophils (%) (Auto) 81 H 42-75 % Lymphocytes (%) (Auto) 13 12-44 % Monocytes (%) (Auto) 6 0-12 % Eosinophils (%) (Auto) 0 0-10 % Basophils (%) (Auto) 0 0-10 % Neutrophils # (Auto) 8.2 H 1.8-7.8 10^3/uL Lymphocytes # (Auto) 1.3 1.0-4.0 10^3/uL Monocytes # (Auto) 0.6 0.0-1.0 10^3/uL Eosinophils # (Auto) 0.0 0.0-0.3 10^3/uL Basophils # (Auto) 0.0 0.0-0.1 10^3/uL Immature Granulocyte # (Auto) 0.0 0.0-0.1 10^3/uL Sodium Level 137 135-145 MMOL/L Potassium Level 3.1 L 3.6-5.0 MMOL/L Chloride Level 98 98-107 MMOL/L Carbon Dioxide Level 28 21-32 MMOL/L Anion Gap 11 5-14 MMOL/L Blood Urea Nitrogen 11 7-18 MG/DL Creatinine 0.77 0.60-1.30 MG/DL Estimat Glomerular Filtration Rate > 60 BUN/Creatinine Ratio 14 Glucose Level 141 H 70-105 MG/DL Calcium Level 9.9 8.5-10.1 MG/DL Corrected Calcium 8.5-10.1 MG/DL Magnesium Level 1.9 1.6-2.4 MG/DL Total Bilirubin 1.5 H 0.1-1.0 MG/DL Aspartate Amino Transf (AST/SGOT) 18 5-34 U/L Alanine Aminotransferase (ALT/SGPT) 12 0-55 U/L Alkaline Phosphatase 66 40-136 U/L Total Protein 7.5 6.4-8.2 GM/DL Albumin 4.7 H 3.2-4.5 GM/DL Urine Color YELLOW Urine Clarity CLEAR Urine pH >=9.0 5-9 Urine Specific [place] 1.010 L 1.016-1.022 Urine Protein 1+ H NEGATIVE Urine Glucose (UA) NEGATIVE NEGATIVE Urine Ketones 1+ H NEGATIVE Urine Nitrite NEGATIVE NEGATIVE Urine Bilirubin NEGATIVE NEGATIVE Urine Urobilinogen 1.0 < = 1.0 MG/DL Urine Leukocyte Esterase NEGATIVE NEGATIVE Urine RBC (Auto) NEGATIVE NEGATIVE Urine RBC NONE /HPF Urine WBC 2-5 /HPF Urine Crystals PRESENT H /LPF Urine Amorphous Sediment RARE ALEX PHOSPHATE H /LPF Urine Bacteria NEGATIVE /HPF Urine Casts NONE /LPF Urine Mucus MODERATE H /LPF Urine Culture Indicated NO My Orders Orders - ASHLEY TAHO MD Cbc With Automated Diff (04/05/21 11:54) Comprehensive Metabolic Panel (04/05/21 11:54) Magnesium (04/05/21 11:54) Ua Culture If Indicated (04/05/21 11:54) Ed Iv/Invasive Line Start (04/05/21 11:54) Lactated Ringers (Lr 1000 Ml Iv Solution (04/05/21 12:00) Ondansetron Injection (Zofran Injectio (04/05/21 12:00) Lorazepam Injection (Ativan Injection) (04/05/21 12:00) Promethazine Injection (Phenergan Injec (04/05/21 13:00) Potassium Chloride (Tablet) (Klor Con Ta (04/05/21 13:00) Famotidine Injection (Pepcid Injection) (04/05/21 13:00) Medications Given in ED Current Medications Medications Dose Ordered Sig/Jeannette Route Start Time Stop Time Status Last Admin Dose Admin Famotidine 20 mg ONCE ONCE IVP 04/05/21 13:00 04/05/21 13:01 DC 04/05/21 12:53 20 MG Lactated Ringer's 1,000 ml @ 0 mls/hr Q0M ONCE IV 04/05/21 12:00 04/05/21 12:01 DC 04/05/21 12:11 1,000 MLS/HR Lorazepam 1 mg ONCE ONCE IVP 04/05/21 12:00 04/05/21 12:01 DC 04/05/21 12:08 1 MG Ondansetron HCl 8 mg ONCE ONCE IVP 04/05/21 12:00 04/05/21 12:01 DC 04/05/21 12:07 8 MG Potassium Chloride 20 meq ONCE ONCE PO 04/05/21 13:00 04/05/21 13:01 DC 04/05/21 14:01 20 MEQ Promethazine HCl 25 mg ONCE ONCE IVP 04/05/21 13:00 04/05/21 13:01 DC 04/05/21 12:55 25 MG Vital Signs/I&O 04/05/21 04/05/21 10:58 14:02 Temp 36.0 Pulse 100 86 Resp 16 16 B/P (MAP) 124/79 (94) 120/72 Pulse Ox 98 97 O2 Delivery Room Air Room Air Blood Pressure Mean: 94 Initial ECG Impression Date: April 05, 2021 Initial ECG Impression Time: 11:48 Initial ECG Rate: 97 Initial ECG Rhythm: Normal Sinus Initial ECG Intervals: Normal Initial ECG Impression: Normal Comment Normal sinus rhythm with no ST elevation or depression. No abnormal intervals or axis deviation. Departure Impression Primary Impression: Cannabis hyperemesis syndrome concurrent with and due to cannabis dependence Disposition: 01 HOME, SELF-CARE Condition: Improved Departure-Patient Inst. Decision time for Depature: 13:57 Referrals: [facility] (PCP/Family) Primary Care Physician Patient Instructions: Abdominal Pain, Adult ED Add. Discharge Instructions: Start with a clear liquid diet and gradually advance your diet with small quantities of bland food as tolerated. Use the Zofran as previously prescribed for your primary nausea control. Use the Phenergan suppository as as prescribed for nausea not controlled on Zofran. Keep your appointment with behavioral health to help with anxiety and cannabis dependence. Use an antacid such as Pepcid (famotidine) or omeprazole purchased [id number]. Call with questions or concerns. Return to the ER if you have worsening symptoms. All discharge instructions reviewed with patient and/or family. Voiced understanding. Scripts Promethazine HCl (Promethazine Suppository) 25 Mg Supp.rect 25 MG RC Q8H PRN for NAUSEA/VOMITING-2ND LINE, #10 SUPP.RECT Prov: ASHLEY THAO MD 04/05/21 ASHLEY THAO MD April 05, 2021 14:00
[2021-04-05 14:02] VITALS: BP 120/72
== END 2021-04-05 14:02 | disposition home or self-care (01) ==
LOC: EDUNIT# 10:55 → ER 10:56
DX: R11.2 Nausea with vomiting, unspecified (principal); F12.20 Cannabis dependence, uncomplicated; K21.9 Gastro-esophageal reflux disease without esophagitis; F41.9 Anxiety disorder, unspecified; Z79.899 Other long term (current) drug therapy
CPT/HCPCS: 36415; 80053; 81000; 83735; 85025; 93005

== ENCOUNTER 2021-04-06 14:40 | Emergency (ER) | payer SELFPAY ==
[~2021-04-06] VITALS: Ht 167.7 cm; Wt 54.5 kg
[2021-04-06] MEDS ORDERED: NS IV 1000 ML 1,000 ML IV SCH (15:00)
[2021-04-06] MEDS ORDERED: HALOPERIDOL 5 MG/ML (HALDOL) VIAL IV ONE (15:00)
[2021-04-06 15:09] LABS: CHLORIDE 101 MMOL/L (98-107); POTASSIUM 3.2 MMOL/L (3.6-5.0); SODIUM 139 MMOL/L (135-145)
[2021-04-06 15:11] LABS: CALCIUM 9.9 MG/DL (8.5-10.1); GLUCOSE 116 MG/DL (70-105)
[2021-04-06 15:12] LABS: CARBON DIOXIDE 24 MMOL/L (21-32)
[2021-04-06 15:15] LABS: CREATININE SERUM 0.87 MG/DL (0.60-1.30); GFR ESTIMATED > 60
[2021-04-06 15:16] LABS: BUN/CREATININE RATIO 11
[2021-04-06] MEDS ORDERED: diphenhydrAMINE 50 MG/ML INJ (BENADRYL) IVP ONE (15:30)
[2021-04-06] MEDS ORDERED: LORazepam INJ 2 MG/ML (ATIVAN) VIAL IVP ONE (15:30)
--- NOTE | 2021-04-06 15:43 | ED GI ---
General Chief Complaint: Abdominal/GI Problems Stated Complaint: N/V ANXIETY Nursing Triage Note: AMB TO ROOM WITH VOMITING FROM SMOKING MAUIJUANA. WAS SEEN YESTERDAY IN ER FOR SAMETHING. WAS GIVEN RX BUT REPORTS COULD NOT GET IT FILLED BECUSE IT WAS TO EXPENSIVE Sepsis Screen: No Definite Risk Source of Information: Patient Exam Limitations: No Limitations (KARIME BROUSSARD APRN) History of Present Illness Date Seen by Provider: April 06, 2021 Time Seen by Provider: 15:43 Initial Comments To ER with nausea vomiting and abdominal pain. This will be her third visit in 3 days for the same. She was given a prescription for Phenergan yesterday but unable to afford it. She has hyperemesis cannabinoid recurrently and continues to smoke marijuana most recently this morning. She had an appointment with mental health yesterday for her anxiety but missed that appointment to come here and it has now been rescheduled for 28 April. Timing/Duration: 2-3 Days Severity/Quality: Moderate Location: Generalized Abdomen Radiation: No Radiation Activities at Onset: None Associated Symptoms: Denies Symptoms (KARIME BROUSSARD APRN) Allergies and Home Medications Allergies Coded Allergies: No Known Drug Allergies (Unverified , 05/07/10) Home Medications Capsaicin 60 Gm Cream..g., 60 GM TP TID Prescribed by: SHANEL ALY on 02/17/21 0954 Escitalopram Oxalate 10 Mg Tablet, 10 MG PO DAILY Prescribed by: VICK WALDRON on 01/10/21 0955 Nitrofurantoin Monohyd/M-Cryst 100 Mg Capsule, 1 TAB PO BID Prescribed by: SHANEL ALY on 02/17/21 1005 Ondansetron 4 Mg Tab.rapdis, 4 MG SL Q4H PRN for NAUSEA/VOMITING Prescribed by: ASHLEY GLEASON on 02/02/21 1554 Ondansetron 8 Mg Tab.rapdis, 8 MG PO Q4H PRN for NAUSEA/VOMITING Prescribed by: SHANEL ALY on 02/17/21 0952 Ondansetron 4 Mg Tab.rapdis, 4 MG PO Q8H Prescribed by: GAYLA FROST on 04/04/21 1104 Pantoprazole Sodium 40 Mg Tablet.dr, 40 MG PO DAILY Prescribed by: SHANEL ALY on 02/17/21 0952 Promethazine HCl 25 Mg Supp.rect, 25 MG RC Q8H PRN for NAUSEA/VOMITING-2ND LINE Prescribed by: ASHLEY GLEASON on 02/02/21 1554 Promethazine HCl 25 Mg Supp.rect, 25 MG RC Q6 Prescribed by: SHANEL ALY on 02/17/21 0952 Promethazine HCl 25 Mg Supp.rect, 25 MG RC Q8H PRN for NAUSEA/VOMITING-2ND LINE Prescribed by: ASHLEY GLEASON on 04/05/21 1400 Patient Home Medication List Home Medication List Reviewed: Yes (KARIME BROUSSARD APRN) Review of Systems Review of Systems Constitutional: see HPI EENTM: No Symptoms Reported Respiratory: No Symptoms Reported Cardiovascular: No Symptoms Reported Gastrointestinal: See HPI, Abdominal Pain, Nausea, Vomiting Genitourinary: No Symptoms Reported Musculoskeletal: no symptoms reported Skin: no symptoms reported Psychiatric/Neurological: See HPI, Anxiety Endocrine: No Symptoms Reported Hematologic/Lymphatic: No Symptoms Reported (KARIME BROUSSARD APRN) Past Rsatrbr-Rtrlhm-Ymmndf Hx Patient Social History Alcohol Use: Denies Use Drug of Choice: MARIJUANA Smoking Status: Never a Smoker Type Used: Cigars 2nd Hand Smoke Exposure: No Recent Infectious Disease Expo: No Recent Hopitalizations: No (KARIME BROUSSARD APRN) Immunizations Up To Date Tetanus Booster (TDap): Less than 5yrs PED Vaccines UTD: Yes Date of Influenza Vaccine: Aug 11, 2020 (KARIME BROUSSARD APRN) Seasonal Allergies Seasonal Allergies: No (KARIME BROUSSARD APRN) Past Medical History Surgeries: No Respiratory: No Cardiac: No Neurological: No : No Reproductive Disorders: No Female Reproductive Disorders: Denies Sexually Transmitted Disease: No HIV/AIDS: No Genitourinary: No Gastrointestinal: Yes (cannabis hyperemesis syndrome) Gastroesophageal Reflux Musculoskeletal: No Endocrine: No HEENT: No Loss of Vision: Denies Hearing Impairment: Denies Cancer: No Psychosocial: Yes Anxiety Integumentary: Yes Eczema Blood Disorders: No (KARIME BROUSSARD APRN) Family Medical History Alcoholism 19 FATHER 19 MOTHER No Family History of: AIDS Abdominal aortic aneurysm Andrews's disease Alzheimer's disease Aphasia Arthritis Asthma Cancer of mouth Cardiovascular disease Cataracts Colon cancer Completed stroke Congenital disease Congenital heart disease Coronary thrombosis Cystic fibrosis Deafness or hearing loss Dementia Diabetes mellitus Drug abuse Dysphasia Fibrocystic disease of breast Gastroenteritis Glaucoma Headache disorder Hypercholesterolemia Hypertension Infertility Kidney disease Myocardial infarction Neoplasm Not obtainable due to adoption Osteoporosis Parkinson's disease Prostate cancer Psychosocial problem Respiratory disorder Seizure disorder Severe allergy Thyroid disease Tuberculosis Visual disorder No Pertinent Family Hx, Psychiatric Problems (KARIME BROUSSARD APRN) Physical Exam Vital Signs Vital Signs - First Documented 04/06/21 14:47 Temp 36.5 Pulse 99 Resp 18 B/P (MAP) 149/91 (110) Pulse Ox 97 O2 Delivery Room Air (ASHLEY THAO MD) Vital Signs Capillary Refill : Less Than 3 Seconds (KARIME BROUSSARD APRN) Height/Weight/BMI Height: 5'3.00" Weight: 130lbs. 0oz. 58.519706ir; 19.00 BMI Method:Stated General Appearance: WD/WN, no apparent distress HEENT: PERRL/EOMI, normal ENT inspection Neck: non-tender, full range of motion Respiratory: no respiratory distress, no accessory muscle use Cardiovascular: regular rate, rhythm, no murmur Gastrointestinal: normal bowel sounds, non tender, soft Extremities: normal range of motion, non-tender Neurologic/Psychiatric: alert, normal mood/affect, oriented x 3 Skin: normal color, warm/dry (KARIME BROUSSARD APRN) Procedures/Interventions Suture Size: 4-0 (KARIME BROUSSARD APRN) Progress/Results/Core Measures Results/Orders Lab Results Laboratory Tests Test 04/06/21 14:52 Range/Units Sodium Level 139 135-145 MMOL/L Potassium Level 3.2 L 3.6-5.0 MMOL/L Chloride Level 101 98-107 MMOL/L Carbon Dioxide Level 24 21-32 MMOL/L Anion Gap 14 5-14 MMOL/L Blood Urea Nitrogen 10 7-18 MG/DL Creatinine 0.87 0.60-1.30 MG/DL Estimat Glomerular Filtration Rate > 60 BUN/Creatinine Ratio 11 Glucose Level 116 H 70-105 MG/DL Calcium Level 9.9 8.5-10.1 MG/DL (ASHLEY THAO MD) Vital Signs/I&O 04/06/21 04/06/21 14:47 16:42 Temp 36.5 Pulse 99 100 Resp 18 18 B/P (MAP) 149/91 (110) 117/52 Pulse Ox 97 94 O2 Delivery Room Air Room Air (ASHLEY THAO MD) Blood Pressure Mean: 110 Progress Progress Note : Progress Note I was personally present in the emergency department during the care of this patient. I briefly discussed this case with Karime Broussard NP. (ASHLEY THAO MD) Departure Impression Primary Impression: Marijuana abuse Additional Impression: Cannabinoid hyperemesis syndrome Disposition: 01 HOME, SELF-CARE Condition: Improved Departure-Patient Inst. [facility]: [facility] [place] Primary Care Physician Patient Instructions: Marijuana Use and Addiction (DC) KARIME BROUSSARD APRN April 06, 2021 15:43 ASHLEY THAO MD April 07, 2021 07:53
[2021-04-06 16:42] VITALS: BP 117/52
== END 2021-04-06 16:42 | disposition home or self-care (01) ==
LOC: EDUNIT# 14:40 → ER 14:43
DX: R11.2 Nausea with vomiting, unspecified (principal); F12.10 Cannabis abuse, uncomplicated; F41.9 Anxiety disorder, unspecified; K21.9 Gastro-esophageal reflux disease without esophagitis; Z79.899 Other long term (current) drug therapy
CPT/HCPCS: 36415; 80048; 96361; 96374; 96375

== ENCOUNTER 2021-05-02 19:12 | Emergency (ER) | payer SELFPAY ==
[~2021-05-02] VITALS: Ht 168 cm; Wt 54.5 kg
[2021-05-02] MEDS ORDERED: LACTATED RINGERS 1,000 ML IV ONE ×2 (19:45→20:30)
[2021-05-02] MEDS ORDERED: PROMETHAZINE INJ 25 MG/ML (PHENERGAN) AMP IVP ONE (19:45)
--- NOTE | 2021-05-02 19:54 | ED GI ---
General Chief Complaint: Abdominal/GI Problems Stated Complaint: VOMITING Nursing Triage Note: PT STATES VOMITING FOR 5 DAYS, VOMITING CLEAR LIQUID AT TRIAGE. STATES ZOFRAN AT HOME DID NOT HELP. Sepsis Screen: No Definite Risk (HECTOR VELEZ) History of Present Illness Date Seen by Provider: May 02, 2021 Time Seen by Provider: 19:30 Initial Comments 20-year-old female seen for repeated episodes of cannabinoid induced hyperemesis reports 5 days of vomiting. She last had solid food 5 days ago. She has been trying to hydrate but with no improvement in her symptoms. She last had Zofran yesterday. She stopped using marijuana 6 days ago, cold turkey she does see Perry at [facility], she has not talked to him about stopping her drug use or having medication/rehab for assistance. Stressed the importance to call him tomorrow and he could assist with appt to see Dr. Dickerson. Timing/Duration: 5-6 Days Severity/Quality: Mild Associated Symptoms: Nausea/Vomiting, Weakness (HECTOR VELEZ) Allergies and Home Medications Allergies Coded Allergies: No Known Drug Allergies (Unverified , 05/07/10) Home Medications Capsaicin 60 Gm Cream..g., 60 GM TP TID Prescribed by: SHANEL ALY on 02/17/21 0954 Escitalopram Oxalate 10 Mg Tablet, 10 MG PO DAILY Prescribed by: VICK WALDRON on 01/10/21 0955 Nitrofurantoin Monohyd/M-Cryst 100 Mg Capsule, 1 TAB PO BID Prescribed by: SHANEL ALY on 02/17/21 1005 Ondansetron 4 Mg Tab.rapdis, 4 MG SL Q4H PRN for NAUSEA/VOMITING Prescribed by: ASHLEY GLEASON on 02/02/21 1554 Ondansetron 8 Mg Tab.rapdis, 8 MG PO Q4H PRN for NAUSEA/VOMITING Prescribed by: SHANEL ALY on 02/17/21 0952 Ondansetron 4 Mg Tab.rapdis, 4 MG PO Q8H Prescribed by: GAYLA FROST on 04/04/21 1104 Pantoprazole Sodium 40 Mg Tablet.dr, 40 MG PO DAILY Prescribed by: SHANEL ALY on 02/17/21 0952 Promethazine HCl 25 Mg Supp.rect, 25 MG RC Q8H PRN for NAUSEA/VOMITING-2ND LINE Prescribed by: ASHLEY GLEASON on 02/02/21 1554 Promethazine HCl 25 Mg Supp.rect, 25 MG RC Q6 Prescribed by: SHANEL ALY on 02/17/21 0952 Promethazine HCl 25 Mg Supp.rect, 25 MG RC Q8H PRN for NAUSEA/VOMITING-2ND LINE Prescribed by: ASHLEY GLEASON on 04/05/21 1400 Patient Home Medication List Home Medication List Reviewed: Yes (HECTOR VELEZ) Review of Systems Review of Systems Constitutional: see HPI; No dizziness, No fever; malaise, weakness Gastrointestinal: See HPI, Nausea, Poor Appetite, Poor Fluid Intake, Vomiting Genitourinary: See HPI, Flank Pain (HECTOR VELEZ) All Other Systems Reviewed Negative Unless Noted: Yes (HECTOR VELEZ) Past Ijswnib-Miiijc-Xmodht Hx Past Med/Social Hx: Reviewed Nursing Past Med/Soc Hx (HECTOR VELEZ) Patient Social History Alcohol Use: Denies Use Drug of Choice: MARIJUANA Smoking Status: Current Everyday Smoker Type Used: Cigars 2nd Hand Smoke Exposure: No Recent Infectious Disease Expo: No Recent Hopitalizations: No (HECTOR VELEZ) Immunizations Up To Date Tetanus Booster (TDap): Less than 5yrs PED Vaccines UTD: Yes Date of Influenza Vaccine: Aug 11, 2020 (HECTOR VELEZ) Seasonal Allergies Seasonal Allergies: No (HECTOR VELEZ) Past Medical History Surgeries: No Respiratory: No Cardiac: No Neurological: No : No Last Menstrual Period: Apr 18, 2021 Reproductive Disorders: No Female Reproductive Disorders: Denies Sexually Transmitted Disease: No HIV/AIDS: No Genitourinary: No Gastrointestinal: Yes (cannabis hyperemesis syndrome) Gastroesophageal Reflux Musculoskeletal: No Endocrine: No HEENT: No Loss of Vision: Denies Hearing Impairment: Denies Cancer: No Psychosocial: Yes Anxiety Integumentary: Yes Eczema Blood Disorders: No (HECTOR VELEZ) Family Medical History Alcoholism 19 FATHER 19 MOTHER No Family History of: AIDS Abdominal aortic aneurysm Homar's disease Alzheimer's disease Aphasia Arthritis Asthma Cancer of mouth Cardiovascular disease Cataracts Colon cancer Completed stroke Congenital disease Congenital heart disease Coronary thrombosis Cystic fibrosis Deafness or hearing loss Dementia Diabetes mellitus Drug abuse Dysphasia Fibrocystic disease of breast Gastroenteritis Glaucoma Headache disorder Hypercholesterolemia Hypertension Infertility Kidney disease Myocardial infarction Neoplasm Not obtainable due to adoption Osteoporosis Parkinson's disease Prostate cancer Psychosocial problem Respiratory disorder Seizure disorder Severe allergy Thyroid disease Tuberculosis Visual disorder No Pertinent Family Hx, Psychiatric Problems (HECTOR VELEZP) Physical Exam Vital Signs Vital Signs - First Documented 05/02/21 19:30 Temp 37.1 Pulse 91 Resp 20 B/P (MAP) 112/74 (87) Pulse Ox 99 O2 Delivery Room Air (ASHLEY THAO MD) Vital Signs Capillary Refill : Less Than 3 Seconds (HECTOR VELEZ) Height/Weight/BMI Height: 5'3.00" Weight: 130lbs. 0oz. [id number]; 19.00 BMI Method:Stated General Appearance: WD/WN, mild distress HEENT: PERRL/EOMI, normal ENT inspection, TMs normal, pharynx normal, other (Oral mucosa pink and moist) Neck: non-tender, full range of motion, supple, normal inspection Respiratory: chest non-tender, lungs clear, normal breath sounds Cardiovascular: normal peripheral pulses, regular rate, rhythm Gastrointestinal: normal bowel sounds, non tender, soft Extremities: normal range of motion, non-tender, normal inspection, no pedal edema Back: normal inspection, no CVA tenderness Neurologic/Psychiatric: no motor/sensory deficits, alert, normal mood/affect, oriented x 3 Skin: normal color, warm/dry (HECTOR VELEZ) Procedures/Interventions Suture Size: 4-0 (ROSIEHECTOR) Progress/Results/Core Measures Results/Orders Lab Results Laboratory Tests Test 05/02/21 19:40 05/02/21 21:40 Range/Units Glucometer 121 H 70-110 MG/DL Urine Color YELLOW Urine Clarity CLEAR Urine pH 8.5 5-9 Urine Specific [place] 1.015 L 1.016-1.022 Urine Protein 1+ H NEGATIVE Urine Glucose (UA) NEGATIVE NEGATIVE Urine Ketones 2+ H NEGATIVE Urine Nitrite NEGATIVE NEGATIVE Urine Bilirubin NEGATIVE NEGATIVE Urine Urobilinogen 0.2 < = 1.0 MG/DL Urine Leukocyte Esterase NEGATIVE NEGATIVE Urine RBC (Auto) NEGATIVE NEGATIVE Urine RBC RARE /HPF Urine WBC NONE /HPF Urine Squamous Epithelial Cells 10-25 H /HPF Urine Crystals NONE /LPF Urine Bacteria NEGATIVE /HPF Urine Casts NONE /LPF Urine Mucus NEGATIVE /LPF Urine Culture Indicated NO Urine Opiates Screen NEGATIVE NEGATIVE Urine Oxycodone Screen NEGATIVE NEGATIVE Urine Methadone Screen NEGATIVE NEGATIVE Urine Propoxyphene Screen NEGATIVE NEGATIVE Urine Barbiturates Screen NEGATIVE NEGATIVE Ur Tricyclic Antidepressants Screen NEGATIVE NEGATIVE Urine Phencyclidine Screen NEGATIVE NEGATIVE Urine Amphetamines Screen NEGATIVE NEGATIVE Urine Methamphetamines Screen NEGATIVE NEGATIVE Urine Benzodiazepines Screen NEGATIVE NEGATIVE Urine Cocaine Screen NEGATIVE NEGATIVE Urine Cannabinoids Screen POSITIVE H NEGATIVE (ASHLEY THAO MD) Medications Given in ED Current Medications Medications Dose Ordered Sig/Jeannette Route Start Time Stop Time Status Last Admin Dose Admin Lactated Ringer's 1,000 ml @ 0 mls/hr Q0M ONCE IV 05/02/21 19:45 05/02/21 19:46 DC 05/02/21 19:52 1,000 MLS/HR Lactated Ringer's 1,000 ml @ 0 mls/hr Q0M ONCE IV 05/02/21 20:30 05/02/21 20:31 DC 05/02/21 20:35 1,000 MLS/HR Lorazepam 2 mg ONCE ONCE IVP 05/02/21 20:15 05/02/21 20:16 DC 05/02/21 20:25 2 MG Promethazine HCl 25 mg ONCE ONCE IVP 05/02/21 19:45 05/02/21 19:46 DC 05/02/21 19:52 25 MG (ASHLEY THAO MD) Vital Signs/I&O 05/02/21 05/02/21 19:30 21:48 Temp 37.1 Pulse 91 96 Resp 20 20 B/P (MAP) 112/74 (87) 134/91 (87) Pulse Ox 99 100 O2 Delivery Room Air Room Air 05/03/21 00:00 Intake Total 2000 ml Balance 2000 ml (ASHLEY THAO MD) Blood Pressure Mean: 87 Progress Progress Note : Time: 19:30 Progress Note Patient seen and evaluated, will obtain labs and give LR 1 L per IV. Phenergan 25 mg IV for nausea and vomiting. 2014 patient unable to urinate. Complaining of anxiety will give Ativan 2 mg IV. 2029 patient ambulated to bathroom reports no urine output. Will give LR second liter IV. Spoke to Perry Cagle APRN at [facility], he will see her tomorrow at 10:00 am and get her in with Dr. Dickerson for medication assistance. 2114 no further vomiting, reports to be feeling better. She is calling her sister for a ride. Discharge instructions and return precautions reviewed with the patient. All questions answered. (HECTOR VELEZ) Departure Impression Primary Impression: Cannabinoid hyperemesis syndrome Additional Impressions: Nausea and vomiting Qualified Codes: R11.2 - Nausea with vomiting, unspecified Dehydration Substance abuse Disposition: HOME, SELF-CARE Condition: Stable Departure-Patient Inst. Decision time for Depature: 21:15 (HECTOR VELEZ) Referrals: [facility] (PCP/Family) Primary Care Physician Patient Instructions: Marijuana Use and Addiction (DC) Add. Discharge Instructions: See Perry at [facility] tomorrow (05/03/21) at 10:00 am. Keep avoiding Marijuana use, you are doing great. Each day is one more clean! Use the phenergan for nausea and vomiting, push fluids to stay hydrated. Return to the emergency department for new, urgent healthcare needs. All discharge instructions reviewed with patient and/or family. Voiced understanding. Attending physician note: I was physically present in the emergency department as attending physician during the care of this patient, but I was not directly involved in the care of this patient or involved in the decision making process during this case. (ASHLEY THAO MD) Copy Copies To 1: FRANCISCO DICKERSON MD, AMY ARNP May 02, 2021 19:54 ASHLEY THAO MD May 03, 2021 04:26
[2021-05-02] MEDS ORDERED: LORazepam INJ 2 MG/ML (ATIVAN) VIAL IVP ONE (20:15)
[2021-05-02] MEDS ORDERED: RX-PHENERGAN 25 MG SUPP PPK#3 PR STA (21:26)
[2021-05-02 21:44] LABS: BILIRUBIN,URINE NEGATIVE (NEGATIVE); CLARITY,URINE CLEAR; COLOR,URINE YELLOW; GLUCOSE, URINE (UA) NEGATIVE (NEGATIVE); KETONES,URINE 2+ (NEGATIVE); LEUKOCYTE ESTERASE ,URINE NEGATIVE (NEGATIVE); NITRITE,URINE NEGATIVE (NEGATIVE); PH,URINE 8.5 (5-9); PROTEIN,URINE 1+ (NEGATIVE)
[2021-05-02 21:48] VITALS: BP 134/91
[2021-05-02 21:56] LABS: BACTERIA,URINE NEGATIVE /HPF; RBC,URINE RARE /HPF
[2021-05-02 22:08] LABS: AMPHETAMINE SCREEN, URINE NEGATIVE (NEGATIVE); BARBITURATE SCREEN URINE NEGATIVE (NEGATIVE); BENZODIAZEPINES SCREEN URINE NEGATIVE (NEGATIVE); CANNABINOID SCREEN, URINE POSITIVE (NEGATIVE); COCAINE SCREEN URINE NEGATIVE (NEGATIVE); METHADONE STAT NEGATIVE (NEGATIVE); METHAMPHETAMINE SCREEN URINE S NEGATIVE (NEGATIVE); OPIATE SCREEN URINE NEGATIVE (NEGATIVE); OXYCODONE STAT NEGATIVE (NEGATIVE); PROPOXYPHENE STAT NEGATIVE (NEGATIVE); TRICYCLIC ANTIDEPRESSANTS SCRE NEGATIVE (NEGATIVE)
== END 2021-05-02 21:52 | disposition home or self-care (01) ==
LOC: EDUNIT# 19:12 → ER 19:14
DX: R11.2 Nausea with vomiting, unspecified (principal); F12.10 Cannabis abuse, uncomplicated; E86.0 Dehydration; K21.9 Gastro-esophageal reflux disease without esophagitis; F41.9 Anxiety disorder, unspecified; F17.290 Nicotine dependence, other tobacco product, uncomplicated; Z79.899 Other long term (current) drug therapy
CPT/HCPCS: 80306; 81000; 82947

== ENCOUNTER 2021-05-28 02:25 | Emergency (ER) | payer SELFPAY ==
[~2021-05-28] VITALS: Ht 160 cm; Wt 50.0 kg
--- NOTE | 2021-05-28 02:35 | ED GI ---
General Chief Complaint: Abdominal/GI Problems Stated Complaint: VOMITING/DEHYDRATION Source of Information: Patient Exam Limitations: No Limitations (VIVIAN SMITH) History of Present Illness Date Seen by Provider: May 28, 2021 Time Seen by Provider: 02:28 Initial Comments Patient to the ER by EMS from home with chief complaint of 3 days of intractable nausea and vomiting. She has a history hyperemesis syndrome with pertinent history of chronic cannabis use. She denies any fevers or chills. She is having all over abdominal pain more in the lower bilateral quadrants. She has some dysuria. She denies shortness of air cough or chest pain. She has been on omeprazole and ondansetron. She says for the past couple doses of ondansetron she has vomited despite taking it and so decided to come in. She says Phenergan in the past has helped her. (VIVIAN SMITH) Allergies and Home Medications Allergies Coded Allergies: No Known Drug Allergies (Unverified , 05/07/10) Home Medications Capsaicin 60 Gm Cream..g., 60 GM TP TID Prescribed by: SHANEL ALY on 02/17/21 0954 Capsaicin 60 Gm Cream..g., 60 GM TP TID Prescribed by: SHANEL ALY on 05/28/21 0614 Escitalopram Oxalate 10 Mg Tablet, 10 MG PO DAILY Prescribed by: VICK WALDRON on 01/10/21 0955 Nitrofurantoin Monohyd/M-Cryst 100 Mg Capsule, 1 TAB PO BID Prescribed by: SHANEL ALY on 02/17/21 1005 Ondansetron 4 Mg Tab.rapdis, 4 MG SL Q4H PRN for NAUSEA/VOMITING Prescribed by: ASHLEY GLEASON on 02/02/21 1554 Ondansetron 8 Mg Tab.rapdis, 8 MG PO Q4H PRN for NAUSEA/VOMITING Prescribed by: SHANEL ALY on 02/17/21 0952 Ondansetron 4 Mg Tab.rapdis, 4 MG PO Q8H Prescribed by: GAYLA FROST on 04/04/21 1104 Ondansetron 8 Mg Tab.rapdis, 8 MG PO Q4H PRN for NAUSEA/VOMITING Prescribed by: SHANEL ALY on 05/28/21 0614 Pantoprazole Sodium 40 Mg Tablet.dr, 40 MG PO DAILY Prescribed by: SHANEL ALY on 02/17/21 0952 Promethazine HCl 25 Mg Supp.rect, 25 MG RC Q8H PRN for NAUSEA/VOMITING-2ND LINE Prescribed by: ASHLEY GLEASON on 02/02/21 1554 Promethazine HCl 25 Mg Supp.rect, 25 MG RC Q6 Prescribed by: SHANEL ALY on 02/17/21 0952 Promethazine HCl 25 Mg Supp.rect, 25 MG RC Q8H PRN for NAUSEA/VOMITING-2ND LINE Prescribed by: ASHLEY GLEASON on 04/05/21 1400 Promethazine HCl 25 Mg Supp.rect, 25 MG RC Q6 Prescribed by: SHANEL ALY on 05/28/21 0614 Patient Home Medication List Home Medication List Reviewed: Yes (VIVIAN SMITH) Review of Systems Review of Systems Constitutional: No chills, No fever EENTM: No Blurred Vision, No Double Vision Respiratory: Denies Cough, Denies Shortness of Air Cardiovascular: Denies Chest Pain, Denies Edema, Denies Lightheadedness Gastrointestinal: Denies Abdomen Distended; Abdominal Pain; Denies Constipated, Denies Diarrhea; Nausea, Poor Fluid Intake; Denies Rectal Bleeding; Vomiting Genitourinary: Denies Burning, Denies Discharge, Denies Drainage Musculoskeletal: No back pain, No joint pain Skin: No pruritus, No rash (VIVIAN SMITH) All Other Systems Reviewed Negative Unless Noted: Yes (VIVIAN SMITH) Past Ayoewpb-Mdsphq-Ywadxv Hx Patient Social History Tobacco Use?: No Use of E-Cig and/or Vaping dev: No Substance use?: Yes Substance type: Marijuana Alcohol Use?: No (VIVIAN SMITH) Immunizations Up To Date Tetanus Booster (TDap): Less than 5yrs PED Vaccines UTD: Yes (VIVIAN SMITH) Seasonal Allergies Seasonal Allergies: No (VIVIAN SMITH) Past Medical History Surgeries: No Respiratory: No Cardiac: No Neurological: No Reproductive Disorders: No Female Reproductive Disorders: Denies Sexually Transmitted Disease: No HIV/AIDS: No Genitourinary: No Gastrointestinal: Yes (cannabis hyperemesis syndrome) Gastroesophageal Reflux Musculoskeletal: No Endocrine: No HEENT: No Loss of Vision: Denies Hearing Impairment: Denies Cancer: No Psychosocial: Yes Anxiety Integumentary: Yes Eczema Blood Disorders: No (VIVIAN SMITH) Family Medical History Alcoholism 19 FATHER 19 MOTHER No Family History of: AIDS Abdominal aortic aneurysm Homar's disease Alzheimer's disease Aphasia Arthritis Asthma Cancer of mouth Cardiovascular disease Cataracts Colon cancer Completed stroke Congenital disease Congenital heart disease Coronary thrombosis Cystic fibrosis Deafness or hearing loss Dementia Diabetes mellitus Drug abuse Dysphasia Fibrocystic disease of breast Gastroenteritis Glaucoma Headache disorder Hypercholesterolemia Hypertension Infertility Kidney disease Myocardial infarction Neoplasm Not obtainable due to adoption Osteoporosis Parkinson's disease Prostate cancer Psychosocial problem Respiratory disorder Seizure disorder Severe allergy Thyroid disease Tuberculosis Visual disorder No Pertinent Family Hx, Psychiatric Problems (VIVIAN SMITH) Physical Exam Vital Signs Vital Signs - First Documented 05/28/21 02:34 Temp 37.5 Pulse 94 Resp 24 B/P (MAP) 154/78 (103) Pulse Ox 99 O2 Delivery Room Air (SHEEBA,SHANEL K DO) Vital Signs Capillary Refill : (VIVIAN MSITH) Height/Weight/BMI Height: 5'3.00" Weight: 130lbs. 0oz. 58.712152ht; 19.00 BMI Method:Stated General Appearance: WD/WN HEENT: PERRL/EOMI, pharynx normal Neck: full range of motion, normal inspection Respiratory: lungs clear, normal breath sounds, no respiratory distress, no accessory muscle use Cardiovascular: normal peripheral pulses, regular rate, rhythm Peripheral Pulses: 2+ Radial Pulses (R), 2+ Radial Pulses (L) Gastrointestinal: normal bowel sounds, soft, tenderness (All 4 quadrants) Extremities: normal range of motion, normal capillary refill Neurologic/Psychiatric: alert, normal mood/affect, oriented x 3 Skin: normal color, warm/dry (VIVIAN SMITH) Procedures/Interventions Suture Size: 4-0 (VIVIAN SMITH) Progress/Results/Core Measures Results/Orders Lab Results Laboratory Tests Test 05/28/21 02:30 Range/Units White Blood Count 12.6 H 4.3-11.0 10^3/uL Red Blood Count 4.50 3.80-5.11 10^6/uL Hemoglobin 14.2 11.5-16.0 g/dL Hematocrit 41 35-52 % Mean Corpuscular Volume 91 80-99 fL Mean Corpuscular Hemoglobin 32 25-34 pg Mean Corpuscular Hemoglobin Concent 35 32-36 g/dL Red Cell Distribution Width 12.7 10.0-14.5 % Platelet Count 438 H 130-400 10^3/uL Mean Platelet Volume 11.2 9.0-12.2 fL Immature Granulocyte % (Auto) 0 % Neutrophils (%) (Auto) 83 H 42-75 % Lymphocytes (%) (Auto) 11 L 12-44 % Monocytes (%) (Auto) 5 0-12 % Eosinophils (%) (Auto) 0 0-10 % Basophils (%) (Auto) 0 0-10 % Neutrophils # (Auto) 10.4 H 1.8-7.8 10^3/uL Lymphocytes # (Auto) 1.4 1.0-4.0 10^3/uL Monocytes # (Auto) 0.7 0.0-1.0 10^3/uL Eosinophils # (Auto) 0.0 0.0-0.3 10^3/uL Basophils # (Auto) 0.0 0.0-0.1 10^3/uL Immature Granulocyte # (Auto) 0.0 0.0-0.1 10^3/uL Sodium Level 143 135-145 MMOL/L Potassium Level 3.5 L 3.6-5.0 MMOL/L Chloride Level 102 98-107 MMOL/L Carbon Dioxide Level 21 21-32 MMOL/L Anion Gap 20 H 5-14 MMOL/L Blood Urea Nitrogen 15 7-18 MG/DL Creatinine 0.95 0.60-1.30 MG/DL Estimat Glomerular Filtration Rate > 60 BUN/Creatinine Ratio 16 Glucose Level 151 H 70-105 MG/DL Calcium Level 10.8 H 8.5-10.1 MG/DL Corrected Calcium 8.5-10.1 MG/DL Magnesium Level 1.7 1.6-2.4 MG/DL Total Bilirubin 1.5 H 0.1-1.0 MG/DL Aspartate Amino Transf (AST/SGOT) 14 5-34 U/L Alanine Aminotransferase (ALT/SGPT) 14 0-55 U/L Alkaline Phosphatase 72 40-136 U/L Total Protein 8.1 6.4-8.2 GM/DL Albumin 5.1 H 3.2-4.5 GM/DL Serum Test, Qualitative NEGATIVE NEGATIVE Serum Alcohol < 10 <10 MG/DL (SHANEL ALY DO) My Orders Orders - SHANEL ALY DO Hcg,Qualitative Serum (05/28/21 06:24) (SHANEL ALY DO) Medications Given in ED Current Medications Medications Dose Ordered Sig/Jeannette Route Start Time Stop Time Status Last Admin Dose Admin Diphenhydramine HCl 25 mg ONCE ONCE IVP 05/28/21 02:45 05/28/21 02:46 DC 05/28/21 03:14 25 MG Famotidine 20 mg ONCE ONCE IVP 05/28/21 02:45 05/28/21 02:46 DC 05/28/21 03:15 20 MG Hydroxyzine Pamoate 25 mg ONCE ONCE PO 05/28/21 05:15 05/28/21 05:16 DC 05/28/21 05:20 25 MG Metoclopramide HCl 5 mg ONCE ONCE IVP 05/28/21 05:15 05/28/21 05:16 DC 05/28/21 05:20 5 MG Ondansetron HCl 8 mg ONCE ONCE IVP 05/28/21 02:45 05/28/21 02:46 DC 05/28/21 03:15 8 MG Promethazine HCl 25 mg ONCE ONCE IVP 05/28/21 02:45 05/28/21 02:46 DC 05/28/21 03:15 25 MG (SHANEL ALY DO) Vital Signs/I&O 05/28/21 05/28/21 02:34 06:34 Temp 37.5 Pulse 94 74 Resp 24 16 B/P (MAP) 154/78 (103) 113/55 Pulse Ox 99 98 O2 Delivery Room Air Room Air (SHANEL ALY DO) Progress Progress Note : Time: 06:26 Progress Note Initially the patient Phenergan, 8 of Zofran, a liter of fluids from EMS. A second liter of fluids was ordered since she is not able to produce any urine. Dose of Reglan and Vistaril for anxiety. (VIVIAN SMITH) Progress Note : Progress Note 0600--ASSUMED CARE FROM DR. SMITH AT [facility]. PT HAS RECEIVED FLUIDS AND ANTI-EMETICS WELL ANXIETY MEDICATION. PT STATES SHE IS FEELING BETTER AT THIS TIME. (SHANEL ALY DO) Departure Impression Primary Impression: Cannabinoid hyperemesis syndrome Disposition: 01 HOME, SELF-CARE Condition: Improved Departure-Patient Inst. Decision time for Depature: 06:30 (SHANEL ALY DO) Referrals: [facility] (PCP/Family) Primary Care Physician Patient Instructions: Marijuana Use and Addiction (DC), Nausea and Vomiting, Adult (DC) Add. Discharge Instructions: NO MARIJUANA!!!!! CLEAR LIQUIDS--WATER, BROTH,JELLO, GATORADE WHEN YOU ARE BETTER, ADD BRATS DIET TO CLEAR LIQUIDS--BANANAS, RICE, APPLESAUCE, TOAST, SALTINES FOLLOW UP WITH YOUR DR THIS WEEK FOR FURTHER CARE All discharge instructions reviewed with patient and/or family. Voiced understanding. Scripts Ondansetron (Ondansetron Odt) 8 Mg Tab.rapdis 8 MG PO Q4H PRN for NAUSEA/VOMITING, #10 TAB Prov: SHANEL ALY DO 05/28/21 Promethazine HCl (Promethazine Suppository) 25 Mg Supp.rect 25 MG RC Q6 for Nausea/Vomiting, #10 SUPP.RECT Prov: SHANEL ALY DO 05/28/21 Capsaicin (Capsaicin) 60 Gm Cream..g. 60 GM TP TID for Nausea/Vomiting, #1 TUBE Prov: SHANEL ALY DO 05/28/21 VIVIAN SMITH May 28, 2021 02:35 SHANEL ALY DO May 28, 2021 06:14
[2021-05-28 02:40] LABS: BASOPHILS % (AUTO) 0 % (0-10); EOSINOPHILS % (AUTO) 0 % (0-10); HEMATOCRIT 41 % (35-52); HEMOGLOBIN 14.2 g/dL (11.5-16.0); LYMPHOCYTES # (AUTO) 1.4 10^3/uL (1.0-4.0); LYMPHOCYTES % (AUTO) 11 % (12-44); MEAN CORPUSCULAR HEMOGLOBIN 32 pg (25-34); MEAN CORPUSCULAR HGB CONC 35 g/dL (32-36); MEAN CORPUSCULAR VOLUME 91 fL (80-99); MEAN PLATELET VOLUME 11.2 fL (9.0-12.2); MONOCYTES # (AUTO) 0.7 10^3/uL (0.0-1.0); MONOCYTES % (AUTO) 5 % (0-12); NEUTROPHILS # (AUTO) 10.4 10^3/uL (1.8-7.8); NEUTROPHILS % (AUTO) 83 % (42-75); PLATELET COUNT 438 10^3/uL (130-400); WHITE BLOOD COUNT 12.6 10^3/uL (4.3-11.0)
[2021-05-28] MEDS ORDERED: diphenhydrAMINE 50 MG/ML INJ (BENADRYL) IVP ONE (02:45)
[2021-05-28] MEDS ORDERED: FAMOTIDINE 20MG/2ML IV (PEPCID) IVP ONE (02:45)
[2021-05-28] MEDS ORDERED: PROMETHAZINE INJ 25 MG/ML (PHENERGAN) AMP IVP ONE (02:45)
[2021-05-28] MEDS ORDERED: ONDANSETRON 4 MG/2 ML (SDV) Z0FRAN IVP ONE (02:45)
[2021-05-28 02:47] LABS: ALBUMIN 5.1 GM/DL (3.2-4.5); CHLORIDE 102 MMOL/L (98-107); POTASSIUM 3.5 MMOL/L (3.6-5.0); SODIUM 143 MMOL/L (135-145)
[2021-05-28 02:48] LABS: CALCIUM 10.8 MG/DL (8.5-10.1)
[2021-05-28 02:49] LABS: GLUCOSE 151 MG/DL (70-105); TOTAL PROTEIN 8.1 GM/DL (6.4-8.2)
[2021-05-28 02:50] LABS: CARBON DIOXIDE 21 MMOL/L (21-32)
[2021-05-28 02:51] LABS: BILIRUBIN,TOTAL 1.5 MG/DL (0.1-1.0)
[2021-05-28 02:53] LABS: ALKALINE PHOSPHATASE 72 U/L (40-136); CREATININE SERUM 0.95 MG/DL (0.60-1.30); GFR ESTIMATED > 60
[2021-05-28 02:54] LABS: BUN/CREATININE RATIO 16
[2021-05-28 02:56] LABS: ALANINE AMINOTRANSFERASE 14 U/L (0-55); MAGNESIUM 1.7 MG/DL (1.6-2.4)
[2021-05-28] MEDS ORDERED: hydrOXYzine (VISTARIL/ATARAX) 25 MG capsule/tablet PO ONE (05:15)
[2021-05-28] MEDS ORDERED: METOCLOPRAMIDE INJ 10 MG/2 ML (REGLAN) IVP ONE (05:15)
[2021-05-28] MEDS ORDERED: NS IV 1000 ML 1,000 ML IV SCH (05:45)
[2021-05-28] MEDS ORDERED: ONDA8TAB13 PO (06:14)
[2021-05-28] MEDS ORDERED: PROM25SU44 RC (06:14)
[2021-05-28] MEDS ORDERED: CAPS60CR4 TP (06:14)
[2021-05-28 06:34] VITALS: BP 113/55
== END 2021-05-28 06:34 | disposition home or self-care (01) ==
LOC: EDUNIT# 02:25 → ER 02:26
DX: R11.2 Nausea with vomiting, unspecified (principal); K21.9 Gastro-esophageal reflux disease without esophagitis; F41.9 Anxiety disorder, unspecified; Z79.899 Other long term (current) drug therapy
CPT/HCPCS: 80053; 83735; 84703; 85025; 99284; G0480; 36415; 80320

== ENCOUNTER 2021-10-18 15:21 | Emergency (ER) | payer SELFPAY ==
[~2021-10-18] VITALS: Ht 154.4 cm; Wt 54.5 kg
[2021-10-18] MEDS ORDERED: HALOPERIDOL 5 MG/ML (HALDOL) VIAL IV STA (15:52)
[2021-10-18] MEDS ORDERED: LACTATED RINGERS 1,000 ML IV ONE ×2 (16:00→17:15)
--- NOTE | 2021-10-18 16:55 | ED GI ---
General Chief Complaint: Abdominal/GI Problems Stated Complaint: VOMITING Nursing Triage Note: AMB TO ROOM WITH C/O VOMITING ADMITS TO SMOKING MARIJUANA WHICH CAUSES HER VOMITING ,C/O BACK PAIN FROM VOMITING History of Present Illness Date Seen by Provider: Oct 18, 2021 Time Seen by Provider: 15:50 Initial Comments 21-year-old female presents for 12 to 15 hours of vomiting. She has a chronic history of hyperemesis related to cannabinoid use. She reports last using a marijuana just prior to arrival and yesterday. She denies any UTI symptoms. She has not taken any medications for the nausea. She denies any other complaints. Timing/Duration: 1-2 Days Severity/Quality: Moderate Associated Symptoms: Back Pain (Secondary to retching); No Chest Pain, No Diaphoresis, No Fever/Chills, No Fatigue, No Headache, No Heartburn; Nausea/Vomiting; No Rash, No Shortness of Air, No Swelling/Mass in Abdomen, No Syncope, No Weakness Allergies and Home Medications Allergies Coded Allergies: No Known Drug Allergies (Unverified , 05/07/10) Patient Home Medication List Home Medication List Reviewed: Yes Capsaicin (Capsaicin) 60 Gm Cream..g., 60 GM TP TID Prescribed by: SHANEL ALY on 02/17/21 0954 Capsaicin (Capsaicin) 60 Gm Cream..g., 60 GM TP TID Prescribed by: SHANEL ALY on 05/28/21 0614 Escitalopram Oxalate (Lexapro) 10 Mg Tablet, 10 MG PO DAILY Prescribed by: VICK WALDRON on 01/10/21 0955 Nitrofurantoin Monohyd/M-Cryst (Macrobid 100 mg Capsule) 100 Mg Capsule, 1 TAB P O BID Prescribed by: SHANEL ALY on 02/17/21 1005 Ondansetron (Ondansetron Odt) 4 Mg Tab.rapdis, 4 MG SL Q4H PRN for NAUSEA/VOMITING Prescribed by: ASHLEY GLEASON on 02/02/21 1554 Ondansetron (Ondansetron Odt) 8 Mg Tab.rapdis, 8 MG PO Q4H PRN for NAUSEA/VOMITING Prescribed by: SHANEL ALY on 02/17/21 0952 Ondansetron (Ondansetron Odt) 4 Mg Tab.rapdis, 4 MG PO Q8H Prescribed by: GAYLA FROST on 04/04/21 1104 Ondansetron (Ondansetron Odt) 8 Mg Tab.rapdis, 8 MG PO Q4H PRN for NAUSEA/VOMITING Prescribed by: SHANEL ALY on 05/28/21 0614 Pantoprazole Sodium (Protonix) 40 Mg Tablet.dr, 40 MG PO DAILY Prescribed by: SHANEL ALY on 02/17/21 0952 Promethazine HCl (Promethazine Suppository) 25 Mg Supp.rect, 25 MG RC Q8H PRN for NAUSEA/VOMITING-2ND LINE Prescribed by: ASHLEY GLEASON on 02/02/21 1554 Promethazine HCl (Promethazine Suppository) 25 Mg Supp.rect, 25 MG RC Q6 Prescribed by: SHANEL ALY on 02/17/21 0952 Promethazine HCl (Promethazine Suppository) 25 Mg Supp.rect, 25 MG RC Q8H PRN f or NAUSEA/VOMITING-2ND LINE Prescribed by: ASHLEY GLEASON on 04/05/21 1400 Promethazine HCl (Promethazine Suppository) 25 Mg Supp.rect, 25 MG RC Q6 Prescribed by: SHANEL ALY on 05/28/21 0614 Review of Systems Review of Systems Constitutional: no symptoms reported, see HPI Gastrointestinal: See HPI; Denies Diarrhea; Nausea, Poor Appetite, Vomiting All Other Systems Reviewed Negative Unless Noted: Yes Past Rwagnca-Qydikx-Djggki Hx Patient Social History Tobacco Use?: No Substance use?: Yes Substance type: Marijuana Pt feels they are or have been: No Immunizations Up To Date Tetanus Booster (TDap): Less than 5yrs PED Vaccines UTD: Yes First/Initial COVID19 Vaccinat: NOV Second COVID19 Vaccination Vasiliy: NOV COVID19 Vaccine 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 Seasonal Allergies Seasonal Allergies: No Past Medical History Surgeries: No Respiratory: No Cardiac: No Neurological: No Reproductive Disorders: No Female Reproductive Disorders: Denies Sexually Transmitted Disease: No HIV/AIDS: No Genitourinary: No Gastrointestinal: Yes (cannabis hyperemesis syndrome) Gastroesophageal Reflux Musculoskeletal: No Endocrine: No HEENT: No Loss of Vision: Denies Hearing Impairment: Denies Cancer: No Psychosocial: Yes Anxiety Integumentary: Yes Eczema Blood Disorders: No Family Medical History Reviewed Nursing Family Hx Alcoholism 19 FATHER 19 MOTHER No Family History of: AIDS Abdominal aortic aneurysm Eagle's disease Alzheimer's disease Aphasia Arthritis Asthma Cancer of mouth Cardiovascular disease Cataracts Colon cancer Completed stroke Congenital disease Congenital heart disease Coronary thrombosis Cystic fibrosis Deafness or hearing loss Dementia Diabetes mellitus Drug abuse Dysphasia Fibrocystic disease of breast Gastroenteritis Glaucoma Headache disorder Hypercholesterolemia Hypertension Infertility Kidney disease Myocardial infarction Neoplasm Not obtainable due to adoption Osteoporosis Parkinson's disease Prostate cancer Psychosocial problem Respiratory disorder Seizure disorder Severe allergy Thyroid disease Tuberculosis Visual disorder No Pertinent Family Hx, Psychiatric Problems Physical Exam Vital Signs Vital Signs - First Documented 10/18/21 15:47 Temp 36.9 Pulse 77 Resp 18 B/P (MAP) 127/94 (105) Pulse Ox 96 O2 Delivery Room Air Capillary Refill : Height/Weight/BMI Height: 5'3.00" Weight: 130lbs. 0oz. 58.233351gf; 22.00 BMI Method:Stated General Appearance: WD/WN, mild distress HEENT: PERRL/EOMI, normal ENT inspection, TMs normal, pharynx normal Neck: non-tender, full range of motion, supple, normal inspection Respiratory: chest non-tender, lungs clear, normal breath sounds Cardiovascular: normal peripheral pulses, regular rate, rhythm Gastrointestinal: normal bowel sounds, soft; No distended, No guarding, No rebo und; tenderness (Generalized) Neurologic/Psychiatric: no motor/sensory deficits, alert, normal mood/affect, oriented x 3 Skin: normal color, warm/dry Procedures/Interventions Suture Size: 4-0 Progress/Results/Core Measures Results/Orders My Orders Orders - HECTOR VELEZ Ua Culture If Indicated (10/18/21 15:29) Urine Bedside (10/18/21 15:29) Drug Screen Stat (Urine) (10/18/21 15:37) Ed Iv/Invasive Line Start (10/18/21 15:52) Lactated Ringers (Lr 1000 Ml Iv Solution (10/18/21 16:00) Haloperidol Injection (Haldol Injectio (10/18/21 15:52) Ed Iv/Invasive Line Start (10/18/21 17:01) Lactated Ringers (Lr 1000 Ml Iv Solution (10/18/21 17:15) Cyclobenzaprine Tablet (Flexeril Tablet) (10/18/21 17:01) Medications Given in ED Current Medications Medications Dose Ordered Sig/Jeannette Route Start Time Stop Time Status Last Admin Dose Admin Lactated Ringer's 1,000 ml @ 0 mls/hr Q0M ONCE IV 10/18/21 16:00 10/18/21 16:01 DC 10/18/21 16:03 1,000 MLS/HR Lactated Ringer's 1,000 ml @ 0 mls/hr Q0M ONCE IV 10/18/21 17:15 10/18/21 17:16 DC 10/18/21 17:08 100 MLS/HR Vital Signs/I&O 10/18/21 15:47 Temp 36.9 Pulse 77 Resp 18 B/P (MAP) 127/94 (105) Pulse Ox 96 O2 Delivery Room Air Blood Pressure Mean: 105 Progress Progress Note : Time: 15:50 Progress Note Patient seen and evaluated, will give 1 L of fluids IV, Haldol 5 mg IV and obtain UA, hCG and urine drug screen. 1615 patient denies ability to give urine. Will wait until after IV fluids are infused. 1700 patient attempted to urinate, unable to, complaining of back pain. Will give Flexeril 10 mg p.o. Taking ice chips with no further nausea or vomiting. 1720 patient left AMA and walked out EMS doors. She removed her IV. Departure Impression Primary Impression: Cannabinoid hyperemesis syndrome Disposition: 07 AGAINST MEDICAL ADVICE Condition: Improved Departure-Patient Inst. Referrals: [facility] (PCP/Family) Primary Care Physician Patient Instructions: Cannabis Hyperemesis Syndrome Add. Discharge Instructions: Increase water intake, 16 ounces every 2 hours while awake. You will continue having persistent nausea and vomiting related to your marijuana use, please follow-up with your therapist and consider rehab. Join a hyperemesis cannabinoid support group, available on Facebook Return to the emergency department for new, urgent healthcare needs. All discharge instructions reviewed with patient and/or family. Voiced unde rstanding. HECTOR VELEZ Oct 18, 2021 16:55
[2021-10-18] MEDS ORDERED: CYCLOBENZAPRINE 10 MG (FLEXERIL) TAB PO STA (17:01)
[2021-10-18 17:25] VITALS: BP 127/94
== END 2021-10-18 17:25 | disposition left against medical advice (07) ==
LOC: EDUNIT# 15:21 → ER 15:23
DX: R11.2 Nausea with vomiting, unspecified (principal); F41.9 Anxiety disorder, unspecified; K21.9 Gastro-esophageal reflux disease without esophagitis; Z79.899 Other long term (current) drug therapy

== ENCOUNTER 2022-02-08 10:47 | Emergency (ER) | payer SELFPAY ==
[~2022-02-08] VITALS: Ht 160 cm; Wt 54.4 kg
[2022-02-08] MEDS ORDERED: NS IV 1000 ML 1,000 ML IV STA (11:25)
--- NOTE | 2022-02-08 11:29 | ED GI ---
General Chief Complaint: Abdominal/GI Problems Stated Complaint: VOMTING Nursing Triage Note: PT REPORTS SHE HAS BEEN HAVING N/V X 6 DAYS. Source of Information: Patient Exam Limitations: No Limitations History of Present Illness Date Seen by Provider: Feb 08, 2022 Time Seen by Provider: 11:27 Initial Comments Patient is a 21-year-old female with a history of hyperemesis cannabinoid syndrome who presents the ED with nausea and vomiting over the past 6 days. She reports 10+ episodes of vomiting daily without any blood. No diarrhea. Generalized abdominal cramping worse in her lower abdomen. This appears to be worse with the vomiting. She states she started her menstrual cycle 5 days ago. Typically has vomiting with her menstrual cycles as well. She smoked marijuana 4 days ago. She states she has been taking medication in the morning cannot recall the medication with some improvement but still is vomiting excessive amount. Patient states she feels dehydrated. She states she did not urinate today. Denies chest pain, shortness of breath, cough, headache, dizziness, visual changes, concern for , vaginal discharge. Denies heavier bleeding than normal. Allergies and Home Medications Allergies Coded Allergies: No Known Drug Allergies (Unverified , 05/07/10) Patient Home Medication List Home Medication List Reviewed: Yes Capsaicin (Capsaicin) 60 Gm Cream..g., 60 GM TP TID Prescribed by: SHANEL ALY on 02/17/21 0954 Capsaicin (Capsaicin) 60 Gm Cream..g., 60 GM TP TID Prescribed by: SHANEL ALY on 05/28/21 0614 Escitalopram Oxalate (Lexapro) 10 Mg Tablet, 10 MG PO DAILY Prescribed by: VICK WALDRON on 01/10/21 0955 Nitrofurantoin Monohyd/M-Cryst (Macrobid 100 mg Capsule) 100 Mg Capsule, 1 TAB PO BID Prescribed by: SHANEL ALY on 02/17/21 1005 Ondansetron (Ondansetron Odt) 4 Mg Tab.rapdis, 4 MG SL Q4H PRN for NAUSEA/VOMITING Prescribed by: ASHLEY GLEASON on 02/02/21 1554 Ondansetron (Ondansetron Odt) 8 Mg Tab.rapdis, 8 MG PO Q4H PRN for NAUSEA/VOMITING Prescribed by: SHANEL ALY on 02/17/21 0952 Ondansetron (Ondansetron Odt) 4 Mg Tab.rapdis, 4 MG PO Q8H Prescribed by: GAYLA FROST on 04/04/21 1104 Ondansetron (Ondansetron Odt) 8 Mg Tab.rapdis, 8 MG PO Q4H PRN for NAUSEA/VOMITING Prescribed by: SHANEL ALY on 05/28/21 0614 Ondansetron (Ondansetron Odt) 4 Mg Tab.rapdis, 4 MG PO Q6H Prescribed by: NICKIE ZARATE on 02/08/22 1454 Pantoprazole Sodium (Protonix) 40 Mg Tablet.dr, 40 MG PO DAILY Prescribed by: SHANEL ALY on 02/17/21 0952 Potassium Chloride (Potassium Chloride) 20 Meq Tablet.er, 40 MEQ PO DAILY Prescribed by: NICKIE ZARATE on 02/08/22 1454 Promethazine HCl (Promethazine Suppository) 25 Mg Supp.rect, 25 MG RC Q8H PRN for NAUSEA/VOMITING-2ND LINE Prescribed by: ASHLEY GLEASON on 02/02/21 1554 Promethazine HCl (Promethazine Suppository) 25 Mg Supp.rect, 25 MG RC Q6 Prescribed by: SHANEL ALY on 02/17/21 0952 Promethazine HCl (Promethazine Suppository) 25 Mg Supp.rect, 25 MG RC Q8H PRN for NAUSEA/VOMITING-2ND LINE Prescribed by: ASHLEY GLEASON on 04/05/21 1400 Promethazine HCl (Promethazine Suppository) 25 Mg Supp.rect, 25 MG RC Q6 Prescribed by: SHANEL ALY on 05/28/21 0614 Review of Systems Review of Systems Constitutional: No chills, No diaphoresis, No malaise; weakness EENTM: No Blurred Vision, No Eye Pain, No Ear Drainage, No Ear Pain Respiratory: Denies Cough, Denies Orthopnea Cardiovascular: Denies Chest Pain Gastrointestinal: Abdominal Pain; Denies Diarrhea; Nausea, Vomiting Genitourinary: Denies Burning, Denies Discharge Musculoskeletal: No back pain, No joint pain Skin: No change in color, No change in hair/nails All Other Systems Reviewed Negative Unless Noted: Yes Past Sbcfmmg-Oemswh-Ifjrsc Hx Patient Social History Tobacco Use?: No Substance use?: Yes Substance type: Marijuana Alcohol Use?: No Pt feels they are or have been: No Immunizations Up To Date Tetanus Booster (TDap): Less than 5yrs PED Vaccines UTD: Yes First/Initial COVID19 Vaccinat: SEP Second COVID19 Vaccination Vasiliy: SEP Third COVID19 Vaccination Date: SEP Seasonal Allergies Seasonal Allergies: No Past Medical History Surgeries: No Respiratory: No Cardiac: No Neurological: No Reproductive Disorders: No Female Reproductive Disorders: Denies Sexually Transmitted Disease: No HIV/AIDS: No Genitourinary: No Gastrointestinal: Yes (cannabis hyperemesis syndrome) Gastroesophageal Reflux Musculoskeletal: No Endocrine: No HEENT: No Loss of Vision: Denies Hearing Impairment: Denies Cancer: No Psychosocial: Yes Anxiety Integumentary: Yes Eczema Blood Disorders: No Family Medical History Alcoholism 19 FATHER 19 MOTHER No Family History of: AIDS Abdominal aortic aneurysm [place]'s disease Alzheimer's disease Aphasia Arthritis Asthma Cancer of mouth Cardiovascular disease Cataracts Colon cancer Completed stroke Congenital disease Congenital heart disease Coronary thrombosis Cystic fibrosis Deafness or hearing loss Dementia Diabetes mellitus Drug abuse Dysphasia Fibrocystic disease of breast Gastroenteritis Glaucoma Headache disorder Hypercholesterolemia Hypertension Infertility Kidney disease Myocardial infarction Neoplasm Not obtainable due to adoption Osteoporosis Parkinson's disease Prostate cancer Psychosocial problem Respiratory disorder Seizure disorder Severe allergy Thyroid disease Tuberculosis Visual disorder No Pertinent Family Hx, Psychiatric Problems Physical Exam Vital Signs Vital Signs - First Documented 02/08/22 11:21 Temp 36.0 Pulse 107 Resp 14 B/P (MAP) 126/81 (96) Pulse Ox 98 Capillary Refill : Less Than 3 Seconds Height/Weight/BMI Height: 5'3.00" Weight: 130lbs. 0oz. 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, no motor/sensory deficits, alert, normal mood/affect, oriented x 3 Skin: normal color, warm/dry Procedures/Interventions Suture Size: 4-0 Progress/Results/Core Measures Results/Orders Lab Results Laboratory Tests Test 02/08/22 11:18 02/08/22 11:42 02/08/22 14:30 Range/Units White Blood Count 10.0 4.3-11.0 10^3/uL Red Blood Count 4.71 3.80-5.11 10^6/uL Hemoglobin 15.0 11.5-16.0 g/dL Hematocrit 43 35-52 % Mean Corpuscular Volume 90 80-99 fL Mean Corpuscular Hemoglobin 32 25-34 pg Mean Corpuscular Hemoglobin Concent 35 32-36 g/dL Red Cell Distribution Width 12.2 10.0-14.5 % Platelet Count 398 130-400 10^3/uL Mean Platelet Volume 11.3 9.0-12.2 fL Immature Granulocyte % (Auto) 0 % Neutrophils (%) (Auto) 74 42-75 % Lymphocytes (%) (Auto) 17 12-44 % Monocytes (%) (Auto) 9 0-12 % Eosinophils (%) (Auto) 0 0-10 % Basophils (%) (Auto) 0 0-10 % Neutrophils # (Auto) 7.4 1.8-7.8 10^3/uL Lymphocytes # (Auto) 1.7 1.0-4.0 10^3/uL Monocytes # (Auto) 0.9 0.0-1.0 10^3/uL Eosinophils # (Auto) 0.0 0.0-0.3 10^3/uL Basophils # (Auto) 0.0 0.0-0.1 10^3/uL Immature Granulocyte # (Auto) 0.0 0.0-0.1 10^3/uL Sodium Level 138 137 135-145 MMOL/L Potassium Level 2.4 *L 2.7 L 3.6-5.0 MMOL/L Chloride Level 90 L 93 L 98-107 MMOL/L Carbon Dioxide Level 30 30 21-32 MMOL/L Anion Gap 18 H 14 5-14 MMOL/L Blood Urea Nitrogen 15 15 7-18 MG/DL Creatinine 0.83 0.85 0.60-1.30 MG/DL Estimat Glomerular Filtration Rate 102 99 BUN/Creatinine Ratio 18 18 Glucose Level 127 H 105 70-105 MG/DL Calcium Level 10.0 9.0 8.5-10.1 MG/DL Corrected Calcium 8.5-10.1 MG/DL Total Bilirubin 1.3 H 0.1-1.0 MG/DL Aspartate Amino Transf (AST/SGOT) 26 5-34 U/L Alanine Aminotransferase (ALT/SGPT) 48 0-55 U/L Alkaline Phosphatase 77 40-136 U/L Total Protein 8.0 6.4-8.2 GM/DL Albumin 4.7 H 3.2-4.5 GM/DL Lipase 14 8-78 U/L Urine Color ORANGE Urine Clarity CLOUDY Urine pH 8.5 5-9 Urine Specific [place] 1.010 L 1.016-1.022 Urine Protein 2+ H NEGATIVE Urine Glucose (UA) NEGATIVE NEGATIVE Urine Ketones NEGATIVE NEGATIVE Urine Nitrite NEGATIVE NEGATIVE Urine Bilirubin NEGATIVE NEGATIVE Urine Urobilinogen 1.0 < = 1.0 MG/DL Urine Leukocyte Esterase NEGATIVE NEGATIVE Urine RBC (Auto) NEGATIVE NEGATIVE Urine RBC NONE /HPF Urine WBC NONE /HPF Urine Squamous Epithelial Cells 0-2 /HPF Urine Crystals PRESENT H /LPF Urine Amorphous Sediment MOD ALEX PHOSPHATE H /LPF Urine Bacteria TRACE /HPF Urine Casts NONE /LPF Urine Mucus SMALL H /LPF Urine Culture Indicated NO Urine Test NEGATIVE NEGATIVE My Orders Orders - KOBE AMAYA PA Ua Culture If Indicated (02/08/22 11:00) Hcg,Qualitative Urine (02/08/22 11:00) Cbc With Automated Diff (02/08/22 11:25) Comprehensive Metabolic Panel (02/08/22 11:25) Lipase (02/08/22 11:25) Ns Iv 1000 Ml (Sodium Chloride 0.9%) (02/08/22 11:25) Ondansetron Injection (Zofran Injectio (02/08/22 11:30) Ketorolac Injection (Toradol Injection) (02/08/22 11:30) Calcium Carbonate Chew Tablet (Antacid C (02/08/22 12:45) Lactated Ringers (Lr 1000 Ml Iv Solution (02/08/22 13:02) Potassium Cl 10meq/50ml Ivpb (Kcl 10 Meq (02/08/22 13:02) Potassium Chloride (Tablet) (K Dur Table (02/08/22 13:15) Basic Metabolic Panel (02/08/22 14:35) Medications Given in ED Current Medications Medications Dose Ordered Sig/Jeannette Route Start Time Stop Time Status Last Admin Dose Admin Calcium Carbonate 500 mg ONCE ONCE PO 02/08/22 12:45 02/08/22 12:46 DC 02/08/22 13:00 500 MG Ketorolac Tromethamine 30 mg ONCE ONCE IVP 02/08/22 11:30 02/08/22 11:31 DC 02/08/22 11:31 30 MG Ondansetron HCl 4 mg ONCE ONCE IVP 02/08/22 11:30 02/08/22 11:31 DC 02/08/22 11:31 4 MG Potassium Chloride 40 meq ONCE ONCE PO 02/08/22 13:15 02/08/22 13:16 DC 02/08/22 13:21 40 MEQ Vital Signs/I&O 02/08/22 11:21 Temp 36.0 Pulse 107 Resp 14 B/P (MAP) 126/81 (96) Pulse Ox 98 Blood Pressure Mean: 96 Departure Communication (PCP) Patient appears dehydrated. Urinalysis negative for or infection. Cu rrently on her menstrual cycle started vomiting 5 to 6 days ago. Smoked marijuana 4 days ago. History of hyperemesis cannabinoid syndrome. No significant abdominal tenderness on palpation. Not concern for sexual transmitted factions. No vaginal discharge. Normal white blood count. Normal sodium with chloride of 90. Potassium at 2.4. She had no active vomiting or diarrhea here. Patient was given IV potassium 20 mEq and oral potassium 40 mEq. Recheck of lab work showed increase in potassium of 2.7. Discussed a second redraw the next few hours patient refused. She would rather take oral potassium and recheck with the [facility] in the next 1 to 2 days. I do think this is reasonable. She states she feels much better at this time. She drank 2 cups of fluid without vomiting. Pain resolved. Discussed the importance of hydration. Will discharge nausea medication. If any symptoms of body aches fatigue, chest pains, cramping to return back to ED for recheck of lab work. Impression Primary Impression: Cannabinoid hyperemesis syndrome Additional Impression: Hypokalemia Disposition: 01 HOME, SELF-CARE Condition: Stable Departure-Patient Inst. Decision time for Depature: 14:21 Referrals: [facility] (PCP/Family) Primary Care Physician Patient Instructions: Nausea and Vomiting, Adult (DC) Add. Discharge Instructions: Need to follow-up with [facility] to recheck potassium in the next 1 to 2 days. All discharge instructions reviewed with patient and/or family. Voiced understanding. Scripts Potassium Chloride (Potassium Chloride) 20 Meq Tablet.er 40 MEQ PO DAILY for 3 Days, #6 TAB Prov: KOBE AMAYA 02/08/22 Ondansetron (Ondansetron Odt) 4 Mg Tab.rapdis 4 MG PO Q6H, #10 TAB Prov: KOBE AMAYA 02/08/22 Work/School Note: Work Release Form Date Seen in the Emergency Department: Feb 08, 2022 Return to Work: Feb 10, 2022 KOBE AMAYA Feb 08, 2022 11:29
[2022-02-08] MEDS ORDERED: KETOROLAC 30 MG/ML VIAL IVP ONE (11:30)
[2022-02-08] MEDS ORDERED: ONDANSETRON 4 MG/2 ML (SDV) Z0FRAN IVP ONE (11:30)
[2022-02-08 11:46] LABS: BILIRUBIN,URINE NEGATIVE (NEGATIVE); CLARITY,URINE CLOUDY; COLOR,URINE ORANGE; GLUCOSE, URINE (UA) NEGATIVE (NEGATIVE); KETONES,URINE NEGATIVE (NEGATIVE); LEUKOCYTE ESTERASE ,URINE NEGATIVE (NEGATIVE); NITRITE,URINE NEGATIVE (NEGATIVE); PH,URINE 8.5 (5-9); PROTEIN,URINE 2+ (NEGATIVE)
[2022-02-08 12:06] LABS: AMORPHOUS SEDIMENT,UR MOD AMOR PHOSPHATE /LPF; BACTERIA,URINE TRACE /HPF; SQUAMOUS EPITHELIAL CELL,UR 0-2 /HPF
[2022-02-08 12:29] LABS: BASOPHILS % (AUTO) 0 % (0-10); EOSINOPHILS % (AUTO) 0 % (0-10); HEMATOCRIT 43 % (35-52); LYMPHOCYTES # (AUTO) 1.7 10^3/uL (1.0-4.0); LYMPHOCYTES % (AUTO) 17 % (12-44); MEAN CORPUSCULAR HEMOGLOBIN 32 pg (25-34); MEAN CORPUSCULAR HGB CONC 35 g/dL (32-36); MEAN CORPUSCULAR VOLUME 90 fL (80-99); MEAN PLATELET VOLUME 11.3 fL (9.0-12.2); MONOCYTES # (AUTO) 0.9 10^3/uL (0.0-1.0); MONOCYTES % (AUTO) 9 % (0-12); NEUTROPHILS # (AUTO) 7.4 10^3/uL (1.8-7.8); NEUTROPHILS % (AUTO) 74 % (42-75); PLATELET COUNT 398 10^3/uL (130-400)
[2022-02-08 12:39] LABS: ALBUMIN 4.7 GM/DL (3.2-4.5)
[2022-02-08 12:40] LABS: CHLORIDE 90 MMOL/L (98-107); SODIUM 138 MMOL/L (135-145)
[2022-02-08 12:42] LABS: GLUCOSE 127 MG/DL (70-105)
[2022-02-08 12:43] LABS: CARBON DIOXIDE 30 MMOL/L (21-32)
[2022-02-08 12:44] LABS: BILIRUBIN,TOTAL 1.3 MG/DL (0.1-1.0)
[2022-02-08 12:45] LABS: ALKALINE PHOSPHATASE 77 U/L (40-136)
[2022-02-08] MEDS ORDERED: CALCIUM CARBONATE 500 MG (TUMS) TAB.CHEW PO ONE (12:45)
[2022-02-08 12:46] LABS: CREATININE SERUM 0.83 MG/DL (0.60-1.30); GFR ESTIMATED 102
[2022-02-08 12:47] LABS: BUN/CREATININE RATIO 18
[2022-02-08 12:48] LABS: ALANINE AMINOTRANSFERASE 48 U/L (0-55)
[2022-02-08 12:49] LABS: LIPASE 14 U/L (8-78)
[2022-02-08 12:58] LABS: POTASSIUM 2.4 MMOL/L (3.6-5.0)
[2022-02-08] MEDS ORDERED: POTASSIUM CL 10MEQ/50ML IVPB 50 ML IV STA (13:02)
[2022-02-08] MEDS ORDERED: LACTATED RINGERS 1,000 ML IV STA (13:02)
[2022-02-08] MEDS ORDERED: KCL 20 MEQ TAB (K-DUR) PO ONE (13:15)
[2022-02-08 14:44] LABS: POTASSIUM 2.7 MMOL/L (3.6-5.0)
[2022-02-08] MEDS ORDERED: ONDA4TAB11 PO (14:54)
[2022-02-08] MEDS ORDERED: POTA-51 PO (14:54)
[2022-02-08 15:11] VITALS: BP 122/61
[2022-02-08 15:36] LABS: CREATININE SERUM 0.73 MG/DL (0.60-1.30)
== END 2022-02-08 15:11 | disposition home or self-care (01) ==
LOC: EDUNIT# 10:47 → ER 10:48
DX: R11.2 Nausea with vomiting, unspecified (principal); E87.6 Hypokalemia
CPT/HCPCS: 36415; 80048; 80053; 81000; 83690; 84703; 85025

== ENCOUNTER 2022-02-10 08:10 | Emergency (ER) | payer SELFPAY ==
[~2022-02-10] VITALS: Ht 160 cm; Wt 54.4 kg
[2022-02-10] MEDS ORDERED: LACTATED RINGERS 1,000 ML IV ONE ×2 (08:30→10:15)
[2022-02-10] MEDS ORDERED: HALOPERIDOL 5 MG/ML (HALDOL) VIAL IV ONE (08:30)
[2022-02-10] MEDS ORDERED: ONDANSETRON 4 MG/2 ML (SDV) Z0FRAN IVP ONE (08:30)
--- NOTE | 2022-02-10 08:32 | ED GI ---
General Chief Complaint: Back Problems Stated Complaint: VOMITING/BACK PAIN Nursing Triage Note: pt presents to ed via pov from home with complaints of continued vomiting and mid back pain. pt was seen in ed on for similar symptoms and states she was feeling better till yesterday. Source of Information: Patient Exam Limitations: No Limitations (LEWIS CADENA MED STUDENT) History of Present Illness Date Seen by Provider: Feb 10, 2022 Time Seen by Provider: 08:18 Initial Comments Mrs. Baeza is a 21yo female with PMH Cannaboid hyperemesis syndrome, and cyclical vomiting syndrome that presents to ER this morning due to usual symptoms of her emesis syndromes and back pain. She has had about 15 ED visits in the last year for this. States that She has a sharp pain in her mid back that she rates an 8. States its never been this bad. She also has been vomiting profusely. She has tried taking her zofran which didnt help much. She did take her cyproheptadine but threw it up after about 20 minutes. She is not having any other symptoms besides the nausea, vomiting, and back pain. She had tried taking warm showers which helps for a bit. States the last time she used marijuana was 5 days ago. (LEWIS CADENA MED STUDENT) Initial Comments Patient is well-known to this provider. She admits that she has not been compliant with recommendations and therapies. She has not filled her medications from her most recent visit citing financial problems. She has not pursued intensive substance abuse treatment and counseling despite repeated recommendations to do so. She admits to continued marijuana use. (ASHLEY THAO MD) Allergies and Home Medications Allergies Coded Allergies: No Known Drug Allergies (Unverified , 05/07/10) Patient Home Medication List Home Medication List Reviewed: Yes (ASHLEY THAO MD) Capsaicin (Capsaicin) 60 Gm Cream..g., 60 GM TP TID Prescribed by: SHANEL ALY on 02/17/21 0954 Capsaicin (Capsaicin) 60 Gm Cream..g., 60 GM TP TID Prescribed by: SHANEL ALY on 05/28/21 0614 Escitalopram Oxalate (Lexapro) 10 Mg Tablet, 10 MG PO DAILY Prescribed by: VICK WALDRON on 01/10/21 0955 Nitrofurantoin Monohyd/M-Cryst (Macrobid 100 mg Capsule) 100 Mg Capsule, 1 TAB PO BID Prescribed by: SHANEL ALY on 02/17/21 1005 Ondansetron (Ondansetron Odt) 4 Mg Tab.rapdis, 4 MG SL Q4H PRN for NAUSEA/VOMITING Prescribed by: ASHLEY GLEASON on 02/02/21 1554 Ondansetron (Ondansetron Odt) 8 Mg Tab.rapdis, 8 MG PO Q4H PRN for NAUSEA/VOMITING Prescribed by: SHANEL ALY on 02/17/21 0952 Ondansetron (Ondansetron Odt) 4 Mg Tab.rapdis, 4 MG PO Q8H Prescribed by: GAYLA FROST on 04/04/21 1104 Ondansetron (Ondansetron Odt) 8 Mg Tab.rapdis, 8 MG PO Q4H PRN for NAUSEA/VOM ITING Prescribed by: SHANEL ALY on 05/28/21 0614 Ondansetron (Ondansetron Odt) 4 Mg Tab.rapdis, 4 MG PO Q6H Prescribed by: NICKIE ZARATE on 02/08/22 1454 Ondansetron (Ondansetron Odt) 4 Mg Tab.rapdis, 4 MG SL Q4H PRN for NAUSEA/VOMITING Prescribed by: ASHLEY GLEASON on 02/10/22 1004 Pantoprazole Sodium (Protonix) 40 Mg Tablet.dr, 40 MG PO DAILY Prescribed by: SHANEL ALY on 02/17/21 09 Potassium Chloride (Potassium Chloride) 20 Meq Tablet.er, 40 MEQ PO DAILY Prescribed by: NICKIE ZARATE on 02/08/22 1454 Promethazine HCl (Promethazine Suppository) 25 Mg Supp.rect, 25 MG RC Q8H PRN for NAUSEA/VOMITING-2ND LINE Prescribed by: ASHLEY GLEASON on 02/02/21 1554 Promethazine HCl (Promethazine Suppository) 25 Mg Supp.rect, 25 MG RC Q6 Prescribed by: SHANEL ALY on 02/17/21 0952 Promethazine HCl (Promethazine Suppository) 25 Mg Supp.rect, 25 MG RC Q8H PRN for NAUSEA/VOMITING-2ND LINE Prescribed by: ASHLEY GLEASON on 04/05/21 1400 Promethazine HCl (Promethazine Suppository) 25 Mg Supp.rect, 25 MG RC Q6 Prescribed by: SHANEL ALY on 05/28/21 0614 Promethazine HCl (Promethazine Suppository) 25 Mg Supp.rect, 25 MG RC Q8H PRN for NAUSEA/VOMITING-2ND LINE Prescribed by: ASHLEY GLEASON on 02/10/22 1004 Review of Systems Review of Systems Constitutional: No chills, No fever EENTM: No Blurred Vision, No Double Vision Respiratory: Denies Cough, Denies Shortness of Air Cardiovascular: Denies Chest Pain, Denies Edema; Palpitations ("flutter" anxiety related) Gastrointestinal: Denies Abdominal Pain, Denies Constipated, Denies Diarrhea; Nausea, Vomiting Genitourinary: Denies Hematuria; Other (no dysuria) Musculoskeletal: back pain (center of mid-lower thoracic); No joint pain, No joint swelling Skin: No lesions, No rash Psychiatric/Neurological: Denies Headache, Denies Numbness (SURINDERLEWIS MERCADO Entelo STUDENT) Past Ujupisd-Dcjcyp-Qkzwdy Hx Patient Social History Tobacco Use?: No Substance use?: Yes Substance type: Marijuana Alcohol Use?: No Pt feels they are or have been: No (LILY CADENAPayoff STUDENT) Immunizations Up To Date Tetanus Booster (TDap): Less than 5yrs PED Vaccines UTD: Yes First/Initial COVID19 Vaccinat: SEP Second COVID19 Vaccination Vasiliy: SEP Third COVID19 Vaccination Date: SEP (LILY CADENAPayoff STUDENT) Seasonal Allergies Seasonal Allergies: No (SURINDER,LEWIS MED STUDENT) Past Medical History Surgery/Hospitalization HX: anxiety, cannabinoid hyperemesis Surgeries: No Respiratory: No Cardiac: No Neurological: No Last Menstrual Period: Feb 09, 2022 Reproductive Disorders: No Female Reproductive Disorders: Denies Sexually Transmitted Disease: No HIV/AIDS: No Genitourinary: No Gastrointestinal: Yes (cannabis hyperemesis syndrome) Gastroesophageal Reflux Musculoskeletal: No Endocrine: No HEENT: No Loss of Vision: Denies Hearing Impairment: Denies Cancer: No Psychosocial: Yes Anxiety Integumentary: Yes Eczema Blood Disorders: No (LEWIS CADENA [employer] STUDENT) Family Medical History Alcoholism 19 FATHER 19 MOTHER No Family History of: AIDS Abdominal aortic aneurysm Hollywood's disease Alzheimer's disease Aphasia Arthritis Asthma Cancer of mouth Cardiovascular disease Cataracts Colon cancer Completed stroke Congenital disease Congenital heart disease Coronary thrombosis Cystic fibrosis Deafness or hearing loss Dementia Diabetes mellitus Drug abuse Dysphasia Fibrocystic disease of breast Gastroenteritis Glaucoma Headache disorder Hypercholesterolemia Hypertension Infertility Kidney disease Myocardial infarction Neoplasm Not obtainable due to adoption Osteoporosis Parkinson's disease Prostate cancer Psychosocial problem Respiratory disorder Seizure disorder Severe allergy Thyroid disease Tuberculosis Visual disorder No Pertinent Family Hx, Psychiatric Problems (LEWIS CADENA STUDENT) Physical Exam Vital Signs Vital Signs - First Documented 02/10/22 08:18 Temp 35.9 Pulse 82 Resp 18 B/P (MAP) 128/82 (97) Pulse Ox 100 (ASHLEY THAO MD) Vital Signs Capillary Refill : Less Than 3 Seconds (LEWIS CADENA [employer] STUDENT) Height/Weight/BMI Height: 5'3.00" Weight: 130lbs. 0oz. [id number]; 21.00 BMI Method:Stated (LEWIS CADENA [employer] STUDENT) General Appearance: WD/WN, moderate distress, thin HEENT: PERRL/EOMI, normal ENT inspection, other (Mucous membranes somewhat dry) Neck: normal inspection Respiratory: lungs clear, normal breath sounds, no respiratory distress Cardiovascular: regular rate, rhythm, no edema, no murmur Gastrointestinal: normal bowel sounds, soft; No distended; tenderness (Moderate tenderness diffusely) Extremities: normal inspection, no pedal edema Neurologic/Psychiatric: oracle obiee developer II-XII nml as tested, no motor/sensory deficits, alert, normal mood/affect, oriented x 3 Skin: normal color, warm/dry (ASHLEY THAO MD) Procedures/Interventions Suture Size: 4-0 (LEWIS CADENA Entelo STUDENT) Progress/Results/Core Measures Results/Orders Lab Results Laboratory Tests Test 02/10/22 08:42 02/10/22 09:26 Range/Units White Blood Count 10.5 4.3-11.0 10^3/uL Red Blood Count 4.31 3.80-5.11 10^6/uL Hemoglobin 13.8 11.5-16.0 g/dL Hematocrit 41 35-52 % Mean Corpuscular Volume 95 80-99 fL Mean Corpuscular Hemoglobin 32 25-34 pg Mean Corpuscular Hemoglobin Concent 34 32-36 g/dL Red Cell Distribution Width 12.5 10.0-14.5 % Platelet Count 346 130-400 10^3/uL Mean Platelet Volume 10.8 9.0-12.2 fL Immature Granulocyte % (Auto) 1 % Neutrophils (%) (Auto) 76 H 42-75 % Lymphocytes (%) (Auto) 17 12-44 % Monocytes (%) (Auto) 5 0-12 % Eosinophils (%) (Auto) 1 0-10 % Basophils (%) (Auto) 1 0-10 % Neutrophils # (Auto) 8.0 H 1.8-7.8 10^3/uL Lymphocytes # (Auto) 1.8 1.0-4.0 10^3/uL Monocytes # (Auto) 0.5 0.0-1.0 10^3/uL Eosinophils # (Auto) 0.1 0.0-0.3 10^3/uL Basophils # (Auto) 0.1 0.0-0.1 10^3/uL Immature Granulocyte # (Auto) 0.1 0.0-0.1 10^3/uL Sodium Level 144 135-145 MMOL/L Potassium Level 3.1 L 3.6-5.0 MMOL/L Chloride Level 102 98-107 MMOL/L Carbon Dioxide Level 25 21-32 MMOL/L Anion Gap 17 H 5-14 MMOL/L Blood Urea Nitrogen 11 7-18 MG/DL Creatinine 0.73 0.60-1.30 MG/DL Estimat Glomerular Filtration Rate 119 BUN/Creatinine Ratio 15 Glucose Level 112 H 70-105 MG/DL Calcium Level 9.0 8.5-10.1 MG/DL Corrected Calcium 8.8 8.5-10.1 MG/DL Magnesium Level 2.2 1.6-2.4 MG/DL Total Bilirubin 0.4 0.1-1.0 MG/DL Aspartate Amino Transf (AST/SGOT) 15 5-34 U/L Alanine Aminotransferase (ALT/SGPT) 29 0-55 U/L Alkaline Phosphatase 70 40-136 U/L Total Protein 6.8 6.4-8.2 GM/DL Albumin 4.2 3.2-4.5 GM/DL Lipase 22 8-78 U/L Serum Test, Qualitative NEGATIVE NEGATIVE Urine Color YELLOW Urine Clarity SL CLOUDY Urine pH 8.5 5-9 Urine Specific Hilliards 1.010 L 1.016-1.022 Urine Protein NEGATIVE NEGATIVE Urine Glucose (UA) NEGATIVE NEGATIVE Urine Ketones NEGATIVE NEGATIVE Urine Nitrite NEGATIVE NEGATIVE Urine Bilirubin NEGATIVE NEGATIVE Urine Urobilinogen 0.2 < = 1.0 MG/DL Urine Leukocyte Esterase NEGATIVE NEGATIVE Urine RBC (Auto) NEGATIVE NEGATIVE Urine RBC NONE /HPF Urine WBC NONE /HPF Urine Squamous Epithelial Cells 5-10 /HPF Urine Crystals PRESENT H /LPF Urine Amorphous Sediment LARGE ALEX PHOSPHATE H /LPF Urine Bacteria NEGATIVE /HPF Urine Casts NONE /LPF Urine Mucus NEGATIVE /LPF Urine Culture Indicated NO (ASHLEY THAO MD) My Orders Orders - ASHLEY THAO MD Cbc With Automated Diff (02/10/22 08:18) Comprehensive Metabolic Panel (02/10/22 08:18) Hcg,Qualitative Serum (02/10/22 08:18) Lipase (02/10/22 08:18) Magnesium (02/10/22 08:18) Ua Culture If Indicated (02/10/22 08:18) Ed Iv/Invasive Line Start (02/10/22 08:18) Lactated Ringers (Lr 1000 Ml Iv Solution (02/10/22 08:30) Haloperidol Injection (Haldol Injectio (02/10/22 08:30) Ondansetron Injection (Zofran Injectio (02/10/22 08:30) Ketorolac Injection (Toradol Injection) (02/10/22 09:45) Promethazine Injection (Phenergan Injec (02/10/22 10:00) Orphenadrine Inj (Ed Only) (Norflex Inje (02/10/22 10:00) Pantoprazole Injection (Protonix Injecti (02/10/22 10:00) Lactated Ringers (Lr 1000 Ml Iv Solution (02/10/22 10:15) Potassium Chloride (Tablet) (Klor Con Ta (02/10/22 10:15) (ASHLEY THAO MD) Medications Given in ED (ASHLEY THAO MD) Vital Signs/I&O 02/10/22 02/10/22 08:18 11:02 Temp 35.9 Pulse 82 89 Resp 18 18 B/P (MAP) 128/82 (97) 130/82 Pulse Ox 100 98 (ASHLEY THAO MD) Blood Pressure Mean: 97 Progress Progress Note : Progress Note Ladi was treated with IV fluids, Haldol, and Zofran initially. She was later given an additional liter of LR along with promethazine. Patient had some musculoskeletal pain in the upper back with tenderness left of the thoracic spine. She received Toradol to treat her musculoskeletal pain. Protonix was given. I reiterated prior instructions to engage in an intensive substance abuse treatment program. Patient acknowledges the need to do so. Prescriptions were provided. Patient was discharged in stable condition. Potassium was replaced prior to departure. (ASHLEY THAO MD) Departure Impression Primary Impression: Cannabinoid hyperemesis syndrome Additional Impressions: Upper back pain Generalized abdominal pain Hypokalemia Addiction, marijuana Disposition: 01 HOME, SELF-CARE Condition: Improved Departure-Patient Inst. Decision time for Depature: 09:59 (ASHLEY THAO MD) Referrals: [facility] (PCP/Family) Primary Care Physician Patient Instructions: Cannabis Hyperemesis Syndrome, Hypokalemia, Marijuana Use and Addiction Add. Discharge Instructions: Follow-up with your primary care provider soon as possible. It is imperative that you seek help with marijuana addiction. Please discuss this with your primary care provider. The [facility] clinic has a substance abuse counseling and treatment program that you may utilize. Because of the severity of your addiction and the health consequences associated with it, I highly recommend that you seek an inpatient treatment program over an extended period of time. Start with a noncarbonated clear liquid diet and adhere to clear liquids only for the remainder of today. Tomorrow gradually advance her diet with small quantities of bland food as tolerated. Use Zofran (ondansetron) as prescribed for nausea and vomiting. Use Phenergan suppositories as a backup treatment for nausea and vomiting. These treatments may be used if you cannot swallow your cyproheptadine tablets. Completely stop all marijuana and THC products. Use Tylenol (acetaminophen) up to 1000 mg every 6 hours as needed for pain. Avoid use of NSAID medications such as ibuprofen or naproxen as they may worsen your abdominal pain. Use an kozr-xtx-kocwoza antacid medication such as Pepcid (famotidine) 20 mg twice daily or omeprazole 20 mg twice daily for the next few weeks to help your stomach heal. Call with questions or concerns. Return to the ER if you have worsening symptoms. All discharge instructions reviewed with patient and/or family. Voiced u nderstanding. Scripts Promethazine HCl (Promethazine Suppository) 25 Mg Supp.rect 25 MG RC Q8H PRN for NAUSEA/VOMITING-2ND LINE, #10 SUPP.RECT 1 Refill Prov: ASHLEY THAO MD 02/10/22 Ondansetron (Ondansetron Odt) 4 Mg Tab.rapdis 4 MG SL Q4H PRN for NAUSEA/VOMITING, #10 TAB 1 Refill Prov: ASHLEY THAO MD 02/10/22 Copy Copies To 1: YANA MCDANIEL DEREK MED STUDENT Feb 10, 2022 08:32 ASHLEY THAO MD Feb 10, 2022 10:03
[2022-02-10 08:44] LABS: BASOPHILS # (AUTO) 0.1 10^3/uL (0.0-0.1); BASOPHILS % (AUTO) 1 % (0-10); EOSINOPHILS # (AUTO) 0.1 10^3/uL (0.0-0.3); EOSINOPHILS % (AUTO) 1 % (0-10); HEMATOCRIT 41 % (35-52); HEMOGLOBIN 13.8 g/dL (11.5-16.0); LYMPHOCYTES # (AUTO) 1.8 10^3/uL (1.0-4.0); LYMPHOCYTES % (AUTO) 17 % (12-44); MEAN CORPUSCULAR HEMOGLOBIN 32 pg (25-34); MEAN CORPUSCULAR HGB CONC 34 g/dL (32-36); MEAN CORPUSCULAR VOLUME 95 fL (80-99); MEAN PLATELET VOLUME 10.8 fL (9.0-12.2); MONOCYTES # (AUTO) 0.5 10^3/uL (0.0-1.0); MONOCYTES % (AUTO) 5 % (0-12); NEUTROPHILS % (AUTO) 76 % (42-75); PLATELET COUNT 346 10^3/uL (130-400); WHITE BLOOD COUNT 10.5 10^3/uL (4.3-11.0)
[2022-02-10 08:55] LABS: ALBUMIN 4.2 GM/DL (3.2-4.5); POTASSIUM 3.1 MMOL/L (3.6-5.0)
[2022-02-10 08:57] LABS: TOTAL PROTEIN 6.8 GM/DL (6.4-8.2)
[2022-02-10 08:59] LABS: BILIRUBIN,TOTAL 0.4 MG/DL (0.1-1.0)
[2022-02-10 09:01] LABS: CREATININE SERUM 0.73 MG/DL (0.60-1.30)
[2022-02-10 09:04] LABS: MAGNESIUM 2.2 MG/DL (1.6-2.4)
[2022-02-10 09:29] LABS: BILIRUBIN,URINE NEGATIVE (NEGATIVE); CLARITY,URINE SL CLOUDY; COLOR,URINE YELLOW; GLUCOSE, URINE (UA) NEGATIVE (NEGATIVE); KETONES,URINE NEGATIVE (NEGATIVE); LEUKOCYTE ESTERASE ,URINE NEGATIVE (NEGATIVE); NITRITE,URINE NEGATIVE (NEGATIVE); PH,URINE 8.5 (5-9); PROTEIN,URINE NEGATIVE (NEGATIVE)
[2022-02-10 09:39] LABS: BACTERIA,URINE NEGATIVE /HPF
[2022-02-10 09:40] LABS: AMORPHOUS SEDIMENT,UR LARGE AMOR PHOSPHATE /LPF
[2022-02-10] MEDS ORDERED: KETOROLAC 30 MG/ML VIAL IVP ONE (09:45)
[2022-02-10] MEDS ORDERED: PROMETHAZINE INJ 25 MG/ML (PHENERGAN) AMP IVP ONE (10:00)
[2022-02-10] MEDS ORDERED: PANTOPRAZOLE 40 MG (PROTONIX) VIAL IV ONE (10:00)
[2022-02-10] MEDS ORDERED: ORPHENADRINE 60 MG/2 ML (NORFLEX) AMP (ED ONLY) IV ONE (10:00)
[2022-02-10] MEDS ORDERED: ONDA4TAB11 SL (10:04)
[2022-02-10] MEDS ORDERED: PROM25SU44 RC (10:04)
[2022-02-10] MEDS ORDERED: KCL 10 MEQ TAB (MICRO K) PO ONE (10:15)
[2022-02-10 11:02] VITALS: BP 130/82
== END 2022-02-10 11:02 | disposition home or self-care (01) ==
LOC: EDUNIT# 08:10 → ER 08:12
DX: R11.11 Vomiting without nausea (principal); M54.6 Pain in thoracic spine; R10.84 Generalized abdominal pain; E87.6 Hypokalemia; F12.20 Cannabis dependence, uncomplicated
CPT/HCPCS: 36415; 80053; 81000; 83690; 83735; 84703; 85025

== ENCOUNTER 2022-03-27 10:50 | Emergency (ER) | payer SELFPAY ==
[~2022-03-27] VITALS: Ht 160 cm; Wt 56.0 kg
--- NOTE | 2022-03-27 11:22 | ED Abdominal Pain ---
General Chief Complaint: Abdominal/GI Problems Stated Complaint: N/V X 4 DAYS Nursing Triage Note: PT STATES NV FOR 4 DAYS. STATES DAILY THC USE BUT HAS NOT SMOKED FOR 3 DAYS. Source of Information: Patient Exam Limitations: No Limitations (REINA METZGER APRN) History of Present Illness Date Seen by Provider: March 27, 2022 Time Seen by Provider: 11:06 Initial Comments This is a 21 yo female who presented to the ER via POV with complaints of nausea and vomiting x4 days. States that she does have a history of cyclic vomiting and hyperemesis cannabinoid syndrome. States her symptoms started approximate 4 days ago prior to smoking marijuana. She did smoke marijuana 3 days ago which worsened her symptoms. She has been unable to get her symptoms under control with her home antiemetic medications. States that she had a similar episode last month and her symptoms today feel the exact same. She is having burning sensation in her epigastric region that radiates into her back and up into her esophagus. States this pain is the same as every previous episode of cyclic vomiting. She is currently on her menstrual cycle. Denies fever, chills, cough, shortness of breath, chest pain, dysuria. (REINA METZGER APRN) Allergies and Home Medications Allergies Coded Allergies: No Known Drug Allergies (Unverified , 05/07/10) Patient Home Medication List Home Medication List Reviewed: Yes (REINA METZGER APRN) Capsaicin (Capsaicin) 60 Gm Cream..g., 60 GM TP TID Prescribed by: SHANEL ALY on 02/17/21 0954 Capsaicin (Capsaicin) 60 Gm Cream..g., 60 GM TP TID Prescribed by: HSANEL ALY on 05/28/21 0614 Escitalopram Oxalate (Lexapro) 10 Mg Tablet, 10 MG PO DAILY Prescribed by: VICK WALDRON on 01/10/21 0955 Nitrofurantoin Monohyd/M-Cryst (Macrobid 100 mg Capsule) 100 Mg Capsule, 1 TAB PO BID Prescribed by: SHANEL ALY on 02/17/21 1005 Ondansetron (Ondansetron Odt) 4 Mg Tab.rapdis, 4 MG SL Q4H PRN for NAUSEA/VOMITING Prescribed by: ASHLEY GLEASON on 02/02/21 1554 Ondansetron (Ondansetron Odt) 8 Mg Tab.rapdis, 8 MG PO Q4H PRN for KHRIS SEA/VOMITING Prescribed by: SHANEL ALY on 02/17/21 0952 Ondansetron (Ondansetron Odt) 4 Mg Tab.rapdis, 4 MG PO Q8H Prescribed by: GAYLA FROST on 04/04/21 1104 Ondansetron (Ondansetron Odt) 8 Mg Tab.rapdis, 8 MG PO Q4H PRN for NAUSEA/VOMITING Prescribed by: SHANEL ALY on 05/28/21 0614 Ondansetron (Ondansetron Odt) 4 Mg Tab.rapdis, 4 MG PO Q6H Prescribed by: NICKIE ZARATE on 02/08/22 1454 Ondansetron (Ondansetron Odt) 4 Mg Tab.rapdis, 4 MG SL Q4H PRN for NAUSEA/VOMITING Prescribed by: REINA METZGER on 03/27/22 1217 Pantoprazole Sodium (Protonix) 40 Mg Tablet.dr, 40 MG PO DAILY Prescribed by: SHANEL ALY on 02/17/21 09 Potassium Chloride (Potassium Chloride) 20 Meq Tablet.er, 40 MEQ PO DAILY Prescribed by: NICKIE ZARATE on 02/08/22 1454 Promethazine HCl (Promethazine Suppository) 25 Mg Supp.rect, 25 MG RC Q8H PRN for NAUSEA/VOMITING-2ND LINE Prescribed by: ASHLEY GLEASON on 02/02/21 1554 Promethazine HCl (Promethazine Suppository) 25 Mg Supp.rect, 25 MG RC Q6 Prescribed by: SHANEL ALY on 02/17/21 0952 Promethazine HCl (Promethazine Suppository) 25 Mg Supp.rect, 25 MG RC Q8H PRN for NAUSEA/VOMITING-2ND LINE Prescribed by: ASHLEY GLEASON on 04/05/21 1400 Promethazine HCl (Promethazine Suppository) 25 Mg Supp.rect, 25 MG RC Q6 Prescribed by: SHANEL ALY on 05/28/21 0614 Promethazine HCl (Promethazine Suppository) 25 Mg Supp.rect, 25 MG RC Q8H PRN for NAUSEA/VOMITING-2ND LINE Prescribed by: REINA METZGER on 03/27/22 1217 Review of Systems Review of Systems Constitutional: see HPI EENTM: No Symptoms Reported Respiratory: No Symptoms Reported Cardiovascular: No Symptoms Reported Gastrointestinal: See HPI Genitourinary: No Symptoms Reported Musculoskeletal: no symptoms reported Skin: no symptoms reported Psychiatric/Neurological: Anxiety Endocrine: No Symptoms Reported Hematologic/Lymphatic: No Symptoms Reported (REINA METZGER APRN) All Other Systems Reviewed Negative Unless Noted: Yes (REINA METZGER APRN) Past Zcxqvvn-Mdqvca-Dbqxau Hx Patient Social History Tobacco Use?: No Substance use?: Yes Substance type: Marijuana Substance frequency: Daily Alcohol Use?: No (REINA METZGER APRN) Immunizations Up To Date Tetanus Booster (TDap): Less than 5yrs PED Vaccines UTD: Yes First/Initial COVID19 Vaccinat: SEP 2021 Second COVID19 Vaccination Vasiliy: SEP Third COVID19 Vaccination Date: SEP (REINA METZGER APRN) Seasonal Allergies Seasonal Allergies: No (REINA METZGER APRN) Past Medical History Surgery/Hospitalization HX: anxiety, cannabinoid hyperemesis Surgeries: No Respiratory: No Cardiac: No Neurological: No Last Menstrual Period: March 27, 2022 Reproductive Disorders: No Female Reproductive Disorders: Denies Sexually Transmitted Disease: No HIV/AIDS: No Genitourinary: No Gastrointestinal: Yes (cannabis hyperemesis syndrome) Gastroesophageal Reflux Musculoskeletal: No Endocrine: No HEENT: No Loss of Vision: Denies Hearing Impairment: Denies Cancer: No Psychosocial: Yes Anxiety Integumentary: Yes Eczema Blood Disorders: No (REINA METZGER APRN) Family Medical History Alcoholism 19 FATHER 19 MOTHER No Family History of: AIDS Abdominal aortic aneurysm Harvey's disease Alzheimer's disease Aphasia Arthritis Asthma Cancer of mouth Cardiovascular disease Cataracts Colon cancer Completed stroke Congenital disease Congenital heart disease Coronary thrombosis Cystic fibrosis Deafness or hearing loss Dementia Diabetes mellitus Drug abuse Dysphasia Fibrocystic disease of breast Gastroenteritis Glaucoma Headache disorder Hypercholesterolemia Hypertension Infertility Kidney disease Myocardial infarction Neoplasm Not obtainable due to adoption Osteoporosis Parkinson's disease Prostate cancer Psychosocial problem Respiratory disorder Seizure disorder Severe allergy Thyroid disease Tuberculosis Visual disorder No Pertinent Family Hx, Psychiatric Problems (REINA METZGER APRN) Physical Exam Vital Signs Vital Signs - First Documented 03/27/22 03/27/22 10:56 14:00 Temp 35.0 Pulse 62 Resp 22 B/P (MAP) 126/92 Pulse Ox 98 O2 Delivery Room Air (ASHLEY THAO MD) Vital Signs Capillary Refill : Less Than 3 Seconds (REINA METZGER APRN) Height/Weight/BMI Height: 5'3.00" Weight: 130lbs. 0oz. 58.688777gm; 21.00 BMI Method:Stated General Appearance: WD/WN, no apparent distress HEENT: normal ENT inspection, pharynx normal Neck: full range of motion, normal inspection Respiratory: lungs clear, normal breath sounds, no respiratory distress, no accessory muscle use Cardiovascular: regular rate, rhythm, no edema, no murmur Gastrointestinal: normal bowel sounds, soft, no organomegaly, no pulsatile mass, tenderness (diffuse ) Extremities: normal range of motion, normal inspection Back: normal inspection Neurologic/Psychiatric: no motor/sensory deficits, alert, normal mood/affect, oriented x 3 Skin: normal color, warm/dry Lymphatic: no adenopathy (REINA METZGER APRN) Procedures/Interventions Suture Size: 4-0 (REINA METZGER APRN) Progress/Results/Core Measures Results/Orders Lab Results Laboratory Tests Test 03/27/22 11:03 Range/Units White Blood Count 8.9 4.3-11.0 10^3/uL Red Blood Count 4.81 3.80-5.11 10^6/uL Hemoglobin 15.4 11.5-16.0 g/dL Hematocrit 44 35-52 % Mean Corpuscular Volume 92 80-99 fL Mean Corpuscular Hemoglobin 32 25-34 pg Mean Corpuscular Hemoglobin Concent 35 32-36 g/dL Red Cell Distribution Width 12.6 10.0-14.5 % Platelet Count 263 130-400 10^3/uL Mean Platelet Volume 12.0 9.0-12.2 fL Immature Granulocyte % (Auto) 1 % Neutrophils (%) (Auto) 74 42-75 % Lymphocytes (%) (Auto) 18 12-44 % Monocytes (%) (Auto) 7 0-12 % Eosinophils (%) (Auto) 0 0-10 % Basophils (%) (Auto) 1 0-10 % Neutrophils # (Auto) 6.6 1.8-7.8 10^3/uL Lymphocytes # (Auto) 1.6 1.0-4.0 10^3/uL Monocytes # (Auto) 0.6 0.0-1.0 10^3/uL Eosinophils # (Auto) 0.0 0.0-0.3 10^3/uL Basophils # (Auto) 0.1 0.0-0.1 10^3/uL Immature Granulocyte # (Auto) 0.1 0.0-0.1 10^3/uL Sodium Level 141 135-145 MMOL/L Potassium Level 3.6 3.6-5.0 MMOL/L Chloride Level 99 98-107 MMOL/L Carbon Dioxide Level 25 21-32 MMOL/L Anion Gap 17 H 5-14 MMOL/L Blood Urea Nitrogen 15 7-18 MG/DL Creatinine 0.83 0.60-1.30 MG/DL Estimat Glomerular Filtration Rate 102 BUN/Creatinine Ratio 18 Glucose Level 134 H 70-105 MG/DL Calcium Level 10.3 H 8.5-10.1 MG/DL Corrected Calcium 8.5-10.1 MG/DL Magnesium Level 2.0 1.6-2.4 MG/DL Total Bilirubin 0.9 0.1-1.0 MG/DL Aspartate Amino Transf (AST/SGOT) 21 5-34 U/L Alanine Aminotransferase (ALT/SGPT) 16 0-55 U/L Alkaline Phosphatase 74 40-136 U/L Total Protein 8.3 H 6.4-8.2 GM/DL Albumin 5.2 H 3.2-4.5 GM/DL Serum Test, Qualitative NEGATIVE NEGATIVE Smear Scan YES (ASHLEY THAO MD) Vital Signs/I&O 03/27/22 03/27/22 03/27/22 10:56 11:37 14:00 Temp 35.0 35.0 Pulse 62 68 Resp 22 15 B/P (MAP) 126/92 Pulse Ox 98 O2 Delivery Room Air Room Air 03/27/22 23:59 Intake Total 2000 ml Balance 2000 ml (ASHLEY THAO MD) Progress Progress Note : Progress Note Patient examined and in no acute distress. She does have a small amount of spit up in a bucket. We will go and obtain basic labs and evaluate electrolyte status due to number of days with vomiting. Orders placed for normal saline janett elizabeth and Phenergan as she reports this is helped her in the past. Labs reviewed and are relatively unremarkable. Given second liter of saline and Haldol IV. States that this significantly improved her symptoms. She is feeling much improved and ready to discharge. Discharge plan of care reviewed and she is agreeable with plan. Sent prescription for Phenergan and Zofran to [facility] pharmacy. (REINA METZGER APRN) Initial ECG Impression Date: March 27, 2022 Initial ECG Impression Time: 11:31 Initial ECG Rate: 56 Initial ECG Rhythm: S.Andres Initial ECG Impression: Normal (REINA METZGER APRN) Departure Impression Primary Impression: Cannabinoid hyperemesis syndrome Additional Impression: Cyclic vomiting syndrome Disposition: 01 HOME, SELF-CARE Condition: Improved Departure-Patient Inst. Decision time for Depature: 12:15 (REINA METZGER APRN) Referrals: [facility] (PCP/Family) Primary Care Physician Patient Instructions: Nausea and Vomiting, Adult (DC) Add. Discharge Instructions: Plan: 1. Stop smoking marijuana. 2. Take Pepcid twice a day, call your doctor for close follow up. 3. May take Zofran or Phenergan as directed for nausea/vomiting. Do not drive with Phenergan as this may cause dizziness. 4. Start with a clear liquid diet until you are no longer vomiting and then you can advance slowly. 5. Return for any new, concerning, or worsening symptoms. All discharge instructions reviewed with patient and/or family. Voiced understanding. Scripts Promethazine HCl (Promethazine Suppository) 25 Mg Supp.rect 25 MG RC Q8H PRN for NAUSEA/VOMITING-2ND LINE, #10 SUPP.RECT 1 Refill Prov: REINA METZGER APRN 03/27/22 Ondansetron (Ondansetron Odt) 4 Mg Tab.rapdis 4 MG SL Q4H PRN for NAUSEA/VOMITING, #10 TAB 1 Refill Prov: REINA METZGER APRN 03/27/22 ATTENDING PHYSICIAN NOTE: I was physically present as attending physician in the emergency department during the care of this patient, but I was not directly involved in the decision making or delivery of care for this patient. (ASHLEY THAO MD) REINA METZGER APRN March 27, 2022 11:22 ASHLEY THAO MD March 28, 2022 07:24
[2022-03-27 11:30] LABS: BASOPHILS # (AUTO) 0.1 10^3/uL (0.0-0.1); BASOPHILS % (AUTO) 1 % (0-10); EOSINOPHILS % (AUTO) 0 % (0-10); HEMATOCRIT 44 % (35-52); HEMOGLOBIN 15.4 g/dL (11.5-16.0); LYMPHOCYTES # (AUTO) 1.6 10^3/uL (1.0-4.0); LYMPHOCYTES % (AUTO) 18 % (12-44); MEAN CORPUSCULAR HEMOGLOBIN 32 pg (25-34); MEAN CORPUSCULAR HGB CONC 35 g/dL (32-36); MEAN CORPUSCULAR VOLUME 92 fL (80-99); MONOCYTES # (AUTO) 0.6 10^3/uL (0.0-1.0); MONOCYTES % (AUTO) 7 % (0-12); NEUTROPHILS # (AUTO) 6.6 10^3/uL (1.8-7.8); NEUTROPHILS % (AUTO) 74 % (42-75); PLATELET COUNT 263 10^3/uL (130-400); SMEAR SCAN COMMENT YES; WHITE BLOOD COUNT 8.9 10^3/uL (4.3-11.0)
[2022-03-27] MEDS ORDERED: NS IV 1000 ML 1,000 ML IV ONE ×2 (11:30→12:45)
[2022-03-27] MEDS ORDERED: PROMETHAZINE INJ 25 MG/ML (PHENERGAN) AMP IVP ONE (11:30)
[2022-03-27] MEDS ORDERED: KETOROLAC 30 MG/ML VIAL IVP ONE (11:30)
[2022-03-27 11:32] LABS: ALBUMIN 5.2 GM/DL (3.2-4.5); CHLORIDE 99 MMOL/L (98-107); POTASSIUM 3.6 MMOL/L (3.6-5.0); SODIUM 141 MMOL/L (135-145)
[2022-03-27 11:33] LABS: CALCIUM 10.3 MG/DL (8.5-10.1)
[2022-03-27 11:34] LABS: GLUCOSE 134 MG/DL (70-105); TOTAL PROTEIN 8.3 GM/DL (6.4-8.2)
[2022-03-27 11:35] LABS: CARBON DIOXIDE 25 MMOL/L (21-32)
[2022-03-27 11:36] LABS: BILIRUBIN,TOTAL 0.9 MG/DL (0.1-1.0)
[2022-03-27 11:38] LABS: ALKALINE PHOSPHATASE 74 U/L (40-136); CREATININE SERUM 0.83 MG/DL (0.60-1.30); GFR ESTIMATED 102
[2022-03-27 11:39] LABS: BUN/CREATININE RATIO 18
[2022-03-27 11:41] LABS: ALANINE AMINOTRANSFERASE 16 U/L (0-55)
[2022-03-27] MEDS ORDERED: HALOPERIDOL 5 MG/ML (HALDOL) VIAL IV ONE (12:15)
[2022-03-27] MEDS ORDERED: PANTOPRAZOLE 40 MG (PROTONIX) VIAL IV ONE (12:15)
[2022-03-27] MEDS ORDERED: ONDA4TAB11 SL (12:17)
[2022-03-27] MEDS ORDERED: PROM25SU44 RC (12:17)
[2022-03-27 14:00] VITALS: BP 126/92
== END 2022-03-27 14:00 | disposition home or self-care (01) ==
LOC: EDUNIT# 10:50 → ER 10:52
DX: F12.288 Cannabis dependence with other cannabis-induced disorder (principal); R11.15 Cyclical vomiting syndrome unrelated to migraine; Z32.02 Encounter for pregnancy test, result negative
CPT/HCPCS: 36415; 80053; 83735; 84703; 85025; 93005

== ENCOUNTER 2022-06-04 09:02 | Emergency (ER) | payer SELFPAY ==
[~2022-06-04] VITALS: Ht 157 cm; Wt 54.4 kg
[2022-06-04 09:14] VITALS: BP 124/79
[2022-06-04] MEDS ORDERED: LACTATED RINGERS 1,000 ML IV ONE (09:15)
[2022-06-04] MEDS ORDERED: PANTOPRAZOLE 40 MG (PROTONIX) VIAL IV ONE (09:15)
[2022-06-04] MEDS ORDERED: ONDANSETRON 4 MG/2 ML (SDV) Z0FRAN IVP ONE (09:15)
[2022-06-04 09:23] LABS: BASOPHILS % (AUTO) 0 % (0-10); EOSINOPHILS % (AUTO) 0 % (0-10); HEMATOCRIT 42 % (35-52); HEMOGLOBIN 14.5 g/dL (11.5-16.0); LYMPHOCYTES % (AUTO) 18 % (12-44); MEAN CORPUSCULAR HEMOGLOBIN 31 pg (25-34); MEAN CORPUSCULAR HGB CONC 34 g/dL (32-36); MEAN CORPUSCULAR VOLUME 91 fL (80-99); MEAN PLATELET VOLUME 11.3 fL (9.0-12.2); MONOCYTES # (AUTO) 0.7 10^3/uL (0.0-1.0); MONOCYTES % (AUTO) 13 % (0-12); NEUTROPHILS # (AUTO) 3.7 10^3/uL (1.8-7.8); NEUTROPHILS % (AUTO) 69 % (42-75); PLATELET COUNT 274 10^3/uL (130-400); WHITE BLOOD COUNT 5.4 10^3/uL (4.3-11.0)
[2022-06-04] MEDS ORDERED: DROPERIDOL 5 MG/2 ML (INAPSINE) ED ONLY! IV ONE (09:30)
[2022-06-04 09:53] LABS: ALBUMIN 4.9 GM/DL (3.2-4.5); CHLORIDE 100 MMOL/L (98-107); POTASSIUM 3.2 MMOL/L (3.6-5.0); SODIUM 142 MMOL/L (135-145)
[2022-06-04 09:54] LABS: CALCIUM 10.5 MG/DL (8.5-10.1)
[2022-06-04 09:55] LABS: GLUCOSE 125 MG/DL (70-105); TOTAL PROTEIN 8.1 GM/DL (6.4-8.2)
[2022-06-04 09:56] LABS: CARBON DIOXIDE 27 MMOL/L (21-32)
[2022-06-04 09:57] LABS: BILIRUBIN,TOTAL 0.6 MG/DL (0.1-1.0)
[2022-06-04 09:58] LABS: ALKALINE PHOSPHATASE 75 U/L (40-136)
[2022-06-04 09:59] LABS: CREATININE SERUM 0.81 MG/DL (0.60-1.30); GFR ESTIMATED 105
[2022-06-04 10:00] LABS: BUN/CREATININE RATIO 19
[2022-06-04 10:02] LABS: ALANINE AMINOTRANSFERASE 20 U/L (0-55)
[2022-06-04 10:03] LABS: LIPASE 8 U/L (8-78)
[2022-06-04] MEDS ORDERED: KETOROLAC 30 MG/ML VIAL IVP ONE (11:15)
[2022-06-04] MEDS ORDERED: KCL 10 MEQ TAB (MICRO K) PO ONE (11:15)
[2022-06-04] MEDS ORDERED: PROM25TA14 PO (11:17)
[2022-06-04] MEDS ORDERED: ONDA4TAB11 SL (11:17)
[2022-06-04] MEDS ORDERED: FAMO-119 PO (11:17)
--- NOTE | 2022-06-04 11:17 | ED Abdominal Pain ---
General Chief Complaint: Abdominal/GI Problems Stated Complaint: N/V X3 DAYS Nursing Triage Note: PT PRESENTS TO ED VIA POV FROM HOME WITH COMPLAINTS OF N/V STARTING 3 DAYS AGO. Source of Information: Patient Exam Limitations: No Limitations History of Present Illness Date Seen by Provider: Jun 04, 2022 Time Seen by Provider: 09:10 Initial Comments This 21-year-old young lady presents to the emergency room with complaints of nausea, vomiting, and abdominal pain x3 days. She has history of cannabis hyperemesis syndrome and has had numerous visits to the emergency room. She does not presently have any antiemetics at home that she can take for her symptoms. Her last use of marijuana was about 3 days ago. She is not presently receiving any addiction treatment despite encouragement to seek this out on numerous prior visits. Allergies and Home Medications Allergies Coded Allergies: No Known Drug Allergies (Unverified , 05/07/10) Patient Home Medication List Home Medication List Reviewed: Yes Capsaicin (Capsaicin) 60 Gm Cream..g., 60 GM TP TID Prescribed by: SHANEL ALY on 02/17/21 0954 Capsaicin (Capsaicin) 60 Gm Cream..g., 60 GM TP TID Prescribed by: SHANEL ALY on 05/28/21 0614 Escitalopram Oxalate (Lexapro) 10 Mg Tablet, 10 MG PO DAILY Prescribed by: VICK WALDRON on 01/10/21 0955 Famotidine (Pepcid) 20 Mg Tablet, 20 MG PO BID Prescribed by: ASHLEY GLEASON on 06/04/22 1117 Nitrofurantoin Monohyd/M-Cryst (Macrobid 100 mg Capsule) 100 Mg Capsule, 1 TAB PO BID Prescribed by: SHANEL ALY on 02/17/21 1005 Ondansetron (Ondansetron Odt) 4 Mg Tab.rapdis, 4 MG SL Q4H PRN for NAUSEA/VOMITING Prescribed by: ASHLEY GLEASON on 02/02/21 1554 Ondansetron (Ondansetron Odt) 8 Mg Tab.rapdis, 8 MG PO Q4H PRN for NAUSEA/VOMITING Prescribed by: SHANEL ALY on 02/17/21 0952 Ondansetron (Ondansetron Odt) 4 Mg Tab.rapdis, 4 MG PO Q8H Prescribed by: GAYLA FROST on 04/04/21 1104 Ondansetron (Ondansetron Odt) 8 Mg Tab.rapdis, 8 MG PO Q4H PRN for NAUSEA/VOMITI NG Prescribed by: SHANEL ALY on 05/28/21 0614 Ondansetron (Ondansetron Odt) 4 Mg Tab.rapdis, 4 MG PO Q6H Prescribed by: NICKIE ZARATE on 02/08/22 1454 Ondansetron (Ondansetron Odt) 4 Mg Tab.rapdis, 4 MG SL Q4H PRN for NAUSEA/VOMITING Prescribed by: REINA METZGER on 03/27/22 1217 Ondansetron (Ondansetron Odt) 4 Mg Tab.rapdis, 4 MG SL Q4H PRN for NAUSEA/VOMITING Prescribed by: ASHLEY GLEASON on 06/04/22 1117 Pantoprazole Sodium (Protonix) 40 Mg Tablet.dr, 40 MG PO DAILY Prescribed by: SHANEL ALY on 02/17/21 0952 Potassium Chloride (Potassium Chloride) 20 Meq Tablet.er, 40 MEQ PO DAILY Prescribed by: NICKIE ZARATE on 02/08/22 1454 Promethazine HCl (Promethazine Suppository) 25 Mg Supp.rect, 25 MG RC Q8H PRN for NAUSEA/VOMITING-2ND LINE Prescribed by: ASHLEY GLEASON on 02/02/21 1554 Promethazine HCl (Promethazine Suppository) 25 Mg Supp.rect, 25 MG RC Q6 Prescribed by: SHANEL ALY on 02/17/21 0952 Promethazine HCl (Promethazine Suppository) 25 Mg Supp.rect, 25 MG RC Q8H PRN for NAUSEA/VOMITING-2ND LINE Prescribed by: ASHLEY GLEASON on 04/05/21 1400 Promethazine HCl (Promethazine Suppository) 25 Mg Supp.rect, 25 MG RC Q6 Prescribed by: SHANEL ALY on 05/28/21 0614 Promethazine HCl (Promethazine Suppository) 25 Mg Supp.rect, 25 MG RC Q8H PRN for NAUSEA/VOMITING-2ND LINE Prescribed by: REINA METZGER on 03/27/22 1217 Promethazine HCl (Promethazine Tablet) 25 Mg Tablet, 25 MG PO Q6H PRN for NAUSEA/VOMITING-2ND LINE Prescribed by: ASHLEY GLEASON on 06/04/22 1117 Review of Systems Review of Systems Constitutional: no symptoms reported EENTM: Throat Pain Respiratory: No Symptoms Reported Cardiovascular: No Symptoms Reported Gastrointestinal: See HPI Genitourinary: No Symptoms Reported Musculoskeletal: no symptoms reported Skin: no symptoms reported Psychiatric/Neurological: See HPI Endocrine: No Symptoms Reported Hematologic/Lymphatic: No Symptoms Reported Past Iuhtynm-Djsixu-Pzevko Hx Patient Social History Tobacco Use?: No Substance use?: Yes Substance type: Marijuana Alcohol Use?: No Pt feels they are or have been: No Immunizations Up To Date Tetanus Booster (TDap): Less than 5yrs PED Vaccines UTD: Yes First/Initial COVID19 Vaccinat: SEP 2021 Second COVID19 Vaccination Vasiliy: SEP 2021 Third COVID19 Vaccination Date: SEP 2021 Seasonal Allergies Seasonal Allergies: No Past Medical History Surgery/Hospitalization HX: anxiety, cannabinoid hyperemesis Surgeries: No Respiratory: No Cardiac: No Neurological: No Reproductive Disorders: No Female Reproductive Disorders: Denies Sexually Transmitted Disease: No HIV/AIDS: No Genitourinary: No Gastrointestinal: Yes (cannabis hyperemesis syndrome) Gastroesophageal Reflux Musculoskeletal: No Endocrine: No HEENT: No Loss of Vision: Denies Hearing Impairment: Denies Cancer: No Psychosocial: Yes (Marijuana dependence) Anxiety Integumentary: Yes Eczema Blood Disorders: No Family Medical History Alcoholism 19 FATHER 19 MOTHER No Family History of: AIDS Abdominal aortic aneurysm Homar's disease Alzheimer's disease Aphasia Arthritis Asthma Cancer of mouth Cardiovascular disease Cataracts Colon cancer Completed stroke Congenital disease Congenital heart disease Coronary thrombosis Cystic fibrosis Deafness or hearing loss Dementia Diabetes mellitus Drug abuse Dysphasia Fibrocystic disease of breast Gastroenteritis Glaucoma Headache disorder Hypercholesterolemia Hypertension Infertility Kidney disease Myocardial infarction Neoplasm Not obtainable due to adoption Osteoporosis Parkinson's disease Prostate cancer Psychosocial problem Respiratory disorder Seizure disorder Severe allergy Thyroid disease Tuberculosis Visual disorder No Pertinent Family Hx, Psychiatric Problems Physical Exam Vital Signs Vital Signs - First Documented 06/04/22 09:14 Temp 36.4 Pulse 54 Resp 16 B/P (MAP) 124/79 (94) Pulse Ox 97 Capillary Refill : Less Than 3 Seconds Height/Weight/BMI Height: 5'3.00" Weight: 130lbs. 0oz. 58.051979on; 22.00 BMI Method:Stated General Appearance: WD/WN, mild distress HEENT: PERRL/EOMI, normal ENT inspection, other (Erythema and petechiae on the soft palate) Neck: normal inspection Respiratory: lungs clear, normal breath sounds, no respiratory distress Cardiovascular: regular rate, rhythm, no edema, no murmur Gastrointestinal: normal bowel sounds, soft, tenderness (Epigastric) Extremities: normal inspection, no pedal edema Neurologic/Psychiatric: face hardener II-XII nml as tested, no motor/sensory deficits, alert, normal mood/affect, oriented x 3 Skin: warm/dry, pallor Procedures/Interventions Suture Size: 4-0 Progress/Results/Core Measures Results/Orders Lab Results Laboratory Tests Test 06/04/22 09:17 Range/Units White Blood Count 5.4 4.3-11.0 10^3/uL Red Blood Count 4.64 3.80-5.11 10^6/uL Hemoglobin 14.5 11.5-16.0 g/dL Hematocrit 42 35-52 % Mean Corpuscular Volume 91 80-99 fL Mean Corpuscular Hemoglobin 31 25-34 pg Mean Corpuscular Hemoglobin Concent 34 32-36 g/dL Red Cell Distribution Width 12.8 10.0-14.5 % Platelet Count 274 130-400 10^3/uL Mean Platelet Volume 11.3 9.0-12.2 fL Immature Granulocyte % (Auto) 0 % Neutrophils (%) (Auto) 69 42-75 % Lymphocytes (%) (Auto) 18 12-44 % Monocytes (%) (Auto) 13 H 0-12 % Eosinophils (%) (Auto) 0 0-10 % Basophils (%) (Auto) 0 0-10 % Neutrophils # (Auto) 3.7 1.8-7.8 10^3/uL Lymphocytes # (Auto) 1.0 1.0-4.0 10^3/uL Monocytes # (Auto) 0.7 0.0-1.0 10^3/uL Eosinophils # (Auto) 0.0 0.0-0.3 10^3/uL Basophils # (Auto) 0.0 0.0-0.1 10^3/uL Immature Granulocyte # (Auto) 0.0 0.0-0.1 10^3/uL Sodium Level 142 135-145 MMOL/L Potassium Level 3.2 L 3.6-5.0 MMOL/L Chloride Level 100 98-107 MMOL/L Carbon Dioxide Level 27 21-32 MMOL/L Anion Gap 15 H 5-14 MMOL/L Blood Urea Nitrogen 15 7-18 MG/DL Creatinine 0.81 0.60-1.30 MG/DL Estimat Glomerular Filtration Rate 105 BUN/Creatinine Ratio 19 Glucose Level 125 H 70-105 MG/DL Calcium Level 10.5 H 8.5-10.1 MG/DL Corrected Calcium 8.5-10.1 MG/DL Magnesium Level 2.0 1.6-2.4 MG/DL Total Bilirubin 0.6 0.1-1.0 MG/DL Aspartate Amino Transf (AST/SGOT) 29 5-34 U/L Alanine Aminotransferase (ALT/SGPT) 20 0-55 U/L Alkaline Phosphatase 75 40-136 U/L C-Reactive Protein High Sensitivity 0.14 0.00-0.50 MG/DL Total Protein 8.1 6.4-8.2 GM/DL Albumin 4.9 H 3.2-4.5 GM/DL Lipase 8 8-78 U/L Serum Test, Qualitative NEGATIVE NEGATIVE My Orders Orders - ASHLEY THAO MD Ed Iv/Invasive Line Start (06/04/22 09:10) Lactated Ringers (Lr 1000 Ml Iv Solution (06/04/22 09:15) Cbc With Automated Diff (06/04/22 09:10) Comprehensive Metabolic Panel (06/04/22 09:10) Hs C Reactive Protein (06/04/22 09:10) Hcg,Qualitative Serum (06/04/22 09:10) Lipase (06/04/22 09:10) Magnesium (06/04/22 09:10) Ondansetron Injection (Zofran Injectio (06/04/22 09:15) Pantoprazole Injection (Protonix Injecti (06/04/22 09:15) Ekg Tracing (06/04/22 09:10) Droperidol Inj (Ed Only) (Inapsine Inj ( (06/04/22 09:30) Ketorolac Injection (Toradol Injection) (06/04/22 11:15) Potassium Chloride (Tablet) (Klor Con Ta (06/04/22 11:15) Medications Given in ED Current Medications Medications Dose Ordered Sig/Jeannette Route Start Time Stop Time Status Last Admin Dose Admin Droperidol 2.5 mg ONCE ONCE IV 06/04/22 09:30 06/04/22 09:31 DC 06/04/22 09:59 2.5 MG Ketorolac Tromethamine 15 mg ONCE ONCE IVP 06/04/22 11:15 06/04/22 11:16 DC 06/04/22 11:19 15 MG Lactated Ringer's 1,000 ml @ 0 mls/hr Q0M ONCE IV 06/04/22 09:15 06/04/22 09:16 DC 06/04/22 09:59 0 MLS/HR Ondansetron HCl 8 mg ONCE ONCE IVP 06/04/22 09:15 06/04/22 09:16 DC 06/04/22 09:59 8 MG Pantoprazole 40 mg ONCE ONCE IV 06/04/22 09:15 06/04/22 09:16 DC 06/04/22 09:59 40 MG Potassium Chloride 20 meq ONCE ONCE PO 06/04/22 11:15 06/04/22 11:16 DC 06/04/22 11:17 20 MEQ Vital Signs/I&O 06/04/22 09:14 Temp 36.4 Pulse 54 Resp 16 B/P (MAP) 124/79 (94) Pulse Ox 97 Blood Pressure Mean: 94 Progress Progress Note : Progress Note Patient was treated with IV fluids, Zofran, Protonix, and droperidol with good results. She was tolerating oral liquids well after that. She did have some petechiae and erythema of the soft palate with sore throat which she believes is secondary to intense vomiting. Potassium was replaced orally. Toradol was given for sore throat. See discharge instructions for further discussion. Initial ECG Impression Date: Jun 04, 2022 Initial ECG Impression Time: 09:24 Initial ECG Rate: 50 Initial ECG Rhythm: Normal Sinus Initial ECG Impression: Normal Comment Normal sinus rhythm with no ST elevation or depression. No abnormal intervals or axis deviation. QT interval is normal. Departure Impression Primary Impression: Cannabis hyperemesis syndrome concurrent with and due to cannabis dependence Additional Impressions: Epigastric pain Hypokalemia Sore throat Disposition: 01 HOME, SELF-CARE Condition: Improved Departure-Patient Inst. Decision time for Depature: 11:12 Referrals: [facility] (PCP/Family) Primary Care Physician Patient Instructions: Cannabis Hyperemesis Syndrome, Hypokalemia Add. Discharge Instructions: Start with a noncarbonated clear liquid diet and gradually advance your diet with small quantities of bland food as tolerated. Take Pepcid twice daily as prescribed. Use Zofran (ondansetron) as prescribed for primary control of nausea and vomiting. Use Phenergan (promethazine) as a backup medication. Use Tylenol (acetaminophen) up to 1000 mg every 6 hours as needed for pain. Follow-up with your primary care provider soon as possible. Please call today for an appointment. Please also make arrangements in consultation with your primary care provider to receive substance abuse treatment and counseling for your marijuana dependence. Return to care if you have worsening symptoms. All discharge instructions reviewed with patient and/or family. Voiced understanding. Scripts Promethazine HCl (Promethazine Tablet) 25 Mg Tablet 25 MG PO Q6H PRN for NAUSEA/VOMITING-2ND LINE, #10 TAB Prov: ASHLEY THAO MD 06/04/22 Ondansetron (Ondansetron Odt) 4 Mg Tab.rapdis 4 MG SL Q4H PRN for NAUSEA/VOMITING, #10 TAB 2 Refills Prov: ASHLEY THAO MD 06/04/22 Famotidine (Pepcid) 20 Mg Tablet 20 MG PO BID, #60 TAB Prov: ASHLEY THAO MD 06/04/22 ASHLEY THAO MD Jun 04, 2022 11:17
== END 2022-06-04 11:30 | disposition home or self-care (01) ==
LOC: EDUNIT# 09:02 → ER 09:03
DX: F12.188 Cannabis abuse with other cannabis-induced disorder (principal); R11.2 Nausea with vomiting, unspecified; E87.6 Hypokalemia; J02.9 Acute pharyngitis, unspecified; Z32.02 Encounter for pregnancy test, result negative
CPT/HCPCS: 36415; 80053; 83690; 83735; 84703; 85025; 86141; 93005